=== PATIENT | male | born 1945 | race Caucasian/White ===

== ENCOUNTER → 2023-11-11 15:32 | Outpatient (REF) | payer OTHER, SELFPAY | LOC: HWRCS 15:32 | PROVIDERS: ATTENDING PHYSICIAN Internal Medicine Cardiovascular Disease; FAMILY PHYSICIAN Physician Assistant | DX: I10 Essential (primary) hypertension (principal) | CPT/HCPCS: 93306 ==

== ENCOUNTER → 2023-11-20 15:57 | Outpatient (REF) | payer OTHER, SELFPAY | LOC: HWRAD 15:57 | PROVIDERS: ATTENDING PHYSICIAN Internal Medicine; FAMILY PHYSICIAN Physician Assistant | DX: C49.9 Malignant neoplasm of connective and soft tissue, unspecified (principal) | CPT/HCPCS: 71250 ==

== ENCOUNTER 2024-01-29 20:08 | Inpatient (IN) | payer OTHER, SELFPAY ==
[2024-01-29] VITALS (22 sets, daily range): BP systolic 40–153; BP diastolic 49–138; BMI 26.3
--- NOTE | 2024-01-29 18:29 | EDRN ---
the pt was brought from triage to ED Bed #11 via w/c screaming in pain, this RN entered the pts room and the PCT was attempting to get the out of the w/c into the stretcher, the pt was yelling at staff, this RN told the pt that he needs to stop
yelling at staff and tell the ED staff how we can help him get into the stretcher from the w/c, the pt stated that he can bare weight on the right leg, this RN and Ally PCT assisted the pt from the w/c to the stretcher, the pt was placed on the
monitor and LAC PIV was placed, labs drawn and sent, the pt continues to scream in pain with pain in the left groin that shoots down the pts left leg, there is a large incision with sutures on the left thigh with two open wounds on the bottom of the
wound, the pts lower leg is swollen as well as the pts left ankle with edema, Chandra ROCK was notified and brought to the pts bedside, DP/PT pulses were obtained via doppler
[2024-01-29] MEDS: DILAUDID 1 MG IV ×2 (18:31→18:47)
--- NOTE | 2024-01-29 18:33 | EDRN ---
Dr. Patrick currently at the pts bedside speaking with the pt and the pts
[2024-01-29 18:34] LABS: % Basophils 0.4 % (0-2); % Eosinophils 1.3 % (0-6); % Immature Granulocytes 1.3 % (0-0.5); % Lymphocytes 27.9 % (20.5-51.1); % Monocytes 8.6 % (1.7-9.3); % Neutrophils 60.5 % (42.2-75.2); Absolute Basophils 0.1 10^3/uL (0-0.2); Absolute Eosinophils 0.2 10^3/uL (0-0.7); Absolute Immature Granulocytes 0.2 10^3/uL (0-0.05); Absolute Lymphocytes 3.8 10^3/uL (1.2-3.4); Absolute Monocytes 1.2 10^3/uL (0.1-0.6); Absolute Neutrophils 8.2 10^3/uL (1.4-6.5); Hematocrit 28.9 % (39.0-52.0); Hemoglobin 9.1 g/dL (13.0-18.0); Mean Corp Hgb Conc. 31.5 g/dL (33.0-37.0); Mean Corpuscular Hgb 25.9 pg (27.0-31.0); Mean Corpuscular Volume 82.1 fL (80.0-94.0); Mean Platelet Volume 9.8 fL (7.4-10.4); Nucleated Red Blood Cells % 0 % (-); Platelet Count 513 10^3/uL (130-400); Red Blood Cell Count 3.52 10^6/uL (4.70-6.10); Red Cell Dist. Width 18.2 % (11.5-14.5); White Blood Cell Count 13.6 10^3/uL (4.8-10.8)
[2024-01-29 18:44] LABS: INR 1.75; PT 20.6 Sec (11.4-14.6)
[2024-01-29 18:45] LABS: APTT 40.1 Sec (23.4-35.0)
--- NOTE | 2024-01-29 18:48 | EDRN ---
pt medication again for pain and taken to CT scan
--- NOTE | 2024-01-29 18:53 | ED.GENMED ---
History of Present Illness
<Chandra Wolf PA-C - Last Filed: 01/29/24 19:54>
General
Chief Complaint: Vascular Symptoms
Source: patient and family
Time Seen by Provider: 01/29/24 18:36
Travel History
Have you had any contact with someone who has COVID-19?: No
Do you have any symptoms of coronavirus? Fever > 100 degrees, chills, cough, shortness of breath, sore throat, loss of taste or smell, muscle aches, or headache?: No
History of Present Illness
History of Present Illness:
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
the left thigh associated with bleeding from the incisional site where his postop drain was removed from yesterday. No medications were given prior to arrival other than his pain medication postoperatively but that has been taking at home. Patient
reports that he had been doing well postoperatively however states that he is post to be readmitted to the hospital this coming Friday for surgical debridement of skin tissue and an. He was newly started on levofloxacin today by his general
surgeon. He was treated by vascular surgeon Dr. Muller and plastic surgeon Dr. Mckeon. Patient states that he has never had pain like this before. He denies any fevers, chills, rigors, chest pain or shortness of breath, cough or any other
concerns including weakness/numbness/paresthesia to the affected left leg.
Past History
<Chandra Wolf PA-C - Last Filed: 01/29/24 19:54>
Past History
ED Past Medical History: Cancer, HTN and Hypercholesterolemia
ED Past Surgical History: Cholecystectomy, Orthopedic, Urological and Other
Social History
Tobacco: Non-smoker
Alcohol: None
Drug: None
Personal:
Living: with family
Review of Systems
<Chandar Wolf PA-C - Last Filed: 01/29/24 19:54>
Review of Systems
All Other Systems: ROS reviewed and negative except as documented in HPI and ROS
Phy Exam
<Chandra Wolf PA-C - Last Filed: 01/29/24 19:54>
Physical Exam
Physical Exam:
GENERAL: Alert , patient yelling and writhing in pain
EYE: Clear conjunctiva
NECK: Supple
ENT: o/p clr, mmm.
CARDIAC: Tachycardic rate and rhythm
LUNGS: Clear breath sounds bilaterally, no acute respiratory distress, no wheezes/rales/rhonchi
ABDOMEN: Soft, without focal tenderness, no r/g, no cvat
NEUROLOGICAL: Alert and oriented, no focal neuro deficits
SKIN: Warm and dry, left thigh has large incisional wound without dehiscence extending from the left groin down to the distal thigh along the medial aspect. There is overlying erythema. Skin is somewhat taut and firm to palpation more so along the
medial aspect of the incision but there is not any increased pain to palpation of this area.
MUSCULOSKELETAL: Significant 3+ pitting edema to the left lower extremity which patient reports is baseline since surgery, palpable femoral, popliteal, PT and DP pulses which were all confirmed with Doppler
PSYCH: Normal and appropriate interaction.
Scores
<Chandra Wolf PA-C - Last Filed: 01/29/24 19:54>
Heart Failure Risk
Heart Failure Risk Score: Not Applicable
Heart Score for Chest Pain Patients
STEMI patient?: Not applicable
Withdrawal Assessment of Alcohol
Withdrawal Assessment Completed?: Not applicable
Course
<Chandra Wolf PA-C - Last Filed: 01/29/24 19:54>
Orders/Labs/Results
Orders:
Orders
01/29/24 18:26
Type+Screen Urgent
C-Reactive Protein Urgent
Complete Blood Count/With Diff Urgent
Comprehensive Metabolic Panel Urgent
01/29/24 18:27
PTT Urgent
Prothrombin Time Urgent
01/29/24 18:30
HYDROmorphone [Dilaudid] 1 mg .ROUTE .STK-MED ONE
HYDROmorphone [Dilaudid] 1 mg IV NOW STA
01/29/24 18:41
CT Abd Aorta Angio W/ Run Off Urgent
Comment:
Reason For Exam: severe left thigh pain, recent surgery, OK NO LABS
HYDROmorphone [Dilaudid] 1 mg .ROUTE .STK-MED ONE
HYDROmorphone [Dilaudid] 1 mg IV NOW STA
01/29/24 18:57
Fentanyl Citrate/Pf [Sublimaze] 100 mcg .ROUTE .STK-MED ONE
Fentanyl Citrate/Pf [Sublimaze] 100 mcg IV NOW STA
01/29/24 19:19
Fentanyl Citrate/Pf [Sublimaze] 25 mcg IV NOW STA
01/29/24 19:20
Fentanyl Citrate/Pf [Sublimaze] 100 mcg .ROUTE .STK-MED ONE
01/29/24 19:41
Piperacillin/Tazo 3.375 Gram [Zosyn] 3.375 gram in 50 ml IV NOW
01/29/24 19:46
Vancomycin [Vancocin] 2,000 mg 0.9% Sodium Chloride 500 ml [Nss] 500 ml IV NOW
01/29/24 19:50
Blood Culture Q30M
REBECCA Source: Blood/Venous
Specimen Description:
Blood Culture Q30M
REBECCA Source: Blood/Venous
Specimen Description:
Abnormal Lab Results
01/29/24 01/29/24
18:26 18:27
WBC 13.6 H 10^3/uL
(4.8-10.8)
RBC 3.52 L 10^6/uL
(4.70-6.10)
Hgb 9.1 L g/dL
(13.0-18.0)
Hct 28.9 L %
(39.0-52.0)
MCH 25.9 L pg
(27.0-31.0)
MCHC 31.5 L g/dL
(33.0-37.0)
RDW 18.2 H %
(11.5-14.5)
Plt Count 513 H 10^3/uL
(130-400)
Abs Immat Gran (auto) 0.2 H 10^3/uL
(0-0.05)
Absolute Neuts (auto) 8.2 H 10^3/uL
(1.4-6.5)
Absolute Lymphs (auto) 3.8 H 10^3/uL
(1.2-3.4)
Absolute Monos (auto) 1.2 H 10^3/uL
(0.1-0.6)
Immature Gran % 1.3 H %
(0-0.5)
PT 20.6 H Sec
(11.4-14.6)
APTT 40.1 H Sec
(23.4-35.0)
Sodium 134 L mmol/L
(135-145)
Carbon Dioxide 16 L mmol/L
(22-30)
BUN 23 H mg/dl
(9-20)
Glucose 231 H mg/dl
(70-99)
C-Reactive Protein 172.40 H mg/L
(0.0-10.00)
Total Protein 6.1 L g/dl
(6.3-8.2)
Albumin 2.7 L g/dl
(3.5-5.0)
01/29/24 18:26
01/29/24 18:26
Vital Signs
Initial and Last Documented VS:
Initial Vital Signs
Temp Pulse Resp BP Pulse Ox
36.5 C 64 20 95/72 97
01/29/24 18:15 01/29/24 18:15 01/29/24 18:15 01/29/24 18:15 01/29/24 18:15
Last Documented Vital Signs
Temp Pulse Resp BP Pulse Ox
35.8 C L 73 17 101/63 99
01/29/24 22:15 01/29/24 23:45 01/29/24 23:45 01/29/24 23:30 01/29/24 23:45
Chemical Unit Operator consulted with Physician
Chemical Unit Operator consulted with physician?: Yes
Name of Physician Consulted: Darnell
<Zack Patrick MD - Last Filed: 01/30/24 00:06>
Orders/Labs/Results
Orders:
Orders
01/29/24 18:26
Type+Screen Urgent
C-Reactive Protein Urgent
Complete Blood Count/With Diff Urgent
Comprehensive Metabolic Panel Urgent
01/29/24 18:27
PTT Urgent
Prothrombin Time Urgent
01/29/24 18:30
HYDROmorphone [Dilaudid] 1 mg .ROUTE .STK-MED ONE
HYDROmorphone [Dilaudid] 1 mg IV NOW STA
01/29/24 18:41
CT Abd Aorta Angio W/ Run Off Urgent
Comment:
Reason For Exam: severe left thigh pain, recent surgery, OK NO LABS
HYDROmorphone [Dilaudid] 1 mg .ROUTE .STK-MED ONE
HYDROmorphone [Dilaudid] 1 mg IV NOW STA
01/29/24 18:57
Fentanyl Citrate/Pf [Sublimaze] 100 mcg .ROUTE .STK-MED ONE
Fentanyl Citrate/Pf [Sublimaze] 100 mcg IV NOW STA
01/29/24 19:19
Fentanyl Citrate/Pf [Sublimaze] 25 mcg IV NOW STA
01/29/24 19:20
Fentanyl Citrate/Pf [Sublimaze] 100 mcg .ROUTE .STK-MED ONE
01/29/24 19:41
Piperacillin/Tazo 3.375 Gram [Zosyn] 3.375 gram in 50 ml IV NOW
01/29/24 19:46
Vancomycin [Vancocin] 2,000 mg 0.9% Sodium Chloride 500 ml [Nss] 500 ml IV NOW
01/29/24 19:50
Blood Culture Q30M
REBECCA Source: Blood/Venous
Specimen Description:
Blood Culture Q30M
REBECCA Source: Blood/Venous
Specimen Description:
Abnormal Lab Results
01/29/24 01/29/24
18:26 18:27
WBC 13.6 H 10^3/uL
(4.8-10.8)
RBC 3.52 L 10^6/uL
(4.70-6.10)
Hgb 9.1 L g/dL
(13.0-18.0)
Hct 28.9 L %
(39.0-52.0)
MCH 25.9 L pg
(27.0-31.0)
MCHC 31.5 L g/dL
(33.0-37.0)
RDW 18.2 H %
(11.5-14.5)
Plt Count 513 H 10^3/uL
(130-400)
Abs Immat Gran (auto) 0.2 H 10^3/uL
(0-0.05)
Absolute Neuts (auto) 8.2 H 10^3/uL
(1.4-6.5)
Absolute Lymphs (auto) 3.8 H 10^3/uL
(1.2-3.4)
Absolute Monos (auto) 1.2 H 10^3/uL
(0.1-0.6)
Immature Gran % 1.3 H %
(0-0.5)
PT 20.6 H Sec
(11.4-14.6)
APTT 40.1 H Sec
(23.4-35.0)
Sodium 134 L mmol/L
(135-145)
Carbon Dioxide 16 L mmol/L
(22-30)
BUN 23 H mg/dl
(9-20)
Glucose 231 H mg/dl
(70-99)
C-Reactive Protein 172.40 H mg/L
(0.0-10.00)
Total Protein 6.1 L g/dl
(6.3-8.2)
Albumin 2.7 L g/dl
(3.5-5.0)
01/29/24 18:26
01/29/24 18:26
Vital Signs
Initial and Last Documented VS:
Initial Vital Signs
Temp Pulse Resp BP Pulse Ox
36.5 C 64 20 95/72 97
01/29/24 18:15 01/29/24 18:15 01/29/24 18:15 01/29/24 18:15 01/29/24 18:15
Last Documented Vital Signs
Temp Pulse Resp BP Pulse Ox
35.8 C L 73 17 101/63 99
01/29/24 22:15 01/29/24 23:45 01/29/24 23:45 01/29/24 23:30 01/29/24 23:45
<Chandra Wolf PA-C - Last Filed: 01/29/24 19:54>
MDM/Problems Addressed
Differential Diagnosis Includes:
Acute arterial occlusion, surgical complication with bleeding wound, DVT, postop infection, necrotizing fasciitis
MDM/Problems Addressed:
78-year-old male presenting the ER via EMS for sudden onset pain to the left lower extremity in the setting of recent sarcoma removal with femoral vein ligation secondary to the mass overlying the femoral vein. Patient has been doing well pain martinez
operatively. States this pain is severe. Afebrile. Treated with Dilaudid secondary to his severe pain. Stat consult was placed to vascular surgery who requests a CTA of the abdomen/aorta with runoff. They will come to the ER to evaluate the
patient.
Chronic conditions affecting care: Cancer
<Chandra Wolf PA-C - Last Filed: 01/29/24 19:54>
*Pulse Oximetry
Patient hypoxic: no
*Critical Care Note
Total Time (30-74mins, 75-104mins- exclusive of procedures): Not Applicable
Data Reviewed
Review of Other/Old Records Reveals: Labs and Records
Source: patient, records and family
<hCandra Wolf PA-C - Last Filed: 01/29/24 19:54>
Patient Management
Discussion with other providers: Hospitalist and Can [facility]
Escalation/DeEscalation of care consider admission/obs:
Patient with persistent pain despite first dose of Dilaudid. Second dose of IV Dilaudid given prior to CT. Upon returning from CT patient is still writhing in pain and reports significant discomfort. 100 mcg of fentanyl ordered.
Patient with initially improved pain following the fentanyl but started to have pain again so an additional 25 mcg ordered. Vascular surgery at the bedside. Reviewed CT and while there is no evidence for acute arterial occlusion there is concern
for hematoma and deep space. Vascular surgery would like to take patient to the OR for washout. They are consenting patient for surgery. Vancomycin and Zosyn ordered in addition to blood cultures. Hospitalist team was notified and accepts for
continued evaluation and treatment.
ED Attending Note
<Chandra Wolf PA-C - Last Filed: 01/29/24 19:54>
-
Portions of this chart may have been created with voice recognition software.� Occasional wrong word or��sound alike� substitutions may have occurred due to the inherent limitations of voice recognition software.
<Zack Patrick MD - Last Filed: 01/30/24 00:06>
ED Attending Note
Patient seen and examined by attending physician: Yes
ED Attending Note:
I have seen and evaluated the patient with a [id number] encounter. I have spoken to the advance practicer provider and involved in the medical history, the physical exam, medical decision making.
Evaluation and management service: agree unless noted differently below.
Results interpretation: agree unless noted differently below.
Focused HPI: 78-year-old male with past medical history of hypertension, hyperlipidemia presents with his for evaluation of severe left leg pain. He notably had surgery 3 weeks ago on his left thigh�had resection of a mass by surgical
oncology. He has had swelling in the leg since the surgery but reports that tonight he had rather abrupt onset of severe pain in the left thigh. He has not noticed any increase swelling this evening or change in color. He says he did have some
slight drainage of blood mixed with what sounds like serous fluid from site of drain that was previously in place in the left thigh.
Physical exam: Patient is awake and alert and appears in moderate pain distress. He has strong palpable femoral and DP pulses in the left lower extremity. He does have +2 pitting edema in the left lower extremity. Left thigh is firm, indurated,
erythematous and diffusely tender anteriorly. He has a long surgical incision with sutures still in place with no active drainage. He has 2 small circular wounds on the distal anterior thigh where previous drains were placed. No active drainage
noted.
Medical Decision Makin-year-old male presents for acute onset left leg pain after recent surgery. Exam as above. No clear signs of arterial compromise but patient did have abrupt onset of symptoms. Differential would include acute hematoma
postoperatively, acute arterial thrombus, DVT somewhat less likely given abruptness of the change. Infection always a consideration after surgery. Case discussed with vascular to evaluate. Will send for CT with IV contrast. Check labs. Control
pain. Reassess after the above.
Labs show leukocytosis to 19.7, anemia 7.4. CMP shows mild hyponatremia. CT aorta with runoff showed no hematoma or active extra. He has large intramuscular hematoma. He has soft tissue gas in the left thigh which could be postoperative although
infection always a consideration. Case discussed with vascular surgery who evaluated the bedside�to take to the OR for emergent washout.
Discharge Plan
Departure
Patient Disposition: OR
Date of Disposition: 01/29/24
Time of Disposition: 19:45
Presentation/result/management discussed w/ accepting MD/DO: Hospitalist
Discharge Problem:
Postoperative wound infection, Anemia, Postoperative hematoma
Interventions
Interventions:
*Risk Screen - Suicide Last Done: 01/29/24 18:22
*General Assessment Last Done: 01/29/24 18:15
*Neglect/Abuse Screening Last Done: 01/29/24 18:22
ED- Fall Risk Assessment Last Done: 01/29/24 18:22
*ED COVID-19 Vaccine History Last Done: 01/29/24 18:22
*Nursing Disposition Last Done: 01/29/24 20:07
ED- Cardiac Assessment Last Done: 01/29/24 18:22
ED- Pulmonary Assessment Last Done: 01/29/24 18:22
ED-Peripheral Vascular Assessment Last Done: 01/29/24 18:22
ED-Skin Assessment Last Done: 01/29/24 18:22
Discharge Date and Time
Discharge Date/Time: 01/29/24 20:08
[2024-01-29 18:57] LABS: AST (SGOT) 40 U/L (17-59); Albumin 2.7 g/dl (3.5-5.0); Alkaline Phosphatase 108 U/L (38-126); Blood Urea Nitrogen 23 mg/dl (9-20); Carbon Dioxide 16 mmol/L (22-30); Chloride 99 mmol/L (98-107); Estimated Creatinine Clearance 67 ml/min; Glucose 231 mg/dl (70-99); Potassium 4.1 mmol/L (3.5-5.1); Sodium 134 mmol/L (135-145); Total Bilirubin 0.4 mg/dl (0.2-1.3); Total Protein 6.1 g/dl (6.3-8.2); eGFR > 60.00
[2024-01-29] MEDS: SUBLIMAZE 100 MCG IV (18:58)
--- NOTE | 2024-01-29 18:59 | EDRN ---
vascular surgeon currently at the [facility] bedside
--- NOTE | 2024-01-29 19:01 | EDRN ---
the pt was placed on 4L NC per the provider Chandra ROCK
[2024-01-29 19:07] LABS: ALT (SGPT) 34 U/L (0-50)
[2024-01-29] MEDS: SUBLIMAZE 25 MCG IV (19:23)
[2024-01-29] MEDS: ZOSYN 50 IV (19:51)
[2024-01-29] MEDS: VANCOCIN 540 MG IV (19:57)
--- NOTE | 2024-01-29 19:57 | CON.VAS ---
Consultation
Consultation Request
Performing Provider: [place]
Reason for Consultation: Left lower extremity swelling/bleeding
Medical History
-
Chief Complaint: Left lower extremity pain
History of Present Illness:
78-year-old male with recent (3 weeks ago) left thigh mass removed by surgical oncologist at [facility]. Also admission 09/06/2023 at [facility] for bilateral PEs and left lower extremity DVT. At that time the left thigh mass was found
and DVT was likely due to compression on the femoral vein. No surgical intervention was completed at that time. Plans were made for outpatient follow-up.
Since surgery 3 weeks ago patient has been doing well overall. Patient had a drain DC'd yesterday at his surgeon's office with no complications. Patient and family state this morning he was feeling his best since surgery and was able to use the
walker. Around lunchtime today patient was seated when suddenly he began having left thigh stabbing pains. Patient presented to the ER now for this new pain.
Vascular consult for left lower extremity swelling/bleeding (resolved). Patient seen in the ER with Dr. Downing.
Patient in 10 out of 10 pain at the left thigh to the left buttock. No tenderness to palpation. Palpable bilateral femoral, popliteal, and PT pulses. Doppler DP pulses. Bilateral feet warm, pink. <2 cap refill.
Patient states the swelling in his left leg is his baseline. Left thigh is firm beneath the swelling. Incisional site mildly pink, no drainage. Scant serous drainage at the old MARICHUY site. No bleeding noted. Patient is on Eliquis currently.
Patient thinks he might have some claudication at baseline but has not been walking enough to know. He currently denies cramping or rest pain.
Past Medical History
Past Medical History: Cancer, HTN, Hypercholesterolemia and Other (Left lower extremity DVT and bilateral PEs 09/06/2023)
Past Surgical History: Orthopedic and Other (Left thigh mass removed 3 weeks ago)
Social History
Tobacco: Non-Smoker
Alcohol: None
Drug: None
Living: With Family
Family History
Family History: Reviewed & Not Pertinent
Allergies / Home Medications
Allergy/AdvReac Type Severity Reaction Status Date / Time
No Known Allergies Allergy Verified 09/03/23 11:00
�Medication �Instructions �Recorded �Confirmed �Type
multivitamin 1 ea PO DAILY Supplement 10/06/20 01/29/24 History
apixaban 5 mg tablet (Eliquis) 5 mg PO BID 01/29/24 01/29/24 History
docusate sodium 100 mg capsule 100 mg PO BID 01/29/24 01/29/24 History
levofloxacin 500 mg tablet 500 mg PO DAILY 01/29/24 01/29/24 History
naproxen sodium 220 mg tablet 440 mg PO BID PRN mild pain 01/29/24 01/29/24 History
(Aleve)
oxycodone 5 mg tablet 5 mg PO Q4HPRN PRN moderate pain 01/29/24 01/29/24 History
pregabalin 75 mg capsule 75 mg PO BID 01/29/24 01/29/24 History
sennosides 8.6 mg tablet (Senna 8.6 mg PO DAILY 01/29/24 01/29/24 History
Laxative)
Review of Systems
-
History Source: Patient and Family
All other systems: Negative unless noted
Constitutional: Reports No Symptoms
EENT: Reports No Symptoms
Respiratory: Reports No Symptoms
Cardiac: Reports No Symptoms
Vascular: Reports Other (Left thigh pain); Denies Numbness or Tingling
Abdomen/GI: Reports No Symptoms
: Reports No Symptoms
Musculoskeletal: Reports Muscle Pain, Muscle Stiffness and Edema
Skin: Reports Other (Incisional site left thigh)
Neurological: Reports No Symptoms
Endocrine: Reports No Symptoms
Physical Exam
Vital Signs
Temp Pulse Resp BP Pulse Ox
97.7 F 111 31 120/80 100
01/29/24 18:15 01/29/24 18:37 01/29/24 18:37 01/29/24 18:37 01/29/24 18:24
Lab Results
01/29/24 18:26
01/29/24 18:26
Physical Exam
General: Pain
HEENT: Normocephalic and Atraumatic
Respiratory: Non Labored Respirations
Cardiac: Negative JVD
GI: Soft and Non Tender
Musculoskeletal: No Clubbing, No Cyanosis and Edema (Left toes to hip)
Skin: Warm and Other (Left medial thigh incisional site, 2 MARICHUY sites proximal to the knee)
Neuro: Awake, Alert and Oriented
Psych: Calm
Pulses: Bilateral Femoral: +2, Bilateral Popliteal: +1, Bilateral Dorsalis Pedis: Doppler and Bilateral Posterior Tibial: +1
Assessment / Plan
-
78-year-old male with new onset 10 out of 10 left thigh pain
CTA shows no extravasation/bleed, Soft tissue gas is presumably postoperative but superimposed infection is not excluded.
Plan:
-OR emergently for thigh washout
-Admit to medicine
Data Reviewed
-
CT Scan: Discussed with Patient
Labs: Labs Reviewed by me
--- NOTE | 2024-01-29 20:18 | HPS.HSE ---
Family Physician
-
Family Physician: Shahbaz Sykes
Chief Complaint
-
Left lower extremity pain
History of Present Illness
Patient 78 years old male with past medical history prostate cancer, hyperlipidemia, DVT/PE, left lower extremity mass status postsurgical removal about 3 weeks ago presented to the hospital with increased pain and swelling in the left lower
extremity. Patient had a mass on the left lower extremity at the level of his thigh that was surgically excised 3 weeks ago at [facility] and also had DVT and treated with anticoagulation. 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
ligation with subsequent deep space infection. He has been on oral antibiotics with Levaquin since yesterday. Patient has been noticing increased pain over the last several days, pain has been fluctuating since surgery that he had a follow-up with
his surgeon with no issues and drain removal but today he began to have stabbing severe pain and also noticed bleeding where the drain was removed. Pain continues to get worse over time on the left thigh radiating to the left buttock and decided to
come to the hospital for further evaluation. Patient has been ambulating with a walker. Denies fevers or chills. Denies nausea or vomiting. Denies abdominal pain. He had a hospitalization here back in August where she was treated for PE and
had the left lower extremity mass evaluated. Last echocardiogram in our system November 10 this year EF 55 to 60%, normal diastolic function, trace aortic insufficiency, mildly dilated ascending aorta 4 cm. Here in the ER, white blood cell count 13.6,
hemoglobin 9.1, bicarb of 16. He had a CT scan that shows postoperative changes in the anterior thigh compatible with intramuscular hematoma but also soft tissue gas presumably postop but superimposed infection not excluded and bilateral
three-vessel runoff with moderate atherosclerosis throughout both lower extremities. Vascular surgery consulted [facility] Hospitalist consulted for further evaluation and admission.
Medical History
Past Medical History
Past Medical History: Reports Other (Left lower extremity thigh mass, DVT/PE, anemia, prostate cancer status post prostatectomy in the past, dyslipidemia.)
Past Surgical History: Reports Other (Left thigh mass removed.)
Social History
Tobacco: Non-smoker
Alcohol: None
Drug: None
Family History
Family History: Not pertinent
Allergies / Home Medications
Allergies reflects when Allergies were last updated in [employer].
Home Medications with original date entered in [employer]
Allergy/Medication List:
Allergies
Allergy/AdvReac Type Severity Reaction Status Date / Time
No Known Allergies Allergy Verified 09/03/23 11:00
Home Medications
multivitamin 1 ea PO DAILY Supplement 10/06/20
apixaban 5 mg tablet (Eliquis) 5 mg PO BID 01/29/24
docusate sodium 100 mg capsule 100 mg PO BID 01/29/24
levofloxacin 500 mg tablet 500 mg PO DAILY 01/29/24
naproxen sodium 220 mg tablet (Aleve) 440 mg PO BID PRN mild pain 01/29/24
oxycodone 5 mg tablet 5 mg PO Q4HPRN PRN moderate pain 01/29/24
pregabalin 75 mg capsule 75 mg PO BID 01/29/24
sennosides 8.6 mg tablet (Senna Laxative) 8.6 mg PO DAILY 01/29/24
Review of Systems
-
A 12 point ROS was completed and negative except as noted: Yes
Physical Exam
Vital Signs
Vital Signs
Temp Pulse Resp BP Pulse Ox
97.7 F 111 31 120/80 100
01/29/24 18:15 01/29/24 18:37 01/29/24 18:37 01/29/24 18:37 01/29/24 18:24
Physical exam:
General: Acutely ill
HEENT: Normocephalic, Atraumatic and Moist Mucous Membranes
Respiratory: Clear to Auscultation; Negative Wheezes, Rales or Rhonchi
Cardiac: Regular Rhythm and S1/S2
GI: Soft, Nontender and Nondistended
Musculoskeletal: Left lower extremity incision and medial thigh with tenderness on palpation and edema on his whole left lower extremity and mild bloody drainage from drain removal. Not much of erythema. No Clubbing, No Cyanosis.
Neuro: Awake, Alert and Oriented, no gross neuro-deficits.
Psych: Anxious
Physical Exam
General: Other
Laboratory Results
-
01/29/24 18:26
01/29/24 18:
Laboratory Results
PT 20.6 Sec (11.4-14.6) H 01/29/24 18:27
INR 1.75 01/29/24 18:
APTT 40.1 Sec (23.4-35.0) H 01/29/24 18:
Total Bilirubin 0.4 mg/dl (0.2-1.3) 01/29/24 18:
AST 40 U/L (17-59) 01/29/24 18:
ALT 34 U/L (0-50) 01/29/24 18:26
Alkaline Phosphatase 108 U/L (38-126) 01/29/24 18:26
Data Reviewed
-
CT Scan: Image Personally Visualized and interpreted
Lab Data: Labs Reviewed by me
Impression/Plan
-
IMPRESSION:
Patient 78 years old male with a left thigh mass status post surgical excision and postop pain and bleeding concerns for infected hematoma. Patient increased risk of morbidity mortality therefore needs to be in the hospital for further management
and evaluation.
CT scan of the abdomen and lower extremities:
1. No CTA evidence for active arterial contrast extravasation.
2. Postoperative changes of the right anterior thigh with expansile enlargement of the quadriceps and adductor musculature. Findings are most compatible with intramuscular hematoma. The presence of residual neoplasm would be difficult to
differentiate from hematoma on this exam. Soft tissue gas is presumably postoperative but superimposed infection is not excluded.
3. Patent bilateral 3 vessel runoffs with moderate atherosclerosis throughout both lower extremities.
4. 5 mm solid pleural-based pulmonary nodule in the right lower lobe with slight enlargement compared to the previous chest CT. Consider a follow-up chest CT in 3-6 months for reevaluation.
PLAN:
Left thigh infected hematoma:
Admit to ICU
Patient postop 3 weeks ago at [facility]
He had been treated by vascular surgeon Dr. Muller and plastic surgeon Dr. Mckeon
Keep n.p.o.
IV fluids, NS
Pain control, Dilaudid 1 mg every 3 hours as needed for severe pain. Oxycodone if able to take oral.
IV antibiotics, IV cefepime and vancomycin
CRP elevated at 172
Bowel regimen
Hold anticoagulation due to concerns for hematoma
Vascular surgery consulted Dr. Downing and he will be taken to the OR emergently for thigh washout tonight.
Swimming Professor consulted.
DVT/PE:
On Eliquis as outpatient.
Anticoagulants on hold.
Will start heparin drip when safe to do by surgery
Anemia:
Hemoglobin 9.1 upon presentation with MCV of 82.1
Continue to monitor hemoglobin closely
Hyponatremia:
Mild at 134
Monitor in a.m.
Hyperglycemia:
Last hemoglobin A1c 6.6 on August 2023
Check hemoglobin A1c in a.m.
Check fasting blood sugar in a.m.
DVT prophylaxis:
Hold off on pharmacological or mechanical prophylaxis until after surgery.
CODE STATUS:
Full code
Time spent 75 minutes.
--- NOTE | 2024-01-29 20:54 | W.SUR.POST ---
Surgical Immediate Post Op
Note
Pre Op Diagnosis: left thigh infection
Post Op Diagnosis: same
Procedure Performed: Left thigh washout, VAC placement
Primary Surgeon: [place]
Secondary Surgeons: Elisa PGY1
Anesthesia: general
Estimated Blood Loss: 20cc
Fluids: see anesthesia flow sheet
Drains/Shunts: MARICHUY drain left thigh
Specimens/Cultures: hematoma, cultures
Doppler/Duplex/Angio (Y/N): N
Complications: none
Operative Findings: 400cc hematoma, VAC placement
[2024-01-29] MEDS: NSS 1000 IV (21:37)
[2024-01-29 21:44] LABS: Hematocrit 23.4 % (39.0-52.0); Hemoglobin 7.4 g/dL (13.0-18.0); Mean Corp Hgb Conc. 31.6 g/dL (33.0-37.0); Mean Corpuscular Hgb 26.1 pg (27.0-31.0); Mean Corpuscular Volume 82.7 fL (80.0-94.0); Platelet Count 347 10^3/uL (130-400); Red Blood Cell Count 2.83 10^6/uL (4.70-6.10); Red Cell Dist. Width 17.8 % (11.5-14.5); White Blood Cell Count 19.7 10^3/uL (4.8-10.8)
--- NOTE | 2024-01-29 21:50 | PTCARENOTE ---
pt to ICU from PACU, aaox3, [place] CRUZ, SR HR 80s, Sat 100% on 2LNC, denies pain, LLE with wound vac and MARICHUY intact-- small amt bloody drainage to both. LLE pulses + by doppler, +4 edema- pt states Left leg is swollen at baseline. B/L IV patent- NSS
infusing per work list. Draper catheter draining clear yellow urine. CHG cloths, repositioned, family in to bedside. call brody with pt.
[2024-01-29 21:54] LABS: PT 24.7 Sec (11.4-14.6)
[2024-01-29 22:09] LABS: Blood Urea Nitrogen 26 mg/dl (9-20); Carbon Dioxide 24 mmol/L (22-30); Chloride 101 mmol/L (98-107); Estimated Creatinine Clearance 75 ml/min; Glucose 185 mg/dl (70-99); Potassium 4.6 mmol/L (3.5-5.1); Sodium 131 mmol/L (135-145); eGFR > 60.00
[2024-01-29 22:12] LABS: APTT > 200 Sec (23.4-35.0)
[2024-01-29] MEDS: STERILE WATER FOR INJECTION 10 ML IV (23:23)
[2024-01-29] MEDS: MAXIPIME 1000 MG IV (23:23)
[2024-01-30] VITALS (25 sets, daily range): BP systolic 92–117; BP diastolic 49–84; BMI 26.8
--- NOTE | 2024-01-30 03:00 | PTCARENOTE ---
no changes in pt assessment.
[2024-01-30 05:23] LABS: % Basophils 0.1 % (0-2); % Monocytes 2.3 % (1.7-9.3); % Neutrophils 90.6 % (42.2-75.2); Absolute Immature Granulocytes 0.2 10^3/uL (0-0.05); Absolute Lymphocytes 0.9 10^3/uL (1.2-3.4); Absolute Monocytes 0.4 10^3/uL (0.1-0.6); Hematocrit 22.4 % (39.0-52.0); Mean Corp Hgb Conc. 31.3 g/dL (33.0-37.0); Mean Corpuscular Hgb 25.8 pg (27.0-31.0); Mean Corpuscular Volume 82.7 fL (80.0-94.0); Mean Platelet Volume 9.9 fL (7.4-10.4); Nucleated Red Blood Cells % 0 % (-); Platelet Count 312 10^3/uL (130-400); Red Blood Cell Count 2.71 10^6/uL (4.70-6.10); White Blood Cell Count 15.5 10^3/uL (4.8-10.8)
[2024-01-30 05:35] LABS: INR 1.54; PT 18.6 Sec (11.4-14.6)
[2024-01-30 05:36] LABS: APTT 47.6 Sec (23.4-35.0)
[2024-01-30 05:38] LABS: Blood Urea Nitrogen 26 mg/dl (9-20); Carbon Dioxide 25 mmol/L (22-30); Chloride 103 mmol/L (98-107); Estimated Creatinine Clearance 75 ml/min; Glucose 224 mg/dl (70-99); Magnesium 2.1 mg/dl (1.6-2.3); Phosphorus 5.4 mg/dl (2.5-4.5); Potassium 5.3 mmol/L (3.5-5.1); Sodium 134 mmol/L (135-145); eGFR > 60.00
[2024-01-30 05:57] LABS: Vancomycin Random 14.4 ug/ml
[2024-01-30] MEDS: DILAUDID 1 MG IV (06:01)
--- NOTE | 2024-01-30 07:52 | W.PN.HOSP.TC ---
Today's Communication/Plan
-
IV Vanc/Cefepime
F/U OR cultures
Transfuse one unit blood
monitor K
ISS
Assessment / Plan
Assessment / Plan
Mr. 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
with increased pain and swelling in the left lower extremity.
CTA 01/28
IMPRESSION:
1. No CTA evidence for active arterial contrast extravasation.
2. Postoperative changes of the right anterior thigh with expansile enlargement of the quadriceps and adductor musculature. Findings are most compatible with intramuscular hematoma. The presence of residual neoplasm would be difficult to
differentiate from hematoma on this exam. Soft tissue gas is presumably postoperative but superimposed infection is not excluded.
3. Patent bilateral 3 vessel runoffs with moderate atherosclerosis throughout both lower extremities.
4. 5 mm solid pleural-based pulmonary nodule in the right lower lobe with slight enlargement compared to the previous chest CT. Consider a follow-up chest CT in 3-6 months for reevaluation.
Operative Report 01/28
Pre Op Diagnosis: left thigh infection
Post Op Diagnosis: same
Procedure Performed: Left thigh washout, VAC placement
Left thigh infected hematoma
-s/p OR evening 01/28 with left thigh washout and VAC placement
-admitted to ICU post-op
-IVF
-pain control
- IV cefepime and vancomycin
-Hold anticoagulation
-F/U intraop cultures
DM
Hyperglycemia
-ISS low
Acute blood loss anemia
-Hg 7 this AM will transfuse one unit
DVT/PE:
On Eliquis as outpatient.
Anticoagulants on hold.
Will start heparin drip when safe to do by surgery
Anemia:
Hemoglobin 9.1 upon presentation with MCV of 82.1
Continue to monitor hemoglobin closely
Hyponatremia:
Mild at 134
Hyperglycemia:
Last hemoglobin A1c 6.6 on August 2023
Check hemoglobin A1c in a.m.
Check fasting blood sugar in a.m.
DVT prophylaxis:
Hold off on pharmacological or mechanical prophylaxis until after surgery.
CODE STATUS:
Full code
Time spent 51 minutes
Anticipated Discharge: > 48 hours
Subjective/Interval History
-
Date of Service: January 30, 2024
pain controlled
no chest pain or shortness of breath
Objective Data
-
Labs:
Laboratory Results
01/29/24 01/30/24
21:37 05:12
WBC 19.7 H 15.5 H
Hgb 7.4 L 7.0 L
Hct 23.4 L 22.4 L
Plt Count 347 D 312
PT 24.7 H 18.6 H
INR 2.20 1.54
APTT > 200 H* 47.6 H
Sodium 131 L 134 L
Potassium 4.6 5.3 H
Chloride 101 103
Carbon Dioxide 24 25
BUN 26 H 26 H
Creatinine 0.8 0.8
Glucose 185 H 224 H
Calcium 8.0 L 8.0 L
Vital Signs:
Vital Signs
Temp Pulse Resp BP Pulse Ox
97.4 F 69 15 95/78 94
01/30/24 07:27 01/30/24 06:30 01/30/24 06:30 01/30/24 06:00 01/30/24 06:30
I&O
01/29/24 01/30/24 01/31/24
06:59 06:59 06:59
Intake Total 1020 / 1020
Output Total 800 / 800
Balance 220 / 220
Review of Systems
-
History Source: Patient
All other systems: Reviewed and negative
Physical Exam
-
General: No Apparent Distress
HEENT: PERRLA
Respiratory: Clear to Auscultation; Negative Wheezes
Cardiac: Regular Rhythm and S1/S2
GI: Soft and Nontender
Musculoskeletal: No Edema
Skin: Warm and Dry; Negative Rash
Neuro: AO x 3
Psych: Calm
Data Reviewed
-
Diagnostic Radiology: Report Reviewed by me
Labs: Labs Reviewed by me
--- NOTE | 2024-01-30 08:33 | W.PN.VS ---
Addendum entered and electronically signed by Juan Azar III, MD 01/30/24 14:11:
This patient was seen and examined with TYRONE Mcnamara and TYRONE Sosa. I agree with the history and physical exam as well as the assessment and plan. I have the following additions:
VAC in place and holding suction
Drain is serosanguineous
Comfortable
Left lower extremity edematous, pitting
Foot warm
Will plan to initiate transfer to [facility] as patient's surgical team is there and he will likely need additional management of the left thigh with muscle flap coverage
He is comfortable with this plan
Signed:
Juan Azar III, MD
[facility] Vascular Surgery
[phone] (vdfe)
Original Note:
Today's Communication / Plan
-
Seen and assessed with Dr. Azar
Assessment/Plan
-
POD 1 left thigh washout with wound VAC placement
Plan:
-MILA azar
-Transfer to [facility]
Subjective Data
-
Date of Service: January 30, 2024
Patient seen at bedside this a.m. with Dr. Azar. Patient offers no complaints at this time. VAC intact. No events overnight
Objective Data
-
Vital Signs
Temp Pulse Resp BP Pulse Ox
97.4 F 69 15 95/78 94
01/30/24 07:27 01/30/24 06:30 01/30/24 06:30 01/30/24 06:00 01/30/24 06:30
Intake and Output
01/29/24 01/30/24 01/31/24
06:59 06:59 06:59
Intake Total 1020 / 1020
Output Total 800 / 800
Balance 220 / 220
Intake:
IV fluids (Total) 1020 / 1020
Normosol 300 / 300
Nss 1,000 ml @ 80 mls/hr IV . 720 / 720
[id number] [facility] Rx#:[id number]
Output:
Drain Output (Total) 175 / 175
Left Lower Leg Kang-Carney 175 / 175
Urine, Azar 625 / 625
Lab Results
01/30/24 12:00
Calcium 8.0 mg/dl (8.4-10.2) L 01/30/24 05:12
Phosphorus 5.4 mg/dl (2.5-4.5) H 01/30/24 05:12
Magnesium 2.1 mg/dl (1.6-2.3) 01/30/24 05:12
Total Bilirubin 0.4 mg/dl (0.2-1.3) 01/29/24 18:26
AST 40 U/L (17-59) 01/29/24 18:26
ALT 34 U/L (0-50) 01/29/24 18:26
Alkaline Phosphatase 108 U/L (38-126) 01/29/24 18:26
Total Protein 6.1 g/dl (6.3-8.2) L 01/29/24 18:26
Albumin 2.7 g/dl (3.5-5.0) L 01/29/24 18:26
Physical Exam
-
AAOx3
No tachypnea
No tachycardia
Abdomen soft
Left thigh VAC in place, no leak
MARICHUY drain intact
bilateral feet warm
Left leg edematous from toes to hip (unchanged)
Thigh and much softer
--- NOTE | 2024-01-30 08:34 | PTCARENOTE ---
Addendum entered by Rosa Mancera RN 01/30/24 09:27:
unit PRBC initiated without signs transfusion reaction
Original Note:
report received, assessments per work list. monitor nsr, lungs clear on room air. right leg with +4 edema, pitting. Doppler pulses bilaterally. left groin wound vac in place@125mmhg. Draper draining clear yellow urine. MARICHUY in place, serous sanguinous
drainage. hospitalist and vascular team in to see patient. orders received. call brody in reach
[2024-01-30 09:11] LABS: Glycohemoglobin (HgbA1c) 6.6 % (4.0-5.6)
--- NOTE | 2024-01-30 09:26 | PHA.VAN.IN ---
Assessment
- Assessment
Renal Function: Appears similar to baseline
Concomitant Antimicrobials: cefepime
Laboratory Tests
01/30/24
05:12
Random Vancomycin 14.4
Drawn ~9H after 2g loading dose
AUC Dosing Plan
- Dosing Variables
Dosing Weight (kg): 80
Dosing CrCl (ml/min): 75
Vd coefficient (L/kg): 0.7
- Empiric Dosing
Initial / Loading Dose: 2000mg - 01/28 19:57
Maintenance Regimen: Vanc 750mg Q12H - first dose now then 1800
Estimated AUC (mcg*h/mL): 415
Estimated Peak (mcg*h/mL): 24.3
Estimated Trough (mcg/ml): 11.7
Estimated Half Life (H): 10.4
- Monitoring
No levels ordered at this time: consider levels in next few days
Pharmacokinetics Vancomycin I
- -
Patient Age: 78
Patient Sex: Male
Vancomycin Day #: 1
Indication: Skin And Soft Tissue
Requesting Provider: Dr. Araujo
Pertinent Antimicrobial Allergies:
NKDA
Height / Weight:
Height 5 ft 8 in
Actual Weight 79.9 kg
Pertinent Past Medical History: DM
- Vital Signs / Lab Results
Temp Pulse Resp BP Pulse Ox
97.8 F 81 24 115/65 97
01/30/24 09:23 01/30/24 09:23 01/30/24 09:23 01/30/24 09:23 01/30/24 09:23
Lab Results - Hematology
01/29/24 01/29/24 01/30/24
18:26 21:37 05:12
WBC 13.6 H 19.7 H 15.5 H
Lab Results - Chemistry
01/29/24 01/29/24 01/30/24
18:26 21:37 05:12
BUN 23 H 26 H 26 H
Creatinine 0.9 0.8 0.8
Estimated Creat Clear 67 75 75
Albumin 2.7 L
[2024-01-30] MEDS: VANCOCIN 200 IV ×2 (10:12→18:51)
[2024-01-30] MEDS: STERILE WATER FOR INJECTION 10 ML IV ×2 (10:12→22:35)
[2024-01-30] MEDS: MAXIPIME 1000 MG IV ×2 (10:12→22:22)
--- NOTE | 2024-01-30 10:22 | W.PN.UPDATE ---
Update Note
Progress Note Update
Patient had scheduled surgery for washout and muscle flap reconstruction with Dr. Bradley and Dr. Mckeon at [facility] on Thursday 02/01. He is accepted back. I discussed case with hospitalist, Dr. Nieto. He will be speaking to surgeons to
determine what service patient will be admitted to; either way he is accepted back. Consent forms signed.
--- NOTE | 2024-01-30 10:59 | W.DCSUMMARY ---
Addendum entered and electronically signed by Maryana Kong MD 02/01/24 11:17:
Date of Transfer 01/31:
Today's Progress Note:
Left thigh infected hematoma
Sepsis 2/2 Above
-s/p OR evening 01/28 with left thigh washout and VAC placement
-admitted to ICU post-op, now telemetry status. Did not require pressors
-wound culture with Enterococcus (Prelim, awaiting sensitivities)
-continue IV Vanc/Cefepime while awaiting final culture
-leukocytosis resolved
-Hold anticoagulation
-for transfer to [facility] for scheduled PRS muscle flap
-bedrest with LLE compression wrap per vascular
DM
Hyperglycemia
-ISS low
-patient is diet controlled
-A1c 6.6%
Acute blood loss anemia
-Hg 7 on morning of 01/29
-s/p 2 units PRBC 01/29
-Hg this morning 01/31 8.2, stable from yesterday (8.4)
DVT/PE:
On Eliquis as outpatient.
Anticoagulants on hold for upcoming surgery
Hyponatremia:
Mild at 134
DVT prophylaxis: Lovenox subQ started 01/30 OK'd by vascular. (last dose 01/31 10AM)
Addendum entered and electronically signed by Maryana Kong MD 02/01/24 11:16:
4. 5 mm solid pleural-based pulmonary nodule in the right lower lobe with slight enlargement compared to the previous chest CT.
Consider a follow-up chest CT in 3-6 months for reevaluation.
-to be monitored by patient's Oncology team
Addendum entered and electronically signed by Maryana Kong MD 01/30/24 13:11:
Repeat Hg 7.6; will transfuse an additional unit especially with upcoming surgery.
Original Note:
Discharge Summary
Discharge Data
Date of Admission: 01/29/24
Date of Discharge: 01/30/24
-
Pending Results: Yes (intra-op cultures )
Hospital Course
Discharging Physician : Dr. Maryana Kong
Disposition : Acute Care Hosp[facility] - [facility]
Primary care physician : Dr. Shahbaz Sykes
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
Hospital Course :
Mr. Gerry Green is a 78 yo man with past medical history prostate cancer, hyperlipidemia, DVT/PE, DM (managed with diet with A1c 6.6%), left lower extremity mass/sarcoma status post surgical removal 3 weeks ago with finding deep space infection
s/p course of Levaquin presents to the ER with increased pain and swelling in the left lower extremity. Triage vitals with stable BP, tachycardic and tachypneic. Labs with elevated WBC, normal renal function. CT A/P obtained which showing no
active arterial contrast extravasation, findings consistent with intramuscular hematoma. Soft tissue gas may be postoperative versus superimposed infection. Patient was admitted to medicine, taken urgently to OR by Vascular Surgery s/p left thigh
washout and VAC placement.
Patient admitted to ICU post-op, stable overnight without need for pressors. He has been kept on IV Vanc/Cefepime. Labs this AM notable for K 5.3, creatinine 0.8, Hg 7. He is ordered for one unit PRBC, low K diet with close monitoring of
hemoglobin and potassium today.
He has been cleared for diet by surgery, started on diabetic low K diet.
His anticoagulation remains on hold.
Given plan for surgery for Thursday 02/01 at [facility] patient is transferred to this facility. Case discussed with patient's surgeons, Dr. Bradley and Dr. Mckeon.
Time spent on discharge 45 minutes.
Important imaging findings :
CTA 01/28
IMPRESSION:
1. No CTA evidence for active arterial contrast extravasation.
2. Postoperative changes of the right anterior thigh with expansile enlargement of the quadriceps and adductor musculature. Findings are most compatible with intramuscular hematoma. The presence of residual neoplasm would be difficult to
differentiate from hematoma on this exam. Soft tissue gas is presumably postoperative but superimposed infection is not excluded.
3. Patent bilateral 3 vessel runoffs with moderate atherosclerosis throughout both lower extremities.
4. 5 mm solid pleural-based pulmonary nodule in the right lower lobe with slight enlargement compared to the previous chest CT. Consider a follow-up chest CT in 3-6 months for reevaluation.
Procedure findings :
Operative Report 01/28
Pre Op Diagnosis: left thigh infection
Post Op Diagnosis: same
Procedure Performed: Left thigh washout, VAC placement
Discharge Plan
-
Patient Disposition: Acute Care Hospital
Condition: Fair
Discharge Orders:
Discharge Patient (As Directed); Ordered 01/30/24
Ordered By: Maryana Kong
Discharge Date and Time
Print Language: SAMI
--- NOTE | 2024-01-30 11:11 | PTCARENOTE ---
Bonny removed per vascular/protocol. transfer to [facility] level of care. for transfer to [facility]. monitor with frequent PVC. hospitalist updated by slava text. mag added to am labs. for redraw labs post transfusion. patient to remain bedrest at
this time per vascular [employer]SEKEEPING ASSOCIATE Cook
--- NOTE | 2024-01-30 11:54 | CM ---
CM following re: discharge planning.
Reviewed pt;s chart, met with pt.
Pt is a 78 year old male, admitted with primary dx of POD 1 left thigh washout with wound VAC placement.
Pt reports he lives with SO in a 2SH, 3 steps to enter, has 2 supportive children. Pt described himself as independent in all areas [employer], drives. No DME, VN or SNF history. Pt stated heis surgery is scheduled at [facility] on Friday and pt
is aware he will be transferred to [facility].
PCP: Shahbaz Sykes
Pharmacy: [facility]
D/c plan: transfer to [facility].
CM will follow to assist pt with transferring to [facility].
[2024-01-30] MEDS: NOVOLOG FLEXPEN-LOW RESISTANCE 2 UNITS SC ×2 (11:57→18:50)
--- NOTE | 2024-01-30 12:02 | CON.INTV ---
Consultation
Consultation Request
Date/Time Consultation Requested: 01/30/2024
Date/Time Consultation Performed: 01/30/2024
Requesting Provider: Dr. Kong
Performing Provider: Dr. Pk Brown
Reason for Consultation: Infected postoperative left groin hematoma
Medical History
-
History of Present Illness:
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 He has chronic left lower extremity swelling post surgery. Surgery occurred at
[facility]. Prior to this he was diagnosed with a DVT/PE treated with anticoagulation. Per surgical records apparently femoral vein was ligated. Developed a deep space infection. Underwent debridement once.
He was started on antibiotics few days prior admission due to worsening symptoms. For the last day or so he noticed significant worsening of groin pain what prompted him to come to the emergency room. He was not able to ambulate properly.
He was found to have a leukocytosis. A CT scan of the area showed anterior thigh compatible with intramuscular hematoma but also soft tissue gas possibly postoperatively. Infection cannot be excluded.
He was seen by vascular surgery in the emergency room. He was taken to the OR 613 2023, underwent left thigh washout with VAC placement.
Currently in the critical care unit. Hemodynamically stable overnight.
Pain is controlled.
Has not required vasopressors.
Denies shortness of breath.
Denies nausea or vomiting.
Tolerated surgery well.
Past Medical History
Past Medical History: Other (See assessment and plan section)
Social History
Tobacco: Non-smoker
Alcohol: None
Drug: None
Family History
Family History: Reviewed & Not Pertinent
Allergies / Home Medications
Allergies
Allergy/AdvReac Type Severity Reaction Status Date / Time
No Known Allergies Allergy Verified 09/03/23 11:00
Home Medications
�Medication �Instructions �Recorded �Confirmed �Last Taken �Type
multivitamin 1 ea PO DAILY Supplement 10/06/20 01/29/24 01/29/24 History
apixaban 5 mg tablet (Eliquis) 5 mg PO BID Blood Clot 01/29/24 01/29/24 01/29/24 History
Prevention/Tx
docusate sodium 100 mg capsule 100 mg PO BID Constipation 01/29/24 01/29/24 01/29/24 History
levofloxacin 500 mg tablet 500 mg PO DAILY Infection 01/29/24 01/29/24 01/29/24 History
naproxen sodium 220 mg tablet 440 mg PO BID PRN mild pain 01/29/24 01/29/24 01/29/24 14:00 History
(Aleve)
oxycodone 5 mg tablet 5 mg PO Q4HPRN PRN moderate pain 01/29/24 01/29/24 Unknown History
pregabalin 75 mg capsule 75 mg PO BID Pain 01/29/24 01/29/24 01/29/24 History
sennosides 8.6 mg tablet (Senna 8.6 mg PO DAILY Constipation 01/29/24 01/29/24 01/29/24 History
Laxative)
Review of Systems
-
History Source: Patient
All other systems: Negative unless noted
Vitals / Labs / Diagnostic Testing
Vital Signs
Temp Pulse Resp BP Pulse Ox
97.7 F 81 24 104/61 100
01/30/24 11:01 01/30/24 10:30 01/30/24 10:30 01/30/24 10:00 01/30/24 10:30
Lab Data
01/30/24 12:00
Laboratory Results
01/29/24 01/29/24 01/30/24
18:27 21:37 05:12
PT 20.6 H 24.7 H 18.6 H
INR 1.75 2.20 1.54
APTT 40.1 H > 200 H* 47.6 H
Microbiology
01/29/24 21:15 Leg - Left Gram Stain - Preliminary
Diagnostic Testing:
Physical Exam
-
HEENT: Normocephalic
Cardiovascular: S1/S2, Regular Rhythm and Other (Left lower extremity edema)
Respiratory: Clear and Non-Labored Respirations
GI: Soft and Non Distended
Neurology: Awake, Alert, Oriented and AO x 3
Skin: Other (Left groin VAC in place.)
Assessment
-
Left thigh hematoma: Possibly infected
Status post washout 01/29/2024 by vascular surgery-VAC in place
CT scan of the abdomen and lower extremities:
1. No CTA evidence for active arterial contrast extravasation.
2. Postoperative changes of the right anterior thigh with expansile enlargement of the quadriceps and adductor musculature. Findings are most compatible with intramuscular hematoma. The presence of residual neoplasm would be difficult to
differentiate from hematoma on this exam. Soft tissue gas is presumably postoperative but superimposed infection is not excluded.
3. Patent bilateral 3 vessel runoffs with moderate atherosclerosis throughout both lower extremities.
4. 5 mm solid pleural-based pulmonary nodule in the right lower lobe with slight enlargement compared to the previous chest CT. Consider a follow-up chest CT in 3-6 months for reevaluation.
Conditions present prior admission:
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
Complicated by infection
History of DVT/PE provoked by above
History of prostate cancer post prostatectomy
Dyslipidemia
Assessment and plan:
Patient tolerated left thigh washout and VAC placement well.
Hemodynamically stable.
Afebrile.
Pain is relatively well-controlled: Continue narcotics. Watch respiratory status closely.
Cultures were sent
Continue antibiotics
Restart anticoagulation when safe from the surgical perspective
It is noted that the patient will be transferred back to [facility] today.
Critical care team will sign off.
[2024-01-30] MEDS: ROXICODONE 5 MG PO ×3 (12:05→23:33)
[2024-01-30 12:06] LABS: Glucose - Point of Care 245 mg/dl (70-99)
[2024-01-30] MEDS: MIRALAX 17 GRAMS PO (12:11)
[2024-01-30] MEDS: SENOKOT-S 1 TABLET PO (12:11)
--- NOTE | 2024-01-30 12:45 | PTCARENOTE ---
unit PRBC transfused without issue. tolerating foods and fluids. medicated with roxicodone per prn order. miralax and senna given per patient request
[2024-01-30 12:55] LABS: Hemoglobin 7.6 g/dL (13.0-18.0)
[2024-01-30] MEDS: NSS 1000 IV (13:04)
[2024-01-30 13:14] LABS: Potassium 4.6 mmol/L (3.5-5.1)
--- NOTE | 2024-01-30 14:00 | WOUNDNOTE ---
[facility] RN note: Confirmed with Yareli Styles Vascular PA re: nursing can remove thigh vac dressing and apply saline moistened gauze on day of transfer to [facility] which may occur as soon as today. Updated MIRIAM Lee. The removed
rental hospital pump goes into the unit's soiled utility room.
--- NOTE | 2024-01-30 14:02 | PTCARENOTE ---
communicated with wound rn. prior to transfer to [facility] [place], VAC to be turned off for 30 minutes prior to removal of VAC dressing and NSS moistened guaze dressing applied to wound. rental unit then to be placed in dirty utility room
--- NOTE | 2024-01-30 14:26 | PTCARENOTE ---
second unit PRBC initiated without signs reaction
--- NOTE | 2024-01-30 16:00 | PTCARENOTE ---
Pt received from the ICU via bed. Transport was w/o incident. Pt is AAOx3, HRR, lungs are clear, resp. easy. VSS, Pt is afebrile. Pt with Left leg edema 2+ from left groin to foot. Pt with 2+ scrotal and penile edema as well. Pt's left leg with weak
to palpation DP and PT pulses. Pulses are audible and strong with the Doppler. Left thigh with Angel drain and wound vac. intact. 2nd unit of blood currently being transfused w/o signs or symptoms of transfusion reaction. Pt and Pt's instructed on
plan of care. Both Pt and verbalized understanding of instructions.
--- NOTE | 2024-01-30 16:04 | PTCARENOTE ---
patient transfer to [address] [place] [address] without issue, report to oncoming RN
[2024-01-30 16:44] LABS: Glucose - Point of Care 211 mg/dl (70-99)
[2024-01-30 20:11] LABS: Hemoglobin 8.5 g/dL (13.0-18.0)
[2024-01-30 21:56] LABS: Glucose - Point of Care 160 mg/dl (70-99)
[2024-01-31 03:30] VITALS: BP 120/69
[2024-01-31] MEDS: VANCOCIN 200 IV ×2 (05:48→18:45)
[2024-01-31 07:00] VITALS: BP 114/61
[2024-01-31] MEDS: ROXICODONE 5 MG PO ×3 (07:43→21:53)
[2024-01-31 07:48] LABS: Glucose - Point of Care 116 mg/dl (70-99)
[2024-01-31] MEDS: NSS IV (08:03)
[2024-01-31] MEDS: NOVOLOG FLEXPEN-LOW RESISTANCE SC (08:03)
[2024-01-31 09:06] LABS: % Basophils 0.2 % (0-2); % Eosinophils 0.7 % (0-6); % Lymphocytes 13.6 % (20.5-51.1); % Monocytes 7.4 % (1.7-9.3); % Neutrophils 77.1 % (42.2-75.2); Absolute Eosinophils 0.1 10^3/uL (0-0.7); Absolute Immature Granulocytes 0.1 10^3/uL (0-0.05); Absolute Lymphocytes 1.4 10^3/uL (1.2-3.4); Absolute Monocytes 0.7 10^3/uL (0.1-0.6); Absolute Neutrophils 7.7 10^3/uL (1.4-6.5); Hemoglobin 8.4 g/dL (13.0-18.0); Mean Corp Hgb Conc. 33.6 g/dL (33.0-37.0); Mean Corpuscular Hgb 27.4 pg (27.0-31.0); Mean Corpuscular Volume 81.4 fL (80.0-94.0); Nucleated Red Blood Cells % 0 % (-); Platelet Count 293 10^3/uL (130-400); Red Blood Cell Count 3.07 10^6/uL (4.70-6.10); Red Cell Dist. Width 17.2 % (11.5-14.5)
--- NOTE | 2024-01-31 09:09 | PHA.VAN.FU ---
Vancomycin Assessment / Plan
- Assessment
Renal Function: Stable
WBC's are: Trending Down
In the past 24 hrs, patient has been: Afebrile
Concomitant Antimicrobials: CEFEPIME
- Dosing Plan
Continue: 1000MG Q12H
- Monitoring Plan
Peak Level: 01/31 @2030
Trough Level: 02/01 @0530
- Follow Up
Pharmacy will continue to follow.
Vancomycin Follow UP
- -
Patient Age: 78
Patient Sex: Male
Vancomycin Day #: 2
Indication: Skin And Soft Tissue
Requesting Provider: Dr. Araujo
Pertinent Antimicrobial Allergies:
NKDA
Height / Weight:
Height 5 ft 8 in
Actual Weight 79.9 kg
Pertinent Past Medical History: DM
- Vital Signs / Lab Results
Temp Pulse Resp BP Pulse Ox
97.5 F 73 16 114/61 100
01/31/24 07:00 01/31/24 07:00 01/31/24 07:00 01/31/24 07:00 01/31/24 07:00
Lab Results - Hematology
01/29/24 01/29/24 01/30/24
18:26 21:37 05:12
WBC 13.6 H 19.7 H 15.5 H
01/31/24
07:50
WBC 10.0
Lab Results - Chemistry
01/29/24 01/29/24 01/30/24
18:26 21:37 05:12
BUN 23 H 26 H 26 H
Creatinine 0.9 0.8 0.8
Estimated Creat Clear 67 75 75
Albumin 2.7 L
Microbiology Results
01/29/24 19:50 Blood Culture - Preliminary
Blood/Venous No Growth in 24 hours- Final report to follow
01/29/24 19:50 Blood Culture - Preliminary
Blood/Venous No Growth in 24 hours- Final report to follow
01/29/24 21:15 Gram Stain - Preliminary
Leg - Left
Therapeutic Drug Monitoring
Random Vancomycin 14.4 ug/ml 01/30/24 05:12
[2024-01-31 09:12] LABS: Blood Urea Nitrogen 19 mg/dl (9-20); Calcium 8.5 mg/dl (8.4-10.2); Carbon Dioxide 23 mmol/L (22-30); Chloride 107 mmol/L (98-107); Estimated Creatinine Clearance 86 ml/min; Glucose 108 mg/dl (70-99); Sodium 137 mmol/L (135-145); eGFR > 60.00
--- NOTE | 2024-01-31 09:33 | W.PN.HOSP.TC ---
Addendum entered and electronically signed by Maryana Kong MD 01/31/24 10:01:
per Dr. Houston, lovenox DVT PPx OK. NO SCD's
Original Note:
Today's Communication/Plan
-
awaiting transfer
Assessment / Plan
Assessment / Plan
Mr. 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
with increased pain and swelling in the left lower extremity.
CTA 01/28
IMPRESSION:
1. No CTA evidence for active arterial contrast extravasation.
2. Postoperative changes of the right anterior thigh with expansile enlargement of the quadriceps and adductor musculature. Findings are most compatible with intramuscular hematoma. The presence of residual neoplasm would be difficult to
differentiate from hematoma on this exam. Soft tissue gas is presumably postoperative but superimposed infection is not excluded.
3. Patent bilateral 3 vessel runoffs with moderate atherosclerosis throughout both lower extremities.
4. 5 mm solid pleural-based pulmonary nodule in the right lower lobe with slight enlargement compared to the previous chest CT. Consider a follow-up chest CT in 3-6 months for reevaluation.
Operative Report 01/28
Pre Op Diagnosis: left thigh infection
Post Op Diagnosis: same
Procedure Performed: Left thigh washout, VAC placement
Left thigh infected hematoma
-s/p OR evening 01/28 with left thigh washout and VAC placement
-admitted to ICU post-op
-pain control
- IV cefepime and vancomycin
-leukocytosis resolved this AM
-Hold anticoagulation
-F/U intraop cultures
-stop IVF
-awaiting transfer to [facility]
DM
Hyperglycemia
-ISS low
Acute blood loss anemia
-s/p 2 units PRBC with stable Hg this AM
DVT/PE:
On Eliquis as outpatient.
Anticoagulants on hold for upcoming surgery
Hyponatremia:
Mild at 134
Hyperglycemia:
Last hemoglobin A1c 6.6 on August 2023
-F/U repeat A1c
-ISS
-diabetic diet
DVT prophylaxis: SCD
CODE STATUS:
Full code
Time spent 51 minutes
Anticipated Discharge: 24 - 48 hours
Subjective/Interval History
-
Date of Service: January 31, 2024
feeling well
pain controlled
eating and drinking OK
urinating a lot
Objective Data
-
Labs:
Laboratory Results
01/31/24 01/31/24
07:50 07:58
WBC 10.0
Hgb 8.4 L
Hct 25.0 L
Plt Count 293
Sodium 137
Potassium 4.0
Chloride 107
Carbon Dioxide 23
BUN 19
Creatinine 0.7
Glucose 108 H
Calcium 8.5
Vital Signs:
Vital Signs
Temp Pulse Resp BP Pulse Ox
97.5 F 73 16 114/61 100
01/31/24 07:00 01/31/24 07:00 01/31/24 07:00 01/31/24 07:00 01/31/24 07:00
I&O
01/30/24 01/31/24 02/01/24
06:59 06:59 06:59
Intake Total 1020 / 1100 2300 / 2300 400 / 400
Output Total 800 / 800 330 / 330 1000 / 1000
Balance 220 / 300 1970 / 1970 -600 / -600
Review of Systems
-
History Source: Patient
All other systems: Reviewed and negative
Physical Exam
-
General: No Apparent Distress
HEENT: PERRLA
Respiratory: Clear to Auscultation; Negative Wheezes
Cardiac: Regular Rhythm and S1/S2
GI: Soft and Nontender
Musculoskeletal: No Edema
Skin: Warm and Dry; Negative Rash
Neuro: AO x 3
Psych: Calm
Data Reviewed
-
Diagnostic Radiology: Report Reviewed by me
Labs: Labs Reviewed by me
[2024-01-31 11:31] VITALS: BP 109/55
--- NOTE | 2024-01-31 11:31 | W.PN.VS ---
Today's Communication / Plan
-
Plan:
-Transfer to [facility] for PRS muscle flap
-continue VAC and drain
-ok to start DVT prophylaxis
-wrap LLE from base of toes to thigh with an ERA
Assessment/Plan
-
POD 2 left thigh washout with wound VAC placement
Plan:
-Transfer to [facility] for PRS muscle flap
-continue VAC and drain
-ok to start DVT prophylaxis
-wrap LLE from base of toes to thigh with an ERA
Subjective Data
-
Date of Service: January 31, 2024
POD 2 evac hematoma, drain and VAC placement
having significant discomfort in left thigh
no left foot pain, numbness or weakness
Hgb stable
drain serosang
Objective Data
-
Vital Signs
Temp Pulse Resp BP Pulse Ox
97.5 F 73 16 114/61 100
01/31/24 07:00 01/31/24 07:00 01/31/24 07:00 01/31/24 07:00 01/31/24 07:00
Intake and Output
01/30/24 01/31/24 02/01/24
06:59 06:59 06:59
Intake Total 1020 / 1100 2300 / 2300 400 / 400
Output Total 800 / 800 330 / 330 1000 / 1000
Balance 220 / 300 1970 / 1970 -600 / -600
Intake:
Oral fluids 1200 / 1200 400 / 400
IV fluids (Total) 1020 / 1100 400 / 400
Normosol 300 / 300
Nss 1,000 ml @ 80 mls/hr IV . 720 / 800 400 / 400
[id number] FLAKO Rx#:[id number]
IV piggybacks 200 / 200
Blood Product Amount Infused ( 500 / 500
mL)
Packed Rbc Leukoreduced Unit 250 / 250
[id number]
Packed Rbc Leukoreduced Unit 250 / 250
[id number]
Output:
Drain Output (Total) 175 / 175 70 / 70
Left Lower Leg Kang-Carney 175 / 175 70 / 70
Urine, Draper 625 / 625 260 / 260
Urine, Voided 0 / 0 1000 / 1000
Lab Results
01/31/24 07:50
01/31/24 07:58
Calcium 8.5 mg/dl (8.4-10.2) 01/31/24 07:58
Phosphorus 5.4 mg/dl (2.5-4.5) H 01/30/24 05:12
Magnesium 2.1 mg/dl (1.6-2.3) 01/30/24 05:12
Total Bilirubin 0.4 mg/dl (0.2-1.3) 01/29/24 18:26
AST 40 U/L (17-59) 01/29/24 18:26
ALT 34 U/L (0-50) 01/29/24 18:26
Alkaline Phosphatase 108 U/L (38-126) 01/29/24 18:26
Total Protein 6.1 g/dl (6.3-8.2) L 01/29/24 18:26
Albumin 2.7 g/dl (3.5-5.0) L 01/29/24 18:26
Physical Exam
-
2+ edema LLE
foot warm, motor/sensory intact
VAC good seal
[2024-01-31] MEDS: LOVENOX 40 MG SC (11:32)
[2024-01-31] MEDS: MAXIPIME 1000 MG IV ×2 (11:33→21:48)
[2024-01-31] MEDS: STERILE WATER FOR INJECTION 10 ML IV ×2 (11:33→21:49)
[2024-01-31 12:19] LABS: Glucose - Point of Care 164 mg/dl (70-99)
[2024-01-31] MEDS: NOVOLOG FLEXPEN-LOW RESISTANCE 1 UNITS SC ×2 (13:04→18:44)
[2024-01-31 15:24] VITALS: BP 121/66
[2024-01-31 17:37] LABS: Glucose - Point of Care 151 mg/dl (70-99)
[2024-01-31 19:20] VITALS: BP 121/61
[2024-01-31 21:56] LABS: Glucose - Point of Care 155 mg/dl (70-99)
[2024-01-31 23:35] VITALS: BP 116/53
[2024-02-01 03:30] VITALS: BP 121/59
--- NOTE | 2024-02-01 03:36 | PTCARENOTE ---
Lakeisha with [facility] called with floor and room number at [facility]. Floor 4M, room 4103 is ready for patient today
[2024-02-01] MEDS: VANCOCIN 200 IV (05:45)
[2024-02-01 05:52] LABS: Hematocrit 25.3 % (39.0-52.0); Hemoglobin 8.2 g/dL (13.0-18.0); Mean Corp Hgb Conc. 32.4 g/dL (33.0-37.0); Mean Corpuscular Volume 83.2 fL (80.0-94.0); Mean Platelet Volume 10.1 fL (7.4-10.4); Platelet Count 274 10^3/uL (130-400); Red Blood Cell Count 3.04 10^6/uL (4.70-6.10); Red Cell Dist. Width 17.4 % (11.5-14.5); White Blood Cell Count 8.3 10^3/uL (4.8-10.8)
[2024-02-01] MEDS: ROXICODONE 5 MG PO (06:05)
[2024-02-01 06:16] LABS: Blood Urea Nitrogen 14 mg/dl (9-20); Calcium 8.5 mg/dl (8.4-10.2); Carbon Dioxide 25 mmol/L (22-30); Chloride 106 mmol/L (98-107); Estimated Creatinine Clearance 86 ml/min; Glucose 114 mg/dl (70-99); Sodium 135 mmol/L (135-145); eGFR > 60.00
[2024-02-01 07:40] VITALS: BP 124/65
--- NOTE | 2024-02-01 07:45 | PHA.VAN.FU ---
Vancomycin Assessment / Plan
- Assessment
Renal Function: Stable
WBC's are: Trending Down
In the past 24 hrs, patient has been: Afebrile
Concomitant Antimicrobials: CEFEPIME
- Dosing Plan
Continue: 1000MG Q12H
- Monitoring Plan
Peak Level: 01/31 2030
Trough Level: 02/01 530
- Follow Up
Pharmacy will continue to follow.
Vancomycin Follow UP
- -
Patient Age: 78
Patient Sex: Male
Vancomycin Day #: 3
Indication: Skin And Soft Tissue
Requesting Provider: Dr. Araujo
Pertinent Antimicrobial Allergies:
NKDA
Height / Weight:
Height 5 ft 8 in
Actual Weight 79.9 kg
Pertinent Past Medical History: DM
- Vital Signs / Lab Results
Temp Pulse Resp BP Pulse Ox
98.3 F 68 16 121/59 99
02/01/24 03:30 02/01/24 03:30 02/01/24 03:30 02/01/24 03:30 02/01/24 03:30
Lab Results - Hematology
01/29/24 01/29/24 01/30/24
18:26 21:37 05:12
WBC 13.6 H 19.7 H 15.5 H
01/31/24 02/01/24
07:50 05:07
WBC 10.0 8.3
Lab Results - Chemistry
01/29/24 01/29/24 01/30/24
18:26 21:37 05:12
BUN 23 H 26 H 26 H
Creatinine 0.9 0.8 0.8
Estimated Creat Clear 67 75 75
Albumin 2.7 L
01/31/24 02/01/24
07:58 05:07
BUN 19 14
Creatinine 0.7 0.7
Estimated Creat Clear 86 86
Albumin
Microbiology Results
01/29/24 19:50 Blood Culture - Preliminary
Blood/Venous No Growth in 48 hours- Final report to follow
01/29/24 19:50 Blood Culture - Preliminary
Blood/Venous No Growth in 48 hours- Final report to follow
01/29/24 21:15 Anaerobic Culture - Preliminary
Leg - Left Culture pending. Anaerobic cultures are examined after 3
days incubation. Additional information to follow.
01/29/24 21:15 Wound Culture - Preliminary
Leg - Left Enterococcus species
Gram Stain - Preliminary
Therapeutic Drug Monitoring
Random Vancomycin 14.4 ug/ml 01/30/24 05:12
[2024-02-01 08:00] LABS: Glucose - Point of Care 149 mg/dl (70-99)
[2024-02-01] MEDS: NOVOLOG FLEXPEN-LOW RESISTANCE SC ×2 (08:20→13:15)
--- NOTE | 2024-02-01 09:41 | W.PN.HOSP.TC ---
Addendum entered and electronically signed by Maryana Kong MD 02/01/24 11:16:
4. 5 mm solid pleural-based pulmonary nodule in the right lower lobe with slight enlargement compared to the previous chest CT.
Consider a follow-up chest CT in 3-6 months for reevaluation.
-to be monitored by patient's Oncology team
Original Note:
Today's Communication/Plan
-
plan for transfer to [facility] today
Assessment / Plan
Assessment / Plan
Mr. 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
with increased pain and swelling in the left lower extremity.
CTA 01/28
IMPRESSION:
1. No CTA evidence for active arterial contrast extravasation.
2. Postoperative changes of the right anterior thigh with expansile enlargement of the quadriceps and adductor musculature. Findings are most compatible with intramuscular hematoma. The presence of residual neoplasm would be difficult to
differentiate from hematoma on this exam. Soft tissue gas is presumably postoperative but superimposed infection is not excluded.
3. Patent bilateral 3 vessel runoffs with moderate atherosclerosis throughout both lower extremities.
4. 5 mm solid pleural-based pulmonary nodule in the right lower lobe with slight enlargement compared to the previous chest CT. Consider a follow-up chest CT in 3-6 months for reevaluation.
Operative Report 01/28
Pre Op Diagnosis: left thigh infection
Post Op Diagnosis: same
Procedure Performed: Left thigh washout, VAC placement
Left thigh infected hematoma
Sepsis 2/2 Above
-s/p OR evening 01/28 with left thigh washout and VAC placement
-admitted to ICU post-op, now telemetry status. Did not require pressors
-wound culture with Enterococcus (Prelim, awaiting sensitivities)
-continue IV Vanc/Cefepime while awaiting final culture
-leukocytosis resolved
-Hold anticoagulation
-for transfer to [facility] for scheduled PRS muscle flap
-bedrest with LLE compression wrap per vascular
DM
Hyperglycemia
-ISS low
-patient is diet controlled
-A1c 6.6%
Acute blood loss anemia
-Hg 7 on morning of 01/29
-s/p 2 units PRBC 01/29
-Hg this morning 01/31 8.2, stable from yesterday (8.4)
DVT/PE:
On Eliquis as outpatient.
Anticoagulants on hold for upcoming surgery
Hyponatremia:
Mild at 134
DVT prophylaxis: Lovenox subQ started 01/30 OK'd by vascular.
CODE STATUS:
Full code
Time spent 51 minutes
Anticipated Discharge: Today
Subjective/Interval History
-
Date of Service: February 01, 2024
feeling well
no fevers
no chest pain
pain controlled
ready to go to [facility] today
Objective Data
-
Labs:
Laboratory Results
02/01/24
05:07
WBC 8.3
Hgb 8.2 L
Hct 25.3 L
Plt Count 274
Sodium 135
Potassium 4.0
Chloride 106
Carbon Dioxide 25
BUN 14
Creatinine 0.7
Glucose 114 H
Calcium 8.5
Vital Signs:
Vital Signs
Temp Pulse Resp BP Pulse Ox
98.0 F 72 17 124/65 99
02/01/24 07:40 02/01/24 07:40 02/01/24 07:40 02/01/24 07:40 02/01/24 07:40
I&O
01/31/24 02/01/24 02/02/24
06:59 06:59 06:59
Intake Total 2300 / 2300 3280 / 3280
Output Total 330 / 330 1415 / 1415 250 / 250
Balance 1969 / 1969 1865 / 1865 -250 / -250
Review of Systems
-
History Source: Patient
All other systems: Reviewed and negative
Physical Exam
-
General: No Apparent Distress
HEENT: PERRLA
Respiratory: Clear to Auscultation; Negative Wheezes
Cardiac: Regular Rhythm and S1/S2
GI: Soft and Nontender
Musculoskeletal: No Edema
Skin: Warm and Dry; Negative Rash
Neuro: AO x 3
Psych: Calm
Data Reviewed
-
Diagnostic Radiology: Report Reviewed by me
Labs: Labs Reviewed by me
[2024-02-01] MEDS: STERILE WATER FOR INJECTION 10 ML IV (10:04)
[2024-02-01] MEDS: LOVENOX 40 MG SC (10:04)
[2024-02-01] MEDS: MAXIPIME 1000 MG IV (10:05)
[2024-02-01 11:29] VITALS: BP 130/77
--- NOTE | 2024-02-02 07:24 | WOUNDNOTE ---
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
== END 2024-02-01 12:15 | disposition short-term general hospital (02) | DRG 854 ==
LOC: 2 SOUTH 20:08
PROVIDERS: Nurse Practitioner Acute Care; Student in an Organized Health Care Education/Training Program; ADMITTING PHYSICIAN Hospitalist; ATTENDING PHYSICIAN Student in an Organized Health Care Education/Training Program; CONSULT PHYSICIAN Internal Medicine Critical Care Medicine; CONSULT PHYSICIAN Surgery; EMERGENCY PHYSICIAN Emergency Medicine; FAMILY PHYSICIAN Family Medicine
PROC: 30233N1 Transfusion of Nonautologous Red Blood Cells into Peripheral Vein, Percutaneous Approach (ICD-10-PCS; 2024-01-30)
PROC: 06LN0ZZ Occlusion of Left Femoral Vein, Open Approach (ICD-10-PCS; 2024-01-30)
PROC: 0J9M0ZZ Drainage of Left Upper Leg Subcutaneous Tissue and Fascia, Open Approach (ICD-10-PCS; 2024-01-30)
DX: A41.9 Sepsis, unspecified organism (principal); D62 Acute posthemorrhagic anemia; E87.1 Hypo-osmolality and hyponatremia; S80.12XA Contusion of left lower leg, initial encounter; X58.XXXA Exposure to other specified factors, initial encounter; B95.2 Enterococcus as the cause of diseases classified elsewhere; R91.1 Solitary pulmonary nodule; R73.9 Hyperglycemia, unspecified; E78.00 Pure hypercholesterolemia, unspecified; Z85.831 Personal history of malignant neoplasm of soft tissue; Z79.01 Long term (current) use of anticoagulants; Z85.46 Personal history of malignant neoplasm of prostate
CPT/HCPCS: 88304; 10140; 37618; 71045; 75635; 80048; 80053; 80202; 82962; 83036; 83735; 84100; 84132; 85018; 85025; 85027; 85610; 85730; 86140; 86850; 86900; 86901; 86920; 87040; 87070; 87075; 87077; 87147; 87186; 87205; 93005; 96365; 96375; 99285; P9016; Q9967

== ENCOUNTER 2024-02-11 19:42 | Inpatient (IN) | payer OTHER, SELFPAY ==
[2024-02-11] VITALS (22 sets, daily range): BP systolic 75–138; BP diastolic 49–82; BMI 27.4
--- NOTE | 2024-02-11 15:53 | ED.GENMED ---
History of Present Illness
General
Chief Complaint: Fall
Source: patient
Exam Limitations: none
Time Seen by Provider: 02/11/24 15:37
History of Present Illness
History of Present Illness:
This is a 79yo male who presents after a fall. he states that he tripped over a little threshold and fell. he states he landed on his 'hips'. he states he did bump his head but to a minor degree. he c/o pain in his 'hips'. Of note, he had to have a
left thigh sarcoma removed recently and they just closed it up yesterday. He states that he was left open for quite some time. He has to pick MARICHUY drains and and a wound VAC on the wound. He states the MARICHUY drain have been filling up with bloody
appearing fluid and he had to drain it at least 2-4 times today. Patient also states that it had been infected. He states that today given his leg issue he had difficult time getting up. Of time to try to sit up from the fall he got lightheaded
feeling is going to pass out. He denies melena or hematochezia. He is anticoagulated.
Past History
Past History
ED Past Medical History: Cancer, HTN, Hypercholesterolemia and Other (Left quadricep sarcoma, prostate cancer)
ED Past Surgical History: Cholecystectomy, Orthopedic, Urological and Other
Social History
Tobacco: Non-smoker
Alcohol: None
Drug: None
Personal:
Living: with family
Phy Exam
Physical Exam
Physical Exam:
CONSTITUTIONAL Patient alert and oriented to person, place and time. . Vital signs reviewed. Hypotensive
HEAD atraumatic, normocephalic.
EYES eyelids normal to inspection, Pupils equally round and reactive to light, Extraocular muscles intact, Conjunctiva normal, Sclera normal.
NECK normal range of motion, Trachea midline, no jugular venous distention. No midline tenderness
RESPIRATORY CHEST No respiratory distress noted, Chest expansion equal, Bilateral breath sounds clear.
CARDIOVASCULAR regular rate and rhythm, Heart sounds normal.
ABDOMEN abdomen nontender, Bowel sounds normal. No distention.
UPPER EXTREMITY range of motion normal, Motor strength normal, no cyanosis, no edema.
LOWER EXTREMITY unable to range the left leg due to postoperative changes of the left quadriceps. He has 2 noted MARICHUY drains that have serosanguineous fluid in it. He also has a large wound VAC. There is no redness to the leg but is tense
throughout the left upper leg. He does have distal perfusion bilaterally.
NEURO Speech normal, No focal motor deficits, Sorento coma scale 15, Memory normal, Cranial Nerves intact to screening exam.
SKIN skin warm, dry, and pale
PSYCHIATRIC patient oriented to person place and time, Normal affect.
Course
Orders/Labs/Results
Orders:
Orders
02/11/24 Dinner
NPO
Allow oral meds: Yes
Allow clear liquids: No
02/11/24 15:47
CT Abd/pel W Iv Cont (trauma) Urgent
Comment:
Reason For Exam: fall, hypotension
CT Head W/o Iv Contrast Urgent
Comment:
Reason For Exam: fall
Cardiac Monitoring- Treatment ONCE
02/11/24 15:52
Type+Screen Urgent
Complete Blood Count/With Diff Urgent
Comprehensive Metabolic Panel Urgent
02/11/24 15:55
Prothrombin Time Urgent
02/11/24 17:00
Morphine Sulfate 4 mg IV NOW STA
Prothrombin Complex(Pcc),Human [Kcentra] 2,086 unit Empty Viaflex Container 100 ml [Viaflex Empty Container] 80 ml IV NOW
02/11/24 17:13
CT Lower Ext Angio W/wo Iv Con Stat
Comment:
Reason For Exam: LLE bleeding
02/11/24 17:15
Blood Culture Q30M
REBECCA Source: Blood/Venous
Specimen Description:
02/11/24 17:21
* Blood Bank Products Urgent
Blood Bank Products: *Packed RBC Leuko(PRBC's)
Quantity: 2
Transfuse Today: Yes
Reason: Bleeding
02/11/24 17:38
Lactic Acid Q4H
Comment: CANCEL 2nd LACTIC ACID IF 1st LACTIC ACID IS LESS THAN 2
Blood Culture Q30M
REBECCA Source: Blood/Venous
Specimen Description:
02/11/24 17:40
Venous Blood Gas Urgent
%Oxygen/Room Air: 21%
02/11/24 18:01
HYDROmorphone [Dilaudid] 0.5 mg IV NOW STA
02/11/24 18:51
HYDROmorphone [Dilaudid] 0.25 mg IV PACU-Q5MPRN PRN
Morphine Sulfate 1 mg IV PACU-Q5MPRN PRN
Ondansetron Injectable [Zofran] 4 mg IV PACU-ONCEPRN PRN
Prochlorperazine [Compazine] 5 mg IV PACU-ONCEPRN PRN
02/11/24 18:52
Notify MD As Directed
Notify physician if: for SDS patients with known or suspected sleep obstructive sleep apnea, monitor in the
PACU.
Notify MD for any apneic/desaturation episodes
O2 Therapy [RESP] Urgent
Titrate/Wean O2 to maintain O2 sat greater than (%): 92
Special Instructions: -Provide supplemental oxygen to achieve O2 sat of 92% or greater.
-After 15 min, may wean O2 and discontinue if patient is able to maintain O2 sat of 92%
or greater during recovery period.
If patient is a discharge home, without oxygen therapy, notify anestheiologist if
unable to maintain O2 SAT of 92% or greater on room air for MD clearance.
02/11/24 19:00
Normosol (Mult Electrolytes) [Normosol-R] 1,000 ml IV PER PROTOCOL
02/11/24 19:01
HYDROmorphone [Dilaudid] 1 mg IV NOW STA
06/26/24 19:02
Heparin Sodium,Porcine/Ns/Pf [Heparin 2000 Units/1000 ml] 2,000 unit in 1,000 ml .ROUTE .STK-MED
Lidocaine HCl/Pf [Xylocaine-Mpf 1% Vial] 50 mg .ROUTE .STK-MED ONE
02/11/24 19:08
Fentanyl Citrate/Pf [Sublimaze] 100 mcg .ROUTE .STK-MED ONE
Lidocaine 2% Mpf [Xylocaine Mpf 2%] 100 mg .ROUTE .STK-MED ONE
Midazolam HCl [Versed] 2 mg .ROUTE .STK-MED ONE
Propofol [Diprivan] 20 ml .ROUTE .STK-MED
02/11/24 19:20
NORepinephrine 4 MG/250 ML [Levophed] 4 mg in 250 ml .ROUTE .STK-MED
02/11/24 19:24
Admit/Transfer Patient As Directed
Co-Sign Provider:
Level of Care: Inpatient admission
Assign to:: ICU
Physician / Group: delicia
Diagnosis: hemorrhagic shock bleeding from superficial femoral artery
Reason for Hospitalization: hemorrhagic shock bleeding from superficial femoral artery
Expected length of stay greater than two midnights?: Yes
ELOS- Estimated Length of Stay in days: 2
I certify the patient meets the requirements for IP care: Yes
Code Status As Directed
Resuscitation Status: Full Code
02/11/24 19:28
Fluconazole 200 mg/100 ml [Diflucan 200 mg] 100 mg Syringe [Syringe-Pump] 0 ml IV NOW
02/11/24 20:45
Lactic Acid Q4H
Comment: CANCEL 2nd LACTIC ACID IF 1st LACTIC ACID IS LESS THAN 2
02/11/24 22:22
Lactate Level [Lactic Acid] Q6H
0.9% Sodium Chloride 1000 ml [Nss] 1,000 ml IV 100 mls/hr
Dextrose 50%-Water [Dextrose 50% Syringe] 12.5 grams IV [id number] PRN
Fluconazole 200 mg/100 ml [Diflucan 200 mg] 100 mg Syringe [Syringe-Pump] 0 ml IV Q24H
Glucagon [GlucaGen] 1 mg IM PRN PRN
HYDROmorphone [Dilaudid] 0.5 mg IV Q4HPRN PRN
VANCOMYCIN Pharmacy to Dose [VANCOCIN Pharmacy to Dose] 1 each Pharmacy To Prepare [Call Pharmacy To Prepare] 0 ml IV PER PROTOCOL
02/11/24 22:22
VTE Contraindication Routine
VTE Mechanical Device Contraindication: Medical Contraindication
Pharmocologic Contraindication: Medical Contraindication
Activity As Directed
Activity Level: As Tolerated
Bedside Glucose Monitoring As Directed
Frequency: AC&HS
Additional Instructions:: Change to q6h if pt on TPN, tube feeding or not eating
Vital Signs As Directed
Frequency: Per unit guidelines
02/12/24 06:00
Complete Blood Count/With Diff IN AM
Comprehensive Metabolic Panel IN AM
Glycohemoglobin (HgbA1c) IN AM
02/12/24 07:30
Insulin Aspart Corrective Low [Novolog Flexpen-Low Resistance] See Protocol SC AC
Abnormal Lab Results
02/11/24 02/11/24 02/11/24
15:52 15:55 17:38
WBC 23.3 H 10^3/uL
(4.8-10.8)
RBC 3.18 L 10^6/uL
(4.70-6.10)
Hgb 8.6 L g/dL
(13.0-18.0)
Hct 28.0 L %
(39.0-52.0)
MCHC 30.7 L g/dL
(33.0-37.0)
RDW 18.0 H %
(11.5-14.5)
Plt Count 409 H 10^3/uL
(130-400)
Abs Immat Gran (auto) 1.1 H 10^3/uL
(0-0.05)
Absolute Neuts (auto) 19.5 H 10^3/uL
(1.4-6.5)
Absolute Monos (auto) 1.4 H 10^3/uL
(0.1-0.6)
Immature Gran % 4.6 H %
(0-0.5)
Neutrophils % 83.6 H %
(42.2-75.2)
Lymphocytes % 5.3 L %
(20.5-51.1)
PT 19.4 H Sec
(11.4-14.6)
VBG pH
VBG pCO2
VBG pO2
VBG HCO3
Carbon Dioxide 12 L* mmol/L
(22-30)
Creatinine 1.5 H mg/dL
(0.7-1.3)
Glucose 199 H mg/dl
(70-99)
Lactic Acid 7.7 H* mmol/L
(0.7-2.0)
Total Protein 5.9 L g/dl
(6.3-8.2)
Albumin 2.9 L g/dl
(3.5-5.0)
Crossmatch IS Only See Detail
02/11/24
17:40
WBC
RBC
Hgb
Hct
MCHC
RDW
Plt Count
Abs Immat Gran (auto)
Absolute Neuts (auto)
Absolute Monos (auto)
Immature Gran %
Neutrophils %
Lymphocytes %
PT
VBG pH 7.29 L
(7.32-7.43)
VBG pCO2 27 L mmHg
(35-48)
VBG pO2 87 H mmHg
(30-50)
VBG HCO3 13.0 L mmol/L
(22-27)
Carbon Dioxide
Creatinine
Glucose
Lactic Acid
Total Protein
Albumin
Crossmatch IS Only
02/11/24 15:52
02/11/24 15:52
Vital Signs
Initial and Last Documented VS:
Initial Vital Signs
Pulse Resp BP Pulse Ox
82 23 75/49 99
02/11/24 15:32 02/11/24 15:32 02/11/24 15:32 02/11/24 15:32
Last Documented Vital Signs
Temp Pulse Resp BP Pulse Ox
98.1 F 105 15 110/63 96
02/11/24 18:58 02/11/24 19:30 02/11/24 19:30 02/11/24 19:30 02/11/24 19:30
MDM/Problems Addressed
Differential Diagnosis Includes:
Pelvic fracture, vascular injury, intracranial hemorrhage, intra-abdominal injury
MDM/Problems Addressed:
Fall, hypotension, superficial femoral artery extravasation, hemorrhagic shock, lactic acidosis
*Radiology
Radiology exam reviewed: preliminary read by ED provider (Extravasation noted in the left lower extremity) and radiology read reviewed
*Pulse Oximetry
Patient hypoxic: no
*Jammer Operator Interpretation
Rate: normal
Interpretation: normal
Rhythm: sinus
*Critical Care Note
Total Time (30-74mins, 75-104mins- exclusive of procedures): 90 minutes
Data Reviewed
Review of Other/Old Records Reveals: Labs (Prior labs reviewed), Progress Notes (Vascular notes from previous admission reviewed) and Discharge Summary
Source: patient
Prescriptions/Medications Considered But Not Given:
Consider antibiotics will defer medicine
Patient Management
Discussion with other providers: Hospitalist, [facility] [employer] [facility] [employer] (Discussed with vascular surgery) and Radiologist
Escalation/DeEscalation of care consider admission/obs:
71-year-old male presents after fall. Question whether he hemorrhage into his left leg prior to falling or whether fall caused hemorrhage. Case was discussed with plastic surgery from [facility] who states that is similar he was somewhat
exposed underneath the wound VAC. CT initially done to rule out intracranial hemorrhage and pelvic fracture with hemorrhage. Second CT shows extravasation lower extremity. Patient's pain does persist. Discussed with vascular surgery who is
coming in to address the issue. Admit to hospitalist. Case discussed with hospitalist admit to ICU. Kcentra given. Blood hanging. Consent on chart
ED Attending Note
-
Portions of this chart may have been created with voice recognition software.� Occasional wrong word or��sound alike� substitutions may have occurred due to the inherent limitations of voice recognition software.
Discharge Plan
Departure
Patient Disposition: Admit
Date of Disposition: 02/11/24
Time of Disposition: 18:31
Admit to: ICU
Presentation/result/management discussed w/ accepting MD/DO: Hospitalist
Discharge Problem:
Hemorrhagic shock, Rupture of femoral artery, Acidosis, lactic
Interventions
Interventions:
*Risk Screen - Suicide Last Done: 02/11/24 15:32
*General Assessment Last Done: 02/11/24 15:32
*Neglect/Abuse Screening Last Done: 02/11/24 15:32
ED- Fall Risk Assessment Last Done: 02/11/24 15:32
*ED COVID-19 Vaccine History Last Done: 02/11/24 15:32
*Nursing Disposition Last Done: 02/11/24 19:52
ED-Musculoskeletal Assessment Last Done: 02/11/24 15:40
ED- Neurological Assessment Last Done: 02/11/24 15:39
ED-Skin Assessment Last Done: 02/11/24 15:39
Discharge Date and Time
Discharge Date/Time: 02/11/24 19:35
[2024-02-11 16:05] LABS: % Basophils 0.3 % (0-2); % Immature Granulocytes 4.6 % (0-0.5); % Lymphocytes 5.3 % (20.5-51.1); % Monocytes 6.2 % (1.7-9.3); % Neutrophils 83.6 % (42.2-75.2); Absolute Basophils 0.1 10^3/uL (0-0.2); Absolute Immature Granulocytes 1.1 10^3/uL (0-0.05); Absolute Lymphocytes 1.2 10^3/uL (1.2-3.4); Absolute Monocytes 1.4 10^3/uL (0.1-0.6); Absolute Neutrophils 19.5 10^3/uL (1.4-6.5); Hemoglobin 8.6 g/dL (13.0-18.0); Mean Corp Hgb Conc. 30.7 g/dL (33.0-37.0); Mean Corpuscular Volume 88.1 fL (80.0-94.0); Mean Platelet Volume 10.4 fL (7.4-10.4); Nucleated Red Blood Cells % 0 % (-); Platelet Count 409 10^3/uL (130-400); Red Blood Cell Count 3.18 10^6/uL (4.70-6.10); White Blood Cell Count 23.3 10^3/uL (4.8-10.8)
[2024-02-11 16:17] LABS: INR 1.63; PT 19.4 Sec (11.4-14.6)
[2024-02-11 16:24] LABS: ALT (SGPT) 17 U/L (0-50); AST (SGOT) 29 U/L (17-59); Albumin 2.9 g/dl (3.5-5.0); Alkaline Phosphatase 99 U/L (38-126); Blood Urea Nitrogen 16 mg/dl (9-20); Calcium 9.6 mg/dl (8.4-10.2); Carbon Dioxide 12 mmol/L (22-30); Chloride 104 mmol/L (98-107); Estimated Creatinine Clearance 39 ml/min; Glucose 199 mg/dl (70-99); Sodium 135 mmol/L (135-145); Total Bilirubin 0.5 mg/dl (0.2-1.3); Total Protein 5.9 g/dl (6.3-8.2); eGFR 47.36
[2024-02-11] MEDS: MORPHINE SULFATE 4 MG IV (17:03)
[2024-02-11] MEDS: KCENTRA 80 UNIT IV (17:19)
[2024-02-11 17:56] LABS: Venous Blood Gas B.E. -12.3 mmol/L (-4 to +4); Venous Blood Gas O2 Sat % 98.1 %; Venous Blood Gas pCO2 27 mmHg (35-48); Venous Blood Gas pH 7.29 (7.32-7.43); Venous Blood Gas pO2 87 mmHg (30-50)
[2024-02-11 18:03] LABS: Lactic Acid 7.7 mmol/L (0.7-2.0)
[2024-02-11] MEDS: DILAUDID 0.5 MG IV (18:18)
[2024-02-11] MEDS: DILAUDID 1 MG IV (19:09)
--- NOTE | 2024-02-11 19:29 | HPS.HSE ---
Family Physician
-
Family Physician: Shahbaz Sykes
Chief Complaint
-
fall, left thigh pain
History of Present Illness
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 He did bump his head to a minor degree and landed on his hips. Afterwards he complained of worsening pain
in his left upper extremity. He denies dizziness or passing out. He denies nausea or vomiting or chest pain or shortness of breath.
Patient has had a complicated history. He was discovered to have DVT/PE and left lower extremity as well as sarcoma in the left upper extremity in August. This was originally surgically excised in December at [facility] and patient was started on
Eliquis at that time. Patient was then subsequently admitted here for infected left thigh hematoma and underwent washout here and placement of VAC. Wound culture here grew Enterococcus. Patient subsequently had 3 further washouts at [facility] with final closure yesterday with placement of MARICHUY drain. During this interim he had been on Lovenox for anticoagulation and he finally was instructed to start Eliquis which he took this morning. As per patient's family cultures from the
hospitalization yesterday grew Latrice and he is being treated with fluconazole.
He denies smoking. He drinks alcohol sometimes.
Medical History
Past Medical History
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
Past Surgical History: Reports Other (Cholecystectomy, Orthopedic, Urological and Other)
Social History
Tobacco: Non-smoker
Alcohol: Occasional
Drug: None
Family History
Family History: Not pertinent
Allergies / Home Medications
Allergies reflects when Allergies were last updated in [facility].
Home Medications with original date entered in [facility]
Allergy/Medication List:
Allergies
Allergy/AdvReac Type Severity Reaction Status Date / Time
No Known Allergies Allergy Verified 02/11/24 15:37
Home Medications
multivitamin 1 ea PO DAILY Supplement 10/06/20
apixaban 5 mg tablet (Eliquis) 5 mg PO BID Blood Clot Prevention/Tx 01/29/24
docusate sodium 100 mg capsule 100 mg PO BID Constipation 01/29/24
oxycodone 5 mg tablet 5 mg PO Q6HPRN PRN moderate pain 01/29/24
pregabalin 75 mg capsule 75 mg PO BID Pain 01/29/24
sennosides 8.6 mg tablet (Senna Laxative) 8.6 mg PO DAILY Constipation 01/29/24
acetaminophen 325 mg tablet 650 mg PO Q6H PRN mild pain 02/11/24
amoxicillin 875 mg-potassium clavulanate 125 mg tablet 1 tab PO BID 02/11/24
fluconazole 100 mg tablet 100 mg PO DAILY 02/11/24
Review of Systems
-
History Source: Patient
A 12 point ROS was completed and negative except as noted: Yes
Constitutional: Reports No Symptoms
EENT: Reports No Symptoms
Respiratory: Reports No Symptoms
Cardiac: Reports No Symptoms
Abdomen/GI: Reports No Symptoms
: Reports No Symptoms
Musculoskeletal: Reports See HPI
Skin: Reports No Symptoms
Neurological: Reports No Symptoms
Endocrine: Reports No Symptoms
Hematologic/Lymphatic: Reports No Symptoms
Psych: Reports No Symptoms
Physical Exam
Vital Signs
Vital Signs
Temp Pulse Resp BP Pulse Ox
98.1 F 92 14 98/58 99
02/11/24 18:58 02/11/24 19:00 02/11/24 19:00 02/11/24 19:00 02/11/24 19:00
Physical Exam
General: Well Developed, Well Nourished and No Apparent Distress
HEENT: NormoCephalic, Moist mucous membranes and Atraumatic
Respiratory: Clear
Cardiac: S1/S2 and Regular Rhythm; No Murmur or Rub
GI: Soft, Non Tender, Non Distended and Normal Bowel Sounds; No Organomegaly
Rectal: Deferred by Provider
Musculoskeletal: No Clubbing, No Cyanosis and No Edema
Skin: Other (left upper extremity with MARICHUY drain ); No Rash
Neuro: Nonfocal/grossly intact
Laboratory Results
-
02/11/24 15:52
02/11/24 15:52
Laboratory Results
PT 19.4 Sec (11.4-14.6) H 02/11/24 15:55
INR 1.63 02/11/24 15:55
Lactic Acid 7.7 mmol/L (0.7-2.0) H* 02/11/24 17:38
Total Bilirubin 0.5 mg/dl (0.2-1.3) 02/11/24 15:52
AST 29 U/L (17-59) 02/11/24 15:52
ALT 17 U/L (0-50) 02/11/24 15:52
Alkaline Phosphatase 99 U/L (38-126) 02/11/24 15:52
Data Reviewed
-
Lab Data: Labs Reviewed by me
Old Records: Reviewed
Impression/Plan
-
IMPRESSION:
PLAN:
# Hemorrhagic shock secondary to large anterior left thigh intramuscular hematoma with acute arterial bleeding/extravasation from the superficial femoral artery at mid thigh level
-Initial blood pressure 90s systolic which improved with IV fluids and blood
-Holding Eliquis
-Kcentra being given
-2 units of blood
-Check blood cultures
-Vancomycin/Zosyn
-Dilaudid for pain
-Vascular surgery to take patient to operating room now, NPO
# History of left quadriceps sarcoma status post resection complicated by infected hematoma status post 4 washouts and final closure yesterday with MARICHUY drain at [facility]
-Cultures from hospitalization here on 01/28 showed Enterococcus, MSSA
-As per family cultures from hospitalization yesterday showed Latrice
-Continue fluconazole, switched to IV
-Patient completed radiation for sarcoma, no metastatic disease
# Acute kidney injury
# Anion gap metabolic acidosis secondary to lactic acidosis
-Lactate of 7.7
-Trend lactate
-IV fluids
DVT of left lower extremity/PE in August
-Hold all anticoagulation for now
-Will eventually have to restart when safe as per vascular surgery
Chronic anemia
-Hemoglobin of 8.6 which is at baseline
-Continue to carefully monitor
Type 2 diabetes
-Insulin sliding scale
Full code
DVT prophylaxis�none
N.p.o.
[2024-02-11 21:11] LABS: B.E. - POC -10.4 mmol/L; Glucose - POC 195 mg/dl (65-99); HCO3 - POC 16 mmol/L (21-29); Hematocrit - POC 17 % PCV (42-52); Hemodilution- POC No; Hemoglobin Calculated - POC 5.8; Ionized Calcium - POC 1.11 mmol/L (1.12-1.27); Lactate - POC 5.48 mmol/L (0.36-0.75); PCO2 - POC 35 mmHg (35-45); PO2 - POC 468 mmHg (80-100); Potassium - POC 4.7 mmol/L (3.6-5.0); Sodium - POC 135 mmol/L (135-145); pH - POC 7.26 (7.35-7.45)
[2024-02-11] MEDS: SUBLIMAZE 50 MCG IV (22:25)
[2024-02-11] MEDS: DIPRIVAN 100 IV (22:34)
--- NOTE | 2024-02-11 22:44 | PHA.VAN.IN ---
Assessment
- Assessment
Renal Function: Appears elevated from baseline (02/01/24 BASELINE SCR: 0.7)
Concomitant Antimicrobials: ZOSYN
- Previous Dosing Experience
Previous Regimen: 1GM IV Q12H
Date of Regimen: 01/30/24
Provided Trough of: UNKNOWN
Provided AUC of: 415 PREDICTED
Patient's SCR is: Elevated compared to previous dosing experience (01/30/24 SCR = 0.8)
Patient's weight is: Elevated compared to previous dosing experience (01/30/24 WT = 79.9 KG)
Plan
- Plan
Initial / Loading Dose: 2GM
Maintenance Regimen: DOSING BY RANDOM LEVELS
Monitoring: RANDOM VANCOMYCIN LEVEL 02/12/24
Pharmacokinetics Vancomycin I
- -
Patient Age: 79
Patient Sex: Male
Vancomycin Day #: 1
Indication: Skin And Soft Tissue (INFECTED [L] THIGH HEMATOMA )
Requesting Provider: ERIC
Height / Weight:
Height 5 ft 8 in
Actual Weight 81.8 kg
Pertinent Past Medical History: THIGH HEMATOMA WITH WASHOUTS
- Vital Signs / Lab Results
Temp Pulse Resp BP Pulse Ox
98.1 F 105 15 110/63 96
02/11/24 18:58 02/11/24 19:30 02/11/24 19:30 02/11/24 19:30 02/11/24 19:30
Lab Results - Hematology
02/11/24
15:52
WBC 23.3 H
Lab Results - Chemistry
02/11/24
15:52
BUN 16
Creatinine 1.5 H
Estimated Creat Clear 39
Albumin 2.9 L
02/11/24
17:38
Lactic Acid 7.7 H*
--- NOTE | 2024-02-11 23:00 | PTCARENOTE ---
Resumed care of pt this evening. Received pt post operatively and intubated to ICU bed 3369. Received pt on levo gtt infusing via left wrist peripheral IV site. Pt's operative sites include left upper leg and rt groin access site. Fentanyl bolus and
propofol gtt initiated for sedation. Pt opens eyes spontaneously and is able to move arms and legs. Pupils equal in size and reactive to light. Pt is NSR on tele monitor, has +2 edema on left lower extremity, and bilateral PT/DP pulses are present
w/ doppler. Pt is tolerating vent settings: R 14/TV 550/R 5/FIO2 50, satting at 99% pulse ox. Lungs on auscultation sound diminished otherwise clear. Pt's abdomen is round w/ hypoactive BS. Temp sensing azar cath in place draining yellow colored
urine. Left upper leg aquacell dressing intact w/ ERA wrap covering the whole left leg. Left upper leg has x2 MARICHUY drains draining serosang drainage. Rt groin cath site dressing C/D/I.
[2024-02-11 23:33] LABS: Hemoglobin 8.6 g/dL (13.0-18.0); Mean Corp Hgb Conc. 35.8 g/dL (33.0-37.0); Mean Corpuscular Hgb 30.2 pg (27.0-31.0); Mean Corpuscular Volume 84.2 fL (80.0-94.0); Mean Platelet Volume 10.5 fL (7.4-10.4); Platelet Count 202 10^3/uL (130-400); Red Blood Cell Count 2.85 10^6/uL (4.70-6.10); Red Cell Dist. Width 15.6 % (11.5-14.5); White Blood Cell Count 31.6 10^3/uL (4.8-10.8)
[2024-02-11 23:37] LABS: B.E. -7.1 mmol/L; HCO3 17.5 mmol/L (21-28); O2 Saturation % 100 % (94-98); O2 Therapy 60%; PCO2 31 mmHg (35-48); PO2 196 mmHg (83-108); pH 7.36 (7.35-7.45)
[2024-02-11 23:38] LABS: Ionized Calcium 1.29 mMOL/L (1.15-1.33); Potassium 5.2 mMOL/L (3.5-5.1); Sodium 132 mMOL/L (136-145)
[2024-02-11 23:59] LABS: Lactic Acid 4.5 mmol/L (0.7-2.0)
--- NOTE | 2024-02-11 23:59 | W.SUR.POST ---
Surgical Immediate Post Op
Note
Pre Op Diagnosis: Left lower extremity hematoma
Post Op Diagnosis: Same
Procedure Performed: Emergent angiogram, left SFA covered stent
Primary Surgeon: Gagan
Anesthesia: General
Estimated Blood Loss: See anesthesia flowsheet
Fluids: See anesthesia flowsheet
Drains/Shunts: 2 MARICHUY drains
Specimens/Cultures: Cultures
Doppler/Duplex/Angio (Y/N): Yes
Complications: No
Operative Findings: Successful stent placement
[2024-02-12] VITALS (33 sets, daily range): BP systolic 94–135; BP diastolic 49–86; BMI 26.6
[2024-02-12] LABS: Blood Urea Nitrogen 17 mg/dl (9-20); Calcium 8.8 mg/dl (8.4-10.2); Carbon Dioxide 15 mmol/L (22-30); Chloride 102 mmol/L (98-107); Estimated Creatinine Clearance 45 ml/min; Glucose 206 mg/dl (70-99); Magnesium 1.9 mg/dl (1.6-2.3); Phosphorus 7.5 mg/dl (2.5-4.5); Potassium 4.9 mmol/L (3.5-5.1); Sodium 130 mmol/L (135-145); Triglycerides 138 mg/dl (10-149); eGFR 56.23
[2024-02-12] MEDS: VANCOCIN 540 MG IV (00:03)
[2024-02-12 00:05] LABS: INR 1.62; PT 19.3 Sec (11.4-14.6)
[2024-02-12 00:07] LABS: APTT 95.3 Sec (23.4-35.0)
[2024-02-12] MEDS: LEVOPHED 250 IV ×2 (01:03→07:20)
[2024-02-12] MEDS: DIFLUCAN 200 MG 50 MG IV ×2 (01:08→23:23)
[2024-02-12] MEDS: ZOSYN 50 IV ×5 (01:27→23:23)
[2024-02-12] MEDS: NOVOLOG FLEXPEN-MODERATE RESISTANCE 5 UNITS SC ×2 (01:59→06:22)
[2024-02-12 02:09] LABS: Glucose - Point of Care 296 mg/dl (70-99)
--- NOTE | 2024-02-12 03:20 | PTCARENOTE ---
Neurovascular and neurological checks unchanged. DP/PT are present w/ doppler bilaterally. Pt continues to tolerate vent settings satting at 100% pulse ox.
[2024-02-12 03:36] LABS: % Basophils 0.2 % (0-2); % Immature Granulocytes 1.7 % (0-0.5); % Lymphocytes 4.1 % (20.5-51.1); % Monocytes 3.6 % (1.7-9.3); % Neutrophils 90.4 % (42.2-75.2); Absolute Basophils 0.1 10^3/uL (0-0.2); Absolute Immature Granulocytes 0.6 10^3/uL (0-0.05); Absolute Lymphocytes 1.4 10^3/uL (1.2-3.4); Absolute Monocytes 1.2 10^3/uL (0.1-0.6); Absolute Neutrophils 29.5 10^3/uL (1.4-6.5); Hematocrit 22.9 % (39.0-52.0); Hemoglobin 8.2 g/dL (13.0-18.0); Mean Corp Hgb Conc. 35.8 g/dL (33.0-37.0); Mean Corpuscular Hgb 29.8 pg (27.0-31.0); Mean Corpuscular Volume 83.3 fL (80.0-94.0); Mean Platelet Volume 10.5 fL (7.4-10.4); Nucleated Red Blood Cells % 0 % (-); Platelet Count 209 10^3/uL (130-400); Red Blood Cell Count 2.75 10^6/uL (4.70-6.10); Red Cell Dist. Width 15.7 % (11.5-14.5); White Blood Cell Count 32.6 10^3/uL (4.8-10.8)
[2024-02-12 03:56] LABS: Lactic Acid 2.5 mmol/L (0.7-2.0)
[2024-02-12 04:05] LABS: ALT (SGPT) 21 U/L (0-50); AST (SGOT) 57 U/L (17-59); Albumin 2.1 g/dl (3.5-5.0); Alkaline Phosphatase 60 U/L (38-126); Blood Urea Nitrogen 19 mg/dl (9-20); Calcium 8.5 mg/dl (8.4-10.2); Carbon Dioxide 17 mmol/L (22-30); Chloride 105 mmol/L (98-107); Estimated Creatinine Clearance 41 ml/min; Glucose 230 mg/dl (70-99); Sodium 131 mmol/L (135-145); Total Bilirubin 0.9 mg/dl (0.2-1.3); Total Protein 4.3 g/dl (6.3-8.2); eGFR 47.36
[2024-02-12] MEDS: LR 1000 IV ×2 (05:21→17:22)
[2024-02-12 06:32] LABS: Glucose - Point of Care 265 mg/dl (70-99)
--- NOTE | 2024-02-12 07:00 | PTCARENOTE ---
Received patient from maintenance technician 3rd shift. patient is somnolent, arousable, bilateral soft limb restraints. intubated, sedated, on 10mcg of propofol, RASS -1. Patient saturation is 100%. Patient is sinus dipak on monitor at 58. has right radial [place].
All connections secured, line is transduced, and zero'ed to atmospheric pressure. Cuff pressures correlating. Patient is NPO, Has clear/yellow urine draining. Left leg is completely wrapped with ERA, left groin has aquacell dressing, and two MARICHUY
drains with serosanguineous drainage. Will review orders, plan to wewan to extubate. Patient to remain on bedrest today.
--- NOTE | 2024-02-12 07:08 | CON.INTV ---
Consultation
Consultation Request
Date/Time Consultation Requested: 02/12/24
Date/Time Consultation Performed: 02/12/24
Performing Provider: Christine
Reason for Consultation: ICU
Medical History
-
History of Present Illness:
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 He
complained of worsening pain in his extremity. In ER underwent CT AP demonstrating large intramuscular hematoma, notably his blood pressure was in the 90s systolic. He is admitted to ICU for hemorrhagic shock. Given Kcentra, 3 units of PRBCs, 2
units of FFP. Return to OR urgently for hematoma evacuation 02/11/2024. Maintained on Levophed and mechanical ventilation. He is admitted postoperatively to ICU for further management.
Past Medical History
Past Medical History: Other (see list below)
Social History
Tobacco: Non-smoker
Alcohol: None
Drug: None
Family History
Family History: Reviewed & Not Pertinent
Allergies / Home Medications
Allergies
Allergy/AdvReac Type Severity Reaction Status Date / Time
No Known Allergies Allergy Verified 02/11/24 15:37
Home Medications
�Medication �Instructions �Recorded �Confirmed �Last Taken �Type
multivitamin 1 ea PO DAILY Supplement 10/06/20 02/11/24 01/29/24 History
apixaban 5 mg tablet (Eliquis) 5 mg PO BID Blood Clot 01/29/24 02/11/24 02/11/24 History
Prevention/Tx
docusate sodium 100 mg capsule 100 mg PO BID Constipation 01/29/24 02/11/24 02/11/24 History
oxycodone 5 mg tablet 5 mg PO Q6HPRN PRN moderate pain 01/29/24 02/11/24 02/11/24 12:45 History
pregabalin 75 mg capsule 75 mg PO BID Pain 01/29/24 02/11/24 02/11/24 History
sennosides 8.6 mg tablet (Senna 8.6 mg PO DAILY Constipation 01/29/24 02/11/24 02/11/24 History
Laxative)
acetaminophen 325 mg tablet 650 mg PO Q6H PRN mild pain 02/11/24 02/11/24 02/11/24 14:30 History
325 mg
amoxicillin 875 mg-potassium 1 tab PO BID 02/11/24 02/11/24 02/11/24 History
clavulanate 125 mg tablet
fluconazole 100 mg tablet 100 mg PO DAILY 02/11/24 02/11/24 02/11/24 History
Review of Systems
-
History Source: Patient
All other systems: Negative unless noted
Vitals / Labs / Diagnostic Testing
Vital Signs
Temp Pulse Resp BP Pulse Ox
99.1 F 57 14 122/64 100
02/12/24 03:54 02/12/24 06:00 02/12/24 06:00 02/12/24 06:00 02/12/24 06:00
Lab Data
02/12/24 03:25
02/12/24 03:25
Laboratory Results
02/11/24 02/11/24 02/11/24
15:55 23:12 23:13
PT 19.4 H 19.3 H
INR 1.63 1.62
APTT 95.3 H
pH 7.36
pCO2 31 L
pO2 196 H
HCO3 17.5 L
O2 Delivery Level 60%
Diagnostic Testing:
Physical Exam
-
HEENT: Normocephalic, Anicteric and Moist Mucous Membranes
Cardiovascular: S1/S2 and Regular Rhythm
Respiratory: Clear, Non-Labored Respirations and Other (ETT)
GI: Soft, Non Distended and Non Tender
Neurology: Awake, Alert, Oriented, AO x 3 and No Motor Deficits
Skin: Warm, Dry and Good Color
General: Comfortable and Other (NAD)
Assessment
-
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 He
complained of worsening pain in his extremity. In ER underwent CT AP demonstrating large intramuscular hematoma, notably his blood pressure was in the 90s systolic. He is admitted to ICU for hemorrhagic shock. Given Kcentra, 3 units of PRBCs, 2
units of FFP. Return to OR urgently for hematoma evacuation 02/11/2024. Maintained on Levophed and mechanical ventilation. He is admitted postoperatively to ICU for further management.
Hemorrhagic shock
Intramuscular hematoma s/p stenting of left SFA and evacuation of hematoma 02/11/24
History of recent washout/abx
Perioperative mechanical ventilation
Leukocytosis
Metabolic acidosis, lactic acidosis
MANOJ, creat 1.5
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
s/p Left leg hematoma washout and wound exploration 01/29/24
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
History of prostate cancer s/p radical perineal prostatectomy 01/05/08 Dr. Zaldivar
Bladder stone s/p Complex laser cystolitholapaxy with extraction of stone 10/10/20
Dyslipidemia
HTN
Cholecystectomy (1979)
Cervical disc disease-3 level cervical laminectomy (2013)
Plan
No current signs of metabolic encephalopathy or MS changes/following commands
Denies pain at this time.
Pain/sedation: sedation weaned to off, holiday/SAT protocol
RASS goals: 0
Hemodynamically unstable, requiring low-dose pressors.
Requiring pressors: levophed weaning down, currently on 2mcgs
Cardiac history reviewed--HTN
Prior ECHO reviewed indicating normal function
Hold home meds until BP stable
Monitor on telemetry
Intubated perioperatively, on SBT trial, ABG reviewed
Vent setting reviewed: PS 5 W, adequate MV noted
Prior history of lung disease: H/o PE, on Eliquis
Supplemental O2 as indicated to maintain sats > 89%
CXR/CT reviewed indicating NAD
SBT with plan to extubate
NPO, advance diet post extubation
Addictions Therapist recommendations
Aspiration precautions, HOB > 30 degrees
Speech therapy eval can be considered if at elevated risk
GI prophylaxis if indicated for mechanical ventilation >48 hours, prior history of GERD, stress ulcer formation in the critically ill
MANOJ present, mild likely from ATN
Creat at baseline, 0.7-0.8--no history of renal disease
Void trials
Follow urine output, critical I/Os
Replete electrolytes as needed
Can trial lasix if UO remains low
Recent infection of groin, on abx-continued from OSH
Started on empiric antibiotics
Cultures sent/pending
Blood
Wound+enterococcus/MSSA
Follow fever trend, WBC count
Lactate elevated on admission, continue to trend until <2
Acute hemorrhagic shock, s/p massive transfusion
s/p hematoma evac and drain placement
CBC stable, no signs of bleeding or coagulopathy at this time
Follow H&H regularly
DVT prophylaxis as assessed based on risk, including mechanical SCDs/hold OAC
Can transfuse if indicated for Hb <7, plt < 10
Received 4 units pRBCs, kcentra, 2 units FFP
INR WNL: 1.6
No prior h/o diabetes or thyroid disease, but BG are elevated
Will add SS, monitor
Monitor accuchecks PRN/SS coverage if needed
HbA1c 6.6
Will follow
Diagnostic Data
Chest X-Ray: 01/29/24- No radiographic evidence of acute cardiopulmonary abnormality.
CT Scan: AP 02/11/24- 1. Redemonstration postoperative changes of the left anterior thigh with expansile heterogeneous enlargement of the quadriceps and adductor musculature in keeping with intramuscular hematoma, only partially visualized on the
current exam and likely slightly progressed from prior with probable continued slow bleeding. Slight interval decrease in degree of subcutaneous gas.
AP 01/29/24
1. No CTA evidence for active arterial contrast extravasation.
2. Postoperative changes of the right anterior thigh with expansile enlargement of the quadriceps and adductor musculature. Findings are most compatible with intramuscular hematoma. The presence of residual neoplasm would be difficult to
differentiate from hematoma on this exam. Soft tissue gas is presumably postoperative but superimposed infection is not excluded.
3. Patent bilateral 3 vessel runoffs with moderate atherosclerosis throughout both lower extremities.
4. 5 mm solid pleural-based pulmonary nodule in the right lower lobe with slight enlargement compared to the previous chest CT. Consider a follow-up chest CT in 3-6 months for reevaluation.
Echo: 11/11/23- Normal left ventricular size, wall thickness and systolic function. No regional wall motion abnormalities are seen. Estimated ejection fraction is 55-60%. Normal diastolic function. Trileaflet aortic valve. Thickened calcified aortic
valve with adequate leaflet excursion. Trace aortic insufficiency. The aortic root is mildly dilated-ascending aorta 4.0 cm. Since echocardiogram 09/03/2023, right ventricular dysfunction and tricuspid regurgitation have resolved/improved
significantly. Aortic root is mildly dilated.
PFT's:
Reports and relevant images were personally reviewed.
-----
Critical care time 65 mins -- this includes review of history, physical exam, medications, hemodynamic/ventilator parameters, laboratory data, imaging and discussion with house staff, pharmacy, respiratory therapy, development specialist, and nursing.
[2024-02-12] MEDS: MIRALAX TUBE (07:32)
--- NOTE | 2024-02-12 07:43 | CON.VAS ---
Consultation
Consultation Request
Performing Provider: Kathleen Schreiber, COMMERCIAL OCEAN CLAMMER-C dictating for Francisco Farah MD
Reason for Consultation: Hemorrhagic shock
Medical History
-
Chief Complaint: Active bleeding and swelling following fall to left lower extremity
History of Present Illness:
79-year-old male past medical history of sarcoma and DVT/PE of left lower extremity status post resection at [facility], he developed infected hematoma postoperatively, which required multiple trips to the OR for washout and placement of
antibiotic beads. He underwent primary closure with drain placement by Dr. Moeller's at [facility] on 02/10/2024 and then was subsequently discharged. He reported to the ED on 02/11/2024 following a fall at home with reports of dizziness and
lightheadedness. ED evaluation included CT left lower extremity which demonstrated a large anterior left thigh intramuscular hematoma with acute arterial bleeding/extravasation from the superficial femoral artery, prompting vascular consult.
Past Medical History
Past Medical History: Cancer (prostate), HTN, Hypercholesterolemia and Other (sarcoma of left lower extremity status post resection at [facility] followed by for washout and closure with placement of drain, Left lower extremity DVT and bilateral
PEs 09/06/2023)
Social History
Tobacco: Non-Smoker
Alcohol: Occasional
Allergies / Home Medications
Allergy/AdvReac Type Severity Reaction Status Date / Time
No Known Allergies Allergy Verified 02/11/24 15:37
�Medication �Instructions �Recorded �Confirmed �Type
multivitamin 1 ea PO DAILY Supplement 10/06/20 02/11/24 History
apixaban 5 mg tablet (Eliquis) 5 mg PO BID Blood Clot 01/29/24 02/11/24 History
Prevention/Tx
docusate sodium 100 mg capsule 100 mg PO BID Constipation 01/29/24 02/11/24 History
oxycodone 5 mg tablet 5 mg PO Q6HPRN PRN moderate pain 01/29/24 02/11/24 History
pregabalin 75 mg capsule 75 mg PO BID Pain 01/29/24 02/11/24 History
sennosides 8.6 mg tablet (Senna 8.6 mg PO DAILY Constipation 01/29/24 02/11/24 History
Laxative)
acetaminophen 325 mg tablet 650 mg PO Q6H PRN mild pain 02/11/24 02/11/24 History
amoxicillin 875 mg-potassium 1 tab PO BID 02/11/24 02/11/24 History
clavulanate 125 mg tablet
fluconazole 100 mg tablet 100 mg PO DAILY 02/11/24 02/11/24 History
Review of Systems
-
History Source: Patient
Constitutional: Reports No Symptoms
EENT: Reports No Symptoms
Respiratory: Reports No Symptoms
Cardiac: Reports No Symptoms
Abdomen/GI: Reports No Symptoms
: Reports Other (Scrotal edema)
Musculoskeletal: Reports Edema (Left lower extremity edema and pain)
Neurological: Reports Dizzy
Physical Exam
Vital Signs
Temp Pulse Resp BP Pulse Ox
99.4 F 58 14 121/61 100
02/12/24 07:36 02/12/24 07:36 02/12/24 07:36 02/12/24 07:36 02/12/24 07:37
Lab Results
02/12/24 03:25
02/12/24 03:25
Physical Exam
HEENT: Normocephalic, Anicteric and Atraumatic
Cardiac: Negative JVD
GI: Soft, Non Tender and Non Distended
Musculoskeletal: Edema (Left lower extremity with +2 edema)
Skin: Warm and Dry
Neuro: AO x 3
Pulses: Left Dorsalis Pedis: Doppler and Bilateral Posterior Tibial: Doppler
Assessment / Plan
-
Assessment 79-year-old male presented to ED on 02/11/2024 with intramuscular hematoma and active bleeding from left superficial femoral artery
Plan:
Patient was taken emergently to the OR to repair active bleeding of left SFA and evacuate hematoma by Francisco Pena MD
--- NOTE | 2024-02-12 07:58 | W.PN.VS ---
Addendum entered and electronically signed by Juan Edmond MD 02/12/24 17:28:
Seen and examined with SHERMAN Schreiber early this a.m. This is a late entry. At that time patient was still intubated. Hemodynamically was stable. Left lower extremity Ted bandage/dressing clean dry and intact. No hematoma or blood staining. Left foot
warm with good dopplerable signals. Plan/as discussed and noted below.
Original Note:
Today's Communication / Plan
-
Patient seen and examined at bedside with Dr. Juan Edmond, below plan reviewed with attending
Assessment/Plan
-
Assessment: 71-year-old male POD #1 left lower extremity hematoma evacuation and placement of Viabahn stent at [facility]
Plan:
Extubation per special warfare boat operator team
Please initiate aspirin rectally and then can transition to p.o. once cleared
Please initiate Plavix 75 mg p.o. daily once cleared
Wean Levophed infusion as tolerated, from vascular surgery standpoint once hemodynamically stable can discontinue arterial line
Bedrest
Continue neurovascular checks
Subjective Data
-
Date of Service: February 12, 2024
Patient seen and examined at bedside, unable to obtain subjective data as he is currently intubated and lightly sedated.
Objective Data
-
Vital Signs
Temp Pulse Resp BP Pulse Ox
99.4 F 58 14 121/61 100
02/12/24 07:36 02/12/24 07:36 02/12/24 07:36 02/12/24 07:36 02/12/24 07:51
Intake and Output
02/11/24 02/12/24 02/13/24
06:59 06:59 06:59
Intake Total 1042.2 / 1165.9 243.6 / 243.6
Output Total 813 / 823
Balance 229.2 / 342.9 233.6 / 233.6
Intake:
IV fluids (Total) 402.2 / 525.9 243.6 / 243.6
Levo 202.8 / 236.6 63.8 / 63.8
Lr 1,000 ml @ 85 mls/hr IV . 170 / 255 170 / 170
[id number] [facility] Rx#:[id number]
Propofol 29.4 / 34.3 9.8 / 9.8
IV piggybacks 640 / 640
Blood Product Amount Infused ( 0 / 0
mL)
Packed Rbc Leukoreduced Unit 0 / 0
[id number]
Output:
Drain Output (Total) 110 / 110
Left Upper Leg Kang-Carney A 40 40
Left Upper Leg Kang-Carney B 70 / 70
Urine, Draper 703 / 713
Lab Results
02/12/24 03:25
02/12/24 03:25
Calcium 8.5 mg/dl (8.4-10.2) 02/12/24 03:25
Phosphorus 7.5 mg/dl (2.5-4.5) H 02/11/24 23:13
Magnesium 1.9 mg/dl (1.6-2.3) 02/11/24 23:13
Total Bilirubin 0.9 mg/dl (0.2-1.3) 02/12/24 03:25
AST 57 U/L (17-59) 02/12/24 03:25
ALT 21 U/L (0-50) 02/12/24 03:25
Alkaline Phosphatase 60 U/L (38-126) 02/12/24 03:25
Total Protein 4.3 g/dl (6.3-8.2) L D 02/12/24 03:25
Albumin 2.1 g/dl (3.5-5.0) L 02/12/24 03:25
Physical Exam
-
Intubated, able to open eyes and obey commands
No tachycardia
Tolerating ventilator
ABD flat
Left lower extremity with soft compartments, MARICHUY drain x 2 with serosanguineous output, strong Doppler signal at DP and PT, left foot warm
[2024-02-12] MEDS: ASPIRIN 300 MG RECTAL (08:02)
--- NOTE | 2024-02-12 09:15 | PHA.VAN.FU ---
Addendum entered and electronically signed by Yesenia Reddy Pamela 02/12/24 15:52:
Laboratory Tests
02/12/24 02/12/24
03:25 12:03
Random Vancomycin 30.0 18.9
ke=0.0535 and half-life = 12.9H between the above levels
Based on current ke, patient's level anticipated to follow below 10 by midnight (~12H after level today at noon)
Will re-dose now with 750mg to maintain levels through the AM
Based on half-life, patient remains appropriate for once daily dosing
Random 02/12 0600 to assess level trend and evaluate for re-dosing requirements
Original Note:
Vancomycin Assessment / Plan
- Assessment
Renal Function: Stable
WBC's are: Trending Up
In the past 24 hrs, patient has been: Afebrile
Concomitant Antimicrobials: piperacillin/tazobactam, fluconazole
- Assessment - Therapeutic Drug Monitoring
Random Level: 30 - drawn ~60 to 90 mins after end of infusion; level = peak
- Dosing Plan
Dosing by Level: Hold off on dosing today (hold off on dosing for now)
- Monitoring Plan
Random Level: 02/11 1200 - to assess level that is not a peak
- Follow Up
Pharmacy will continue to follow.
Vancomycin Follow UP
- -
Patient Age: 79
Patient Sex: Male
Vancomycin Day #: 2
Indication: Skin And Soft Tissue
Requesting Provider: Dr. Mcgill
Pertinent Antimicrobial Allergies:
NKDA
Height / Weight:
Height 5 ft 9 in
Actual Weight 81.7 kg
Pertinent Past Medical History: DM 2
- Vital Signs / Lab Results
Temp Pulse Resp BP Pulse Ox
99.4 F 80 19 121/61 100
02/12/24 07:36 02/12/24 08:35 02/12/24 08:35 02/12/24 07:36 02/12/24 08:35
Lab Results - Hematology
02/11/24 02/11/24 02/12/24
15:52 23:13 03:25
WBC 23.3 H 31.6 H 32.6 H
Lab Results - Chemistry
02/11/24 02/11/24 02/12/24
15:52 23:13 03:25
BUN 16 17 19
Creatinine 1.5 H 1.3 1.5 H
Estimated Creat Clear 39 45 41
Albumin 2.9 L 2.1 L
02/11/24 02/11/24 02/11/24
17:38 20:45 22:22
Lactic Acid 7.7 H* Cancelled Cancelled
02/11/24 02/12/24
23:12 03:25
Lactic Acid 4.5 H* 2.5 H
Therapeutic Drug Monitoring
Random Vancomycin 30.0 ug/ml 02/12/24 03:25
[2024-02-12 09:19] LABS: B.E. -3.8 mmol/L; HCO3 20.1 mmol/L (21-28); O2 Saturation % 99.8 % (94-98); PCO2 31 mmHg (35-48); PO2 186 mmHg (83-108); pH 7.42 (7.35-7.45)
[2024-02-12 09:34] LABS: Lactic Acid 2.7 mmol/L (0.7-2.0)
--- NOTE | 2024-02-12 09:55 | RESPNOTE ---
09:53 extubated patient and placed on 2L n.c. 100%, HR 75, RR 22
[2024-02-12 10:30] LABS: Phosphorus 6.8 mg/dl (2.5-4.5)
--- NOTE | 2024-02-12 10:46 | W.PN.HOSP.TC ---
Addendum entered and electronically signed by Ronaldo Pandya MD 02/12/24 11:48:
Correction: Levophed now off
Original Note:
Today's Communication/Plan
-
see bold
Assessment / Plan
Assessment / Plan
Gen: NAD, AAOx3.
Eyes: EOMI, PERRLA, no scleral icterus.
Neck: supple.
CV: RRR, +S1/S2, no m/r/g.
Resp: CTAB, no rales, wheezes, or rhonchi.
Abd: +BS, soft, NT, ND
Skin: No rashes. LLE with C/D/I dressing with MARICHUY drain with sangunious drainage
Neuro: CN 2-12 intact, non-focal.
Psych: Normal mood and affect.
Hemorrhagic shock secondary to large anterior left thigh intramuscular hematoma with acute arterial bleeding/extravasation from the superficial femoral artery at mid thigh level:
-h/o sarcoma left quadriceps s/p resection at [facility] complicated by infected hematoma s/p 4 washouts and closure at [facility] 02/10/24 with drain placement
-Patient completed radiation for sarcoma, no metastatic disease
-on admission SBP 90s systolic which improved with IV fluids and blood
-acute blood loss anemia (exacerbated by eliquis) s/p 4U pRBCs, 2U ffp
-Eliquis on hold
-Kcentra given
-s/p 02/11/24 left lower extremity hematoma evacuation and placement of Viabahn stent at [facility]
-cont Levophed
-cont Vancomycin/Zosyn/Fluconazole, follow BCxs. c/s ID. Note recent operative cultures showed Enterococcus and MSSA. Cultures from [facility] on February 10, 2024 showed Latrice.
-Dilaudid for pain
MANOJ with AG metabolic acidosis due to lactic acidosis:
-cont IVFs
-c/s renal
-Trend lactate
DVT of left lower extremity/hx PE:
-Holding all anticoagulation for now
-Will eventually have to restart when safe as per vascular surgery
Chronic anemia
-Hb stable, trend
DM2:
-SSI/accuchecks
Full code
DVT prophylaxis�none
Family updated at bedside.
Total critical care time spent = 35 minutes
Anticipated Discharge: > 48 hours
Subjective/Interval History
-
Date of Service: February 12, 2024
Objective Data
-
Labs:
Laboratory Results
02/11/24 02/11/24 02/12/24
23:12 23:13 03:25
WBC 31.6 H 32.6 H
Hgb 8.6 L 8.2 L
Hct 24.0 L 22.9 L
Plt Count 202 D 209
PT 19.3 H
INR 1.62
APTT 95.3 H
HCO3 17.5 L
Sodium 130 L 131 L
Potassium 4.9 5.0
Chloride 102 105
Carbon Dioxide 15 L 17 L
BUN 17 19
Creatinine 1.3 1.5 H
Glucose 206 H 230 H
Calcium 8.8 8.5
Total Bilirubin 0.9
AST 57
ALT 21
Alkaline Phosphatase 60
02/12/24
09:07
WBC
Hgb
Hct
Plt Count
PT
INR
APTT
HCO3 20.1 L
Sodium
Potassium
Chloride
Carbon Dioxide
BUN
Creatinine
Glucose
Calcium
Total Bilirubin
AST
ALT
Alkaline Phosphatase
Vital Signs:
Vital Signs
Temp Pulse Resp BP Pulse Ox
99.4 F 70 12 113/86 100
02/12/24 07:36 02/12/24 09:45 02/12/24 09:45 02/12/24 08:00 02/12/24 09:53
I&O
02/11/24 02/12/24 02/13/24
06:59 06:59 06:59
Intake Total 1042.2 / 1165.9 351.1 / 351.1
Output Total 813 / 823 105 / 105
Balance 229.2 / 342.9 246.1 / 246.1
--- NOTE | 2024-02-12 11:38 | W.CON.NEPH ---
Consultation
-
Date/Time Consultation Requested: 02/12/2024 11:34AM
Date/Time Consultation Performed: 02/12/2024 12PM
Requesting Provider: Ronaldo Pandya
Performing Provider: Dodie Garibay
Reason for Consultation: MANOJ
Medical History
-
Chief Complaint: MANOJ
History of Present Illness:
Mr. 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
injury of LLE. In the ER, he underwent a CT showing large intramuscular left thigh hematoma. He was hypotensive, lactate was >7. He was given Kcentra, 3U pRBCs, 2 units FFP. He was taken to the OR for hematoma evacuation on 02/10. He was intubated,
now extubated and on levophed.
States that he feels well now. Per the chart: Patient has had a complicated history. He was discovered to have DVT/PE and left lower extremity as well as sarcoma in the left upper extremity in August. This was originally surgically excised in December
at [facility] and patient was started on Eliquis at that time. Patient was then subsequently admitted here for infected left thigh hematoma and underwent washout here and placement of VAC. Wound culture here grew Enterococcus. Patient
subsequently had 3 further washouts at [facility] with final closure yesterday with placement of MARICHUY drain. During this interim he had been on Lovenox for anticoagulation and he finally was instructed to start Eliquis which he took this morning.
As per patient's family cultures from the hospitalization yesterday grew Latrice and he is being treated with fluconazole.
Cr prior to procedure was 0.7-0.8, now elevated to 1.5.
Past Medical History
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
prostate cancer
DLD
DVT/PE (on Eliquis)
anemia
diabetes
Past Surgical History: Cholecystectomy, Orthopedic, Urological and Other
Social History
Tobacco: Non-Smoker
Alcohol: Occasional
Drug: None
Family History
Family History: Not Pertinent
Allergies / Home Medications
Allergy/AdvReac Type Severity Reaction Status Date / Time
No Known Allergies Allergy Verified 02/11/24 15:37
�Medication �Instructions �Recorded �Confirmed �Type
multivitamin 1 ea PO DAILY Supplement 10/06/20 02/11/24 History
apixaban 5 mg tablet (Eliquis) 5 mg PO BID Blood Clot 01/29/24 02/11/24 History
Prevention/Tx
docusate sodium 100 mg capsule 100 mg PO BID Constipation 01/29/24 02/11/24 History
oxycodone 5 mg tablet 5 mg PO Q6HPRN PRN moderate pain 01/29/24 02/11/24 History
pregabalin 75 mg capsule 75 mg PO BID Pain 01/29/24 02/11/24 History
sennosides 8.6 mg tablet (Senna 8.6 mg PO DAILY Constipation 01/29/24 02/11/24 History
Laxative)
acetaminophen 325 mg tablet 650 mg PO Q6H PRN mild pain 02/11/24 02/11/24 History
amoxicillin 875 mg-potassium 1 tab PO BID Infection 02/11/24 02/11/24 History
clavulanate 125 mg tablet
fluconazole 100 mg tablet 100 mg PO DAILY Infection 02/11/24 02/11/24 History
Review of Systems
-
History Source: Patient
All other systems: Negative unless noted
Constitutional: Fatigue
Musculoskeletal: Joint Pain
Physical Exam
Vital Signs
Vital Signs
Temp Pulse Resp BP Pulse Ox
99.4 F 81 15 113/86 100
02/12/24 07:36 02/12/24 11:30 02/12/24 11:30 02/12/24 08:00 02/12/24 11:15
Lab Results
WBC 32.6 10^3/uL (4.8-10.8) H 02/12/24 03:25
RBC 2.75 10^6/uL (4.70-6.10) L 02/12/24 03:25
Hgb 8.2 g/dL (13.0-18.0) L 02/12/24 03:25
Hct 22.9 % (39.0-52.0) L 02/12/24 03:25
Plt Count 209 10^3/uL (130-400) 02/12/24 03:25
Sodium 131 mmol/L (135-145) L 02/12/24 03:25
Potassium 5.0 mmol/L (3.5-5.1) 02/12/24 03:25
Chloride 105 mmol/L (98-107) 02/12/24 03:25
Carbon Dioxide 17 mmol/L (22-30) L 02/12/24 03:25
BUN 19 mg/dl (9-20) 02/12/24 03:25
Creatinine 1.5 mg/dL (0.7-1.3) H 02/12/24 03:25
eGFR 47.36 02/12/24 03:25
Glucose 230 mg/dl (70-99) H 02/12/24 03:25
Calcium 8.5 mg/dl (8.4-10.2) 02/12/24 03:25
Phosphorus 6.8 mg/dl (2.5-4.5) H 02/12/24 03:25
Albumin 2.1 g/dl (3.5-5.0) L 02/12/24 03:25
Physical Exam
General: AOx3, No Distress and Nontoxic
HEENT: PERRL, EOMI, Anicteric, Conjunctivae Clear, Ear/Nose Intact, Hearing Normal, Oropharynx Clear/Moist, Dentition Intact, Facial Symmetry, Neck Supple, Trachea Midline and No Thyromegaly
Respiratory: Clear
Cardiac: S1/S2 and Regular Rate/Rhythm
Breast: N/A
Abdomen: Soft, Nontender, Nondistended and Normal Bowel Sounds
Rectal: Deferred by Provider
Genito-urinary: Clear Urine and Other (Draper in place)
Musculoskeletal: No Clubbing, No Cyanosis, No Edema and Other (LLE with MARICHUY drain and wrapped)
Skin: No Rash, Warm, Dry, No Clubbing and No Cyanosis
Neuro: Nonfocal/Grossly Intact
Hematologic/Lymphatic: No Cervical Lymphadenopathy
Psych: Mood/afflect pleasant, Insight/judgement good and Appropriate
Data Reviewed
-
Radiology: Image Personally Visualized and interpreted (ET tube in place, otherwise wnl)
CT Scan: Report Reviewed by me (hematoma of the left thigh with acute arterial bleeding from femoral artery)
Labs: Labs Reviewed by me, Discussed with Physician, Discussed with Nurse and Discussed with Family
Old Records: Reviewed
Assessment/Plan
-
Assessment:
Hemorrhagic shock
LLE thigh hematoma
MANOJ
lactic acidosis (resolving)
Plan:
MANOJ
- most likely from ATN from blood loss/hypotension prior to and during OR
- obtain UA, UPCR, UACR
- plan for kidney ultrasound
- monitor I/Os, continues to have decent UOP at this time
- supporitve care and please keep MAP >65
- avoid hyperglycemia and other nephrotoxic agents
[2024-02-12] MEDS: NOVOLOG FLEXPEN-MODERATE RESISTANCE 1 UNITS SC ×2 (11:53→17:27)
--- NOTE | 2024-02-12 12:00 | PTCARENOTE ---
Patient sucessfully extubated. Tolerated clears, then advanced to 1800 zoe diabetic diet. Patient states he is not diabetic. Hemoglobin A1C from January is 6.6. Educated patient. Vascular team has ordered neurovascular checks to remain q1hr.
Patient is able to shift his weight/ buttocks. Provided oral care, patient was able to brush teeth. Have weaned patient off levophed down from 9mcg. Urine output continues to be minimal. Nephrology consult provided.
[2024-02-12 12:12] LABS: Glucose - Point of Care 186 mg/dl (70-99)
--- NOTE | 2024-02-12 12:41 | CON.ID ---
Consultation
-
Date/Time Consultation Requested: 02/12/24 10:56
Date/Time Consultation Performed: 02/12/24 12:41
Requesting Provider: Dr Pandya
Performing Provider: Dr King
Reason for Consultation: infected L thigh hematoma
Chief Complaint / Past History
Chief Complaint
fall, left thigh pain
History of Present Illness
Mr Green is a 79 year old male with history of sarcoma of the L lower extremity s/p resection at [facility] then washout, closure and drain placement yesterday who presented here yesterday post fall 'off of something I shouldnt have been
standing on.' He tripped and fell onto the ipsilateral leg, also hit his head and hips. Then developed worsening pain in the LUE. No dizziness or fainting. No nausea, vomiting, chest pain or shortness of breath.
He has a history of an infected left thigh hematoma with enterococcus and mssa here 01/28. He was started on vancomycin and cefepime and was transferred to [facility] for PRS muscle flap on 01/31. Anaerobic cultures and blood cultures from 01/28
ultimately finalized negative. Family also report cultures from [facility] with yeast and he is on fluconazole 100 mg PO qday prior to arrival. I did see a dc summary he brought in at his bedside and his medication reconcilation reporting he was
prescribed 10 days of fluconazole 100 mg and 10 days of augmentin 875/125 mg po bid. Will request further records formally.
Since arrival here he has been afebrile, bp hypotensive initially requiring pressors which are being weaned down, wbc initially 23 now 32, hgb 8.2 similar to earlier this month, plt initially 409 now 209, cr baseline 0.7 now 1.5, lactic acid
initially 7.7 now 2.7, ER CT angio a/p showed large intramuscular hematoma in L thigh with acute arterial bleeding from SFA, blood cultures x2 yesterday no growth to date, he was taken to the OR same day (02/10) and underwent left lower extremity
hematoma evacuation and placement of Viabahn stent at [facility]. Required massive transfusion with 4 units pRBCs, kcentra, 2 units FFP. He is in good spirits.
Past History
Additional Past Medical History:
sarcoma of left lower extremity status post resection at [facility] followed by for washout and closure with placement of drain most recently yesterday prostate cancer, hyperlipidemia, DVT/PE discovered in August of left lower extremity on
Eliquis, anemia, diabetes
Additional Past Surgical History:
Cholecystectomy, Orthopedic, Urological and Other
Allergy History:
No Known Allergies Allergy (Verified 02/11/24 15:37)
Medications Reviewed: Yes
Social History
Tobacco: Non-Smoker
Alcohol: Occasional
Drug: None
Family History
Family History: Not Pertinent
Review of Systems
Review of Systems
General: Negative Fever or Chills
All systems: All other systems were reviewed and were negative
Vital Signs
Temp Pulse Resp BP Pulse Ox
99.4 F 81 15 113/86 100
02/12/24 07:36 02/12/24 11:30 02/12/24 11:30 02/12/24 08:00 02/12/24 11:15
Physical Exam
Physical Exam
Constitutional: No Acute Distress
Cardiovascular: Regular Rate and S1/S2; Negative Murmur or Rub
Pulmonary: Clear and Symmetric; Negative Wheezes, Rales or Rhonchi
Gastrointestinal: Soft, Non Tender, Non Distended and Normal Bowel Sounds
Skin: Warm and Dry; Negative Rash or Jaundice
Wound: Other (dressing in place, clean, dry intact; L foot swollen; drains x2 in place with serosanguinous output)
Lab / Diagnostic Study Results
02/12/24 03:25
02/12/24 03:25
Abs Immat Gran (auto) 0.6 10^3/uL (0-0.05) H 02/12/24 03:25
Absolute Neuts (auto) 29.5 10^3/uL (1.4-6.5) H 02/12/24 03:25
Absolute Lymphs (auto) 1.4 10^3/uL (1.2-3.4) 02/12/24 03:25
Absolute Monos (auto) 1.2 10^3/uL (0.1-0.6) H 02/12/24 03:25
Absolute Basos (auto) 0.1 10^3/uL (0-0.2) 02/12/24 03:25
Immature Gran % 1.7 % (0-0.5) H 02/12/24 03:25
Neutrophils % 90.4 % (42.2-75.2) H 02/12/24 03:25
Lymphocytes % 4.1 % (20.5-51.1) L 02/12/24 03:25
Monocytes % 3.6 % (1.7-9.3) 02/12/24 03:25
Eosinophils % 0.0 % (0-6) 02/12/24 03:25
Basophils % 0.2 % (0-2) 02/12/24 03:25
PT 19.3 Sec (11.4-14.6) H 02/11/24 23:13
INR 1.62 02/11/24 23:13
Lactic Acid 2.7 mmol/L (0.7-2.0) H 02/12/24 09:07
Microbiology Results
Micro:
02/11/24 23:14 Blood Culture - Pending
Blood/Venous
02/11/24 17:38 Blood Culture - Pending
Blood/Venous
Assessment / Plan
Skin/Soft tissue Infection ? Infected hematoma?
Hemorrhagic Shock - resolved
ATN/MANOJ
- additional records requested; note that he was on a 10 day course of fluconazole 100 mg PO qday and augmentin 875/125 mg on arrival
- our cultures here from 01/28 with amp sensitive E faecalis and MSSA
- qtc acceptable at 440
- is on clopidogrel which has drug interaction with fluconazole
- hopefully records will clarify indication for fluconazole, for now will continue at present dose
- will continue vancomycin and zosyn for the moment, likely deescalate to augmentin tomorrow if shock continues to rapidly resolve
[2024-02-12 12:45] LABS: Vancomycin Random 18.9 ug/ml
[2024-02-12] MEDS: PLAVIX 75 MG PO (13:34)
--- NOTE | 2024-02-12 13:56 | CM ---
CM following re: discharge planning.
Reviewed pt's chart, met with pt.
Pt is a 79 year old male, admitted with primary dx of POD #1 left lower extremity hematoma evacuation and placement of Viabahn stent at [facility]
Pt reports he lives with SO in a 2SH, 3 steps to enter, has 2 supportive children. 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 No DME, VN or SNF history.
PCP: Shahbaz Sykes
Pharmacy: [facility]
D/c plan: home with anticipated no needs. Family to transport at discharge.
CM will follow with discharge plan updates as hospitalization progresses
[2024-02-12] MEDS: LASIX 20 MG IV (14:12)
--- NOTE | 2024-02-12 16:00 | PTCARENOTE ---
Patient has intermittently required between 1 and 3mcg of levophed, switched peripheral site to right AC 18 INT. Patient is awake, alert, oriented, conversant. Has minimal to no pain, will have intermittent throbing of leg. NV checks remain
unchanged. Provided patient with air pillow under buttocks.
[2024-02-12 17:08] LABS: Glucose - Point of Care 160 mg/dl (70-99)
[2024-02-12] MEDS: VANCOCIN 150 IV (17:23)
[2024-02-12 18:47] LABS: Urine Albumin Negative (Neg - Trace); Urine Bilirubin Negative (Negative); Urine Character Clear (Clear); Urine Color Yellow; Urine Glucose Negative (Negative); Urine Ketone Negative (Negative); Urine Leukocyte Negative (Negative); Urine Nitrite Negative (Negative); Urine Occult Blood 3+ (Negative); Urine Urobilinogen Negative (Neg - 1+)
[2024-02-12 18:57] LABS: Urine Bacteria Few (Negative); Urine White Cell 0-2 /HPF (0-5)
[2024-02-12 19:05] LABS: Urine Protein < 5 mg/dl
[2024-02-12 19:06] LABS: Microalbumin, Random Urine 0.7 mg/dl (0.6-1.7); Microalbumin/creatinine Ratio 15.4 mg/g
--- NOTE | 2024-02-12 21:00 | PTCARENOTE ---
Resumed care of pt this evening. Received pt on levo gtt infusing at 3mcg/min via rt peripheral IV site. Pt is A&Ox3, can move all 4 extremities, and pupils are equal and respond to light. On tele monitor pt is in NSR, has +3 scrotal edema, +2
pitting edema on left lower extremity, and has +DP/+PT pulses. A line zeroed to atmospheric pressure and transduced. Pt on RA satting at 96% pulse ox. On auscultation pt lungs sound diminished at the bases. Abdomen is round w/ +BS. Draper cath in
place draining clear yellow urine. Surgical dressing on rt groin is C/D/I. Surgical dressing on left upper leg has old drainage present. MARICHUY drains x2 both draining serosanguineous drainage.
[2024-02-12 21:49] LABS: Glucose - Point of Care 156 mg/dl (70-99)
[2024-02-12] MEDS: DILAUDID 0.5 MG IV (23:23)
[2024-02-13] VITALS (30 sets, daily range): BP systolic 92–128; BP diastolic 37–77; BMI 27.6
[2024-02-13 04:42] LABS: Mean Corp Hgb Conc. 35.2 g/dL (33.0-37.0); Mean Corpuscular Hgb 29.7 pg (27.0-31.0); Mean Corpuscular Volume 84.6 fL (80.0-94.0); Mean Platelet Volume 10.6 fL (7.4-10.4); Platelet Count 153 10^3/uL (130-400); Red Blood Cell Count 1.95 10^6/uL (4.70-6.10); Red Cell Dist. Width 16.6 % (11.5-14.5); White Blood Cell Count 19.1 10^3/uL (4.8-10.8)
[2024-02-13 04:56] LABS: Hemoglobin 5.8 g/dL (13.0-18.0)
[2024-02-13 04:57] LABS: Hematocrit 16.5 % (39.0-52.0)
[2024-02-13 04:59] LABS: Blood Urea Nitrogen 29 mg/dl (9-20); Calcium 8.1 mg/dl (8.4-10.2); Carbon Dioxide 22 mmol/L (22-30); Chloride 99 mmol/L (98-107); Estimated Creatinine Clearance 28 ml/min; Glucose 123 mg/dl (70-99); Magnesium 1.9 mg/dl (1.6-2.3); Potassium 4.3 mmol/L (3.5-5.1); Sodium 127 mmol/L (135-145); eGFR 29.91
[2024-02-13 05:00] LABS: Lactic Acid 0.7 mmol/L (0.7-2.0)
[2024-02-13 05:18] LABS: Vancomycin Random 20.1 ug/ml
[2024-02-13] MEDS: ZOSYN 50 IV ×2 (05:26→13:30)
[2024-02-13] MEDS: DILAUDID 0.5 MG IV ×2 (05:43→22:02)
--- NOTE | 2024-02-13 05:45 | PTCARENOTE ---
1 unit of PRBCs transfusing for Hgb of 5.8
--- NOTE | 2024-02-13 07:11 | W.PN.INTV ---
Today's Communication / Plan
Recommendations
Hb noted this AM, vasc to re-eval
Low dose pressor on board
Lasix trial with >2L put out
2 units pRBCs given, can diuresis more if indicated
May need repeat imaging pending findings
Assessment
-
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 He
complained of worsening pain in his extremity. In ER underwent CT AP demonstrating large intramuscular hematoma, notably his blood pressure was in the 90s systolic. He is admitted to ICU for hemorrhagic shock. Given Kcentra, 3 units of PRBCs, 2
units of FFP. Return to OR urgently for hematoma evacuation 02/11/2024. Maintained on Levophed and mechanical ventilation. He is admitted postoperatively to ICU for further management.
Hemorrhagic shock
Intramuscular hematoma s/p stenting of left SFA and evacuation of hematoma 02/11/24
Acute blood loss anemia 2/2 above
History of recent washout/abx
Perioperative mechanical ventilation
Leukocytosis
Metabolic acidosis, lactic acidosis
MANOJ, creat 1.5
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
Left lower extremity thigh mass-sarcoma status post resection 3 weeks ago at [facility]
s/p Left leg hematoma washout and wound exploration 01/29/24
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
History of prostate cancer s/p radical perineal prostatectomy 01/05/08 Dr. Zaldivar
Bladder stone s/p Complex laser cystolitholapaxy with extraction of stone 10/10/20
Dyslipidemia
HTN
Cholecystectomy (1979)
Cervical disc disease-3 level cervical laminectomy (2013)
Plan
No current signs of metabolic encephalopathy or MS changes/following commands
Denies pain at this time.
Pain/sedation: sedation weaned to off, holiday/SAT protocol
RASS goals: 0
Hemodynamically unstable, requiring low-dose pressors.
Requiring pressors: levophed weaning down, currently on 1mcgs
Cardiac history reviewed--HTN
Prior ECHO reviewed indicating normal function
Hold home meds until BP stable
Monitor on telemetry
Intubated perioperatively, extubated 02/12/24 and doing well
Prior history of lung disease: H/o PE, on Eliquis
Supplemental O2 as indicated to maintain sats > 89%
CXR/CT reviewed indicating NAD
Stable on RA
Diet advanced
Building Appraiser recommendations
Aspiration precautions, HOB > 30 degrees
Speech therapy eval can be considered if at elevated risk
GI prophylaxis if indicated for mechanical ventilation >48 hours, prior history of GERD, stress ulcer formation in the critically ill
MANOJ present, mild likely from ATN
Creat at baseline, 0.7-0.8--no history of renal disease
Void trials
Follow urine output, critical I/Os
Replete electrolytes as needed
Lasix trial with some UO, >2L
Recent infection of groin, on abx-continued from OSH
Started on empiric antibiotics
Cultures sent/pending
Blood
Wound+enterococcus/MSSA
Follow fever trend, WBC count
Lactate elevated on admission, continue to trend until <2
Acute hemorrhagic shock, s/p massive transfusion
s/p hematoma evac and drain placement
CBC stable, no signs of bleeding or coagulopathy at this time
Follow H&H regularly
Hb drop to 5 today, vasc to re-eval
May need repeat imaging
DVT prophylaxis as assessed based on risk, including mechanical SCDs/hold OAC
Can transfuse if indicated for Hb <7, plt < 10
Received 4 units pRBCs, kcentra, 2 units FFP
2 units given this AM, repeat H&H pending
INR WNL: 1.6
No prior h/o diabetes or thyroid disease, but BG are elevated
Will add SS, monitor
Monitor accuchecks PRN/SS coverage if needed
HbA1c 6.6
Diagnostic Data
Chest X-Ray: 01/29/24- No radiographic evidence of acute cardiopulmonary abnormality.
CT Scan: AP 02/11/24- 1. Redemonstration postoperative changes of the left anterior thigh with expansile heterogeneous enlargement of the quadriceps and adductor musculature in keeping with intramuscular hematoma, only partially visualized on the
current exam and likely slightly progressed from prior with probable continued slow bleeding. Slight interval decrease in degree of subcutaneous gas.
AP 01/29/24
1. No CTA evidence for active arterial contrast extravasation.
2. Postoperative changes of the right anterior thigh with expansile enlargement of the quadriceps and adductor musculature. Findings are most compatible with intramuscular hematoma. The presence of residual neoplasm would be difficult to
differentiate from hematoma on this exam. Soft tissue gas is presumably postoperative but superimposed infection is not excluded.
3. Patent bilateral 3 vessel runoffs with moderate atherosclerosis throughout both lower extremities.
4. 5 mm solid pleural-based pulmonary nodule in the right lower lobe with slight enlargement compared to the previous chest CT. Consider a follow-up chest CT in 3-6 months for reevaluation.
Echo: 11/11/23- Normal left ventricular size, wall thickness and systolic function. No regional wall motion abnormalities are seen. Estimated ejection fraction is 55-60%. Normal diastolic function. Trileaflet aortic valve. Thickened calcified aortic
valve with adequate leaflet excursion. Trace aortic insufficiency. The aortic root is mildly dilated-ascending aorta 4.0 cm. Since echocardiogram 09/03/2023, right ventricular dysfunction and tricuspid regurgitation have resolved/improved
significantly. Aortic root is mildly dilated.
PFT's:
Reports and relevant images were personally reviewed.
-----
Critical care time 40 mins -- this includes review of history, physical exam, medications, hemodynamic/ventilator parameters, laboratory data, imaging and discussion with house staff, pharmacy, respiratory therapy, punch press feeder, and nursing.
Subjective Dataa
Subjective Data
Date of Service:
Date of Service: February 13, 2024
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
Subjective:
no events ON, remains on low dose pressor
Hb drop to 5 today, no overt signs of bleeding noted
vasc to evaluate LE
Objective Data
Data Reviewed
Vital Signs / I&O / Oxygen:
Vital Signs
Temp Pulse Resp BP Pulse Ox
97.4 F 63 11 106/37 99
02/13/24 05:52 02/13/24 05:52 02/13/24 05:52 02/13/24 05:52 02/13/24 05:45
Intake and Output
02/12/24 02/13/24 02/14/24
06:59 06:59 06:59
Intake Total 1042.2 / 1165.9 2750.7 / 2750.7
Output Total 813 / 823 2672.0 / 2672.0
Balance 229.2 / 342.9 78.7 / 78.7
SaO2 [A/C] 100
SaO2 99
Nasal Cannula flow liters per 2
minute
Physical Exam
General: Comfortable and Other (NAD)
HEENT: Normocephalic, Anicteric and Moist Mucous Membranes
Cardiovascular: S1-S2 and Regular Rhythm
Respiratory: Clear and Non-Labored Respirations
GI: Soft, Non Distended and Non Tender
Neurology: Awake, Alert, Oriented, AO x 3 and No Motor Deficits
Skin: Warm, Dry and Good Color
Labs/Micro/Reports
Lab Data
02/13/24 04:23
Laboratory Results
02/12/24
09:07
pH 7.42
pCO2 31 L
pO2 186 H
HCO3 20.1 L
O2 Delivery Level
Microbiology
02/11/24 23:14 Blood/Venous Blood Culture - Preliminary
No Growth in 24 hours- Final report to follow
02/11/24 17:38 Blood/Venous Blood Culture - Preliminary
No Growth in 24 hours- Final report to follow
[2024-02-13 07:43] LABS: Glucose - Point of Care 159 mg/dl (70-99)
--- NOTE | 2024-02-13 07:54 | W.PN.ID1 ---
Date of Service
Date of Service: February 13, 2024
Today's Communication
start micafungin
start unasyn, stop vancomycin and zosyn
Assessment / Plan
Skin/Soft tissue Infection, Infected hematoma?
Hemorrhagic Shock - improving
ATN/MANOJ - progressed
- additional records requested and were reviewed
- note that on arrival he was on a 10 day course of fluconazole 100 mg PO qday and augmentin 875/125 mg on arrival per Dr Mckeon ID at [facility]
- note biofilm was resected from the femoral artery 02/01 - cultures with E faecalis and C albicans - there is also referral to two outpatient superficial cultures with MSSA
- 'no concern for bone infection' recorded at the time of discharge
- our cultures here from 01/28 with amp sensitive E faecalis and MSSA
- qtc acceptable at 440
- is on clopidogrel which has drug interaction with fluconazole
- review our 02/10 OR note when available - tiger text from Dr
- start micafungin, stop fluconazole
- start unasyn, stop vancomycin/zosyn
- follow clinically; known to Dr Mike DARNELL at [facility]
Chief Complaint
-: Other (surgical site infection)
Subjective / Review of Systems
afebrile
remains on norepi at 3 mcg/min
leukocytosis improving
hgb dropped overnight
plt dropped
cr now 2.2
blood cultures no growth to date
tiger texted Dr Edmond to obtain further history of OR findings
additional records obtained 38 pages - reviewed - foley points below
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
no h/o systemic chemotherapy, last radiation Iggy november 19 2023
h/o pulmonary HTN - resolved
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
01/04 - for neuroplasty, radical resection off the tumor - uncomplicated however of note '15 cm tumor with significant alteration of surgcial site due to preop radiation' procedure over 5 hours in length. extensive bone loss.
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
01/28 presented here () for excruciating left leg pain, CT hematoma and gas, same day debridement with Dr Downing. Transferred to [facility] 01/31
02/01 surgical preparation of left thigh for future reconstruction, placement of antibiotic beads with vanc and gent, vac placement: no infection on superficial wound, purulent exudate on top of the femoral artery with biofilm on vasculature, biofilm
exxcisionally debrided, wound soaked in hydrogenperoxide and betadine, then gent.
Seen by Dr Meza February 01: outpatient cultures from plastic team with two kinds of MSSA; also note our cultures with MSSA, E faecalis - amp sensitive, patient swithced from vanc/cefepime to unasyn
OR cultures 02/01 ultimately with E faecalis amp sensitive and bailey albicans
02/[address] Bradley (co sugery with Dr Mckeon): additional resection of deep margin, irrigation debridement and placement of vac - additional deep margin was sent for path
02/04 had vanc dressing change antibiotic beads: vanc/gent and micafungin. Deep wound culture and swab obtained. Wound bed no purulence of obvious signs of infection. OR cultures from 02/04 finalized with many bailey albicans in two cultures,
anaerobic cultures were not sent in proper media and were not processed.
02/09 wound cultures: currently preliminary no growth to date
Changed to augmentin and fluconazole for 10 days per ID.
Vital Signs / Physical Exam
Vital Signs
Vital Signs
Temp Pulse Resp BP Pulse Ox
97.6 F 63 11 106/37 99
02/13/24 07:49 02/13/24 05:52 02/13/24 05:52 02/13/24 05:52 02/13/24 05:45
Physical Exam
Constitutional: No Acute Distress
Cardiovascular: Regular Rate and S1/S2; Negative Murmur or Rub
Pulmonary: Clear and Symmetric; Negative Wheezes or Rales
Gastrointestinal: Soft, Non Tender, Non Distended and Normal Bowel Sounds
Skin: Warm and Dry; Negative Rash or Jaundice
Objective Data
Lab Data
Lab Results
02/13/24 04:23
PT 19.3 Sec (11.4-14.6) H 02/11/24 23:13
INR 1.62 02/11/24 23:13
APTT 95.3 Sec (23.4-35.0) H 02/11/24 23:13
Estimated Creat Clear 28 ml/min 02/13/24 04:23
Lactic Acid 0.7 mmol/L (0.7-2.0) 02/13/24 04:23
Total Bilirubin 0.9 mg/dl (0.2-1.3) 02/12/24 03:25
AST 57 U/L (17-59) 02/12/24 03:25
ALT 21 U/L (0-50) 02/12/24 03:25
Alkaline Phosphatase 60 U/L (38-126) 02/12/24 03:25
Most recent labs reviewed.
Micro Results:
02/11/24 23:14 Blood Culture - Preliminary
Blood/Venous No Growth in 24 hours- Final report to follow
02/11/24 17:38 Blood Culture - Preliminary
Blood/Venous No Growth in 24 hours- Final report to follow
--- NOTE | 2024-02-13 08:00 | PTCARENOTE ---
Received pt @ change of shift. AAOx3, forgetful @ x's. Neurovascular checks maintained per orders- see flow sheet. SR on monitor. +3 scrotal edema; +2 LLE. + doppler PT/DP pulses. SpO2 98% on RA. + BS, abd soft/round/+mukesh. Draper in place draining
clear/yellow urine; output improving. R groin dressing c/d/i. L groin aquacell c/d/i. LLE w monica compression, to be kept on @ all x's per vascular CLIENT MANAGER. R rad A-line transduced, monitored, and calibrated; all ports patent and secured; correlated w
cuff. Levo gtt and IVF infusing via #18 R AC and 1 unit PRBC infusing via #20 L hand. Pt. instructed on how to report care concerns and call ronn w in reach.
[2024-02-13] MEDS: NOVOLOG FLEXPEN-MODERATE RESISTANCE 1 UNITS SC ×2 (08:28→18:18)
[2024-02-13] MEDS: ASPIR LOW (ENTERIC COATED) 81 MG PO (08:28)
[2024-02-13] MEDS: LR 1000 IV ×2 (08:28→18:19)
[2024-02-13] MEDS: LEVOPHED 250 IV (08:28)
[2024-02-13] MEDS: MIRALAX 17 GRAMS TUBE (08:28)
[2024-02-13] MEDS: PLAVIX 75 MG PO (08:28)
--- NOTE | 2024-02-13 09:31 | PHA.VAN.FU ---
Vancomycin Assessment / Plan
- Assessment
Renal Function: SCR Increasing (1.5-> 2.2)
WBC's are: Trending Down
In the past 24 hrs, patient has been: Afebrile
Concomitant Antimicrobials: fluconazole; pip/tazo
- Assessment - Therapeutic Drug Monitoring
Random Level: 20.2 (last vanc dose was 750 mg ~1700 02/11)
- Dosing Plan
Continue: dose by random level due to MANOJ
Dosing by Level: Hold off on dosing today
- Monitoring Plan
Random Level: reordered 02/14/24 0600
- Follow Up
Pharmacy will continue to follow.
Vancomycin Follow UP
- -
Patient Age: 79
Patient Sex: Male
Vancomycin Day #: 3
Indication: Skin And Soft Tissue
Requesting Provider: Dr. Mcgill
Pertinent Antimicrobial Allergies:
NKDA
Height / Weight:
Height 5 ft 9 in
Actual Weight 84.6 kg
Pertinent Past Medical History: DM 2
- Vital Signs / Lab Results
Temp Pulse Resp BP Pulse Ox
97.8 F 68 16 128/50 99
02/13/24 08:15 02/13/24 08:15 02/13/24 08:15 02/13/24 08:15 02/13/24 05:45
Lab Results - Hematology
02/11/24 02/11/24 02/12/24
15:52 23:13 03:25
WBC 23.3 H 31.6 H 32.6 H
02/13/24
04:23
WBC 19.1 H
Lab Results - Chemistry
02/11/24 02/11/24 02/12/24
15:52 23:13 03:25
BUN 16 17 19
Creatinine 1.5 H 1.3 1.5 H
Estimated Creat Clear 39 45 41
Albumin 2.9 L 2.1 L
02/13/24
04:23
BUN 29 H
Creatinine 2.2 H
Estimated Creat Clear 28
Albumin
02/11/24 02/11/24 02/11/24
17:38 20:45 22:22
Lactic Acid 7.7 H* Cancelled Cancelled
02/11/24 02/12/24 02/12/24
23:12 03:25 09:07
Lactic Acid 4.5 H* 2.5 H 2.7 H
02/13/24
04:23
Lactic Acid 0.7
Lab Results - Urine
02/12/24
18:34
Urine Nitrite Negative
Ur Leukocyte Esterase Negative
Urine WBC 0-2
Ur Squamous Epith Cells 3-5
Urine Bacteria Few A
Microbiology Results
02/11/24 23:14 Blood Culture - Preliminary
Blood/Venous No Growth in 24 hours- Final report to follow
02/11/24 17:38 Blood Culture - Preliminary
Blood/Venous No Growth in 24 hours- Final report to follow
Therapeutic Drug Monitoring
Random Vancomycin 20.1 ug/ml 02/13/24 04:23
--- NOTE | 2024-02-13 09:33 | W.PN.NEPH.PH ---
Today's Communication / Plan
-
follow BMP
Assessment/Plan
-
Assessment:
Hemorrhagic shock
LLE thigh hematoma
MANOJ
lactic acidosis (resolving)
Plan:
check urine studies
increase in UOP is promising for renal recovery
follow vanco levels
repeat Hgb
follow BMP
maintain azar for now
US renal ok
wean levophed as allowed, keeping MAP > 65
d/w pt and son
critical care time 31 minutes
-
-
Date of Service: February 13, 2024
CC / HPI / ROS
-
Chief Complaint:
MANOJ
History of Present Illness:
critically ill in ICU on pressors
MANOJ/Cr worse to 2.2
Na lower at 127
Hgb very today at 5.8 this morning
azar in place, very much nonoliguric
lactic acid normalized
on broad spectrum abx, vanco level slightly hgh
Review of Systems:
no CP/SOB
Labs
-
Labs:
WBC 19.1 10^3/uL (4.8-10.8) H 02/13/24 04:23
RBC 1.95 10^6/uL (4.70-6.10) L 02/13/24 04:23
Plt Count 153 10^3/uL (130-400) D 02/13/24 04:23
Sodium 127 mmol/L (135-145) L 02/13/24 04:23
Potassium 4.3 mmol/L (3.5-5.1) 02/13/24 04:23
Chloride 99 mmol/L (98-107) 02/13/24 04:23
Carbon Dioxide 22 mmol/L (22-30) 02/13/24 04:23
BUN 29 mg/dl (9-20) H 02/13/24 04:23
Creatinine 2.2 mg/dL (0.7-1.3) H 02/13/24 04:23
eGFR 29.91 02/13/24 04:23
Glucose 123 mg/dl (70-99) H 02/13/24 04:23
Calcium 8.1 mg/dl (8.4-10.2) L 02/13/24 04:23
Phosphorus 6.8 mg/dl (2.5-4.5) H 02/12/24 03:25
Albumin 2.1 g/dl (3.5-5.0) L 02/12/24 03:25
Physical Exam
-
Vital Signs:
Vital Signs
Temp Pulse Resp BP Pulse Ox
97.8 F 68 16 128/50 99
02/13/24 08:15 02/13/24 08:15 02/13/24 08:15 02/13/24 08:15 02/13/24 05:45
Cardiovascular:: Regular rate and rhythm
Respiratory:: Bilateral: Coarse
Lung Excursion:: Normal
Abdomen:: Nontender and Soft
Bowel Sounds:: Normal
Extremity Edema:: +1: Bilateral:
--- NOTE | 2024-02-13 11:05 | PN.CDI ---
CDI
- -
CDI:
Physician Documentation Request
Admit Date: 02/11/24 19:42
Dear Doctor Ya,
Please review the following and provide your response in the progress notes.
Clinical Indicators:
- Patient admit for hemorrhagic shock due to left thigh hematoma
- Received 5 units PRBC, 2 units FFP
- The following current labs:
Laboratory Tests
02/11/24 02/12/24 02/13/24
23:13 03:25 04:23
Sodium 130 L 131 L 127 L
Please provide a diagnosis for the above lab values that were monitored and treatment rendered:
Hyponatremia
Clinically insignificant abnormal lab value
Other
Use of terms such as suspected, likely, concern for, or probable (associated with a specific diagnosis that is being evaluated, monitored, or treated as if it exists) are acceptable and can be coded in the inpatient setting, when documented at the
time of discharge.
Thank you,
Edith Lea RN
CDI Specialist
Please use your independent medical judgment in providing your response.
--- NOTE | 2024-02-13 11:13 | W.PN.VS ---
Addendum entered and electronically signed by Juan Draper III, MD 02/13/24 17:05:
This patient was seen and examined with TYRONE Mcnamara. I agree with the history and physical exam as well as the assessment and plan. I have the following additions:
Had an extensive discussion with the patient and his son at bedside
Reviewed the events to date, arteriogram findings and communicated our concerns from a vascular surgery perspective regarding the infected hematoma cavity from tumor resection, superficial femoral artery disruption and placement of stent grafts and
prior ligation of profunda femoral artery.
I logged into [facility] and reviewed the medical records remotely.
Provided culture data to infectious disease -Enterococcus and Latrice
On exam he is non toxic, alert/oriented
Thigh is soft
Drains serosang x 2
Foot warm
Provided him options for continuation of care here at [facility] with vascular surgery and plastic surgery involvement versus following up with his team at [facility]. He would prefer to stay here at [facility].
For now will continue ABX, blood transfusion as needed, monitor Hgb trend and drain output.
Will need a definitive vascular surgery plan at some point when more stable/appropriate.
If he wants to stay here I will consult with Dr. Darrell Wilson at some point next week.
Call with questions/concerns
Signed: Juan Draper III, MD
[facility]
[phone] (pdzk)
Original Note:
Today's Communication / Plan
-
See below
Assessment/Plan
-
Assessment: 71-year-old male POD #2 left lower extremity hematoma evacuation and placement of Viabahn stent at [facility]
Plan:
No evidence of active bleeding, however will give additional 1 unit of packed red blood cells for decreased hemoglobin
Continue DAPT therapy of Plavix 75 mg p.o. daily and aspirin 81 mg p.o. daily given patient currently cannot be on his anticoagulation
Keep patient on bedrest today
Continue neurovascular checks
Subjective Data
-
Date of Service: February 13, 2024
Patient seen and examined at bedside, offers no complaints. Denies left lower extremity pain, does endorse continued edema, she is improved from preop. Tolerating p.o. diet. Denies nausea, fever, chills, vomiting.
Objective Data
-
Vital Signs
Temp Pulse Resp BP Pulse Ox
98.2 F 75 17 126/50 97
02/13/24 10:04 02/13/24 10:04 02/13/24 10:04 02/13/24 10:04 02/13/24 09:54
Intake and Output
02/12/24 02/13/24 02/14/24
06:59 06:59 06:59
Intake Total 1292.2 / 1415.9 2750.7 / 3147.0 1317.6 / 1317.6
Output Total 813 / 823 2672.0 / 2747.0 275 / 275
Balance 479.2 / 592.9 78.7 / 400.0 1042.6 / 1042.6
Intake:
Oral fluids 450 / 450 240 / 240
IV fluids (Total) 402.2 / 525.9 2150.7 / 2247.0 277.6 / 277.6
Levo 202.8 / 236.6 270.9 / 282.2 22.6 / 22.6
Lr 1,000 ml @ 85 mls/hr IV . 170 / 255 1870 / 1955 255 / 255
[id number] [facility] Rx#:[id number]
Propofol 29.4 / 34.3 9.8 / 9.8
IV piggybacks 640 / 640 150 / 200 50 / 50
Blood Products 500 / 500
Packed red blood cells 500 / 500
Blood Product Amount Infused ( 250 / 250 0 / 0 250 / 250
mL)
Packed Rbc Leukoreduced Unit 250 / 250
[id number]
Packed Rbc Leukoreduced Unit 0 / 0 250 / 250
[id number]
Packed Rbc Leukoreduced Unit 0 / 0
[id number]
Output:
Drain Output (Total) 110 / 110 230 / 230
Left Upper Leg Kang-Carney A 40 / 40 75 / 75
Left Upper Leg Kang-Carney B 70 / 70 155 / 155
Urine, Draper 703 / 713 2442.0 / 2517.0 275 / 275
Lab Results
02/13/24 04:23
Calcium 8.1 mg/dl (8.4-10.2) L 02/13/24 04:23
Phosphorus 6.8 mg/dl (2.5-4.5) H 02/12/24 03:25
Magnesium 1.9 mg/dl (1.6-2.3) 02/13/24 04:23
Total Bilirubin 0.9 mg/dl (0.2-1.3) 02/12/24 03:25
AST 57 U/L (17-59) 02/12/24 03:25
ALT 21 U/L (0-50) 02/12/24 03:25
Alkaline Phosphatase 60 U/L (38-126) 02/12/24 03:25
Total Protein 4.3 g/dl (6.3-8.2) L D 02/12/24 03:25
Albumin 2.1 g/dl (3.5-5.0) L 02/12/24 03:25
Physical Exam
-
Resting bed comfortably, no apparent distress
No tachycardia
No dyspnea
ABD flat, nontender, nondistended
Right groin puncture site CDI, no evidence of hematoma
Left lower extremity with soft compartments, MARICHUY drain x 2 with serosanguineous output, strong Doppler signal at DP and PT, bilateral foot warm
--- NOTE | 2024-02-13 11:15 | W.PN.HOSP.TC ---
Today's Communication/Plan
-
see bold
Assessment / Plan
Assessment / Plan
Gen: NAD, Awake and alert
Eyes: EOMI, PERRLA, no scleral icterus.
Neck: supple.
CV: RRR with occasional premature beats, +S1/S2, no m/r/g.
Resp: CTAB, no rales, wheezes, or rhonchi.
Abd: +BS, soft, NT, ND
Skin: No rashes. remains LLE with C/D/I dressing with MARICHUY drain with sangunious drainage
Neuro: CN 2-12 intact, non-focal.
Psych: Normal mood and affect.
02/11/24 23:14 Blood/Venous Blood Culture - Preliminary
No Growth in 24 hours- Final report to follow
02/11/24 17:38 Blood/Venous Blood Culture - Preliminary
No Growth in 24 hours- Final report to follow
Hemorrhagic shock secondary to large anterior left thigh intramuscular hematoma with acute arterial bleeding/extravasation from the superficial femoral artery at mid thigh level:
-h/o sarcoma left quadriceps s/p resection at [facility] complicated by infected hematoma s/p 4 washouts and closure at [facility] 02/10/24 with drain placement
-Patient completed radiation for sarcoma, no metastatic disease
-on admission SBP 90s systolic which improved with IV fluids and blood
-acute blood loss anemia on chronic anemia (exacerbated by eliquis) s/p pRBCs and ffp. Transfuse 2 more U pRBCs today.
-Eliquis on hold
-Kcentra given
-s/p 02/11/24 left lower extremity hematoma evacuation and placement of Viabahn stent at [facility]
-cont Levophed
-cont Vancomycin/Zosyn/Fluconazole, follow BCxs (NGTD). ID following. Note recent operative cultures showed Enterococcus and MSSA. Cultures from [facility] on February 10, 2024 showed Latrice.
-Dilaudid for pain
MANOJ with AG metabolic acidosis due to lactic acidosis, and hyponatremia:
-cont IVFs
-renal U/S: Unremarkable sonographic appearance of the kidneys bilaterally.
-renal following. Discussed with Dr. Marie, no new orders from his standpoint today.
-Lactic acidosis now resolved
DVT of left lower extremity/hx PE:
-Holding all anticoagulation for now
-Will eventually have to restart when safe as per vascular surgery
DM2:
-SSI/accuchecks
Hyponatremia, mild
Full code
DVT prophylaxis�none
RN updated
Total critical care time spent = 31 minutes
Anticipated Discharge: > 48 hours
Subjective/Interval History
-
Date of Service: February 13, 2024
No new complaints.
Objective Data
-
Labs:
Laboratory Results
02/13/24 02/13/24 02/13/24
04:23 08:00 12:00
WBC 19.1 H
Hgb 5.8 L* D Cancelled Pending
Hct 16.5 L* Cancelled Pending
Plt Count 153 D
Sodium 127 L
Potassium 4.3
Chloride 99
Carbon Dioxide 22
BUN 29 H
Creatinine 2.2 H
Glucose 123 H
Calcium 8.1 L
02/13/24
16:00
WBC
Hgb Pending
Hct Pending
Plt Count
Sodium
Potassium
Chloride
Carbon Dioxide
BUN
Creatinine
Glucose
Calcium
Vital Signs:
Vital Signs
Temp Pulse Resp BP Pulse Ox
98.2 F 75 17 126/50 97
02/13/24 10:04 02/13/24 10:04 02/13/24 10:04 02/13/24 10:04 02/13/24 09:54
I&O
02/12/24 02/13/24 02/14/24
06:59 06:59 06:59
Intake Total 1292.2 / 1415.9 2750.7 / 3147.0 1317.6 / 1317.6
Output Total 813 / 823 2672.0 / 2747.0 275 / 275
Balance 479.2 / 592.9 78.7 / 400.0 1042.6 / 1042.6
[2024-02-13 12:16] LABS: Glucose - Point of Care 134 mg/dl (70-99)
[2024-02-13] MEDS: NOVOLOG FLEXPEN-MODERATE RESISTANCE SC (12:26)
--- NOTE | 2024-02-13 14:00 | PTCARENOTE ---
Levo gtt off @ 0957- see flow sheet. 2nd unit PRBC initiated @ infusing via #20 L hand PIV. Noted to infiltrate during infusion. Blood transfusion switched to #18 R AC. L hand PIV removed. Unable to access another peripheral site. VAT RN
notified. VAT to bedside and R DL PICC placed per orders. PICC required repositioning, unable to get in correct placement. Dr. Pandya notified and further orders received for IR environmental manager. Pt. transported to IR and back to rm [id number]. R DL PICC in correct
position s/p arrival back to unit from IR. Levo gtt back on @ 1330 to keep MAP >65- see flow sheet. Pt.'s significant other @ bedside, updated. Call brody in reach.
[2024-02-13 14:05] LABS: Hematocrit 22.8 % (39.0-52.0)
[2024-02-13 14:16] LABS: Hemoglobin 7.9 g/dL (13.0-18.0)
[2024-02-13 14:43] LABS: Urine Sodium 44 mmol/L (30-90)
--- NOTE | 2024-02-13 15:34 | CM ---
CM following re: discharge planning.
Reviewed pt's chart, met with pt.
POD #2 left lower extremity hematoma evacuation and placement of Viabahn stent at [facility], continue supportive care.
Pt lives with SO in a 2SH, 3 steps to enter, has 2 supportive children and independent in all areas [employer], drives.
D/c plan: home with anticipated no needs. Family to transport at discharge.
CM will follow with discharge plan updates as hospitalization progresses
--- NOTE | 2024-02-13 16:19 | PTCARENOTE ---
LLE dressing change completed w Vascular BUSINESS ARCHITECT. No obvious s/s of bleeding. Redressed and moniac reapplied to LLE. Hgb this afternoon 7.9 s/ transfusions. Chaperone notified and next h&h draw for 2200 per orders.
[2024-02-13 17:05] LABS: Glucose - Point of Care 179 mg/dl (70-99)
[2024-02-13] MEDS: UNASYN IV (18:19)
[2024-02-13] MEDS: MYCAMINE 105 MG IV (18:37)
[2024-02-13] MEDS: HEPARIN 5000 UNITS SC (20:15)
--- NOTE | 2024-02-13 21:38 | PTCARENOTE ---
Handoff report received from off going RN. Patient received on Levophed at 1 mcg and LR at 85ml/hr. Dual RN skin and neurovascular assessment completed. LLE monica wrap is intact. B/l groin dressing is c.d.i. No hematoma noted. The patient is AAOx3
and able to make his needs known. Complains of 6/10 pain, and requests prn pain medication to be administered at 2200. Pt complains of tingling to left thigh that is baseline, per the patient. Neurovascular assessment as documented on the flowsheet.
Pt's sinus rhythm on the monitor. Levophed placed on hold at this time. Pt's MAP 78. +3 scrotal edema and +2 LLE edema. Doppler pulses to b/l DP & PT. Right radial arterial line transduced, zeroed and calibrated. Diminished breath sounds to bases.
SpO2 at 98%on RA. IS max 2500 ml x3 attempts. Positive BS. Temp sensing Draper catheter draining yellow urine. 2 lt thigh MARICHUY draining small amount of serosang. output. Safety measures maintained. Call brody and personal belongings are within reach.
[2024-02-13 21:41] LABS: Glucose - Point of Care 169 mg/dl (70-99)
[2024-02-13 22:06] LABS: Hematocrit 21.9 % (39.0-52.0); Hemoglobin 7.8 g/dL (13.0-18.0)
[2024-02-14] VITALS (18 sets, daily range): BP systolic 94–135; BP diastolic 43–88; BMI 26.4
--- NOTE | 2024-02-14 00:10 | PTCARENOTE ---
0010: Patient reassessed. AAOx3. neurovascular and neurochecks as documented. Pt's making adequate UOP. No changes from the previous assessment.
[2024-02-14 04:22] LABS: Hematocrit 22.3 % (39.0-52.0); Hemoglobin 7.6 g/dL (13.0-18.0); Mean Corp Hgb Conc. 34.1 g/dL (33.0-37.0); Mean Corpuscular Volume 85.1 fL (80.0-94.0); Mean Platelet Volume 10.6 fL (7.4-10.4); Platelet Count 138 10^3/uL (130-400); Red Blood Cell Count 2.62 10^6/uL (4.70-6.10); Red Cell Dist. Width 17.6 % (11.5-14.5)
--- NOTE | 2024-02-14 04:51 | PTCARENOTE ---
Patient reassessed. No changes from the previous assessment. Patient cleansed. MARICHUY drains with serosang. drainage. Pt continues to make adequate urine via azar catheter.
[2024-02-14 04:52] LABS: Blood Urea Nitrogen 23 mg/dl (9-20); Calcium 8.6 mg/dl (8.4-10.2); Carbon Dioxide 23 mmol/L (22-30); Chloride 107 mmol/L (98-107); Estimated Creatinine Clearance 47 ml/min; Glucose 125 mg/dl (70-99); Potassium 3.9 mmol/L (3.5-5.1); Sodium 134 mmol/L (135-145); Triglycerides 196 mg/dl (10-149); eGFR 56.23
[2024-02-14] MEDS: LR 1000 IV (05:08)
[2024-02-14] MEDS: UNASYN IV ×3 (05:40→17:56)
--- NOTE | 2024-02-14 07:14 | W.PN.INTV ---
Today's Communication / Plan
Recommendations
Doing well today, no new events
Off pressors, Hb stable post transfusions
Continue abx per ID
OOB, PT/OT
Pain is minimal
Can likely transfer to floors if ok with surgical service
Assessment
-
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 He
complained of worsening pain in his extremity. In ER underwent CT AP demonstrating large intramuscular hematoma, notably his blood pressure was in the 90s systolic. He is admitted to ICU for hemorrhagic shock. Given Kcentra, 3 units of PRBCs, 2
units of FFP. Return to OR urgently for hematoma evacuation 02/11/2024. Maintained on Levophed and mechanical ventilation. He is admitted postoperatively to ICU for further management.
Hemorrhagic shock
Intramuscular hematoma s/p stenting of left SFA and evacuation of hematoma 02/11/24
Acute blood loss anemia 2/2 above
History of recent washout/abx
Perioperative mechanical ventilation
Leukocytosis
Metabolic acidosis, lactic acidosis
MANOJ, creat 1.5
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
s/p Left leg hematoma washout and wound exploration 01/29/24
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
History of prostate cancer s/p radical perineal prostatectomy 01/05/08 Dr. Zaldivar
Bladder stone s/p Complex laser cystolitholapaxy with extraction of stone 10/10/20
Dyslipidemia
HTN
Cholecystectomy (1979)
Cervical disc disease-3 level cervical laminectomy (2013)
Plan
No current signs of metabolic encephalopathy or MS changes/following commands
Denies pain at this time.
Pain/sedation: sedation weaned to off, holiday/SAT protocol
RASS goals: 0
Hemodynamically stable, off pressors.
Cardiac history reviewed--HTN
Prior ECHO reviewed indicating normal function
Hold home meds until BP stable
Monitor on telemetry
Intubated perioperatively, extubated 02/12/24 and doing well
Prior history of lung disease: H/o PE, on Eliquis
Supplemental O2 as indicated to maintain sats > 89%
CXR/CT reviewed indicating NAD
Stable on RA
Diet advanced
Telesales Specialist recommendations
Aspiration precautions, HOB > 30 degrees
Speech therapy eval can be considered if at elevated risk
GI prophylaxis if indicated for mechanical ventilation >48 hours, prior history of GERD, stress ulcer formation in the critically ill
MANOJ present, mild likely from ATN--improving
Creat at baseline, 0.7-0.8--no history of renal disease
Void trials
Follow urine output, critical I/Os
Replete electrolytes as needed
Lasix trial with some UO, >2L
Recent infection of groin, on abx-continued from OSH
Started on empiric antibiotics--continued per ID
Cultures sent/pending
Blood--neg
Wound+enterococcus/MSSA
Follow fever trend, WBC count
Acute hemorrhagic shock, s/p massive transfusion
s/p hematoma evac and drain placement
CBC stable, no signs of bleeding or coagulopathy at this time--Hb 7 range
DVT prophylaxis as assessed based on risk, including mechanical SCDs/hold OAC
Can transfuse if indicated for Hb <7, plt < 10
Received 4 units pRBCs, kcentra, 2 units FFP
2 units given this AM, repeat H&H showing stability
INR WNL: 1.6
No prior h/o diabetes or thyroid disease, but BG are elevated
Will add SS, monitor
Monitor accuchecks PRN/SS coverage if needed
HbA1c 6.6
Diagnostic Data
Chest X-Ray: 01/29/24- No radiographic evidence of acute cardiopulmonary abnormality.
CT Scan: AP 02/11/24- 1. Redemonstration postoperative changes of the left anterior thigh with expansile heterogeneous enlargement of the quadriceps and adductor musculature in keeping with intramuscular hematoma, only partially visualized on the
current exam and likely slightly progressed from prior with probable continued slow bleeding. Slight interval decrease in degree of subcutaneous gas.
AP 01/29/24
1. No CTA evidence for active arterial contrast extravasation.
2. Postoperative changes of the right anterior thigh with expansile enlargement of the quadriceps and adductor musculature. Findings are most compatible with intramuscular hematoma. The presence of residual neoplasm would be difficult to
differentiate from hematoma on this exam. Soft tissue gas is presumably postoperative but superimposed infection is not excluded.
3. Patent bilateral 3 vessel runoffs with moderate atherosclerosis throughout both lower extremities.
4. 5 mm solid pleural-based pulmonary nodule in the right lower lobe with slight enlargement compared to the previous chest CT. Consider a follow-up chest CT in 3-6 months for reevaluation.
Echo: 11/11/23- Normal left ventricular size, wall thickness and systolic function. No regional wall motion abnormalities are seen. Estimated ejection fraction is 55-60%. Normal diastolic function. Trileaflet aortic valve. Thickened calcified aortic
valve with adequate leaflet excursion. Trace aortic insufficiency. The aortic root is mildly dilated-ascending aorta 4.0 cm. Since echocardiogram 09/03/2023, right ventricular dysfunction and tricuspid regurgitation have resolved/improved
significantly. Aortic root is mildly dilated.
PFT's:
Reports and relevant images were personally reviewed.
-----
Critical care time 34 mins -- this includes review of history, physical exam, medications, hemodynamic/ventilator parameters, laboratory data, imaging and discussion with house staff, pharmacy, respiratory therapy, technical project manager, and nursing.
Subjective Dataa
Subjective Data
Date of Service:
Date of Service: February 14, 2024
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
Subjective:
no events ON, doing well
stable on RA
no further bleeding
hb this AM 7.6-stable
Objective Data
Data Reviewed
Vital Signs / I&O / Oxygen:
Vital Signs
Temp Pulse Resp BP Pulse Ox
98.4 F 68 12 120/59 95
02/14/24 03:42 02/14/24 05:01 02/14/24 05:00 02/14/24 05:01 02/14/24 05:01
Intake and Output
02/13/24 02/14/24 02/15/24
06:59 06:59 06:59
Intake Total 2750.7 / 3147.0 3543.0 / 3543.0
Output Total 2672.0 / 2922.0 5715 / 5715
Balance 78.7 / 225.0 -2172.0 / -2172.0
SaO2 [A/C] 100
SaO2 95
Nasal Cannula flow liters per 2
minute
Physical Exam
General: Comfortable and Other (NAD)
HEENT: Normocephalic, Anicteric and Moist Mucous Membranes
Cardiovascular: S1-S2 and Regular Rhythm
Respiratory: Clear and Non-Labored Respirations
GI: Soft, Non Distended and Non Tender
Neurology: Awake, Alert, Oriented, AO x 3 and No Motor Deficits
Skin: Warm, Dry and Good Color
Labs/Micro/Reports
Lab Data
02/14/24 04:17
02/14/24 04:17
Microbiology
02/11/24 23:14 Blood/Venous Blood Culture - Preliminary
No Growth in 48 hours- Final report to follow
02/11/24 17:38 Blood/Venous Blood Culture - Preliminary
No Growth in 48 hours- Final report to follow
[2024-02-14 07:39] LABS: Glucose - Point of Care 151 mg/dl (70-99)
--- NOTE | 2024-02-14 07:59 | W.PN.VS ---
Today's Communication / Plan
-
as above
Assessment/Plan
-
Assessment: 71-year-old male POD #3 left lower extremity hematoma evacuation and placement of Viabahn stent at [facility]
Plan:
Continue DAPT therapy of Plavix 75 mg p.o. daily and aspirin 81 mg p.o. daily given patient currently cannot be on his anticoagulation
OK for OOB with assistance
can d/c germaine
left leg re-wrapped
Continue neurovascular checks
Subjective Data
-
Date of Service: February 14, 2024
No acute events. Patient states he feels well. His main complaint is of the ERA wrap. Has been off levo since 20:00. Wants to go home.
Objective Data
-
Vital Signs
Temp Pulse Resp BP Pulse Ox
98.2 F 68 12 120/59 95
02/14/24 07:21 02/14/24 05:01 02/14/24 05:00 02/14/24 05:01 02/14/24 05:01
Intake and Output
02/13/24 02/14/24 02/15/24
06:59 06:59 06:59
Intake Total 2750.7 / 3147.0 3543.0 / 3543.0
Output Total 2672.0 / 2922.0 5715 / 5715
Balance 78.7 / 225.0 -2172.0 / -2172.0
Intake:
Oral fluids 450 / 450 240 / 240
IV fluids (Total) 2150.7 / 2247.0 2008.0 / 2008.0
Levo 270.9 / 282.2 53.0 / 53.0
Lr 1,000 ml @ 85 mls/hr IV . 1869
[id number] FLAKO Rx#:[id number]
Propofol 9.8 / 9.8
IV piggybacks 150 / 200 295 / 295
Blood Products 500 / 500
Packed red blood cells 500 / 500
Blood Product Amount Infused ( 0 / 0 500 / 500
mL)
Packed Rbc Leukoreduced Unit 0 / 0 250 / 250
[id number]
Packed Rbc Leukoreduced Unit 250 / 250
[id number]
Output:
Drain Output (Total) 230 / 230 70 / 70
Left Upper Leg Kang-Carney A 75 / 75 10 / 10
Left Upper Leg Kang-Carney B 155 / 155 60 / 60
Urine, Draper 2442.0 / 2692.0 5645 / 5645
Lab Results
02/14/24 04:17
02/14/24 04:17
Calcium 8.6 mg/dl (8.4-10.2) 02/14/24 04:17
Phosphorus 6.8 mg/dl (2.5-4.5) H 02/12/24 03:25
Magnesium 1.9 mg/dl (1.6-2.3) 02/13/24 04:23
Total Bilirubin 0.9 mg/dl (0.2-1.3) 02/12/24 03:25
AST 57 U/L (17-59) 02/12/24 03:25
ALT 21 U/L (0-50) 02/12/24 03:25
Alkaline Phosphatase 60 U/L (38-126) 02/12/24 03:25
Total Protein 4.3 g/dl (6.3-8.2) L D 02/12/24 03:25
Albumin 2.1 g/dl (3.5-5.0) L 02/12/24 03:25
Physical Exam
-
NAD
non toxic appearing
L leg with edema, incision c/d/i, MARICHUY drains serosang
--- NOTE | 2024-02-14 08:56 | W.PN.NEPH.PH ---
Today's Communication / Plan
-
dc azar
Assessment/Plan
-
Assessment:
Hemorrhagic shock
LLE thigh hematoma
MANOJ
lactic acidosis (resolving)
Plan:
follow BMP
dc azar
cap IVF
-
-
Date of Service: February 14, 2024
CC / HPI / ROS
-
Chief Complaint:
MANOJ
History of Present Illness:
MANOJ/Cr down to 1.3
Na up to 134
Hgb up to 7.[address], very much nonoliguric
lactic acid normalized
on broad spectrum abx
off pressors last night
Review of Systems:
no CP/SOB
Labs
-
Labs:
WBC 12.0 10^3/uL (4.8-10.8) H 02/14/24 04:17
RBC 2.62 10^6/uL (4.70-6.10) L 02/14/24 04:17
Hgb 7.6 g/dL (13.0-18.0) L 02/14/24 04:17
Hct 22.3 % (39.0-52.0) L 02/14/24 04:17
Plt Count 138 10^3/uL (130-400) 02/14/24 04:17
Sodium 134 mmol/L (135-145) L 02/14/24 04:17
Potassium 3.9 mmol/L (3.5-5.1) 02/14/24 04:17
Chloride 107 mmol/L (98-107) 02/14/24 04:17
Carbon Dioxide 23 mmol/L (22-30) 02/14/24 04:17
BUN 23 mg/dl (9-20) H 02/14/24 04:17
Creatinine 1.3 mg/dL (0.7-1.3) 02/14/24 04:17
eGFR 56.23 02/14/24 04:17
Glucose 125 mg/dl (70-99) H 02/14/24 04:17
Calcium 8.6 mg/dl (8.4-10.2) 02/14/24 04:17
Phosphorus 6.8 mg/dl (2.5-4.5) H 02/12/24 03:25
Albumin 2.1 g/dl (3.5-5.0) L 02/12/24 03:25
Physical Exam
-
Vital Signs:
Vital Signs
Temp Pulse Resp BP Pulse Ox
98.2 F 68 12 120/59 95
02/14/24 07:21 02/14/24 05:01 02/14/24 05:00 02/14/24 05:01 02/14/24 05:01
Cardiovascular:: Regular rate and rhythm
Respiratory:: Bilateral: CTA
Lung Excursion:: Normal
Abdomen:: Nontender and Soft
Bowel Sounds:: Normal
Extremity Edema:: +1: Left:
[2024-02-14] MEDS: NOVOLOG FLEXPEN-MODERATE RESISTANCE 1 UNITS SC ×2 (09:03→12:40)
[2024-02-14] MEDS: ASPIR LOW (ENTERIC COATED) 81 MG PO (09:04)
[2024-02-14] MEDS: PLAVIX 75 MG PO (09:04)
[2024-02-14] MEDS: HEPARIN 5000 UNITS SC ×2 (09:04→19:22)
[2024-02-14] MEDS: MIRALAX TUBE (09:05)
--- NOTE | 2024-02-14 09:25 | PTCARENOTE ---
Received pt awake and alert.Speech is appropriate.c/o left leg weakness.Pt assisted oob to chair with 1 person minimal assist and rolling walker.Denies pain.SR with occasional PVC noted.Right DL PICC intact.IVF discontinued as per MD order.Right A
Line discontinued as per MD order.Lungs CTA. Decreased bibasilar.POX 97% on RA.Appetite good.+ BM in bathroom.Draper discontinued as ordered.DTV at 1515.Left leg dressing changed by MD.JPs intact.Plan of care discussed with pt.
--- NOTE | 2024-02-14 09:49 | W.PN.ID1 ---
Date of Service
Date of Service: February 14, 2024
Today's Communication
Continue Unasyn and Micafungin.
Assessment / Plan
Skin/Soft tissue Infection, Infected hematoma?
Hemorrhagic Shock - off prressor
ATN/MANOJ - improving
- additional records requested and were reviewed bailee Dr. Early
- note that on arrival he was on a 10 day course of fluconazole 100 mg PO qday and augmentin 875/125 mg on arrival per Dr Mike DARNELL at [facility]
- note biofilm was resected from the femoral artery 02/01 - cultures with E faecalis and C albicans - there is also referral to two outpatient superficial cultures with MSSA
- 'no concern for bone infection' recorded at the time of discharge
- our cultures here from 01/28 with amp sensitive E faecalis and MSSA
- qtc acceptable at 440
- is on clopidogrel which has drug interaction with fluconazole
- review our 02/10 OR note when available
-02/11/24 s/p left lower extremity hematoma evacuation and placement of Viabahn stent at [facility], no intra-op cx
-Continue Unasyn and Micafungin.
Renally adjusted Unasyn.
- follow clinically; known to Dr Mike DARNELL at [facility]
Chief Complaint
-: Other (surgical site infection)
Subjective / Review of Systems
Has postop pain. No diarrhea.
Vital Signs / Physical Exam
Vital Signs
Vital Signs
Temp Pulse Resp BP Pulse Ox
98.2 F 68 12 120/59 95
02/14/24 07:21 02/14/24 05:01 02/14/24 05:00 02/14/24 05:01 02/14/24 05:01
Physical Exam
Constitutional: No Acute Distress and Comfortable
Pulmonary: Clear
Gastrointestinal: Soft, Non Tender and Non Distended
Wound: Other (LLE ERA-wrap, MARICHUY drain serosanguinous blood)
Neurological: AO x 3
Lines: PICC (RUE)
Objective Data
Lab Data
Lab Results
02/14/24 04:17
02/14/24 04:17
PT 19.3 Sec (11.4-14.6) H 02/11/24 23:13
INR 1.62 02/11/24 23:13
APTT 95.3 Sec (23.4-35.0) H 02/11/24 23:13
Estimated Creat Clear 47 ml/min 02/14/24 04:17
Lactic Acid 0.7 mmol/L (0.7-2.0) 02/13/24 04:23
Total Bilirubin 0.9 mg/dl (0.2-1.3) 02/12/24 03:25
AST 57 U/L (17-59) 02/12/24 03:25
ALT 21 U/L (0-50) 02/12/24 03:25
Alkaline Phosphatase 60 U/L (38-126) 02/12/24 03:25
Most recent labs reviewed.
Micro Results:
02/11/24 23:14 Blood Culture - Preliminary
Blood/Venous No Growth in 48 hours- Final report to follow
02/11/24 17:38 Blood Culture - Preliminary
Blood/Venous No Growth in 48 hours- Final report to follow
--- NOTE | 2024-02-14 11:08 | W.PN.HOSP.TC ---
Today's Communication/Plan
-
see bold
Assessment / Plan
Assessment / Plan
Gen: NAD, Awake and alert
Eyes: EOMI, PERRLA, no scleral icterus.
Neck: supple.
CV: RRR with occasional premature beats, +S1/S2, no m/r/g.
Resp: CTAB, no rales, wheezes, or rhonchi.
Abd: +BS, soft, NT, ND
Skin: No rashes. remains LLE with C/D/I dressing with MARICHUY drain with sangunious drainage
Neuro: CN 2-12 intact, non-focal.
Psych: Normal mood and affect.
02/11/24 23:14 Blood/Venous Blood Culture - Preliminary
No Growth in 48 hours- Final report to follow
02/11/24 17:38 Blood/Venous Blood Culture - Preliminary
No Growth in 48 hours- Final report to follow
Hemorrhagic shock secondary to large anterior left thigh intramuscular hematoma with acute arterial bleeding/extravasation from the superficial femoral artery at mid thigh level:
-h/o sarcoma left quadriceps s/p resection at [facility] complicated by infected hematoma s/p 4 washouts and closure at [facility] 02/10/24 with drain placement
-Patient completed radiation for sarcoma, no metastatic disease
-on admission SBP 90s systolic which improved with IV fluids and blood
-acute blood loss anemia on chronic anemia (exacerbated by eliquis) s/p pRBCs and ffp.
-Eliquis on hold
-Kcentra given
-s/p 02/11/24 left lower extremity hematoma evacuation and placement of Viabahn stent at [facility]
-off Levophed since 1999 on 02/13/24
-was on Vancomycin/Zosyn/Fluconazole, now on Unasyn/Micafungin. Follow BCxs (NGTD). ID following. Note recent operative cultures showed Enterococcus and MSSA. Cultures from [facility] on February 10, 2024 showed Latrice.
-Dilaudid for pain
-currently on Plavix/ASA as per vascular
MANOJ with AG metabolic acidosis due to lactic acidosis, and hyponatremia:
-MANOJ and lactic acidosis resolved with IVFs
-renal U/S: Unremarkable sonographic appearance of the kidneys bilaterally.
-Lactic acidosis now resolved
-Na has improved to 134
DVT of left lower extremity/hx PE:
-Holding all anticoagulation for now
-Will eventually have to restart when safe as per vascular surgery
DM2:
-SSI/accuchecks
Hyponatremia, mild
Full code
DVT prophylaxis: Place SCD to RLE
RN updated, discussed with ICU attending.
I would be OK downgrading the pt but Vascular would like the pt to stay in the ICU for now.
Total time spent on today's encounter was 50 minutes which included time spent in counseling the patient/family regarding diagnosis and treatment plan as listed above, goals of care, and symptom management. Case was discussed with nursing staff,
specialists, and care coordinators/case management. All labs and imaging personally reviewed by me. Remainder the time spent in detailed review of previous records, lab data, imaging, and other medical provider documentation.
Anticipated Discharge: 24 - 48 hours
Subjective/Interval History
-
Date of Service: February 14, 2024
No new complaints.
Objective Data
-
Labs:
Laboratory Results
02/14/24
04:17
WBC 12.0 H
Hgb 7.6 L
Hct 22.3 L
Plt Count 138
Sodium 134 L
Potassium 3.9
Chloride 107
Carbon Dioxide 23
BUN 23 H
Creatinine 1.3
Glucose 125 H
Calcium 8.6
Vital Signs:
Vital Signs
Temp Pulse Resp BP Pulse Ox
98.2 F 68 12 120/59 95
02/14/24 07:21 02/14/24 05:01 02/14/24 05:00 02/14/24 05:01 02/14/24 05:01
I&O
02/13/24 02/14/24 02/15/24
06:59 06:59 06:59
Intake Total 2750.7 / 3147.0 3543.0 / 3543.0
Output Total 2672.0 / 2922.0 5715 / 5715
Balance 78.7 / 225.0 -2172.0 / -2172.0
[2024-02-14 12:13] LABS: Glucose - Point of Care 157 mg/dl (70-99)
--- NOTE | 2024-02-14 12:30 | PTCARENOTE ---
Pt assessed.No change in assessment noted.
--- NOTE | 2024-02-14 16:30 | PTCARENOTE ---
Pt assessed.No change in assessment noted.
[2024-02-14 17:24] LABS: Glucose - Point of Care 204 mg/dl (70-99)
[2024-02-14] MEDS: NOVOLOG FLEXPEN-MODERATE RESISTANCE 3 UNITS SC (17:57)
[2024-02-14] MEDS: MYCAMINE 105 MG IV (18:01)
--- NOTE | 2024-02-14 19:50 | PTCARENOTE ---
Handoff report received from off going RN. Patient received OOB to the bathroom. Pt ambulated with a walker and 1 person assist. Gait is weak, but steady. Plan of care for the shift reviewed with the patient. Sinus tachy with HR 105-113 with
ambulation. PVCs. The patient's bilateral groin dressings are intact and cdi. LLE is monica wrapped. Doppler pulses present to DP & PT. LLE is body temp. Clear breath sounds. SpO2 at 99% on RA. IS max at 2250 ml x4 attempts. +BS. Abd is soft and
nontender. The patient brushed is teeth. CHG bath provided. Scheduled medication administered. Safety measures maintained. Call brody and personal belonging are within reach.
[2024-02-14] MEDS: MELATONIN 5 MG PO (22:15)
--- NOTE | 2024-02-14 22:15 | PTCARENOTE ---
Patient asked for a sleep aid to avoid taking Dilaudid. Pt verbalized that his faye is not as bad. Melatonin suggested and teaching provided. The patient verbalized understanding. ADAPTIVE PHYSICAL EDUCATOR made aware and order placed and administered.
[2024-02-14 22:17] LABS: Glucose - Point of Care 140 mg/dl (70-99)
[2024-02-15] VITALS (15 sets, daily range): BP systolic 111–151; BP diastolic 52–88; BMI 26.0
[2024-02-15] MEDS: UNASYN IV ×5 (00:06→23:17)
--- NOTE | 2024-02-15 00:24 | PTCARENOTE ---
Patient reassessed. No changes from the previous assessment.
[2024-02-15 04:15] LABS: Hematocrit 22.9 % (39.0-52.0); Hemoglobin 7.6 g/dL (13.0-18.0); Mean Corp Hgb Conc. 33.2 g/dL (33.0-37.0); Mean Corpuscular Volume 87.4 fL (80.0-94.0); Platelet Count 149 10^3/uL (130-400); Red Blood Cell Count 2.62 10^6/uL (4.70-6.10); Red Cell Dist. Width 18.3 % (11.5-14.5); White Blood Cell Count 8.7 10^3/uL (4.8-10.8)
--- NOTE | 2024-02-15 04:17 | PTCARENOTE ---
Patient reassessed. No changes from the previous assessment.
[2024-02-15 04:37] LABS: Blood Urea Nitrogen 14 mg/dl (9-20); Calcium 8.9 mg/dl (8.4-10.2); Carbon Dioxide 22 mmol/L (22-30); Chloride 109 mmol/L (98-107); Estimated Creatinine Clearance 68 ml/min; Glucose 108 mg/dl (70-99); Potassium 3.7 mmol/L (3.5-5.1); Sodium 137 mmol/L (135-145); eGFR > 60.00
--- NOTE | 2024-02-15 07:17 | W.PN.INTV ---
Today's Communication / Plan
Recommendations
Doing well, no events ON
Remains on abx
Tolerating diet, OOB to chair
Awaiting further surgical planning
Ok for transfer to floors
Assessment
-
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 He
complained of worsening pain in his extremity. In ER underwent CT AP demonstrating large intramuscular hematoma, notably his blood pressure was in the 90s systolic. He is admitted to ICU for hemorrhagic shock. Given Kcentra, 3 units of PRBCs, 2
units of FFP. Return to OR urgently for hematoma evacuation 02/11/2024. Maintained on Levophed and mechanical ventilation. He is admitted postoperatively to ICU for further management.
Hemorrhagic shock
Intramuscular hematoma s/p stenting of left SFA and evacuation of hematoma 02/11/24
Acute blood loss anemia 2/2 above
History of recent washout/abx
Perioperative mechanical ventilation
Leukocytosis
Metabolic acidosis, lactic acidosis
MANOJ, creat 1.5
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
s/p Left leg hematoma washout and wound exploration 01/29/24
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
History of prostate cancer s/p radical perineal prostatectomy 01/05/08 Dr. Zaldivar
Bladder stone s/p Complex laser cystolitholapaxy with extraction of stone 10/10/20
Dyslipidemia
HTN
Cholecystectomy (1979)
Cervical disc disease-3 level cervical laminectomy (2013)
Plan
No current signs of metabolic encephalopathy or MS changes/following commands
Denies pain at this time.
Pain/sedation: sedation weaned to off, holiday/SAT protocol
RASS goals: 0
Hemodynamically stable, off pressors.
Cardiac history reviewed--HTN
Prior ECHO reviewed indicating normal function
Not on BP meds at home, monitor vitals
Monitor on telemetry
Intubated perioperatively, extubated 02/12/24 and doing well
Prior history of lung disease: H/o PE, on Eliquis
Supplemental O2 as indicated to maintain sats > 89%
CXR/CT reviewed indicating NAD
Stable on RA
Diet advanced
Certified Surgical Assistant recommendations
Aspiration precautions, HOB > 30 degrees
Speech therapy eval can be considered if at elevated risk
GI prophylaxis if indicated for mechanical ventilation >48 hours, prior history of GERD, stress ulcer formation in the critically ill
MANOJ present, mild likely from ATN--improving
Creat at baseline, 0.7-0.8--no history of renal disease
Void trials
Follow urine output, critical I/Os
Replete electrolytes as needed
Lasix trial with some UO, >2L
Recent infection of groin, on abx-continued from OSH
Started on empiric antibiotics--continued per ID
Cultures reviewed:
Blood--neg
Wound+enterococcus/MSSA
Follow fever trend, WBC count
Acute hemorrhagic shock, s/p massive transfusion
s/p hematoma evac and drain placement
CBC stable, no signs of bleeding or coagulopathy at this time--Hb 7 range
DVT prophylaxis as assessed based on risk, including mechanical SCDs/hold OAC
Can transfuse if indicated for Hb <7, plt < 10
Received 4 units pRBCs, kcentra, 2 units FFP
2 units given this AM, repeat H&H showing stability
INR WNL: 1.6
Follow vasc planning
No prior h/o diabetes or thyroid disease, but BG are elevated
Will add SS, monitor
Monitor accuchecks PRN/SS coverage if needed
HbA1c 6.6
Diagnostic Data
Chest X-Ray: 01/29/24- No radiographic evidence of acute cardiopulmonary abnormality.
CT Scan: AP 6/26/24- 1. Redemonstration postoperative changes of the left anterior thigh with expansile heterogeneous enlargement of the quadriceps and adductor musculature in keeping with intramuscular hematoma, only partially visualized on the
current exam and likely slightly progressed from prior with probable continued slow bleeding. Slight interval decrease in degree of subcutaneous gas.
AP 01/29/24
1. No CTA evidence for active arterial contrast extravasation.
2. Postoperative changes of the right anterior thigh with expansile enlargement of the quadriceps and adductor musculature. Findings are most compatible with intramuscular hematoma. The presence of residual neoplasm would be difficult to
differentiate from hematoma on this exam. Soft tissue gas is presumably postoperative but superimposed infection is not excluded.
3. Patent bilateral 3 vessel runoffs with moderate atherosclerosis throughout both lower extremities.
4. 5 mm solid pleural-based pulmonary nodule in the right lower lobe with slight enlargement compared to the previous chest CT. Consider a follow-up chest CT in 3-6 months for reevaluation.
Echo: 11/11/23- Normal left ventricular size, wall thickness and systolic function. No regional wall motion abnormalities are seen. Estimated ejection fraction is 55-60%. Normal diastolic function. Trileaflet aortic valve. Thickened calcified aortic
valve with adequate leaflet excursion. Trace aortic insufficiency. The aortic root is mildly dilated-ascending aorta 4.0 cm. Since echocardiogram 09/03/2023, right ventricular dysfunction and tricuspid regurgitation have resolved/improved
significantly. Aortic root is mildly dilated.
PFT's:
Reports and relevant images were personally reviewed.
-----
Critical care time 32 mins -- this includes review of history, physical exam, medications, hemodynamic/ventilator parameters, laboratory data, imaging and discussion with house staff, pharmacy, respiratory therapy, collections officer, and nursing.
Subjective Dataa
Subjective Data
Date of Service:
Date of Service: February 15, 2024
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
Subjective:
no new events ON
no new complaints
hb stable
Objective Data
Data Reviewed
Vital Signs / I&O / Oxygen:
Vital Signs
Temp Pulse Resp BP Pulse Ox
97.9 F 63 18 134/68 99
02/15/24 03:40 02/15/24 06:15 02/15/24 06:15 02/15/24 06:03 02/15/24 06:15
Intake and Output
02/14/24 02/15/24 02/16/24
06:59 06:59 06:59
Intake Total 3543.0 / 3628.0 1375 / 1375
Output Total 5715 / 5715 2695 / 2695
Balance -2172.0 / -2087.0 -1320 / -1320
SaO2 [A/C] 100
SaO2 99
Nasal Cannula flow liters per 2
minute
Physical Exam
General: Comfortable and Other (NAD)
HEENT: Normocephalic, Anicteric and Moist Mucous Membranes
Cardiovascular: S1-S2 and Regular Rhythm
Respiratory: Clear and Non-Labored Respirations
GI: Soft, Non Distended and Non Tender
Neurology: Awake, Alert, Oriented, AO x 3 and No Motor Deficits
Skin: Warm, Dry and Good Color
Labs/Micro/Reports
Lab Data
02/15/24 04:09
02/15/24 04:09
Microbiology
02/11/24 23:14 Blood/Venous Blood Culture - Preliminary
No Growth in 72 hours- Final report to follow
02/11/24 17:38 Blood/Venous Blood Culture - Preliminary
No Growth in 72 hours- Final report to follow
[2024-02-15] MEDS: PLAVIX 75 MG PO (07:52)
[2024-02-15] MEDS: ASPIR LOW (ENTERIC COATED) 81 MG PO (07:52)
[2024-02-15] MEDS: HEPARIN 5000 UNITS SC ×2 (07:52→19:55)
[2024-02-15] MEDS: NOVOLOG FLEXPEN-MODERATE RESISTANCE SC ×2 (08:00→17:29)
[2024-02-15] MEDS: MIRALAX TUBE (08:02)
[2024-02-15 08:07] LABS: Glucose - Point of Care 106 mg/dl (70-99)
--- NOTE | 2024-02-15 08:33 | W.PN.ID1 ---
Date of Service
Date of Service: February 15, 2024
Today's Communication
Continue Unasyn and Micafungin.
Assessment / Plan
Skin/Soft tissue Infected hematoma?
s/p Hemorrhagic Shock - off pressor
ATN/MANOJ - resolved
- additional records requested and were reviewed bailee Dr. Early
- note that on arrival he was on a 10 day course of fluconazole 100 mg PO qday and augmentin 875/125 mg on arrival per Dr Mike DARNELL at [facility]
- note biofilm was resected from the femoral artery 02/01 - cultures with E faecalis and C albicans - there is also referral to two outpatient superficial cultures with MSSA
- 'no concern for bone infection' recorded at the time of discharge
- our cultures here from 01/28 with amp sensitive E faecalis and MSSA
- qtc acceptable at 440
- is on clopidogrel which has drug interaction with fluconazole
-02/11/24 s/p left lower extremity hematoma evacuation and placement of Viabahn stent at SFA, no intra-op cx
-Continue Unasyn and Micafungin.
- follow clinically; known to Dr Mike DARNELL at [facility]
Chief Complaint
-: Other (surgical site infection)
Subjective / Review of Systems
No complaints today.
Vital Signs / Physical Exam
Vital Signs
Vital Signs
Temp Pulse Resp BP Pulse Ox
97.7 F 63 18 134/68 99
02/15/24 07:37 02/15/24 06:15 02/15/24 06:15 02/15/24 06:03 02/15/24 06:15
Physical Exam
Constitutional: No Acute Distress and Comfortable
Cardiovascular: Regular Rate and S1/S2
Pulmonary: Clear
Gastrointestinal: Soft, Non Tender and Non Distended
Wound: Other (Left LLE dressing dry, MARICHUY drains x 2 with blood output)
Neurological: AO x 3
Objective Data
Lab Data
Lab Results
02/15/24 04:09
02/15/24 04:09
PT 19.3 Sec (11.4-14.6) H 02/11/24 23:13
INR 1.62 02/11/24 23:13
APTT 95.3 Sec (23.4-35.0) H 02/11/24 23:13
Estimated Creat Clear 68 ml/min 02/15/24 04:09
Lactic Acid 0.7 mmol/L (0.7-2.0) 02/13/24 04:23
Total Bilirubin 0.9 mg/dl (0.2-1.3) 02/12/24 03:25
AST 57 U/L (17-59) 02/12/24 03:25
ALT 21 U/L (0-50) 02/12/24 03:25
Alkaline Phosphatase 60 U/L (38-126) 02/12/24 03:25
Most recent labs reviewed.
Micro Results:
02/11/24 23:14 Blood Culture - Preliminary
Blood/Venous No Growth in 72 hours- Final report to follow
02/11/24 17:38 Blood Culture - Preliminary
Blood/Venous No Growth in 72 hours- Final report to follow
--- NOTE | 2024-02-15 08:44 | PTCARENOTE ---
Received pt awake and alert.Speech is appropriate.Requested, and was assisted oob to bathroom with walker.Gait is steady.Assisted to chair.Denies pain.SR with PVCs noted.Right DL PICC intact.POX 98% RA.Lungs CTA.Appetite good.+BM.Voiding in
toilet.Skin integrity as documented.Plan of care discussed.
--- NOTE | 2024-02-15 09:26 | W.PN.NEPH.PH ---
Today's Communication / Plan
-
follow BMP
Assessment/Plan
-
Assessment:
Hemorrhagic shock
LLE thigh hematoma
MANOJ
lactic acidosis (resolving)
Plan:
follow BMP
can dc azar
no IVF needed
Abx course to be determined by ID
will sign off
-
-
Date of Service: February 15, 2024
CC / HPI / ROS
-
Chief Complaint:
MANOJ
History of Present Illness:
MANOJ/Cr down to 0.9
Na up to 137
Hgb stable low at 7.[address], very much nonoliguric
on broad spectrum abx + antifungal
BP stable
Review of Systems:
no CP/SOB
Labs
-
Labs:
WBC 8.7 10^3/uL (4.8-10.8) 02/15/24 04:09
RBC 2.62 10^6/uL (4.70-6.10) L 02/15/24 04:09
Hgb 7.6 g/dL (13.0-18.0) L 02/15/24 04:09
Hct 22.9 % (39.0-52.0) L 02/15/24 04:09
Plt Count 149 10^3/uL (130-400) 02/15/24 04:09
Sodium 137 mmol/L (135-145) 02/15/24 04:09
Potassium 3.7 mmol/L (3.5-5.1) 02/15/24 04:09
Chloride 109 mmol/L (98-107) H 02/15/24 04:09
Carbon Dioxide 22 mmol/L (22-30) 02/15/24 04:09
BUN 14 mg/dl (9-20) 02/15/24 04:09
Creatinine 0.9 mg/dL (0.7-1.3) 02/15/24 04:09
eGFR > 60.00 02/15/24 04:09
Glucose 108 mg/dl (70-99) H 02/15/24 04:09
Calcium 8.9 mg/dl (8.4-10.2) 02/15/24 04:09
Phosphorus 6.8 mg/dl (2.5-4.5) H 02/12/24 03:25
Albumin 2.1 g/dl (3.5-5.0) L 02/12/24 03:25
Physical Exam
-
Vital Signs:
Vital Signs
Temp Pulse Resp BP Pulse Ox
97.7 F 63 18 134/68 99
02/15/24 07:37 02/15/24 06:15 02/15/24 06:15 02/15/24 06:03 02/15/24 06:15
Cardiovascular:: Regular rate and rhythm
Respiratory:: Bilateral: CTA
Lung Excursion:: Normal
Abdomen:: Nontender and Soft
Bowel Sounds:: Normal
Extremity Edema:: +1: Left:
--- NOTE | 2024-02-15 09:39 | W.PN.VS ---
Today's Communication / Plan
-
as above
Assessment/Plan
-
Assessment: 71-year-old male POD #4 left lower extremity hematoma evacuation and placement of Viabahn stent at SFA
Plan:
Continue DAPT therapy of Plavix 75 mg p.o. daily and aspirin 81 mg p.o. daily given patient currently cannot be on his anticoagulation
OK for OOB with assistance
would keep in ICU for today
left leg re-wrapped
Continue neurovascular checks
I discussed at length with the patient and his (via phone), explaining his management thus far regarding his multiple hospital admissions and major life threatening events secondary to the cavity infection and break down of his SFA. Currently
he is well temporized with stent grafts lining the SFA but these are most likely also infected. I also discussed his case with Dr Draper. As his hgb has stabilized and his creatinine has normalized, we will plan to repeat his CTA tomorrow to get a
better idea of what his anatomy is, and what his reconstruction options are from both a plastics and vascular standpoint. We will then need to have a multidisciplinary discussion as to further operative planning. We discussed he is at very high risk
of limb loss.
Subjective Data
-
Date of Service: February 15, 2024
No acute events. No pain in leg. Patient frustrated with course and having to be in the hospital.
Objective Data
-
Vital Signs
Temp Pulse Resp BP Pulse Ox
97.7 F 63 18 134/68 99
02/15/24 07:37 02/15/24 06:15 02/15/24 06:15 02/15/24 06:03 02/15/24 06:15
Intake and Output
02/14/24 02/15/24 02/16/24
06:59 06:59 06:59
Intake Total 3543.0 / 3628.0 1375 / 1375
Output Total 5715 / 5715 2695 / 2695 350 / 350
Balance -2172.0 / -2087.0 -1320 / -1320 -350 / -350
Intake:
Oral fluids 240 / 240 880 / 880
IV fluids (Total) 2007.0 / 3.0 255 / 255
Levo 53.0 / 53.0
Lr 1,000 ml @ 85 mls/hr IV . 1954 255 / 255
[id number] [facility] Rx#:[id number]
IV piggybacks 295 / 295 240 / 240
Blood Products 500 / 500
Packed red blood cells 500 / 500
Blood Product Amount Infused ( 500 / 500
mL)
Packed Rbc Leukoreduced Unit 250 / 250
[id number]
Packed Rbc Leukoreduced Unit 250 / 250
[id number]
Output:
Drain Output (Total) 70 / 70 180 / 180
Left Upper Leg Kang-Carney A 10 / 10 20 / 20
Left Upper Leg Knag-Carney B 60 / 60 160 / 160
Urine, Draper 5645 / 5645 825 / 825
Urine, Voided 1690 / 1690 350 / 350
Other:
Number of approximated LARGE 1
amounts of urine
Lab Results
02/15/24 04:09
02/15/24 04:09
Calcium 8.9 mg/dl (8.4-10.2) 02/15/24 04:09
Phosphorus 6.8 mg/dl (2.5-4.5) H 02/12/24 03:25
Magnesium 1.9 mg/dl (1.6-2.3) 02/13/24 04:23
Total Bilirubin 0.9 mg/dl (0.2-1.3) 02/12/24 03:25
AST 57 U/L (17-59) 02/12/24 03:25
ALT 21 U/L (0-50) 02/12/24 03:25
Alkaline Phosphatase 60 U/L (38-126) 02/12/24 03:25
Total Protein 4.3 g/dl (6.3-8.2) L D 02/12/24 03:25
Albumin 2.1 g/dl (3.5-5.0) L 02/12/24 03:25
Physical Exam
-
NAD
Leg warm, swelling significantly improved.
Incision c/d/i, JPs serosang
--- NOTE | 2024-02-15 10:02 | W.PN.HOSP.TC ---
Today's Communication/Plan
-
See bold
Assessment / Plan
Assessment / Plan
Gen: Remains NAD, Awake and alert
Eyes: EOMI, PERRLA, no scleral icterus.
Neck: supple.
CV: RRR, +S1/S2, no m/r/g.
Resp: CTAB, no rales, wheezes, or rhonchi.
Abd: +BS, soft, NT, ND
Skin: No rashes. Continues to remain LLE with C/D/I dressing with MARICHUY drain with sanguinous drainage
Neuro: CN 2-12 intact, non-focal.
Psych: Normal mood and affect.
02/11/24 23:14 Blood/Venous Blood Culture - Preliminary
No Growth in 72 hours- Final report to follow
02/11/24 17:38 Blood/Venous Blood Culture - Preliminary
No Growth in 72 hours- Final report to follow
Hemorrhagic shock secondary to large anterior left thigh intramuscular hematoma with acute arterial bleeding/extravasation from the superficial femoral artery at mid thigh level:
-h/o sarcoma left quadriceps s/p resection at [facility] complicated by infected hematoma s/p 4 washouts and closure at [facility] 02/10/24 with drain placement
-Patient completed radiation for sarcoma, no metastatic disease
-on admission SBP 90s systolic which improved with IV fluids and blood
-acute blood loss anemia on chronic anemia (exacerbated by eliquis) s/p pRBCs and ffp.
-Eliquis on hold
-Kcentra given
-s/p 02/11/24 left lower extremity hematoma evacuation and placement of Viabahn stent at SFA
-off Levophed since 1999 on 02/13/24
-was on Vancomycin/Zosyn/Fluconazole, now on Unasyn/Micafungin. Follow BCxs (NGTD). ID following. Note recent operative cultures showed Enterococcus and MSSA. Cultures from [facility] on February 10, 2024 showed Latrice.
-Dilaudid for pain
-currently on Plavix/ASA as per vascular
-repeat CTA LLE tomorrow to assess anatomy and potential reconstruction options
-high risk of limb loss
MANOJ with AG metabolic acidosis due to lactic acidosis, and hyponatremia:
-MANOJ and lactic acidosis resolved with IVFs
-renal U/S: Unremarkable sonographic appearance of the kidneys bilaterally.
-Lactic acidosis now resolved
-Hyponatremia has resolved
DVT of left lower extremity/hx PE:
-Holding all anticoagulation for now
-Will eventually have to restart when safe as per vascular surgery
DM2:
-start Lantus 5U
-SSI/accuchecks
Full code
DVT prophylaxis: SCD to RLE
RN updated, discussed with ICU attending.
I would be OK downgrading the pt but Vascular would like the pt to stay in the ICU for now.
Total time spent on today's encounter was 51 minutes which included time spent in counseling the patient/family regarding diagnosis and treatment plan as listed above, goals of care, and symptom management. Case was discussed with nursing staff,
specialists, and care coordinators/case management. All labs and imaging personally reviewed by me. Remainder the time spent in detailed review of previous records, lab data, imaging, and other medical provider documentation.
Anticipated Discharge: > 48 hours
Subjective/Interval History
-
Date of Service: February 15, 2024
Denies chest pain or shortness of breath.
Objective Data
-
Labs:
Laboratory Results
02/15/24
04:09
WBC 8.7
Hgb 7.6 L
Hct 22.9 L
Plt Count 149
Sodium 137
Potassium 3.7
Chloride 109 H
Carbon Dioxide 22
BUN 14
Creatinine 0.9
Glucose 108 H
Calcium 8.9
Vital Signs:
Vital Signs
Temp Pulse Resp BP Pulse Ox
97.7 F 63 18 134/68 99
02/15/24 07:37 02/15/24 06:15 02/15/24 06:15 02/15/24 06:03 02/15/24 06:15
I&O
02/14/24 02/15/24 02/16/24
06:59 06:59 06:59
Intake Total 3543.0 / 3628.0 1375 / 1375
Output Total 5715 / 5715 2695 / 2695 350 / 350
Balance -2172.0 / -2087.0 -1320 / -1320 -350 / -350
[2024-02-15 12:05] LABS: Glucose - Point of Care 151 mg/dl (70-99)
--- NOTE | 2024-02-15 12:58 | PTCARENOTE ---
Pt assessed.No change in assessment noted.
[2024-02-15] MEDS: NOVOLOG FLEXPEN-MODERATE RESISTANCE 1 UNITS SC (13:04)
[2024-02-15] MEDS: DILAUDID 0.5 MG IV ×2 (14:31→21:08)
--- NOTE | 2024-02-15 14:59 | PTCARENOTE ---
1430-pt c/o 02/24 left leg pain.Requested and received Dilaudid for pain.Left leg is warm, pink,+ weak pulses.
--- NOTE | 2024-02-15 16:10 | PTCARENOTE ---
Pt assessed.No change in assessment noted.
[2024-02-15] MEDS: MYCAMINE 105 MG IV (17:30)
[2024-02-15 17:45] LABS: Glucose - Point of Care 127 mg/dl (70-99)
--- NOTE | 2024-02-15 20:00 | PTCARENOTE ---
Rec'd pt sitting on chair, denies pain, SR w/ PVC's, bp stable, left leg w/ monica wrap, no drainage noted, 2 MARICHUY's on Left upper leg, SES drainage, distal pulses weak, + edema, skin warm/dry, RA, lungs decr in bases, sat 99, + bowel sounds, abd
soft/nontender, no n/v, autumn diet, voiding w/o difficulty
[2024-02-15] MEDS: LANTUS 0.0500000000000000028 UNITS SC (21:08)
--- NOTE | 2024-02-15 21:10 | PTCARENOTE ---
assisted to bathroom to void & had BM, back to bed, dilaudid 0.5 mg iv given for incis pain
[2024-02-15 21:18] LABS: Glucose - Point of Care 148 mg/dl (70-99)
[2024-02-16] VITALS (14 sets, daily range): BP systolic 128–156; BP diastolic 68–92; BMI 25.1
--- NOTE | 2024-02-16 00:22 | PTCARENOTE ---
sys reviewed, changes noted
[2024-02-16 03:56] LABS: Hematocrit 24.3 % (39.0-52.0); Hemoglobin 7.9 g/dL (13.0-18.0); Mean Corp Hgb Conc. 32.5 g/dL (33.0-37.0); Mean Corpuscular Hgb 28.8 pg (27.0-31.0); Mean Corpuscular Volume 88.7 fL (80.0-94.0); Mean Platelet Volume 10.7 fL (7.4-10.4); Platelet Count 172 10^3/uL (130-400); Red Blood Cell Count 2.74 10^6/uL (4.70-6.10); Red Cell Dist. Width 18.5 % (11.5-14.5); White Blood Cell Count 7.1 10^3/uL (4.8-10.8)
--- NOTE | 2024-02-16 04:00 | PTCARENOTE ---
sys reviewed, changes noted, CHG bath done, linens changed
[2024-02-16 04:18] LABS: Blood Urea Nitrogen 13 mg/dl (9-20); Calcium 8.6 mg/dl (8.4-10.2); Carbon Dioxide 24 mmol/L (22-30); Chloride 108 mmol/L (98-107); Estimated Creatinine Clearance 68 ml/min; Glucose 96 mg/dl (70-99); Potassium 3.6 mmol/L (3.5-5.1); Sodium 136 mmol/L (135-145); eGFR > 60.00
[2024-02-16] MEDS: UNASYN IV ×4 (05:32→23:28)
--- NOTE | 2024-02-16 06:43 | W.PN.INTV ---
Today's Communication / Plan
Recommendations
Await repeat imaging per vascular surgery
Follow hemoglobin
Pain control, transition to oral regimen
Antibiotics per ID
Patient ambulating without difficulty
Okay for transfer out of ICU once imaging confirmed to be stable. We will sign off. Please call with questions
Assessment
-
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 He
complained of worsening pain in his extremity. In ER underwent CT AP demonstrating large intramuscular hematoma, notably his blood pressure was in the 90s systolic. He is admitted to ICU for hemorrhagic shock. Given Kcentra, 3 units of PRBCs, 2
units of FFP. Return to OR urgently for hematoma evacuation 02/11/2024. Maintained on Levophed and mechanical ventilation. He is admitted postoperatively to ICU for further management.
Hemorrhagic shock
Intramuscular hematoma s/p stenting of left SFA and evacuation of hematoma 02/11/24
Acute blood loss anemia 2/2 above
History of recent washout/abx
Perioperative mechanical ventilation
Leukocytosis
Metabolic acidosis, lactic acidosis
MANOJ, creat 1.5
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
s/p Left leg hematoma washout and wound exploration 01/29/24
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
History of prostate cancer s/p radical perineal prostatectomy 01/05/08 Dr. Zaldivar
Bladder stone s/p Complex laser cystolitholapaxy with extraction of stone 10/10/20
Dyslipidemia
HTN
Cholecystectomy (1979)
Cervical disc disease-3 level cervical laminectomy (2013)
Plan/recommendations
At this time, patient appears to be comfortable without complaints
Hemodynamically stable
Hemoglobin stable at 7.9
Pain appears to be well-controlled. Received minimal doses of hydrocodone
Moving forward
Continue with management per vascular surgery
Repeat mapping and imaging today of vasculature per vascular
Patient is ambulating without difficulty which is encouraging
Recent infection of groin, on abx-continued from OSH
Cultures reviewed:
Blood--neg
Wound+enterococcus/MSSA
Remains on Unasyn
ID following
Normotensive
Prior ECHO reviewed indicating normal function
Not on BP meds at home, monitor vitals
Monitor on telemetry
Prior history of lung disease: H/o PE, on Eliquis
Eliquis held at this time. Remains on Plavix
Tolerating diet, moving bowels
Transition to oral pain medication, resume Lyrica
Creatinine stable, urine output adequate
Acute hemorrhagic shock, s/p massive transfusion
s/p hematoma evac and drain placement
CBC stable, no signs of bleeding or coagulopathy at this time--Hb 7 range
DVT prophylaxis as assessed based on risk, including mechanical SCDs/hold OAC
Can transfuse if indicated for Hb <7, plt < 10
Received 4 units pRBCs, kcentra, 2 units FFP
2 units given this AM, repeat H&H showing stability
INR WNL: 1.6
Follow vasc planning
Anticoagulation per vascular surgery, presently on Plavix
Reviewed with critical care nursing, pharmacy, primary service
Okay for transfer out of ICU if imaging stable. Once transferred, we will sign off. Please call with questions
Diagnostic Data
Chest X-Ray: 01/29/24- No radiographic evidence of acute cardiopulmonary abnormality.
CT Scan: AP 02/11/24- 1. Redemonstration postoperative changes of the left anterior thigh with expansile heterogeneous enlargement of the quadriceps and adductor musculature in keeping with intramuscular hematoma, only partially visualized on the
current exam and likely slightly progressed from prior with probable continued slow bleeding. Slight interval decrease in degree of subcutaneous gas.
AP 01/29/24
1. No CTA evidence for active arterial contrast extravasation.
2. Postoperative changes of the right anterior thigh with expansile enlargement of the quadriceps and adductor musculature. Findings are most compatible with intramuscular hematoma. The presence of residual neoplasm would be difficult to
differentiate from hematoma on this exam. Soft tissue gas is presumably postoperative but superimposed infection is not excluded.
3. Patent bilateral 3 vessel runoffs with moderate atherosclerosis throughout both lower extremities.
4. 5 mm solid pleural-based pulmonary nodule in the right lower lobe with slight enlargement compared to the previous chest CT. Consider a follow-up chest CT in 3-6 months for reevaluation.
Echo: 11/11/23- Normal left ventricular size, wall thickness and systolic function. No regional wall motion abnormalities are seen. Estimated ejection fraction is 55-60%. Normal diastolic function. Trileaflet aortic valve. Thickened calcified aortic
valve with adequate leaflet excursion. Trace aortic insufficiency. The aortic root is mildly dilated-ascending aorta 4.0 cm. Since echocardiogram 09/03/2023, right ventricular dysfunction and tricuspid regurgitation have resolved/improved
significantly. Aortic root is mildly dilated.
PFT's:
Reports and relevant images were personally reviewed.
-----
Critical care time 32 mins -- this includes review of history, physical exam, medications, hemodynamic/ventilator parameters, laboratory data, imaging and discussion with house staff, pharmacy, respiratory therapy, interior block wirer, and nursing.
Subjective Dataa
Subjective Data
Date of Service:
Date of Service: February 16, 2024
Chief Complaint: Orthotic Aide Follow Up
Subjective:
Patient is feeling well. He is without complaints. He denies shortness of breath, chest pain, chest tightness, lightheadedness, dizziness, nausea. Moving bowels, with some slight loose stool. Pain is controlled, received 1 dose of Dilaudid
overnight
Objective Data
Data Reviewed
Vital Signs / I&O / Oxygen:
Vital Signs
Temp Pulse Resp BP Pulse Ox
97.1 F 75 17 128/84 98
02/16/24 03:31 02/16/24 05:00 02/16/24 04:00 02/16/24 05:00 02/16/24 05:00
Intake and Output
02/14/24 02/15/24 02/16/24
06:59 06:59 06:59
Intake Total 3543.0 / 3628.0 1375 / 1375 1810 / 1810
Output Total 5715 / 5715 2695 / 2695 435 / 435
Balance -2172.0 / -2087.0 -1320 / -1320 1375 / 1375
SaO2 [A/C] 100
SaO2 98
Nasal Cannula flow liters per 2
minute
Physical Exam
General: Comfortable and Other (Left lower extremity with bandage and MARICHUY drain)
HEENT: Normocephalic, Anicteric and Moist Mucous Membranes
Cardiovascular: S1-S2 and Regular Rhythm
Respiratory: Clear, Wheeze (n), Crackles (n), Rhonchi (n) and Non-Labored Respirations
GI: Soft, Non Distended and Non Tender
Neurology: Awake, Alert and No Motor Deficits
Skin: Good Color, Cyanosis (n) and Jaundice (n)
Labs/Micro/Reports
Lab Data
02/16/24 03:48
02/16/24 03:48
Microbiology
02/11/24 23:14 Blood/Venous Blood Culture - Preliminary
No Growth in 4 days- Final report to follow
02/11/24 17:38 Blood/Venous Blood Culture - Preliminary
No Growth in 4 days- Final report to follow
--- NOTE | 2024-02-16 07:45 | PTCARENOTE ---
Assumed care of patient. Pt rec'd A&Ox3. Pleasant but mildy anxious. DE LA CRUZ's but left leg weak. S1 S2 reg w/ NSR w/ PVC's on monitor. Weak PP. +2 LLE. Right leg w/ SCD. On R/A...sats 100%. Lungs diminished in bases. Abdomen round...+BS.
Breakfast ordered...takes po meds w/o issue. Voids in bathroom. Left leg monica wrap/dressing changed by at bedside. Able to assess wound w/ drsg off.....incision is from left groin to mid thigh....nahun well approximated...(2) MARICHUY drain
sites noted. Right DL PICC noted. VS documented. Call brody within reach. Will continue to monitor closely.
[2024-02-16] MEDS: NOVOLOG FLEXPEN-MODERATE RESISTANCE SC ×2 (07:48→12:01)
[2024-02-16] MEDS: PLAVIX 75 MG PO (07:49)
[2024-02-16] MEDS: MIRALAX TUBE (07:49)
[2024-02-16] MEDS: ASPIR LOW (ENTERIC COATED) 81 MG PO (07:49)
[2024-02-16] MEDS: HEPARIN 5000 UNITS SC ×2 (07:51→19:57)
[2024-02-16 07:54] LABS: Glucose - Point of Care 122 mg/dl (70-99)
--- NOTE | 2024-02-16 08:09 | W.PN.VS ---
Addendum entered and electronically signed by Juan Draper III, MD 02/16/24 10:56:
This patient was seen and examined with TYRONE Sosa. I agree with the history and physical exam as well as the assessment and plan. I have the following additions:
Doing well overall
No events
Left leg warm, foot warm
MARICHUY's serosanguinous
CT angiogram today of the left lower extremity
Lower extremity vein mapping of the right leg
Continue antibiotics
Signed:
Juan Draper III, MD
[facility] Vascular Surgery
[phone] (cell)
Original Note:
Today's Communication / Plan
-
Seen and assessed with Dr. Draper
Assessment/Plan
-
Assessment: 71-year-old male POD #5 left lower extremity hematoma evacuation and placement of Viabahn stent at [facility]
Plan:
Continue DAPT therapy of Plavix 75 mg p.o. daily and aspirin 81 mg p.o. daily given patient currently cannot be on his anticoagulation
OK for OOB with assistance
left leg re-wrapped at bedside
Continue MARICHUY drains
Continue neurovascular checks
CTA with runoff ordered for today
Vein mapping of the right leg
After scans complete will formulate surgical plan with patient
ID consult for antibiotic selection
Subjective Data
-
Date of Service: February 16, 2024
Patient seen at bedside this a.m. with Dr. Draper. Patient offers no complaints this morning. No events overnight. Dressings remain dry. Leg redressed at bedside
Objective Data
-
Vital Signs
Temp Pulse Resp BP Pulse Ox
97.8 F 75 17 128/84 98
02/16/24 07:33 02/16/24 05:00 02/16/24 04:00 02/16/24 05:00 02/16/24 05:00
Intake and Output
02/15/24 02/16/24 02/17/24
06:59 06:59 06:59
Intake Total 1375 / 1375 1810 / 1810
Output Total 2695 / 2695 452 / 452
Balance -1320 / -1320 1358 / 1358
Intake:
Oral fluids 880 / 880 1470 / 1470
IV fluids (Total) 255 / 255
Lr 1,000 ml @ 85 mls/hr IV . 255 / 255
[id number] Rx#:[id number]
IV piggybacks 240 / 240 340 / 340
Output:
Drain Output (Total) 180 / 180 102 / 102
Left Upper Leg Kang-Carney A 20 / 20 12 12
Left Upper Leg Kang-Carney B 160 / 160 90 / 90
Urine, Draper 825 / 825
Urine, Voided 1690 / 1690 350 / 350
Other:
Number of approximated MODERATE 1
amounts of urine
Number of approximated LARGE 1 1
amounts of urine
Lab Results
02/16/24 03:48
02/16/24 03:48
Calcium 8.6 mg/dl (8.4-10.2) 02/16/24 03:48
Phosphorus 6.8 mg/dl (2.5-4.5) H 02/12/24 03:25
Magnesium 1.9 mg/dl (1.6-2.3) 02/13/24 04:23
Total Bilirubin 0.9 mg/dl (0.2-1.3) 02/12/24 03:25
AST 57 U/L (17-59) 02/12/24 03:25
ALT 21 U/L (0-50) 02/12/24 03:25
Alkaline Phosphatase 60 U/L (38-126) 02/12/24 03:25
Total Protein 4.3 g/dl (6.3-8.2) L D 02/12/24 03:25
Albumin 2.1 g/dl (3.5-5.0) L 02/12/24 03:25
Physical Exam
-
Resting bed comfortably, no apparent distress
No tachycardia
No dyspnea
ABD flat, nontender
Left lower extremity with soft compartments, MARICHUY drain x 2 with serosanguineous output, strong Doppler signal at DP and PT, bilateral foot warm
--- NOTE | 2024-02-16 08:28 | W.PN.HOSP.TC ---
Today's Communication/Plan
-
Transfer to [address] [place] [address] as discussed with boiler service technician
Repeat CT as per vascular
Continue DAPT as per vascular
Continue antibiotics
Assessment / Plan
Assessment / Plan
Gen: Remains NAD, Awake and alert
HEENT: Normocephalix
Neck: supple.
CV: RRR, +S1/S2, no m/r/g.
Resp: CTAB, no rales, wheezes, or rhonchi.
Abd: +BS, soft, NT, ND
Skin: Continues to remain LLE with C/D/I dressing with MARICHUY drain with sanguinous drainage
Neuro: CN 2-12 intact, non-focal.
Psych: Normal mood and affect.
02/11/24 23:14 Blood/Venous Blood Culture - Preliminary
No Growth in 72 hours- Final report to follow
02/11/24 17:38 Blood/Venous Blood Culture - Preliminary
No Growth in 72 hours- Final report to follow
Hemorrhagic shock secondary to large anterior left thigh intramuscular hematoma with acute arterial bleeding/extravasation from the superficial femoral artery at mid thigh level:
Intramuscular hematoma s/p stenting of left SFA and evacuation of hematoma 02/11/24
Acute blood loss anemia 2/2 above
History of recent washout/abx
Perioperative mechanical ventilation
Leukocytosis
Metabolic acidosis and lactic acidosis
-h/o sarcoma left quadriceps s/p resection at [facility] complicated by infected hematoma s/p 4 washouts and closure at [facility] 02/10/24 with drain placement
-Patient completed radiation for sarcoma, no metastatic disease
-on admission SBP 90s systolic which improved with IV fluids and blood
-acute blood loss anemia on chronic anemia (exacerbated by eliquis) s/p pRBCs and ffp.
-Eliquis on hold
-Kcentra given
-s/p 02/11/24 left lower extremity hematoma evacuation and placement of Viabahn stent at [facility]
-off Levophed since 1999 on 02/13/24
-was on Vancomycin/Zosyn/Fluconazole, now on Unasyn/Micafungin. Follow BCxs (NGTD). ID following. Note recent operative cultures showed Enterococcus and MSSA. Cultures from [facility] on February 10, 2024 showed Latrice.
-Dilaudid for pain
-currently on Plavix/ASA as per vascular
-repeat CTA LLE today to assess anatomy and potential reconstruction options
-high risk of limb loss
Lung Nodules on CT Imaging
MANOJ with AG metabolic acidosis due to lactic acidosis, and hyponatremia:
-MANOJ and lactic acidosis resolved with IVFs
-renal U/S: Unremarkable sonographic appearance of the kidneys bilaterally.
-Lactic acidosis now resolved
-Hyponatremia has resolved
DVT of left lower extremity/hx PE:
-Holding all anticoagulation for now
-Will eventually have to restart when safe as per vascular surgery
DM2:
-Continue Insulin
-SSI/accuchecks
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
s/p Left leg hematoma washout and wound exploration 01/29/24
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
History of prostate cancer s/p radical perineal prostatectomy 01/05/08 Dr. Zaldivar
Bladder stone s/p Complex laser cystolitholapaxy with extraction of stone 10/10/20
Dyslipidemia
HTN
Cholecystectomy (1979)
Cervical disc disease-3 level cervical laminectomy (2013)
Full code
DVT prophylaxis: SCD to RLE
RN updated, discussed with ICU attending.
Anticipated Discharge: > 48 hours
Subjective/Interval History
-
Date of Service: February 16, 2024
Patient was seen and examined. He denied any new, significant symptoms or complaints.
Objective Data
-
Labs:
Laboratory Results
02/16/24
03:48
WBC 7.1
Hgb 7.9 L
Hct 24.3 L
Plt Count 172
Sodium 136
Potassium 3.6
Chloride 108 H
Carbon Dioxide 24
BUN 13
Creatinine 0.9
Glucose 96
Calcium 8.6
Vital Signs:
Vital Signs
Temp Pulse Resp BP Pulse Ox
97.8 F 75 17 128/84 98
02/16/24 07:33 02/16/24 05:00 02/16/24 04:00 02/16/24 05:00 02/16/24 05:00
I&O
02/15/24 02/16/24 02/17/24
06:59 06:59 06:59
Intake Total 1375 / 1375 1810 / 1810
Output Total 2695 / 2695 452 / 452
Balance -1320 / -1320 1358 / 1358
--- NOTE | 2024-02-16 08:45 | PTCARENOTE ---
Pt sent for vascular ultrasound of right leg and CTa of left leg.
--- NOTE | 2024-02-16 09:58 | W.PN.ID1 ---
Date of Service
Date of Service: February 16, 2024
Today's Communication
Continue Unsyn, Micafungin for now.
Assessment / Plan
Skin/Soft tissue infected hematoma and break down of SFA
s/p Hemorrhagic Shock - off pressor
ATN/MANOJ - resolved
- additional records requested and were reviewed by Dr. King
- note that on arrival he was on a 10 day course of fluconazole 100 mg PO qday and augmentin 875/125 mg on arrival per Dr Mike DARNELL at [facility]
- note biofilm was resected from the femoral artery 02/01 - cultures with E faecalis and C albicans - there is also referral to two outpatient superficial cultures with MSSA
- 'no concern for bone infection' recorded at the time of discharge
- our cultures here from 01/28 with amp sensitive E faecalis and MSSA
- qtc acceptable at 440
- is on clopidogrel which has drug interaction with fluconazole
-02/11/24 s/p left lower extremity hematoma evacuation and placement of Viabahn stent at [facility], no intra-op cx
-Per Vascular note 'Currently he is well temporized with stent grafts lining the SFA but these are most likely also infected.'
- For CTA today
-Continue Unasyn and Micafungin.
- follow clinically; known to Dr Mike DARNELL at [facility]
Chief Complaint
-: Other (surgical site infection)
Subjective / Review of Systems
No significant leg pain.
Vital Signs / Physical Exam
Vital Signs
Vital Signs
Temp Pulse Resp BP Pulse Ox
97.8 F 75 17 128/84 98
02/16/24 07:33 02/16/24 05:00 02/16/24 04:00 02/16/24 05:00 02/16/24 05:00
Physical Exam
Constitutional: No Acute Distress and Comfortable
Cardiovascular: Regular Rate and S1/S2
Pulmonary: Clear
Gastrointestinal: Soft, Non Tender and Non Distended
Wound: Other (Left LLE dressing dry, MARICHUY drains x 2 with blood output)
Neurological: AO x 3
Objective Data
Lab Data
Lab Results
02/16/24 03:48
02/16/24 03:48
PT 19.3 Sec (11.4-14.6) H 02/11/24 23:13
INR 1.62 02/11/24 23:13
APTT 95.3 Sec (23.4-35.0) H 02/11/24 23:13
Estimated Creat Clear 68 ml/min 02/16/24 03:48
Lactic Acid 0.7 mmol/L (0.7-2.0) 02/13/24 04:23
Total Bilirubin 0.9 mg/dl (0.2-1.3) 02/12/24 03:25
AST 57 U/L (17-59) 02/12/24 03:25
ALT 21 U/L (0-50) 02/12/24 03:25
Alkaline Phosphatase 60 U/L (38-126) 02/12/24 03:25
Most recent labs reviewed.
Micro Results:
02/11/24 23:14 Blood Culture - Preliminary
Blood/Venous No Growth in 4 days- Final report to follow
02/11/24 17:38 Blood Culture - Preliminary
Blood/Venous No Growth in 4 days- Final report to follow
--- NOTE | 2024-02-16 12:00 | PTCARENOTE ---
No major changes in physical assessment since am. Resting comfortably in chair. Lunch ordered. VS documented. Call brody within reach.
[2024-02-16 12:03] LABS: Glucose - Point of Care 144 mg/dl (70-99)
--- NOTE | 2024-02-16 13:47 | CM ---
CM following re: discharge planning.
Reviewed pt's chart, met with pt.
POD #5 left lower extremity hematoma evacuation and placement of Viabahn stent at [facility], continue supportive care. Pt is for vascular ultrasound of right leg and CT of left leg. Vascular Surgery and ID following.
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
D/c plan: home with anticipated no needs. Family to transport at discharge.
CM will follow with discharge plan updates as hospitalization progresses
[2024-02-16] MEDS: NOVOLOG FLEXPEN-MODERATE RESISTANCE 1 UNITS SC (18:02)
[2024-02-16 18:06] LABS: Glucose - Point of Care 156 mg/dl (70-99)
[2024-02-16] MEDS: MYCAMINE 105 MG IV (18:26)
--- NOTE | 2024-02-16 20:00 | PTCARENOTE ---
Rec'd pt sitting on chair, denies pain, cooperative, SR w/ PVC's, bp stable, distal pulses weak, Left leg edematous, leg wrapped in monica bandage, skin warm/dry, 2 MARICHUY's w/ SES drainage, RA, lungs decr in bases, sat 99, + bowel sounds, no bm, abd
soft/nontender, no n/v, autumn diet, voids in bathroom w/o problem
[2024-02-16] MEDS: LYRICA 75 MG PO (20:08)
[2024-02-16] MEDS: ROXICODONE 5 MG PO (21:07)
[2024-02-16] MEDS: LANTUS 0.0500000000000000028 UNITS SC (21:07)
--- NOTE | 2024-02-16 21:11 | PTCARENOTE ---
assisted to bathroom w/ rolling walker then back to bed, oxycodone 5mg po given for left leg incis pain & left calf pain
[2024-02-16 21:14] LABS: Glucose - Point of Care 153 mg/dl (70-99)
--- NOTE | 2024-02-16 23:33 | PTCARENOTE ---
sys reviewed, changes noted
[2024-02-17] VITALS (8 sets, daily range): BP systolic 126–166; BP diastolic 45–90; PULSE 68; O2SAT 100; BMI 25.5
--- NOTE | 2024-02-17 01:15 | PTCARENOTE ---
Report given to floor, transferred to Rm 2120 via on tele
--- NOTE | 2024-02-17 01:30 | PTCARENOTE ---
Pt. received from ICU to South via WC and pt. able to walk to room bed with walker. A&Ox3, in NAD, denies pain at present, and VSS. Pt. oriented to room and unit policies, bed locked and in lowest position, side rails in place, call light and
personal belongings within reach.
[2024-02-17] MEDS: UNASYN IV (06:00)
[2024-02-17 07:37] LABS: Glucose - Point of Care 91 mg/dl (70-99)
[2024-02-17] MEDS: PLAVIX 75 MG PO (08:47)
[2024-02-17] MEDS: ASPIR LOW (ENTERIC COATED) 81 MG PO (08:47)
[2024-02-17] MEDS: HEPARIN 5000 UNITS SC ×2 (08:48→19:42)
[2024-02-17] MEDS: LYRICA 75 MG PO ×2 (08:48→19:42)
[2024-02-17] MEDS: NOVOLOG FLEXPEN-MODERATE RESISTANCE SC ×3 (08:50→17:36)
[2024-02-17] MEDS: MIRALAX TUBE (08:51)
--- NOTE | 2024-02-17 09:34 | W.PN.VS ---
Addendum entered and electronically signed by Juan Draper III, MD 02/17/24 10:55:
This patient was seen and examined with TYRONE Mcnamara. I agree with the history and physical exam as well as the assessment and plan. I have the following additions:
I had a long conversation at bedside with Gerry and his son once again. I personally reviewed the CT angiogram images and explained the results to both of them. The stent grafts in the left superficial femoral artery are intact and patent.
There is no extravasation. The fluid cavity in his left thigh has resolved. The drains are in good position.
I also reviewed his vein mapping which demonstrates poor size of the right great saphenous vein. Upper extremity vein conduit is possible but would likely require spliced vein for length. I explained this to both of them as well.
His clinical trajectory has been positive and I am happy with his progress to date. My plan is to formulate an antibiotic plan with infectious disease and plan to follow Mr. Green as an outpatient. Will have physical therapy/rehab medicine evaluate
him for placement and ongoing needs. I am not planning any surgical intervention immediately on this admission. Will have him follow-up with vascular surgery as an outpatient for close interval follow-up. Keep drains in the leg in an effort to
prevent any reaccumulation of fluid.
He has expressed interest in following up with Drs. Muller and Gagan from [facility] and we can certainly arrange for this after discharge.
Signed:
Juan Draper III, MD
[facility] Vascular Surgery
[phone] (kcws)
Original Note:
Today's Communication / Plan
-
Patient seen and examined at bedside with Dr. Juan Draper III, below plan reviewed with attending
Assessment/Plan
-
Assessment: 71-year-old male POD #6 left lower extremity hematoma evacuation and placement of Viabahn stent at [facility]
Plan:
Continue DAPT therapy of Plavix 75 mg p.o. daily and aspirin 81 mg p.o. daily given patient currently cannot be on his anticoagulation
OK for OOB with assistance
Continue MARICHUY drains
ID consult for antibiotic selection
Plan for continued outpatient work up for possible left lower extremity bypass
Case management for disposition planning
Subjective Data
-
Date of Service: February 17, 2024
Patient seen and examined at bedside, reports well managed post operative pain. Offers no complaints, eager for discharge. Denies nausea, vomiting, fever, and chills.
Objective Data
-
Vital Signs
Temp Pulse Resp BP Pulse Ox
97.5 F 60 16 149/77 100
02/17/24 07:35 02/17/24 07:35 02/17/24 07:35 02/17/24 07:35 02/17/24 07:35
Intake and Output
02/16/24 02/17/24 02/18/24
06:59 06:59 06:59
Intake Total 1810 / 1810 855 / 855
Output Total 452 / 452 95 / 95
Balance 1358 / 1358 760 / 760
Intake:
Oral fluids 1470 / 1470 390 / 390
IV piggybacks 340 / 340 465 / 465
Output:
Drain Output (Total) 102 / 102 95 / 95
Left Upper Leg Kang-Carney A 12 12 10 / 10
Left Upper Leg Kang-Carney B 90 / 90 85 / 85
Urine, Voided 350 / 350
Other:
Number of approximated MODERATE 1 1
amounts of urine
Number of approximated LARGE 1 1
amounts of urine
Calcium 8.6 mg/dl (8.4-10.2) 02/16/24 03:48
Phosphorus 6.8 mg/dl (2.5-4.5) H 02/12/24 03:25
Magnesium 1.9 mg/dl (1.6-2.3) 02/13/24 04:23
Total Bilirubin 0.9 mg/dl (0.2-1.3) 02/12/24 03:25
AST 57 U/L (17-59) 02/12/24 03:25
ALT 21 U/L (0-50) 02/12/24 03:25
Alkaline Phosphatase 60 U/L (38-126) 02/12/24 03:25
Total Protein 4.3 g/dl (6.3-8.2) L D 02/12/24 03:25
Albumin 2.1 g/dl (3.5-5.0) L 02/12/24 03:25
Physical Exam
-
Resting in bed comfortably, no apparent distress
No tachycardia
No dyspnea
ABD flat, nontender
Left lower extremity with soft compartments, MARICHUY drain x 2 with serosanguineous output, bilateral foot warm
--- NOTE | 2024-02-17 10:11 | W.PN.ID1 ---
Date of Service
Date of Service: February 17, 2024
Today's Communication
See below.
Assessment / Plan
Skin/Soft tissue infected hematoma and break down of SFA
Possible stent graft infection
s/p Hemorrhagic Shock - off pressor
ATN/MANOJ - resolved
- additional records requested and were reviewed by Dr. King
- note that on arrival he was on a 10 day course of fluconazole 100 mg PO qday and augmentin 875/125 mg on arrival per Dr Mckeon ID at [facility]
- note biofilm was resected from the femoral artery 02/01 - cultures with E faecalis and C albicans - there is also referral to two outpatient superficial cultures with MSSA
- 'no concern for bone infection' recorded at the time of discharge
- our cultures here from 01/28 with amp sensitive E faecalis and MSSA
- qtc acceptable at 440
- is on clopidogrel which has drug interaction with fluconazole
-02/11/24 s/p left lower extremity hematoma evacuation and placement of Viabahn stent at SFA, no intra-op cx
-02/17/24 Dr. Cornejo discussed case with Dr. Draper. He is concerned that the stent graft maybe infected due to proximity to infected cavity; 'artery was disrupted and theoretically prsthetic stent graft could be exposed to infected cavity.' Prefers
longer course of antibiotic.
- pt does not want to follow-up with ID at [facility]
- For ease of home IV administration:
Replace Unasyn IV q6 with Daptomycin 800mg IV q24 through 03/25/24,
Continue Micafungin 100mg IV q24 through 03/25/24.
Follow baseline CK
Follow weekly CBC,CMP, CK
- Home infusion sheet submitted to case management
-Picc in place.
Chief Complaint
-: Other (surgical site infection)
Subjective / Review of Systems
Feels well. No complaints.
Vital Signs / Physical Exam
Vital Signs
Vital Signs
Temp Pulse Resp BP Pulse Ox
97.5 F 60 16 149/77 100
02/17/24 07:35 02/17/24 07:35 02/17/24 07:35 02/17/24 07:35 02/17/24 07:35
Physical Exam
Constitutional: No Acute Distress and Comfortable
Cardiovascular: Regular Rate and S1/S2
Wound: Other (LLE MARICHUY drain small amt of blood)
Lines: PICC (RUE)
Objective Data
Lab Data
PT 19.3 Sec (11.4-14.6) H 02/11/24 23:13
INR 1.62 02/11/24 23:13
APTT 95.3 Sec (23.4-35.0) H 02/11/24 23:13
Estimated Creat Clear 68 ml/min 02/16/24 03:48
Lactic Acid 0.7 mmol/L (0.7-2.0) 02/13/24 04:23
Total Bilirubin 0.9 mg/dl (0.2-1.3) 02/12/24 03:25
AST 57 U/L (17-59) 02/12/24 03:25
ALT 21 U/L (0-50) 02/12/24 03:25
Alkaline Phosphatase 60 U/L (38-126) 02/12/24 03:25
Most recent labs reviewed.
Micro Results:
02/11/24 23:14 Blood Culture - Final
Blood/Venous No Growth - Final Report
02/11/24 17:38 Blood Culture - Final
Blood/Venous No Growth - Final Report
Care Review
Plan reviewed with: Physician (Dr. Draper)
[2024-02-17 11:03] LABS: Hematocrit 26.9 % (39.0-52.0); Hemoglobin 8.6 g/dL (13.0-18.0); Mean Corpuscular Hgb 29.1 pg (27.0-31.0); Mean Corpuscular Volume 90.9 fL (80.0-94.0); Platelet Count 217 10^3/uL (130-400); Red Blood Cell Count 2.96 10^6/uL (4.70-6.10); Red Cell Dist. Width 19.3 % (11.5-14.5); White Blood Cell Count 6.1 10^3/uL (4.8-10.8)
--- NOTE | 2024-02-17 11:18 | CM ---
Addendum entered by Tash Saab RN 02/17/24 15:27:
Per Sue [facility] Liaison, patient's cost for the first week is $356 for medication and supplies. Each week the cost could go up or down depending on the pharmacy costs. Supplies and nurse are covered at 100%. [facility] will follow for VN/PT.
Referral sent and accepted. Patient and RN updated on the above. Sue's contact information provided to the patient.
Original Note:
Reviewed the chart notes. Received a script from ID for home IV abx. Clinicals faxed to [facility]. CM continues to be available to patient/family and is monitoring medical plan for needs at discharge.
Plan: Discharge to home with IV abx.
[2024-02-17 11:19] LABS: Blood Urea Nitrogen 10 mg/dl (9-20); Calcium 8.3 mg/dl (8.4-10.2); Carbon Dioxide 22 mmol/L (22-30); Chloride 109 mmol/L (98-107); Creatine Phosphokinase 239 U/L (55-170); Estimated Creatinine Clearance 65 ml/min; Glucose 133 mg/dl (70-99); Potassium 3.7 mmol/L (3.5-5.1); Sodium 138 mmol/L (135-145); eGFR > 60.00
[2024-02-17 12:15] LABS: Glucose - Point of Care 120 mg/dl (70-99)
[2024-02-17] MEDS: CUBICIN 16 MG IV (12:20)
--- NOTE | 2024-02-17 17:26 | W.PN.HOSP.TC ---
Today's Communication/Plan
-
Patient doing well
No further vascular procedure inpatient
Anticipate discharge soon
Diabetes GRAVE DIGGER consulted, recommendations appreciated
Assessment / Plan
Assessment / Plan
Gen: Remains NAD, Awake and alert
HEENT: Normocephalix
Neck: supple.
CV: RRR, +S1/S2, no m/r/g.
Resp: CTAB, no rales, wheezes, or rhonchi.
Abd: +BS, soft, NT, ND
Skin: Continues to remain LLE with C/D/I dressing with MARICHUY drain with sanguinous drainage
Neuro: CN 2-12 intact, non-focal.
Psych: Normal mood and affect.
02/11/24 23:14 Blood/Venous Blood Culture - Preliminary
No Growth in 72 hours- Final report to follow
02/11/24 17:38 Blood/Venous Blood Culture - Preliminary
No Growth in 72 hours- Final report to follow
Hemorrhagic shock secondary to large anterior left thigh intramuscular hematoma with acute arterial bleeding/extravasation from the superficial femoral artery at mid thigh level:
Intramuscular hematoma s/p stenting of left SFA and evacuation of hematoma 02/11/24
Acute blood loss anemia 2/2 above
History of recent washout/abx
Perioperative mechanical ventilation
Leukocytosis
Metabolic acidosis and lactic acidosis
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 complicated by infected hematoma s/p 4 washouts [address] closure [address] [facility] 02/10/24 with drain placement
-Patient completed radiation for sarcoma, no metastatic disease
-on admission SBP 90s systolic which improved with IV fluids and blood
-acute blood loss anemia on chronic anemia (exacerbated by eliquis) s/p pRBCs and ffp.
-Eliquis on hold
-Kcentra given
-s/p 02/11/24 left lower extremity hematoma evacuation and placement of Viabahn stent at SFA
-off Levophed since 1999 on 02/13/24
-was on Vancomycin/Zosyn/Fluconazole, now on Unasyn/Micafungin. Follow BCxs (NGTD). ID following. Note recent operative cultures showed Enterococcus and MSSA. Cultures from [facility] on February 10, 2024 showed Latrice.
-Dilaudid for pain
-Will need outpatient arrangement for antibiotics as per ID: Replace Unasyn IV q6 with Daptomycin 800mg IV q24 through 03/25/24, Continue Micafungin 100mg IV q24 through 03/25/24.
Follow baseline CK
Follow weekly CBC,CMP, CK
- Home infusion sheet submitted to case management
-Picc in place.
-currently on Plavix/ASA as per vascular
-repeat CTA LLE --> stents are patient, no extravasation, fluid in the left thigh has resolved.
-No other procedures by vascular inpatient. Follow vascular outpatient. Maintain drains. Patient expressed interest in [facility] up [facility] vascular will arrange for this.
-Continue DAPT therapy of Plavix 75 mg p.o. daily and aspirin 81 mg p.o. daily given patient currently cannot be on his anticoagulation
-Patient can do OOB with assistance
-Continue MARICHUY drains
Lung Nodules on CT Imaging
MANOJ with AG metabolic acidosis due to lactic acidosis, and hyponatremia:
-MANOJ and lactic acidosis resolved with IVFs
-renal U/S: Unremarkable sonographic appearance of the kidneys bilaterally.
-Lactic acidosis now resolved
-Hyponatremia has resolved
DVT of left lower extremity/hx PE:
-Holding all anticoagulation for now
-Will eventually have to restart when safe as per vascular surgery
DM2:
-Continue Insulin
-SSI/accuchecks
-Consulted Diabetes GRAVE DIGGER, recommendations appreciated
Left lower extremity thigh mass-sarcoma status post resection [address] [facility]
s/p Left leg hematoma washout and wound exploration 01/29/24
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
History of prostate cancer s/p radical perineal prostatectomy 01/05/08 Dr. Zaldivar
Bladder stone s/p Complex laser cystolitholapaxy with extraction of stone 10/10/20
Dyslipidemia
HTN
Cholecystectomy (1979)
Cervical disc disease-3 level cervical laminectomy (2013)
Full code
DVT prophylaxis: SCD to RLE
Anticipated Discharge: 24 - 48 hours
Subjective/Interval History
-
Date of Service: February 17, 2024
Patient was seen and examined. He denied any new, significant symptoms or complaints.
Objective Data
-
Labs:
Laboratory Results
02/17/24
10:40
WBC 6.1
Hgb 8.6 L
Hct 26.9 L
Plt Count 217 D
Sodium 138
Potassium 3.7
Chloride 109 H
Carbon Dioxide 22
BUN 10
Creatinine 0.9
Glucose 133 H
Calcium 8.3 L
Vital Signs:
Vital Signs
Temp Pulse Resp BP Pulse Ox
97.7 F 65 16 150/85 100
02/17/24 15:23 02/17/24 15:23 02/17/24 15:23 02/17/24 15:23 02/17/24 15:23
I&O
02/16/24 02/17/24 02/18/24
06:59 06:59 06:59
Intake Total 1810 / 1810 855 / 855
Output Total 452 / 452 95 / 95
Balance 1358 / 1358 760 / 760
[2024-02-17 17:34] LABS: Glucose - Point of Care 133 mg/dl (70-99)
[2024-02-17] MEDS: MYCAMINE 105 MG IV (17:48)
[2024-02-17 21:05] LABS: Glucose - Point of Care 129 mg/dl (70-99)
[2024-02-17] MEDS: ROXICODONE 5 MG PO (21:24)
[2024-02-17] MEDS: LANTUS 0.0500000000000000028 UNITS SC (21:24)
[2024-02-18 04:02] VITALS: BP 129/61
[2024-02-18 04:04] LABS: Hematocrit 25.9 % (39.0-52.0); Hemoglobin 8.6 g/dL (13.0-18.0); Mean Corp Hgb Conc. 33.2 g/dL (33.0-37.0); Mean Corpuscular Hgb 29.1 pg (27.0-31.0); Mean Corpuscular Volume 87.5 fL (80.0-94.0); Mean Platelet Volume 10.5 fL (7.4-10.4); Platelet Count 249 10^3/uL (130-400); Red Blood Cell Count 2.96 10^6/uL (4.70-6.10); Red Cell Dist. Width 18.7 % (11.5-14.5); White Blood Cell Count 6.4 10^3/uL (4.8-10.8)
[2024-02-18 04:31] LABS: Blood Urea Nitrogen 14 mg/dl (9-20); Calcium 8.6 mg/dl (8.4-10.2); Carbon Dioxide 22 mmol/L (22-30); Chloride 111 mmol/L (98-107); Estimated Creatinine Clearance 74 ml/min; Glucose 94 mg/dl (70-99); Potassium 3.7 mmol/L (3.5-5.1); Sodium 138 mmol/L (135-145); eGFR > 60.00
--- NOTE | 2024-02-18 07:16 | PN.DE.MGMTRT ---
Insulin Management
- -
02/18/2024 Diabetes Management Consult
Patient admitted 02/10 s/p fall. PMH HTN, HCL, DVT/PE, prostate CA, L quadricep sarcoma s/p stent L SFA 02/10. Prior to admission GILES Taylor, had ordered metformin 500 mg BID, patient never took it. A1C 6.6%, cr .8, eGFR > 60.
Patient was started on lantus 5 units @ hs 02/14 with moderate corrective. Patient has not required any corrective insulin for 3 days. Fasting glucose range 91 to 122 for the past 2 days, 94 today.
Will stop lantus, change moderate corrective to low corrective and resume metformin 500 mg BID.
Provided and instructed on steps to monitor glucose, patient needed frequent verbal cuing during return demonstration. Provided printed instructions, with pictures, with step by step for testing. Provided diabetes education booklet, highlighted
times to test glucose and target range. Patient to report results to GILES Taylor.
Diabetes History
- -
Type of Diabetes: 2
Pre-Admission Diabetes Regimen
02/17/24 02/18/24
10:40 03:51
Creatinine 0.9 0.8
Insulin Pump Settings
IP Diabetes Regimen
02/17/24 02/17/24 02/17/24
07:36 10:40 12:14
Glucose 133 H
POC Glucose 91 120 H
02/17/24 02/17/24 02/18/24
17:33 21:03 03:51
Glucose 94
POC Glucose 133 H 129 H
Meal type: Dinner
Amount consumed: 100%
Patient Education
[2024-02-18] MEDS: NOVOLOG FLEXPEN-LOW RESISTANCE SC (07:45)
[2024-02-18 07:46] VITALS: BP 160/90
[2024-02-18 07:46] LABS: Glucose - Point of Care 109 mg/dl (70-99)
[2024-02-18] MEDS: PLAVIX 75 MG PO (07:46)
[2024-02-18] MEDS: HEPARIN 5000 UNITS SC (07:46)
[2024-02-18] MEDS: GLUCOPHAGE 500 MG PO ×2 (07:46→17:08)
[2024-02-18] MEDS: LYRICA 75 MG PO (07:46)
[2024-02-18] MEDS: ASPIR LOW (ENTERIC COATED) 81 MG PO (07:46)
[2024-02-18] MEDS: MIRALAX 17 GRAMS TUBE (07:46)
--- NOTE | 2024-02-18 10:25 | CM ---
Addendum entered by Tash Saab RN 02/18/24 10:49:
Spoke with the patient at the bedside. IMM signed and placed on chart. RN updated on discharge plans.
Original Note:
Reviewed the chart notes. [facility] will be out at 12:30pm today to education on administration of medication. [facility] has accepted patient for VN and wound care. Patient informed of cost of medication. Patient must receive both doses of IV
abx today prior to discharging to home. CM continues to be available to patient/family and is monitoring medical plan for needs at discharge.
Plan: Discharge to home with [facility] and [facility] supplying the IV medications and supplies.
[facility]
[2024-02-18 11:38] LABS: Glucose - Point of Care 166 mg/dl (70-99)
[2024-02-18] MEDS: CUBICIN 16 MG IV (12:06)
[2024-02-18] MEDS: NOVOLOG FLEXPEN-LOW RESISTANCE 1 UNITS SC (12:17)
--- NOTE | 2024-02-18 13:07 | OR.RPT ---
CT Surgery Operative Note
-
Pre-op Diagnosis: LLE Hemorrhage
Post-op Diagnosis: Same
Procedure: Ultrasound Guided Percutaneous Right Femoral Access
Pelvic Angiogram
Left Lower Extremity Angiogram
SFA stent with 6mm and 8mm self expanding covered stents
Left Thigh Hematoma evacuation and closure
Primary Surgeon: Francisco Farah MD
Assisting Surgeons: None
Specimen: None
Cultures: None
Complications / Blood Loss: 400mL
Findings:
Indications for Procedure: This is a 79M with a hx of a LLE sarcoma resection < 1 month ago who's postop course was complicated by a large hematoma which was evacuated 1.5 weeks ago. At that time, an SFA branch was identified and ligated. Plastic
surgery closed the wound with wide drainage. He now presents with a large tense thigh. Corss sectional imaging demonstrated active extravasation from the SFA. Given these findings, the patient was taken to the OR emergently for control of
hemorrhage.
Procedure: The patient was brought to the operating room and placed on the operating room table in supine position. The drains were removed and immediately the hematma was decompressing through these holes. A nylon suture was placed to control the
hemorrhage. Anesthesia was induced with ET intubation. The bilateral groins and LLE was prepped and draped in the usual sterile fashion. Under ultrasound guidance, the right common femoral artery was accessed with a micropuncture needle and wire.
The needle was exchanged for a 6 khmer sheath followed by a stiff glide wire. A pelvic angiogram was performed with an omniflush catheter in the distal abdominal aorta which demonstrated a widely patent bilateral common iliac, external iliac and
hypogastric arteries. The left common femoral artery was selected with the stiff glide wire. A 6fr by 45 sheath was then placed in exchange for the short 6Fr sheath. Angiography demonstrated active extrav from the mid SFA. The stiff glide was used
to select the AK Pop. A 6mm x 50mm Viabahn was then used to stent the area of active extrav and ballooned to profile. Repeat angiography demonstrated continued active extrav. The patient was decompensating at this point with significant hypotension.
The previous incision was then opened and proximal and distal control was quickly obtained with peripheral vascular clamps. The allowed anesthesia to catch up with volume and product. Once stabilized, an attempt to repair the artery primarily was
performed. This proved impossible as the artery itself was completely desiccated, unhealthy and friable. The 6Fr sheath was exchanged for a 7 Fr sheath in anctipation for larger viabahns. A bypass was considered but due to the inability to get a
clean plane and significantly hemodynamic instablilty, damage control with covered stents were the best option. After th 7Fr sheath was placed, 8x100 and 8x50 viabahns were used to cover the majority of the SFA. This allowed for complete resolution
of active extravasation. The wound was then irrigated with saline and the SFA appeared stable with stents in it. There was a huge void. The femur was visible and no coverage was possible over the SFA. It was simply a bridge in a void. The wound
cavity was drained wide with 19Fr jose m drains and the incision closed in two layers with a 2-0 Vicryl and Andreia. The sheath was then removed over the wire and a Perclose was used to close the arteriotomy. The patient was then taken to the ICU in
critical condition.
--- NOTE | 2024-02-18 14:11 | W.PN.HOSP.TC ---
Addendum entered and electronically signed by Dominick Robledo MD 02/18/24 15:57:
I spoke to patient's nurse Pratibha, patient is getting his PICC line changed to single lumen and a repeat CXR after that, case management has to resubmit his paperwork. So may or may not be ready for discharge later today.
Original Note:
Today's Communication/Plan
-
CXR to confirm proper placement of PICC line
If CXR looks okay, then discharge today
Assessment / Plan
Assessment / Plan
Gen: Remains NAD, Awake and alert
HEENT: Normocephalic
Neck: supple.
CV: RRR, +S1/S2, no m/r/g.
Resp: CTAB, no rales, wheezes, or rhonchi.
Abd: +BS, soft, NT, ND
Skin: Continues to remain LLE with C/D/I dressing with MARICHUY drains with serosanguinous drainage
Neuro: CN 2-12 intact, non-focal.
Psych: Normal mood and affect.
02/11/24 23:14 Blood/Venous Blood Culture - Preliminary
No Growth in 72 hours- Final report to follow
02/11/24 17:38 Blood/Venous Blood Culture - Preliminary
No Growth in 72 hours- Final report to follow
Hemorrhagic shock secondary to large anterior left thigh intramuscular hematoma with acute arterial bleeding/extravasation from the superficial femoral artery at mid thigh level:
Intramuscular hematoma s/p stenting of left SFA and evacuation of hematoma 02/11/24
Acute blood loss anemia 2/2 above
History of recent washout/abx
Perioperative mechanical ventilation
Leukocytosis
Metabolic acidosis and lactic acidosis
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
-Patient completed radiation for sarcoma, no metastatic disease
-on admission SBP 90s systolic which improved with IV fluids and blood
-acute blood loss anemia on chronic anemia (exacerbated by eliquis) s/p pRBCs and ffp.
-Eliquis on hold
-Kcentra given
-s/p 02/11/24 left lower extremity hematoma evacuation and placement of Viabahn stent at SFA
-off Levophed since 1999 on 02/13/24
-was on Vancomycin/Zosyn/Fluconazole, now on Unasyn/Micafungin. Follow BCxs (NGTD). ID following. Note recent operative cultures showed Enterococcus and MSSA. Cultures from [facility] on February 10, 2024 showed Latrice.
-Dilaudid for pain
-Will need outpatient arrangement for antibiotics as per ID: Replace Unasyn IV q6 with Daptomycin 800mg IV q24 through 03/25/24, Continue Micafungin 100mg IV q24 through 03/25/24.
Follow baseline CK
Follow weekly CBC,CMP, CK
- Home infusion sheet submitted to case management
-Picc in place.
-currently on Plavix/ASA as per vascular
-repeat CTA LLE --> stents are patient, no extravasation, fluid in the left thigh has resolved.
-No other procedures by vascular inpatient. Follow vascular outpatient. Maintain drains. Patient expressed interest in following up with Drs. Muller and Gagan from [facility] --> vascular will arrange for this.
-Continue DAPT therapy of Plavix 75 mg p.o. daily and aspirin 81 mg p.o. daily given patient currently cannot be on his anticoagulation
-Patient can do OOB with assistance
-Continue MARICHUY drains
Mildly calcified, nonaneurysmal abdominal aorta on CT Imaging
Punctate nephrolith within the mid to lower pole of the right kidney on CT Imaging
Left arm cephalic vein thrombosis
Lung and Pleural Nodules on CT Imaging
-Follow-up with pulmonary outpatient
MANOJ with AG metabolic acidosis due to lactic acidosis, and hyponatremia:
-MANOJ and lactic acidosis resolved with IVFs
-renal U/S: Unremarkable sonographic appearance of the kidneys bilaterally.
-Lactic acidosis now resolved
-Hyponatremia has resolved
DVT of left lower extremity/hx PE:
-Holding all anticoagulation for now
-Will eventually have to restart when safe as per vascular surgery
DM2:
-Continue Metformin at home -- patient's PCP ordered Metformin in the past but patient never took it
-Check blood glucose at home, Diabetes SALES REP has placed in ambulatory orders
-SSI/accuchecks
-Consulted Diabetes SALES REP, recommendations appreciated
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
s/p Left leg hematoma washout and wound exploration 01/29/24
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
History of prostate cancer s/p radical perineal prostatectomy 01/05/08 Dr. Zaldivar
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
Bladder stone s/p Complex laser cystolitholapaxy with extraction of stone 10/10/20
Dyslipidemia
HTN
Cholecystectomy (1979)
Cervical disc disease-3 level cervical laminectomy (2013)
Mild diverticular disease within the left colon on CT Imaging
Full code
DVT prophylaxis: SCD to RLE
More than 30 minutes spent in discharge including
Final examination of the patient
Summarizing hospital stay
Instructions for continuing care to all relevant caregivers
Preparation of discharge records, prescriptions, and referral forms
Total time spent (in minutes): 41
Anticipated Discharge: Today
Subjective/Interval History
-
Date of Service: February 18, 2024
Patient was seen and examined. He denied any new pain or any other complaints. He is looking forward to going home today.
Objective Data
-
Labs:
Laboratory Results
02/18/24
03:51
WBC 6.4
Hgb 8.6 L
Hct 25.9 L
Plt Count 249
Sodium 138
Potassium 3.7
Chloride 111 H
Carbon Dioxide 22
BUN 14
Creatinine 0.8
Glucose 94
Calcium 8.6
Vital Signs:
Vital Signs
Temp Pulse Resp BP Pulse Ox
97.6 F 62 18 160/90 100
02/18/24 07:46 02/18/24 07:46 02/18/24 07:46 02/18/24 07:46 02/18/24 07:46
I&O
02/17/24 02/18/24 02/19/24
06:59 06:59 06:59
Intake Total 855 / 855 1320 / 1320
Output Total 95 / 95 170 / 170
Balance 760 / 760 1150 / 1150
[2024-02-18] MEDS: MYCAMINE 105 MG IV (15:00)
--- NOTE | 2024-02-18 15:03 | W.PN.ID1 ---
Date of Service
Date of Service: February 18, 2024
Today's Communication
change to single lumen picc
CK was elevated before first does of dapto, attribute to recent surgery, recheck friday
Assessment / Plan
Skin/Soft tissue infected hematoma and break down of SFA
Possible stent graft infection
s/p Hemorrhagic Shock - off pressor
ATN/MANOJ - resolved
- 02/11/24 s/p left lower extremity hematoma evacuation and placement of Viabahn stent at SFA, no intra-op cx
-02/17/24 Dr. Cornejo discussed case with Dr. Draper. He is concerned that the stent graft maybe infected due to proximity to infected cavity; 'artery was disrupted and theoretically prosthetic stent graft could be exposed to infected cavity.' Prefers
longer course of antibiotic.
- continue Daptomycin 800mg IV q24 through 03/25/24,
- Continue Micafungin 100mg IV q24 through 03/25/24.
- baseline CK 239 prior to first dose of daptomycin - suspect this mildly elevated level due to recent surgery
- not on a statin
Follow weekly CBC,CMP, CK
- Home infusion sheet submitted to case management by Dr Cornejo
- Picc in place - double lumen picc with one port not currently functional, change to single lumen before dc
- CXR to reconfirm PICC placement
- pt does not want to follow-up with ID at [facility]; follow up with Dr Cornejo has been arranged
Chief Complaint
-: Other (surgical site infection)
Subjective / Review of Systems
OR note is signed today but was preformed 02/10
remains afebrile
bp stable
without leukocytosis
cr stable
CK done before first dose of daptomycin and mildly elevated
Vital Signs / Physical Exam
Vital Signs
Vital Signs
Temp Pulse Resp BP Pulse Ox
97.6 F 62 18 160/90 100
02/18/24 07:46 02/18/24 07:46 02/18/24 07:46 02/18/24 07:46 02/18/24 07:46
Physical Exam
Constitutional: No Acute Distress
Cardiovascular: Regular Rate and S1/S2; Negative Murmur or Rub
Pulmonary: Clear and Symmetric; Negative Wheezes or Rales
Gastrointestinal: Soft, Non Tender, Non Distended and Normal Bowel Sounds
Skin: Warm and Dry; Negative Rash or Jaundice
Wound: Other (surgical site clean, no erythema/warmth/tenderness/dehiscence or drainage)
Objective Data
Lab Data
Lab Results
02/18/24 03:51
02/18/24 03:51
PT 19.3 Sec (11.4-14.6) H 02/11/24 23:13
INR 1.62 02/11/24 23:13
APTT 95.3 Sec (23.4-35.0) H 02/11/24 23:13
Estimated Creat Clear 74 ml/min 02/18/24 03:51
Lactic Acid 0.7 mmol/L (0.7-2.0) 02/13/24 04:23
Total Bilirubin 0.9 mg/dl (0.2-1.3) 02/12/24 03:25
AST 57 U/L (17-59) 02/12/24 03:25
ALT 21 U/L (0-50) 02/12/24 03:25
Alkaline Phosphatase 60 U/L (38-126) 02/12/24 03:25
Most recent labs reviewed.
Micro Results:
02/11/24 23:14 Blood Culture - Final
Blood/Venous No Growth - Final Report
02/11/24 17:38 Blood Culture - Final
Blood/Venous No Growth - Final Report
[2024-02-18 15:33] VITALS: BP 148/83
--- NOTE | 2024-02-18 16:45 | VATNOTE ---
02/17 PICC order to exchange existing double lumen picc to a single lumen was completed under sterile precautions. RT SL 4FR PICC, [id number], ECL0, redress Friday's. X-ray confirmation of placement - cavo atrial junction.
--- NOTE | 2024-02-18 17:16 | W.DS.TRANS ---
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
-
Discharge Instructions:
Discharge Diagnosis/Procedures Hemorrhagic shock secondary to large anterior
left thigh intramuscular hematoma with acute
arterial bleeding/extravasation from the
superficial femoral artery at mid thigh level
Intramuscular hematoma status post stenting of
left SFA and evacuation of hematoma 02/11/24
Acute blood loss anemia secondary to above
History of recent washout/antibiotics
Perioperative mechanical ventilation
Leukocytosis
Metabolic acidosis and lactic acidosis
Mildly calcified, nonaneurysmal abdominal aorta
on CT Imaging
Punctate nephrolith within the mid to lower pole
of the right kidney on CT Imaging
Left arm cephalic vein thrombosis
Lung and Pleural Nodules on CT Imaging
Acute Kidney Injury with anion gap metabolic
acidosis due to lactic acidosis, and
hyponatremia
Deep Venous Thrombosis of left lower extremity/
history of pulmonary embolism
Type 2 Diabetes Mellitus
Left lower extremity thigh mass-sarcoma status
post resection 3 weeks ago at [facility]
status post Left leg hematoma washout and wound
exploration 01/29/24
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
History of prostate cancer s/p radical perineal
prostatectomy 01/05/08 Dr. Zaldivar
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
on CT Imaging
Bladder stone s/p Complex laser cystolitholapaxy
with extraction of stone 10/10/20
Dyslipidemia
HTN
Cholecystectomy (1979)
Cervical disc disease-3 level cervical
laminectomy (2013)
Mild diverticular disease within the left colon
on CT Imaging
Diet Diabetic, Carb Controlled
Activity No strenuous activity
Driving Restrictions Not until seen by your Dr
Bathing Restrictions OK to Shower
Instructions:
Stand-Alone Forms: DC Instr - Vascular OR
Changes to Home Medications: Yes
Discharge Medications:
DC Medications w/original date entered in [employer]
multivitamin 1 ea PO DAILY Supplement 10/06/20
docusate sodium 100 mg capsule 100 mg PO BID Constipation 01/29/24
oxycodone 5 mg tablet 5 mg PO Q6HPRN PRN moderate pain 01/29/24
pregabalin 75 mg capsule 75 mg PO BID Pain 01/29/24
sennosides 8.6 mg tablet (Senna Laxative) 8.6 mg PO DAILY Constipation 01/29/24
DAPTOmycin [Cubicin] 800 mg As Directed mls/hr IV Q24H 02/18/24
Micafungin Sodium [Mycamine] 100 mg 105 mls/hr IV Q24H 02/18/24
aspirin 81 mg tablet,delayed release 81 mg PO DAILY #30 tabs 02/18/24
blood sugar diagnostic (Contour Next Test Strips) ##100 02/18/24
clopidogrel 75 mg tablet 75 mg PO DAILY #30 tabs 02/18/24
lancets 21 gauge (Color Lancets) ##100 02/18/24
metformin 500 mg tablet 500 mg PO BID@0800,1700 #60 tabs 02/18/24
polyethylene glycol 3350 17 gram oral powder packet (HealthyLax) 17 g feeding tube DAILY #30 ea 02/18/24
Home Medication Changes
Aspirin, Clopidogrel, Daptomycin, Micafungin and Miralax are new medications.
Metformin is also being supplied to as was prescribed to you by Dr. Sykes.
Eliquis, Fluconazole and Amoxicillin have been stopped.
Pending Results: No
Total time spent discharging patient (in min): 41
== END 2024-02-18 18:30 | disposition home health service (06) | DRG 907 ==
LOC: 2 SOUTH 19:42
PROVIDERS: Nurse Practitioner Family; Nurse Practitioner Primary Care; Specialist; ADMITTING PHYSICIAN Hospitalist; ATTENDING PHYSICIAN Hospitalist; CONSULT PHYSICIAN Internal Medicine; CONSULT PHYSICIAN Student in an Organized Health Care Education/Training Program; EMERGENCY PHYSICIAN Emergency Medicine; FAMILY PHYSICIAN Family Medicine; OTHER PHYSICIAN Surgery Vascular Surgery
PROC: 047L3EZ Dilation of Left Femoral Artery with Two Intraluminal Devices, Percutaneous Approach (ICD-10-PCS; 2024-02-11)
PROC: 0JCM0ZZ Extirpation of Matter from Left Upper Leg Subcutaneous Tissue and Fascia, Open Approach (ICD-10-PCS; 2024-02-11)
PROC: 30233K1 Transfusion of Nonautologous Frozen Plasma into Peripheral Vein, Percutaneous Approach (ICD-10-PCS; 2024-02-11)
PROC: B41C1ZZ Fluoroscopy of Pelvic Arteries using Low Osmolar Contrast (ICD-10-PCS; 2024-02-11)
PROC: 30233N1 Transfusion of Nonautologous Red Blood Cells into Peripheral Vein, Percutaneous Approach (ICD-10-PCS; 2024-02-11)
PROC: B41G1ZZ Fluoroscopy of Left Lower Extremity Arteries using Low Osmolar Contrast (ICD-10-PCS; 2024-02-11)
PROC: 30283B1 Transfusion of Nonautologous 4-Factor Prothrombin Complex Concentrate into Vein, Percutaneous Approach (ICD-10-PCS; 2024-02-11)
PROC: 02HV33Z Insertion of Infusion Device into Superior Vena Cava, Percutaneous Approach (ICD-10-PCS; 2024-02-13)
DX: S75.022A Major laceration of femoral artery, left leg, initial encounter (principal); N17.0 Acute kidney failure with tubular necrosis; R57.8 Other shock; E87.21 Acute metabolic acidosis; D62 Acute posthemorrhagic anemia; E87.1 Hypo-osmolality and hyponatremia; S70.12XA Contusion of left thigh, initial encounter; E11.9 Type 2 diabetes mellitus without complications; E78.00 Pure hypercholesterolemia, unspecified; I70.0 Atherosclerosis of aorta; K57.30 Diverticulosis of large intestine without perforation or abscess without bleeding; W01.0XXA Fall on same level from slipping, tripping and stumbling without subsequent striking against object, initial encounter; Z79.01 Long term (current) use of anticoagulants; Z79.891 Long term (current) use of opiate analgesic; Z79.899 Other long term (current) drug therapy; Z85.46 Personal history of malignant neoplasm of prostate; Z85.831 Personal history of malignant neoplasm of soft tissue; Z86.711 Personal history of pulmonary embolism; Z86.718 Personal history of other venous thrombosis and embolism
CPT/HCPCS: 10140; 36430; 37226; 70450; 71045; 73706; 74177; 75635; 75710; 76000; 76770; 76937; 80048; 80053; 80202; 81003; 81015; 82043; 82330; 82550; 82570; 82805; 82962; 83605; 83735; 84100; 84132; 84156; 84300; 84302; 84478; 85014; 85018; 85025; 85027; 85610; 85730; 86850; 86900; 86901; 86920; 87040; 93005; 93971; 94002; 94003; 96374; 96375; 96376; 97116; 97162; 99291; 99292; C1725; C1760; C1768; C1769; C1874; C1894; J0878; J7168; P9016; P9059; Q9967

== ENCOUNTER 2024-04-07 10:45 | Outpatient (RCR) | payer OTHER, SELFPAY | END 2024-04-07 23:59 | disposition home or self-care (01) | LOC: RPT 10:45 | PROVIDERS: ATTENDING PHYSICIAN Physical Medicine & Rehabilitation; FAMILY PHYSICIAN Family Medicine | DX: R26.89 Other abnormalities of gait and mobility (principal) | CPT/HCPCS: 97110; 97116; 97163 ==

== ENCOUNTER → 2024-04-09 13:06 | Outpatient (REF) | payer OTHER, SELFPAY | LOC: RAD 13:06 | PROVIDERS: ATTENDING PHYSICIAN Surgery; FAMILY PHYSICIAN Family Medicine | DX: I73.9 Peripheral vascular disease, unspecified (principal) | CPT/HCPCS: 75635; Q9967 ==

== ENCOUNTER → 2024-04-12 11:31 | Outpatient (REF) | payer OTHER, SELFPAY ==
[2024-04-12 18:36] LABS: Microalbumin, Random Urine 1.5 mg/dl (0.6-1.7); Microalbumin/creatinine Ratio 13.1 mg/g
== END ==
LOC: CLAB 11:31
PROVIDERS: ATTENDING PHYSICIAN Family Medicine
DX: T81.30XA Disruption of wound, unspecified, initial encounter (principal)
CPT/HCPCS: 36415; 82043; 82570

== ENCOUNTER → 2024-05-25 11:23 | Outpatient (REF) | payer OTHER, SELFPAY ==
[2024-05-25 12:28] LABS: % Basophils 0.4 % (0-2); % Eosinophils 3.5 % (0-6); % Immature Granulocytes 0.3 % (0-0.5); % Lymphocytes 17.8 % (20.5-51.1); Absolute Eosinophils 0.3 10^3/uL (0-0.7); Absolute Lymphocytes 1.3 10^3/uL (1.2-3.4); Absolute Monocytes 0.7 10^3/uL (0.1-0.6); Hematocrit 37.5 % (39.0-52.0); Hemoglobin 12.8 g/dL (13.0-18.0); Mean Corp Hgb Conc. 34.1 g/dL (33.0-37.0); Mean Corpuscular Hgb 27.2 pg (27.0-31.0); Mean Corpuscular Volume 79.8 fL (80.0-94.0); Nucleated Red Blood Cells % 0 % (-); Platelet Count 202 10^3/uL (130-400); Red Cell Dist. Width 14.6 % (11.5-14.5); White Blood Cell Count 7.2 10^3/uL (4.8-10.8)
[2024-05-25 12:37] LABS: INR 1.18; PT 14.8 Sec (11.4-14.6)
[2024-05-25 12:38] LABS: APTT 36.9 Sec (23.4-35.0)
[2024-05-25 12:53] LABS: Blood Urea Nitrogen 36 mg/dl (9-20); Calcium 9.9 mg/dl (8.4-10.2); Carbon Dioxide 22 mmol/L (22-30); Chloride 104 mmol/L (98-107); Glucose 120 mg/dl (70-99); Potassium 4.7 mmol/L (3.5-5.1); Sodium 141 mmol/L (135-145); eGFR > 60.00
== END ==
LOC: REG 11:23
PROVIDERS: FAMILY PHYSICIAN Family Medicine
DX: S71.101A Unspecified open wound, right thigh, initial encounter (principal)
CPT/HCPCS: 36415; 80048; 85025; 85610; 85730

== ENCOUNTER → 2024-06-09 10:52 | Outpatient (REF) | payer OTHER, SELFPAY | LOC: PET 10:52 | PROVIDERS: ATTENDING PHYSICIAN Internal Medicine Hematology & Oncology | DX: C49.9 Malignant neoplasm of connective and soft tissue, unspecified (principal) | CPT/HCPCS: 78816; A9552 ==

== ENCOUNTER → 2024-06-21 13:39 | Outpatient (REF) | payer OTHER, SELFPAY | LOC: PAVMRI 13:39 | PROVIDERS: ATTENDING PHYSICIAN Internal Medicine Hematology & Oncology; FAMILY PHYSICIAN Family Medicine | DX: C49.9 Malignant neoplasm of connective and soft tissue, unspecified (principal) | CPT/HCPCS: 73720; A9575 ==

== ENCOUNTER → 2024-06-22 08:11 | Outpatient (REF) | payer OTHER, SELFPAY | LOC: WOUND 08:11 | PROVIDERS: ATTENDING PHYSICIAN Surgery; FAMILY PHYSICIAN Family Medicine | DX: T81.31XA Disruption of external operation (surgical) wound, not elsewhere classified, initial encounter (principal); L97.123 Non-pressure chronic ulcer of left thigh with necrosis of muscle; C49.9 Malignant neoplasm of connective and soft tissue, unspecified; Z86.718 Personal history of other venous thrombosis and embolism; Z95.1 Presence of aortocoronary bypass graft; Y83.8 Other surgical procedures as the cause of abnormal reaction of the patient, or of later complication, without mention of misadventure at the time of the procedure | CPT/HCPCS: 99204 ==

== ENCOUNTER → 2024-07-20 09:48 | Outpatient (REF) | payer OTHER, SELFPAY | LOC: HWRCS 09:48 | PROVIDERS: ATTENDING PHYSICIAN Internal Medicine Hematology & Oncology; FAMILY PHYSICIAN Family Medicine | DX: C49.9 Malignant neoplasm of connective and soft tissue, unspecified (principal) | CPT/HCPCS: 93306 ==

== ENCOUNTER 2025-03-15 12:52 | Outpatient (RCR) | payer OTHER, SELFPAY | END 2025-03-15 23:59 | disposition home or self-care (01) | LOC: RPT 12:52 | PROVIDERS: ATTENDING PHYSICIAN Internal Medicine Hematology & Oncology; FAMILY PHYSICIAN Family Medicine | DX: C49.22 Malignant neoplasm of connective and soft tissue of left lower limb, including hip (principal); Z73.6 Limitation of activities due to disability; R26.89 Other abnormalities of gait and mobility; G62.0 Drug-induced polyneuropathy; M62.81 Muscle weakness (generalized); R26.81 Unsteadiness on feet; R53.0 Neoplastic (malignant) related fatigue; R26.2 Difficulty in walking, not elsewhere classified | CPT/HCPCS: 97110; 97112; 97140; 97163; 97530 ==

== ENCOUNTER 2025-04-15 11:16 | Outpatient (RCR) | payer OTHER, SELFPAY | END 2025-04-15 23:59 | disposition home or self-care (01) | LOC: RPT 11:16 | PROVIDERS: ATTENDING PHYSICIAN Internal Medicine Hematology & Oncology; FAMILY PHYSICIAN Family Medicine | DX: C49.22 Malignant neoplasm of connective and soft tissue of left lower limb, including hip (principal); Z73.6 Limitation of activities due to disability; R26.89 Other abnormalities of gait and mobility; G62.0 Drug-induced polyneuropathy; M62.81 Muscle weakness (generalized); R26.81 Unsteadiness on feet; R53.0 Neoplastic (malignant) related fatigue; R26.2 Difficulty in walking, not elsewhere classified | CPT/HCPCS: 97110; 97112; 97530 ==

== ENCOUNTER 2025-05-03 12:50 | Outpatient (RCR) | payer OTHER, SELFPAY | END 2025-05-03 23:59 | disposition home or self-care (01) | LOC: RPT 12:50 | PROVIDERS: ATTENDING PHYSICIAN Internal Medicine Hematology & Oncology; FAMILY PHYSICIAN Family Medicine | DX: C49.22 Malignant neoplasm of connective and soft tissue of left lower limb, including hip (principal); Z73.6 Limitation of activities due to disability; R26.89 Other abnormalities of gait and mobility; G62.0 Drug-induced polyneuropathy; M62.81 Muscle weakness (generalized); R26.81 Unsteadiness on feet; R53.0 Neoplastic (malignant) related fatigue; R26.2 Difficulty in walking, not elsewhere classified | CPT/HCPCS: 97110; 97112; 97530 ==

== ENCOUNTER 2025-06-14 08:26 | Outpatient (RCR) | payer OTHER, SELFPAY | END 2025-06-14 23:59 | disposition home or self-care (01) | LOC: RPT 08:26 | PROVIDERS: ATTENDING PHYSICIAN Internal Medicine Hematology & Oncology; FAMILY PHYSICIAN Family Medicine | DX: C49.22 Malignant neoplasm of connective and soft tissue of left lower limb, including hip (principal); Z73.6 Limitation of activities due to disability; R26.89 Other abnormalities of gait and mobility; G62.0 Drug-induced polyneuropathy; M62.81 Muscle weakness (generalized); R26.81 Unsteadiness on feet; R53.0 Neoplastic (malignant) related fatigue; R26.2 Difficulty in walking, not elsewhere classified | CPT/HCPCS: 97110; 97112; 97530 ==

== ENCOUNTER 2025-06-21 08:19 | Outpatient (RCR) | payer OTHER, SELFPAY | END 2025-07-12 08:02 | disposition home or self-care (01) | LOC: RPT 08:19 | PROVIDERS: ATTENDING PHYSICIAN Internal Medicine Hematology & Oncology; FAMILY PHYSICIAN Family Medicine | DX: C49.22 Malignant neoplasm of connective and soft tissue of left lower limb, including hip (principal); Z73.6 Limitation of activities due to disability; R26.89 Other abnormalities of gait and mobility; G62.0 Drug-induced polyneuropathy; M62.81 Muscle weakness (generalized); R26.81 Unsteadiness on feet; R53.0 Neoplastic (malignant) related fatigue; R26.2 Difficulty in walking, not elsewhere classified | CPT/HCPCS: 97110; 97112; 97530 ==

== ENCOUNTER 2025-06-26 22:18 | Inpatient (IN) | payer OTHER, SELFPAY ==
[2025-06-26] VITALS (7 sets, daily range): BP systolic 105–134; BP diastolic 64–79; BMI 27.2
--- NOTE | 2025-06-26 17:27 | ED.GENMED ---
History of Present Illness
<JAMES Brito Jr. Last Filed: 06/27/25 00:46>
General
Chief Complaint: Musculo-Skeletal Complaint
Source: patient
Exam Limitations: none
Time Seen by Provider: 06/26/25 16:07
Nursing documentation reviewed up to this point in time: agreed with
History of Present Illness
History of Present Illness:
80-year-old male presenting to the emergency department today with concerns of severe pain to the left leg as well as swelling this that occurred since yesterday. Does have a chronic wound to the left proximal leg from previous, removal 18 months
ago but claims this looks normal. Has been applying local wound care to the area and denies any specific changes to that localized area. No drainage. No fevers. Denies any noticeable redness or warmth but does have significant pain all the way
throughout the leg from proximal to distal.
Past History
<Rafal Akins Jr., PA-C - Last Filed: 06/27/25 00:46>
Past History
ED Past Medical History: Cancer, HTN, Hypercholesterolemia and Other (Left quadricep sarcoma, prostate cancer)
ED Past Surgical History: Cholecystectomy, Orthopedic, Urological and Other
Social History
Tobacco: Non-smoker
Alcohol: None
Drug: None
Personal:
Living: with family
Review of Systems
<JAMES Brito Jr. Last Filed: 06/27/25 00:46>
Review of Systems
Allergies reviewed?: Yes
All Other Systems: ROS reviewed and negative except as documented in HPI and ROS
Phy Exam
<JAMES Brito Jr. Last Filed: 06/27/25 00:46>
Physical Exam
Physical Exam:
GENERAL: Alert , in no apparent distress
EYE: pupils equal and reactive
NECK: Supple, no significant adenopathy.
ENT: o/p clr, mmm.
CARDIAC: Regular rate and rhythm .
LUNGS: Clear breath sounds bilaterally, no acute respiratory distress, no wheezes/rales/rhonchi
ABDOMEN: Soft, without focal tenderness, no r/g, no cvat
NEUROLOGICAL: Alert and oriented, no focal neuro deficits
SKIN: Warm and dry, skin intact.
MUSCULOSKELETAL: Significant swelling throughout the left lower extremity without significant redness or warmth. Good distal pulses. , well perfused.
PSYCH: Normal and appropriate interaction.
Course
<Rafal Akins Jr., PA-C - Last Filed: 06/27/25 00:46>
Orders/Labs/Results
Orders:
Orders
06/26/25 Dinner
1800 calorie (15 carb) Diabetic
At Your Request: Full Participation
06/26/25 16:32
Venous Doppler Lwr Ext Left [US Periph Venous LOWER Ext LT] Urgent
Comment:
Reason For Exam: left leg swelling
06/26/25 17:22
CBC/With Diff [Complete Blood Count/With Diff] Urgent
CMP [Comprehensive Metabolic Panel] Urgent
Creatine Phosphokinase Urgent
Comment: ADDON
06/26/25 18:46
CT Lower Ext W/iv Cont Lt Urgent
Comment:
Reason For Exam: left left swelling
CT Pelvis With Iv Contrast Urgent
Comment:
Reason For Exam: left leg swelling to pelvis
06/26/25 19:27
Add On- LAB Urgent
Tests Added?: creatine kinase
06/26/25 19:40
Urinalysis Reflex To Culture Urgent
Date Specimen was Collected: 06/26/25
Time Specimen was Collected: 19:38
06/26/25 21:59
Admit/Transfer Patient As Directed
Co-Sign Provider:
Level of Care: Inpatient admission
Assign to:: Medical/Surgical
Physician / Group: tushar
Diagnosis: left femoral vein occlusion
Reason for Hospitalization: venous insufficiency
Expected length of stay greater than two midnights?: Yes
ELOS- Estimated Length of Stay in days: 2
I certify the patient meets the requirements for IP care: Yes
PRN Pain Medication Management As Directed
May give lesser potent ordered pain med per pt: Yes
preference::
Protocol:: Medication orders for pain may be administered in a
manner that supports deferring to patient preference
when the pt is:
- Requesting an ordered lesser potent pain medication.
Least to most potent pain medications are defined
as: acetaminophen < NSAID < tramadol < opioids
(morphine, oxycodone, hydromorphone).
- Requesting a lesser dose of the same medication IF
ORDERED.
- Requesting a less intrusive route of administration
if both routes are prescribed by the provider (PO <
IV).
06/26/25 22:00
Code Status As Directed
Resuscitation Status: Full Code
06/26/25 22:44
Acetaminophen [Tylenol] 650 mg PO Q4HPRN PRN
Bisacodyl [Dulcolax] 10 mg RECTAL [id number] PRN
Dextrose 50%-Water [Dextrose 50% Syringe] 12.5 grams IV [id number] PRN
Docusate W/Senna [Senokot-S] 1 tablet PO BIDPRN PRN
Glucagon [GlucaGen] 1 mg IM PRN PRN
HYDROmorphone [Dilaudid] 0.5 mg IV Q4HPRN PRN
Mag Hydrox/Al Hydrox/Simeth [Maalox] 30 ml PO Q6HPRN PRN
Ondansetron Injectable [Zofran] 4 mg IV Q6HPRN PRN
Polyethylene Glycol Powder [Miralax] 17 grams PO DAILYPRN PRN
Tramadol HCl [Ultram] 50 mg PO Q6HPRN PRN
06/26/25 22:44
Vascular Surgery Consult Routine
Consulting Provider: Francisco Farah
Was physician already notified: Yes
VTE Contraindication Routine
VTE Mechanical Device Contraindication: Medical Contraindication
Pharmocologic Contraindication: Medical Contraindication
Activity As Directed
Activity Level: With Assistance
Bedside Glucose Monitoring As Directed
Frequency: AC&HS
Additional Instructions:: Change to q6h if pt on TPN, tube feeding or not eating
Vascular Checks As Directed
Location: Left lower extremity
Vital Signs As Directed
Frequency: Per unit guidelines
06/27/25 06:00
Basic Metabolic Panel IN AM
Complete Blood Count/No Diff IN AM
Magnesium IN AM
06/27/25 07:30
Insulin Aspart Corrective Low [Novolog Flexpen-Low Resistance] See Protocol SC AC
06/27/25 08:00
Apixaban [Eliquis] 5 mg PO BID
Aspirin Low Dose EC [Aspir Low (Enteric Coated)] 81 mg PO DAILY
Docusate Sodium [Colace] 100 mg PO BID
Pantoprazole [Protonix] 40 mg PO DAILY
Abnormal Lab Results
06/26/25
17:22
WBC 106.8 H* 10^3/uL
(4.8-10.8)
RBC 4.08 L 10^6/uL
(4.70-6.10)
Hgb 10.4 L g/dL
(13.0-18.0)
Hct 33.1 L %
(39.0-52.0)
MCH 25.5 L pg
(27.0-31.0)
MCHC 31.4 L g/dL
(33.0-37.0)
RDW 21.8 H %
(11.5-14.5)
Abs Immat Gran (auto) 3.0 H 10^3/uL
(0-0.05)
Absolute Neuts (auto) 98.5 H 10^3/uL
(1.4-6.5)
Absolute Monos (auto) 3.0 H 10^3/uL
(0.1-0.6)
Immature Gran % 2.8 H %
(0-0.5)
Neutrophils % 92.3 H %
(42.2-75.2)
Lymphocytes % 2.0 L %
(20.5-51.1)
Sodium 132 L mmol/L
(135-145)
Chloride 97 L mmol/L
(98-107)
BUN 22 H mg/dl
(9-20)
Glucose 130 H mg/dl
(70-99)
AST 16 L U/L
(17-59)
Alkaline Phosphatase 179 H U/L
(38-126)
Creatine Kinase < 20 L U/L
(55-170)
Albumin 3.4 L g/dl
(3.5-5.0)
06/26/25 17:22
06/26/25 17:22
Vital Signs
Initial and Last Documented VS:
Initial Vital Signs
Temp Pulse Resp BP Pulse Ox
98.0 F 89 18 126/73 97
06/26/25 15:16 06/26/25 15:16 06/26/25 15:16 06/26/25 15:16 06/26/25 15:16
Last Documented Vital Signs
Temp Pulse Resp BP Pulse Ox
97.9 F 75 20 113/64 92
06/26/25 23:17 06/26/25 23:17 06/26/25 23:17 06/26/25 23:17 06/26/25 23:17
<Steve Tavarez, DO - Last Filed: 06/26/25 21:09>
Orders/Labs/Results
Orders:
Orders
06/26/25 Dinner
1800 calorie (15 carb) Diabetic
At Your Request: Full Participation
06/26/25 16:32
Venous Doppler Lwr Ext Left [US Periph Venous LOWER Ext LT] Urgent
Comment:
Reason For Exam: left leg swelling
06/26/25 17:22
CBC/With Diff [Complete Blood Count/With Diff] Urgent
CMP [Comprehensive Metabolic Panel] Urgent
Creatine Phosphokinase Urgent
Comment: ADDON
06/26/25 18:46
CT Lower Ext W/iv Cont Lt Urgent
Comment:
Reason For Exam: left left swelling
CT Pelvis With Iv Contrast Urgent
Comment:
Reason For Exam: left leg swelling to pelvis
06/26/25 19:27
Add On- LAB Urgent
Tests Added?: creatine kinase
06/26/25 19:40
Urinalysis Reflex To Culture Urgent
Date Specimen was Collected: 06/26/25
Time Specimen was Collected: 19:38
06/26/25 21:59
Admit/Transfer Patient As Directed
Co-Sign Provider:
Level of Care: Inpatient admission
Assign to:: Medical/Surgical
Physician / Group: tushar
Diagnosis: left femoral vein occlusion
Reason for Hospitalization: venous insufficiency
Expected length of stay greater than two midnights?: Yes
ELOS- Estimated Length of Stay in days: 2
I certify the patient meets the requirements for IP care: Yes
PRN Pain Medication Management As Directed
May give lesser potent ordered pain med per pt: Yes
preference::
Protocol:: Medication orders for pain may be administered in a
manner that supports deferring to patient preference
when the pt is:
- Requesting an ordered lesser potent pain medication.
Least to most potent pain medications are defined
as: acetaminophen < NSAID < tramadol < opioids
(morphine, oxycodone, hydromorphone).
- Requesting a lesser dose of the same medication IF
ORDERED.
- Requesting a less intrusive route of administration
if both routes are prescribed by the provider (PO <
IV).
06/26/25 22:00
Code Status As Directed
Resuscitation Status: Full Code
06/26/25 22:44
Acetaminophen [Tylenol] 650 mg PO Q4HPRN PRN
Bisacodyl [Dulcolax] 10 mg RECTAL [id number] PRN
Dextrose 50%-Water [Dextrose 50% Syringe] 12.5 grams IV [id number] PRN
Docusate W/Senna [Senokot-S] 1 tablet PO BIDPRN PRN
Glucagon [GlucaGen] 1 mg IM PRN PRN
HYDROmorphone [Dilaudid] 0.5 mg IV Q4HPRN PRN
Mag Hydrox/Al Hydrox/Simeth [Maalox] 30 ml PO Q6HPRN PRN
Ondansetron Injectable [Zofran] 4 mg IV Q6HPRN PRN
Polyethylene Glycol Powder [Miralax] 17 grams PO DAILYPRN PRN
Tramadol HCl [Ultram] 50 mg PO Q6HPRN PRN
06/26/25 22:44
Vascular Surgery Consult Routine
Consulting Provider: Francisco Farah
Was physician already notified: Yes
VTE Contraindication Routine
VTE Mechanical Device Contraindication: Medical Contraindication
Pharmocologic Contraindication: Medical Contraindication
Activity As Directed
Activity Level: With Assistance
Bedside Glucose Monitoring As Directed
Frequency: AC&HS
Additional Instructions:: Change to q6h if pt on TPN, tube feeding or not eating
Vascular Checks As Directed
Location: Left lower extremity
Vital Signs As Directed
Frequency: Per unit guidelines
06/27/25 06:00
Basic Metabolic Panel IN AM
Complete Blood Count/No Diff IN AM
Magnesium IN AM
06/27/25 07:30
Insulin Aspart Corrective Low [Novolog Flexpen-Low Resistance] See Protocol SC AC
06/27/25 08:00
Apixaban [Eliquis] 5 mg PO BID
Aspirin Low Dose EC [Aspir Low (Enteric Coated)] 81 mg PO DAILY
Docusate Sodium [Colace] 100 mg PO BID
Pantoprazole [Protonix] 40 mg PO DAILY
Abnormal Lab Results
06/26/25
17:22
WBC 106.8 H* 10^3/uL
(4.8-10.8)
RBC 4.08 L 10^6/uL
(4.70-6.10)
Hgb 10.4 L g/dL
(13.0-18.0)
Hct 33.1 L %
(39.0-52.0)
MCH 25.5 L pg
(27.0-31.0)
MCHC 31.4 L g/dL
(33.0-37.0)
RDW 21.8 H %
(11.5-14.5)
Abs Immat Gran (auto) 3.0 H 10^3/uL
(0-0.05)
Absolute Neuts (auto) 98.5 H 10^3/uL
(1.4-6.5)
Absolute Monos (auto) 3.0 H 10^3/uL
(0.1-0.6)
Immature Gran % 2.8 H %
(0-0.5)
Neutrophils % 92.3 H %
(42.2-75.2)
Lymphocytes % 2.0 L %
(20.5-51.1)
Sodium 132 L mmol/L
(135-145)
Chloride 97 L mmol/L
(98-107)
BUN 22 H mg/dl
(9-20)
Glucose 130 H mg/dl
(70-99)
AST 16 L U/L
(17-59)
Alkaline Phosphatase 179 H U/L
(38-126)
Creatine Kinase < 20 L U/L
(55-170)
Albumin 3.4 L g/dl
(3.5-5.0)
06/26/25 17:22
06/26/25 17:22
Vital Signs
Initial and Last Documented VS:
Initial Vital Signs
Temp Pulse Resp BP Pulse Ox
98.0 F 89 18 126/73 97
06/26/25 15:16 06/26/25 15:16 06/26/25 15:16 06/26/25 15:16 06/26/25 15:16
Last Documented Vital Signs
Temp Pulse Resp BP Pulse Ox
97.9 F 75 20 113/64 92
06/26/25 23:17 06/26/25 23:17 06/26/25 23:17 06/26/25 23:17 06/26/25 23:17
<Rafal Akins Jr., PA-C - Last Filed: 06/27/25 00:46>
MDM/Problems Addressed
MDM/Problems Addressed:
80-year-old male presenting to the emergency department today with concerns of left leg swelling diffusely starting yesterday. Vital signs normal on arrival. On exam there is significant swelling throughout the leg. Good distal pulses.
Ultrasound does not show evidence of DVT. Unclear the cause of patient's significant leg swelling concerning this CT scan was ordered for further assessment. Otherwise labs showed significant leukocytosis. This was new compared to previous labs.
Patient discussed with hematology oncology here as well as with his primary team from [place] they both agreed that this was likely a reaction to his newly started medications over the past week. They recommended repeating labs in the next few
days but did not recommend any further assessment at this point. Otherwise patient had a CT scan that showed a mass potentially causing patient's significant leg swelling concerning this patient was admitted for further assessment and management.
<Rafal Akins Jr., PA-C - Last Filed: 06/27/25 00:46>
*Pulse Oximetry
SaO2: 97
Oxygen Mode of Delivery: Room air
Patient hypoxic: no (92)
*Critical Care Note
Total Time (30-74mins, 75-104mins- exclusive of procedures): Not Applicable
ED Attending Note
<Rafal Akins Jr., PA-C - Last Filed: 06/27/25 00:46>
-
Portions of this chart may have been created with voice recognition software.� Occasional wrong word or��sound alike� substitutions may have occurred due to the inherent limitations of voice recognition software.
<Steve Tavarez DO - Last Filed: 06/26/25 21:09>
ED Attending Note
Patient seen and examined by attending physician: Yes
I performed the substantive portion of visit, reviewed & personally made and approve the management plan that is documented in note by myself or CHANDLER.: Yes
ED Attending Note:
Note:
CHIEF COMPLAINT(S)
abdominal mass.
HISTORY OF PRESENT ILLNESS
The patient is a 80-year-old male who was evaluated for an abdominal mass. The patient was aware of the mass prior to this encounter, suggesting a known medical history. The plan includes admitting the patient for further observation and management.
There is no immediate intervention required based on the current assessment, and any further diagnostic or treatment plans are pending.
PHYSICAL EXAM
General: Alert, no acute distress. Watching football
Skin: Warm, dry.
Head: Normocephalic, atraumatic.
Neck: Supple, trachea midline.
Eyes, Ears, Nose, and Throat: Oral mucosa moist.
Cardiovascular: Normal peripheral perfusion, No edema.
Respiratory: Respirations are non-labored.
Gastrointestinal: Abdomen nondistended, mild TTP
Back: Normal range of motion, Normal alignment.
Musculoskeletal: Normal ROM, normal strength.
Neurological: Alert and oriented to person, place, time, and situation, No focal neurological deficit observed.
Psychiatric: Cooperative, appropriate mood & affect.
PLAN
The patient will be admitted for further observation and evaluation of the abdominal mass.
DIFFERENTIAL DIAGNOSIS
No Content
Discharge Plan
Departure
Patient Disposition: Admit
Date of Disposition: 06/26/25
Time of Disposition: 22:31
Admit to: Med/Surg
Admit to doctor: Tushar
Presentation/result/management discussed w/ accepting MD/DO: Hospitalist
Patient with high blood pressure during this ER visit?: No
Condition: Good
Covid-19: Not Applicable
Discharge Problem:
Abdominal mass, Leukocytosis
Interventions
Interventions:
*Risk Screen - Suicide Last Done: 06/26/25 23:30
*General Assessment Last Done: 06/26/25 15:16
*Neglect/Abuse Screening Last Done: 06/26/25 15:16
*ED- Fall Risk Assessment Last Done: 06/26/25 20:30
*ED COVID-19 Vaccine History Last Done: 06/26/25 23:30
*ED Influenza Vaccine History Last Done: 06/26/25 20:30
*Nursing Disposition Last Done: 06/26/25 22:39
ED-Musculoskeletal Assessment Last Done: 06/26/25 17:36
Discharge Date and Time
Discharge Date/Time: 06/26/25 22:41
[2025-06-26 17:58] LABS: Hematocrit 33.1 % (39.0-52.0); Hemoglobin 10.4 g/dL (13.0-18.0); Mean Corp Hgb Conc. 31.4 g/dL (33.0-37.0); Mean Corpuscular Volume 81.1 fL (80.0-94.0); Platelet Count 310 10^3/uL (130-400); Red Cell Dist. Width 21.8 % (11.5-14.5)
[2025-06-26 18:03] LABS: ALT (SGPT) 19 U/L (0-50); AST (SGOT) 16 U/L (17-59); Albumin 3.4 g/dl (3.5-5.0); Alkaline Phosphatase 179 U/L (38-126); Blood Urea Nitrogen 22 mg/dl (9-20); Calcium 9.7 mg/dl (8.4-10.2); Carbon Dioxide 27 mmol/L (22-30); Chloride 97 mmol/L (98-107); Glucose 130 mg/dl (70-99); Potassium 3.6 mmol/L (3.5-5.1); Sodium 132 mmol/L (135-145); Total Protein 6.9 g/dl (6.3-8.2); eGFR > 60.00
[2025-06-26 18:19] LABS: Nucleated Red Blood Cells % 0 % (-)
[2025-06-26 19:51] LABS: Urine Character Clear (Clear)
--- NOTE | 2025-06-26 21:28 | HPS.HSE ---
Family Physician
-
Family Physician: Shahbaz Sykes
Chief Complaint
-
Left leg pain
History of Present Illness
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
external iliac presents to the emergency department with severe pain in the left leg along with severe swelling.
Patient has a history of metastatic undifferentiated sarcoma status post surgery several months ago. He had a prior stenting and graft to the left femoral artery which is patent. Patient reported that he started a new chemotherapy recently with
last infusion on . At that infusion he did receive Lunesta on Friday. He also just completed pulse of steroids. Denies having any fevers or chills. He denies any rash. Reported that the swelling began rapidly over the last 24 hours. He
denies any numbness to the lower extremities. He states that his legs are not cool to the touch and there is no change in the color of his skin. He denies any nausea or vomiting. He reports pain is worse when he attempts to walk or when he
contracts the muscle.
In the emergency department patient was afebrile, blood pressure was 140/68 with a pulse of 75 and was satting 94% on room air. His white count was 106, hemoglobin 10.4 and a platelet of 310. His electrolytes notable for a sodium of 132 otherwise
unremarkable with normal BUN and creatinine. Alk phos is elevated at 179 LFTs otherwise unremarkable. UA unremarkable.
Patient had a CT of the pelvis and left lower extremity which showed extensive neoplastic disease within the left pelvis and extending into the thigh, increasing from previous examinations. Patent graft arising in the left external iliac artery and
extending through the anterolateral soft tissues of the left thigh, anastomosing with left popliteal artery. Occlusion of the mid left femoral vein, with soft tissue encasement which is likely from neoplasia and/or radiation therapy. No enhancing
vein is identified until enhancement of the left common iliac vein and internal iliac veins in the left pelvis, with lack of visualization of the proximal left femoral vein, common femoral vein, and external iliac vein. Severe subcutaneous edema
within the left thigh. Moderate to severe subcutaneous edema within the left side of the pelvis.
Medical History
Past Medical History
Past Medical History: Reports Other (sarcoma of left lower extremity status post resection at [facility] followed by for washout and closure with placement of drain most recently yesterday prostate cancer, hyperlipidemia, DVT/PE discovered in
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
Past Surgical History: Reports Other (Cholecystectomy, Orthopedic, Urological and Other)
Social History
Tobacco: Non-smoker
Alcohol: Occasional
Drug: None
Personal:
Family History
Family History: Not pertinent
Allergies / Home Medications
Allergies reflects when Allergies were last updated in [employer]
Home Medications with original date entered in [employer]
Allergy/Medication List:
Allergies
Allergy/AdvReac Type Severity Reaction Status Date / Time
No Known Allergies Allergy Verified 06/26/25 15:15
Home Medications
aspirin 81 mg tablet,delayed release 81 mg PO DAILY #30 tabs 02/18/24
docusate sodium 100 mg capsule (Colace) 100 mg PO BID 03/20/24
apixaban 5 mg tablet (Eliquis) 5 mg BID 06/26/25
metformin 500 mg tablet 500 mg PO DAILY 06/26/25
ondansetron HCl 8 mg tablet 8 mg PO DAILY PRN nausea 06/26/25
pantoprazole 40 mg tablet,delayed release 40 mg PO DAILY 06/26/25
prochlorperazine maleate 10 mg tablet 10 mg PO DAILY PRN nausea 06/26/25
Review of Systems
-
History Source: Patient
A 12 point ROS was completed and negative except as noted: Yes
Constitutional: Reports No Symptoms
EENT: Reports No Symptoms
Respiratory: Reports No Symptoms
Cardiac: Reports No Symptoms
Abdomen/GI: Reports No Symptoms
: Reports No Symptoms
Musculoskeletal: Reports See HPI
Skin: Reports No Symptoms
Neurological: Reports No Symptoms
Endocrine: Reports No Symptoms
Hematologic/Lymphatic: Reports No Symptoms
Psych: Reports No Symptoms
Physical Exam
Vital Signs
Vital Signs
Temp Pulse Resp BP Pulse Ox
98.0 F 75 19 115/66 94
06/26/25 15:16 06/26/25 19:15 06/26/25 19:15 06/26/25 19:00 06/26/25 19:15
Physical Exam
General: Well Developed, Well Nourished and No Apparent Distress
HEENT: NormoCephalic, Moist mucous membranes and Atraumatic
Respiratory: Clear
Cardiac: S1/S2 and Regular Rhythm; No Murmur or Rub
GI: Soft, Non Tender, Non Distended and Normal Bowel Sounds; No Organomegaly
Rectal: Deferred by Provider
Musculoskeletal: No Clubbing, No Cyanosis and Edema, Left Lower Extremity (2+); No Edema, Right Lower Extremity
Skin: Warm; No Rash
Neuro: AO x 3 and Nonfocal/grossly intact
Hematologic/Lymphatic: No Lymphadenopathy
Psych: Calm
Laboratory Results
-
06/26/25 17:22
06/26/25 17:22
Laboratory Results
Total Bilirubin 0.4 mg/dl (0.2-1.3) 06/26/25 17:22
AST 16 U/L (17-59) L 06/26/25 17:22
ALT 19 U/L (0-50) 06/26/25 17:22
Alkaline Phosphatase 179 U/L (38-126) H 06/26/25 17:22
Data Reviewed
-
CT Scan: Report Reviewed by me
Ultrasound: Report Reviewed by me
Lab Data: Labs Reviewed by me
Old Records: Reviewed
Impression/Plan
-
IMPRESSION:
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 Patient is status post chemotherapy with
Neulasta and steroid pulse. Labs with a white count of 106 but otherwise hemoglobin and platelets were normal. Electrolyte BUN/creatinine were normal. LFTs normal. Imaging consistent with extrinsic compression of the mid left femoral vein with
soft tissue encasement likely from neoplasia or from radiation, no venous thromboembolism. Had a significant subcutaneous edema.
PLAN:
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
- Admit to MedSurg
- Continue anticoagulation with Eliquis
- Consulted vascular surgery
- Elevate left leg as possible
- Pain control
- Antiemetics
Leukocytosis -suspect secondary to Neulasta and steroid pulse. No other signs of acute infection at this time. The wound site itself is clean dry and intact.
- Repeat CBC
- Monitor for signs of infection
Left leg wound
- Wound care consult
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
DM II
- sliding scale insulin
DVT prophylaxis�on apixaban
CODE STATUS�full code
[2025-06-26 23:15] LABS: Glucose - Point of Care 140 mg/dl (70-99)
[2025-06-26] MEDS: ELIQUIS 5 MG PO (23:19)
[2025-06-26] MEDS: ULTRAM 50 MG PO (23:19)
--- NOTE | 2025-06-27 00:02 | PTCARENOTE ---
Patient arrived to unit around 2300 via stretcher. AAOx3. Pain 6/ 10 to left thigh wound. Tramadol PRN given with + results. No signs of distress noted. Oriented to unit. Call brody within reach.
[2025-06-27 07:01] VITALS: BP 117/64
[2025-06-27 08:06] LABS: Glucose - Point of Care 134 mg/dl (70-99)
[2025-06-27] MEDS: COLACE 100 MG PO ×2 (08:10→19:55)
[2025-06-27] MEDS: NOVOLOG FLEXPEN-LOW RESISTANCE SC ×2 (08:10→17:17)
[2025-06-27] MEDS: PROTONIX 40 MG PO (08:11)
[2025-06-27 08:41] LABS: Hematocrit 33.5 % (39.0-52.0); Hemoglobin 10.0 g/dL (13.0-18.0); Mean Corp Hgb Conc. 29.9 g/dL (33.0-37.0); Mean Corpuscular Volume 85.2 fL (80.0-94.0); Platelet Count 317 10^3/uL (130-400); Red Cell Dist. Width 22.4 % (11.5-14.5)
[2025-06-27 08:44] LABS: Blood Urea Nitrogen 18 mg/dl (9-20); Calcium 8.9 mg/dl (8.4-10.2); Carbon Dioxide 26 mmol/L (22-30); Chloride 100 mmol/L (98-107); Estimated Creatinine Clearance 70 ml/min; Glucose 79 mg/dl (70-99); Magnesium 2.1 mg/dl (1.6-2.3); Potassium 3.7 mmol/L (3.5-5.1); Sodium 135 mmol/L (135-145); eGFR > 60.00
[2025-06-27] MEDS: ELIQUIS 2.5 MG PO ×2 (09:54→19:55)
--- NOTE | 2025-06-27 09:57 | W.PN.HOSP.TC ---
Addendum entered and electronically signed by Asa Hooker MD 06/27/25 13:29:
Addendum
d/w Dr Edmond who reviewed the imaging studies. No need for immediate vascular intervention. Arterial graft looked patent. Tumor is compressing on vein but no total occlusion, recommend to treat the tumor. Patient is getting treatment in outpatient
setting.
Discussed with the patient. He verbalized understanding but remained frustrated with his worsening gait/ situation. Consulted PT. Offered to give script for pain medicine upon dc. Will follow.
End
Original Note:
Today's Communication/Plan
-
Likely discharge if no vascular intervention
Assessment / Plan
Assessment / Plan
Physical Exam
General: Well Developed, Well Nourished and No Apparent Distress
HEENT: NormoCephalic, Moist mucous membranes and Atraumatic
Respiratory: Clear
Cardiac: S1/S2 and Regular Rhythm; No Murmur or Rub
GI: Soft, Non Tender, Non Distended and Normal Bowel Sounds; No Organomegaly
Rectal: no bleeding
Musculoskeletal: No Clubbing, No Cyanosis and Edema, Left Lower Extremity (2+); upper thigh open wound ( 5 cm X 1 cm). No Edema, Right Lower Extremity
Skin: Warm; No Rash
Neuro: AO x 3 and Nonfocal/grossly intact
Hematologic/Lymphatic: No Lymphadenopathy
Psych: Calm
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 Patient is status post chemotherapy with
Neulasta and steroid pulse. Labs with a white count of 106 but otherwise hemoglobin and platelets were normal. Electrolyte BUN/creatinine were normal. LFTs normal. Imaging consistent with extrinsic compression of the mid left femoral vein with
soft tissue encasement likely from neoplasia or from radiation, no venous thromboembolism. Had a significant subcutaneous edema.
PLAN:
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
- Continue anticoagulation with Eliquis. 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
- Consulted vascular surgery
- Elevate left leg as possible
- Pain control
- Antiemetics
Leukocytosis -suspect secondary to Neulasta/ Sarcoma and steroid pulse. No other signs of acute infection at this time. The wound site itself is clean dry and intact.
Afebrile
No sign of active infection. No GI or respiratory symptoms. Wound of left thigh /side of sarcoma : no foul smell or purulent discharge
Left leg wound
- Wound care consulted
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
DM II
- sliding scale insulin
DVT prophylaxis�on apixaban
CODE STATUS�full code
Total time spent to see the patient, examine the patient, review data and lab results, discuss treatment plan with patient, nursing staff around 55 minutes
Anticipated Discharge: Within 24 hours
Subjective/Interval History
-
Date of Service: June 27, 2025
He wants Eliquis at 2.5 mg. did not want 5 mg dose
He refused aspirin
He wants senna
Pain is better controlled
Objective Data
-
Labs:
Laboratory Results
06/27/25
07:00
WBC 87.9 H*
Hgb 10.0 L
Hct 33.5 L
Plt Count 317
Sodium 135
Potassium 3.7
Chloride 100
Carbon Dioxide 26
BUN 18
Creatinine 0.8
Glucose 79
Calcium 8.9
Vital Signs:
Vital Signs
Temp Pulse Resp BP Pulse Ox
98.4 F 77 12 117/64 93
06/27/25 07:01 06/27/25 07:01 06/27/25 07:01 06/27/25 07:01 06/27/25 08:10
[2025-06-27] MEDS: SENOKOT 17.2 MG PO (10:13)
--- NOTE | 2025-06-27 11:15 | WOUNDNOTE ---
[facility] RN note: Patient admitted with abdominal mass and leukocytosis.
See H&P for complete history.
PMH: Past Medical History: Reports Other (sarcoma of left lower extremity status post resection at [facility] followed by for washout and closure with placement of drain most recently yesterday prostate cancer, hyperlipidemia, DVT/PE discovered
in August of left lower extremity on Eliquis, anemia, diabetes,)
Past Surgical History: Reports Other (Cholecystectomy, Orthopedic, Urological and Other)
Wound Location and type/assessment: Patient known to service for wound vac needs last admission. Now admitted with open L thigh surgical wound that borders groin. Base with small fajardo slough, pink and moderate serous drainage. Patient states he is
cleaning with Vashe, using a silver mesh dressing at base then dry dressing on top. Assessed patient along with Dr. Hooker at bedside. + edema mainly near knee, no edema surrounding wound. Reviewed CT of pelvis, vein occluded- vascular on consult.
Patient able to turn to side, sacrum and heels intact.
Appetite: Good, encouraged protein in diet.
Pressure redistribution devices in place: Centrella Pro bed, turning schedule, pillow under calves.
Plan: Silver alginate and dry dressing daily to L thigh wound, Dr. Hooker approved of wound care.
Updated nurse Mariangel and called SPD for Vashe and additional silver alginate.
Updated care plan and will follow as needed.
Note to case management of equipment requested for discharge: No changes.
Recommend follow up with surgeon.
[2025-06-27 11:56] LABS: Glucose - Point of Care 156 mg/dl (70-99)
[2025-06-27] MEDS: NOVOLOG FLEXPEN-LOW RESISTANCE 1 UNITS SC (12:16)
[2025-06-27] MEDS: ULTRAM 50 MG PO (13:05)
[2025-06-27 13:28] VITALS: BP 141/92
[2025-06-27 15:30] VITALS: BP 131/70
--- NOTE | 2025-06-27 15:52 | CM ---
CM reviewed chart, patient seen bedside, initial assessment completed.
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
left external iliac presents to the emergency department with severe pain in the left leg along with severe swelling.
Patient resides with his in a multiple story home, three steps to enter.
Patient ambulatory with a cane, also owns a RW.
Patient has had [facility] and [facility] in the past, [facility] in past.
Patient current with outpatient therapy.
CM discussed therapy recommendations of SNF, patient reports he does not needs therapy but rather pain management.
Patient confirms PCP Shahbaz Sykes, Pharmacy [facility] [address], confirms prescription coverage.
VM left for patients .
Patient would like to see how he does with PT tomorrow after receiving pain medication.
CM will continue to follow.
Plan; home with , declining SNF.
[2025-06-27 16:38] VITALS: BP 115/70; PULSE 82; O2SAT 96
[2025-06-27] MEDS: DILAUDID 0.5 MG IV ×2 (16:39→20:41)
[2025-06-27 17:11] LABS: Glucose - Point of Care 142 mg/dl (70-99)
[2025-06-27 21:12] LABS: Glucose - Point of Care 157 mg/dl (70-99)
[2025-06-27 23:16] VITALS: BP 110/58
[2025-06-28] MEDS: DILAUDID 0.5 MG IV (05:20)
[2025-06-28 07:00] VITALS: BP 101/65
[2025-06-28] MEDS: ELIQUIS 2.5 MG PO ×2 (07:31→20:53)
[2025-06-28] MEDS: COLACE 100 MG PO ×2 (07:31→20:53)
[2025-06-28] MEDS: PROTONIX 40 MG PO (07:31)
[2025-06-28] MEDS: NOVOLOG FLEXPEN-LOW RESISTANCE SC (07:35)
[2025-06-28 07:36] LABS: Glucose - Point of Care 142 mg/dl (70-99)
[2025-06-28] MEDS: TYLENOL 1000 MG PO ×3 (07:38→21:00)
[2025-06-28] MEDS: DILAUDID 4 MG PO ×3 (09:14→20:54)
--- NOTE | 2025-06-28 10:01 | W.PN.HOSP.TC ---
Today's Communication/Plan
-
dc planning
Assessment / Plan
Assessment / Plan
Physical Exam
General: Well Developed, Well Nourished and No Apparent Distress
HEENT: NormoCephalic, Moist mucous membranes and Atraumatic
Respiratory: Clear
Cardiac: S1/S2 and Regular Rhythm; No Murmur or Rub
GI: Soft, Non Tender, Non Distended and Normal Bowel Sounds; No Organomegaly
Rectal: no bleeding
Musculoskeletal: No Clubbing, No Cyanosis and Edema, Left Lower Extremity (2+); upper thigh open wound ( 5 cm X 1 cm). No Edema, Right Lower Extremity
Skin: Warm; No Rash
Neuro: AO x 3 and Nonfocal/grossly intact
Hematologic/Lymphatic: No Lymphadenopathy
Psych: Calm
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 Patient is status post chemotherapy with
Neulasta and steroid pulse. Labs with a white count of 106 but otherwise hemoglobin and platelets were normal. Electrolyte BUN/creatinine were normal. LFTs normal. Imaging consistent with extrinsic compression of the mid left femoral vein with
soft tissue encasement likely from neoplasia or from radiation, no venous thromboembolism. Had a significant subcutaneous edema.
PLAN:
# Left leg pain due to cancer tumor invasion with lymphedema
d/w pt, started on Tylenol TID
He said Dilaudid worked better for him, trial of oral Dilaudid, it it works, we can give scripts
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
- Continue anticoagulation with Eliquis. 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
- Consulted vascular surgery
- Elevate left leg as possible
- Pain control
- Antiemetics
-d/w Dr Edmond who reviewed the imaging studies. No need for immediate vascular intervention. Arterial graft looked patent. Tumor is compressing on vein but no total occlusion, recommend to treat the tumor. Patient is getting treatment in outpatient
setting.
# Leukocytosis -suspect secondary to Neulasta/ Sarcoma and steroid pulse. No other signs of acute infection at this time. The wound site itself is clean dry and intact.
Afebrile
No sign of active infection. No GI or respiratory symptoms. Wound of left thigh /side of sarcoma : no foul smell or purulent discharge
Left leg wound
- Wound care consulted
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
Pt refused 5 mg dose BID, wanted to remain on 2.5 mg BID dose.
#DM II
- sliding scale insulin
DVT prophylaxis�on apixaban
CODE STATUS�full code
Total time spent to see the patient, examine the patient, review data and lab results, discuss treatment plan with patient, nursing staff around 55 minutes
Anticipated Discharge: Within 24 hours
Subjective/Interval History
-
Date of Service: June 28, 2025
pain in left leg upon moving
Objective Data
-
Vital Signs:
Vital Signs
Temp Pulse Resp BP Pulse Ox
98.8 F 81 18 101/65 93
06/28/25 07:00 06/28/25 07:00 06/28/25 07:00 06/28/25 07:00 06/28/25 07:00
I&O
06/27/25 06/28/25 06/29/25
06:59 06:59 06:59
Intake Total 780 / 780
Output Total 825 / 825
Balance -45 / -45
--- NOTE | 2025-06-28 11:42 | PTCARENOTE ---
Patient currently OOB to chair with PT. Patient reports feeling 80 % better. Requesting Meds to be change to PO Dilaudid. made aware.
[2025-06-28 11:44] VITALS: BP 137/98
[2025-06-28 11:51] LABS: Glucose - Point of Care 174 mg/dl (70-99)
[2025-06-28] MEDS: NOVOLOG FLEXPEN-LOW RESISTANCE 1 UNITS SC (12:30)
[2025-06-28 15:06] VITALS: BP 120/66
[2025-06-28 16:16] LABS: Glucose - Point of Care 211 mg/dl (70-99)
[2025-06-28] MEDS: NOVOLOG FLEXPEN-LOW RESISTANCE 2 UNITS SC (16:47)
[2025-06-28 21:01] LABS: Glucose - Point of Care 197 mg/dl (70-99)
[2025-06-28 21:36] LABS: Glucose - Point of Care 197 mg/dl (70-99)
[2025-06-28 23:21] VITALS: BP 110/65
[2025-06-29] MEDS: DILAUDID 4 MG PO ×4 (01:00→20:54)
[2025-06-29 07:00] VITALS: BP 147/79
[2025-06-29] MEDS: PROTONIX 40 MG PO (08:10)
[2025-06-29] MEDS: ELIQUIS 2.5 MG PO ×2 (08:10→20:55)
[2025-06-29] MEDS: TYLENOL 1000 MG PO ×3 (08:11→20:58)
[2025-06-29] MEDS: COLACE 100 MG PO ×2 (08:11→20:55)
[2025-06-29] MEDS: NOVOLOG FLEXPEN-LOW RESISTANCE SC (08:17)
[2025-06-29 08:18] LABS: Glucose - Point of Care 134 mg/dl (70-99)
[2025-06-29 08:53] VITALS: BP 147/79
[2025-06-29 10:01] VITALS: BP 146/78
--- NOTE | 2025-06-29 10:07 | W.PN.HOSP.TC ---
Today's Communication/Plan
-
.
Assessment / Plan
Assessment / Plan
Physical Exam
General: Well Developed, Well Nourished and No Apparent Distress
HEENT: NormoCephalic, Moist mucous membranes and Atraumatic
Respiratory: Clear
Cardiac: S1/S2 and Regular Rhythm; No Murmur or Rub
GI: Soft, Non Tender, Non Distended and Normal Bowel Sounds; No Organomegaly
Rectal: no bleeding
Musculoskeletal: No Clubbing, No Cyanosis and Edema, Left Lower Extremity (2+); upper thigh open wound ( 5 cm X 1 cm). No Edema, Right Lower Extremity
Skin: Warm; No Rash
Neuro: AO x 3 and Nonfocal/grossly intact
Hematologic/Lymphatic: No Lymphadenopathy
Psych: Calm
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 Patient is status post chemotherapy with
Neulasta and steroid pulse. Labs with a white count of 106 but otherwise hemoglobin and platelets were normal. Electrolyte BUN/creatinine were normal. LFTs normal. Imaging consistent with extrinsic compression of the mid left femoral vein with
soft tissue encasement likely from neoplasia or from radiation, no venous thromboembolism. Had a significant subcutaneous edema.
PLAN:
# Left leg pain due to cancer tumor invasion with lymphedema
d/w pt, started on Tylenol TID
He said Dilaudid worked better for him, trial of oral Dilaudid, it it works, we can give scripts
# Acute urinary retention
Had past issues but no recent
Bladder scan around 900 cc, straight cath drained 700 cc, will f/w scan
CT showed : large left pelvic mass results in deviation of the bladder into the right side of the pelvis.
# left lower extremity pain
CT studies showed : Extensive neoplastic disease within the left pelvis and extending into the thigh, increasing from previous examinations
- Continue anticoagulation with Eliquis. 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
- Elevate left leg as possible. Swelling seems to go down
- Pain control
- Antiemetics
-d/w Dr Edmond who reviewed the imaging studies. No need for immediate vascular intervention. Arterial graft looked patent. Tumor is compressing on vein but no total occlusion, recommend to treat the tumor. Patient is getting treatment in outpatient
setting.
I left VM to his oncologist Dr Kathryn Ibanez, await call back, might use steroid.
# Leukocytosis -suspect secondary to Neulasta/ Sarcoma and steroid pulse. No other signs of acute infection at this time. The wound site itself is clean dry and intact.
Afebrile
No sign of active infection. No GI or respiratory symptoms. Wound of left thigh /side of sarcoma : no foul smell or purulent discharge
Left leg wound
- Wound care consulted
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
Pt refused 5 mg dose BID, wanted to remain on 2.5 mg BID dose.
#DM II
- sliding scale insulin
DVT prophylaxis�on apixaban
CODE STATUS�full code
Total time spent to see the patient, examine the patient, review data and lab results, discuss treatment plan with patient, nursing staff around 55 minutes
Anticipated Discharge: Within 24 hours
Subjective/Interval History
-
Date of Service: June 29, 2025
Patient is still in pain in left thigh area while moving his left leg
He is having urinary retention
Objective Data
-
Vital Signs:
Vital Signs
Temp Pulse Resp BP Pulse Ox
98.4 F 89 22 147/79 95
06/29/25 07:00 06/29/25 07:00 06/29/25 07:00 06/29/25 07:00 06/29/25 07:00
I&O
06/28/25 06/29/25 06/30/25
06:59 06:59 06:59
Intake Total 780 / 780 1200 / 1200
Output Total 825 / 825
Balance -45 / -45 1200 / 1200
[2025-06-29 12:13] LABS: Glucose - Point of Care 157 mg/dl (70-99)
[2025-06-29] MEDS: NOVOLOG FLEXPEN-LOW RESISTANCE 1 UNITS SC ×2 (12:45→17:00)
--- NOTE | 2025-06-29 13:18 | CM ---
CM reviewed chart, patient seen bedside.
Patient very upset/frustrated with hospital stay.
Patient adamantly denying SNF, reports once his pain is controlled he can return home. CM discussed per therapy notes today, assist x2.
Patient continuing to get frustrated when CM attempting to discuss discharge planning/ SNF. regarding patient returning home. Patient would like to go home upon d/c.
Patient reports he receives chemo one week on, two weeks off, last treatment was last Friday.
CM offered to speak with , patient reports he will discuss with and inform CM if any questions/concerns.
CM will continue to follow for all d/c planning needs.
Plan; home with , declining SNF
[2025-06-29 15:00] VITALS: BP 134/69
[2025-06-29] MEDS: DECADRON 4 MG IV (16:31)
[2025-06-29 16:57] LABS: Glucose - Point of Care 166 mg/dl (70-99)
[2025-06-29] MEDS: SENOKOT 17.2 MG PO (20:58)
[2025-06-29 23:06] LABS: Glucose - Point of Care 235 mg/dl (70-99)
[2025-06-30] MEDS: DILAUDID PO (02:15)
[2025-06-30] MEDS: DILAUDID 4 MG PO ×4 (04:58→15:28)
[2025-06-30 07:17] LABS: Glucose - Point of Care 133 mg/dl (70-99)
[2025-06-30] MEDS: NOVOLOG FLEXPEN-LOW RESISTANCE SC (07:51)
[2025-06-30] MEDS: ELIQUIS 2.5 MG PO ×2 (07:52→19:22)
[2025-06-30] MEDS: COLACE 100 MG PO ×2 (07:52→19:22)
[2025-06-30] MEDS: PROTONIX 40 MG PO (07:52)
[2025-06-30] MEDS: TYLENOL 1000 MG PO ×3 (07:52→21:54)
[2025-06-30] MEDS: MS CONTIN (EXTENDED RELEASE) 15 MG PO ×2 (07:53→19:22)
[2025-06-30] MEDS: DECADRON 4 MG IV ×2 (07:54→15:28)
[2025-06-30] MEDS: MIRALAX 17 GRAMS PO ×2 (07:56→19:22)
[2025-06-30 08:10] VITALS: BP 114/68
[2025-06-30 09:58] VITALS: BP 94/74
[2025-06-30 10:01] VITALS: BP 94/74
--- NOTE | 2025-06-30 10:20 | W.PN.HOSP.TC ---
Today's Communication/Plan
-
pain control
IV steroid
Bowel regimen
Assessment / Plan
Assessment / Plan
Physical Exam
General: Well Developed, Well Nourished and No Apparent Distress
HEENT: NormoCephalic, Moist mucous membranes and Atraumatic
Respiratory: Clear
Cardiac: S1/S2 and Regular Rhythm; No Murmur or Rub
GI: Soft, Non Tender, Non Distended and Normal Bowel Sounds; No Organomegaly
Rectal: no bleeding
Musculoskeletal: No Clubbing, No Cyanosis and Edema, Left Lower Extremity (2+); upper thigh open wound ( 5 cm X 1 cm). No Edema, Right Lower Extremity
Skin: Warm; No Rash
Neuro: AO x 3 and Nonfocal/grossly intact
Hematologic/Lymphatic: No Lymphadenopathy
Psych: Calm
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 Patient is status post chemotherapy with
Neulasta and steroid pulse. Labs with a white count of 106 but otherwise hemoglobin and platelets were normal. Electrolyte BUN/creatinine were normal. LFTs normal. Imaging consistent with extrinsic compression of the mid left femoral vein with
soft tissue encasement likely from neoplasia or from radiation, no venous thromboembolism. Had a significant subcutaneous edema.
PLAN:
# Left leg pain due to cancer tumor invasion with lymphedema
d/w pt, started on Tylenol TID
Will do Low dose Morphine oral BID
He said Dilaudid worked better for him, trial of oral Dilaudid, it it works, we can give scripts
I d/w his oncologist Dr Vaca at [place] , send her a copy of CT, she will f/w in office, agreed to use steroid to help with cancer pain
# Acute urinary retention
Had past issues but no recent
Bladder scan around 900 cc, straight cath drained 700 cc, will f/w scan
CT showed : large left pelvic mass results in deviation of the bladder into the right side of the pelvis.
# left lower extremity pain
CT studies showed : Extensive neoplastic disease within the left pelvis and extending into the thigh, increasing from previous examinations
- Continue anticoagulation with Eliquis. 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
- Elevate left leg as possible. Swelling seems to go down
- Pain control
- Antiemetics
-d/w Dr Edmond who reviewed the imaging studies. No need for immediate vascular intervention. Arterial graft looked patent. Tumor is compressing on vein but no total occlusion, recommend to treat the tumor. Patient is getting treatment in outpatient
setting.
I left VM to his oncologist Dr Kathryn Ibanez, await call back, might use steroid.
# Leukocytosis -suspect secondary to Neulasta/ Sarcoma and steroid pulse. No other signs of acute infection at this time. The wound site itself is clean dry and intact.
Afebrile
No sign of active infection. No GI or respiratory symptoms. Wound of left thigh /side of sarcoma : no foul smell or purulent discharge
Left leg wound
- Wound care consulted
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
Pt refused 5 mg dose BID, wanted to remain on 2.5 mg BID dose.
# constipation
started on bowel regimen with use of Opioids.
No abd pain or distended.
#DM II
- sliding scale insulin
DVT prophylaxis�on apixaban
CODE STATUS�full code
Total time spent to see the patient, examine the patient, review data and lab results, discuss treatment plan with patient, nursing staff around 55 minutes
Anticipated Discharge: 24 - 48 hours
Subjective/Interval History
-
Date of Service: June 30, 2025
Less pain in left leg
Objective Data
-
Vital Signs:
Vital Signs
Temp Pulse Resp BP Pulse Ox
98.3 F 72 18 114/68 96
06/30/25 08:10 06/30/25 08:10 06/30/25 08:10 06/30/25 08:10 06/30/25 08:10
I&O
06/29/25 06/30/25 07/01/25
06:59 06:59 06:59
Intake Total 1200 / 1200 720 / 720
Output Total 2100 / 2099
Balance 1200 / 1200 -1380 / -1380
[2025-06-30 11:07] LABS: Glucose - Point of Care 242 mg/dl (70-99)
[2025-06-30] MEDS: NOVOLOG FLEXPEN-LOW RESISTANCE 2 UNITS SC (12:35)
[2025-06-30 15:38] VITALS: BP 149/79
--- NOTE | 2025-06-30 16:01 | WOUNDNOTE ---
WO RN NOTE: Patient visited for stage 1 to buttocks found during Prevalence study today. Upon assessment, buttocks are blanchable red. Patient given air cushion for chair. Patient is on an air bed and is followed by wound care team. Will continue
to follow as needed.
--- NOTE | 2025-06-30 16:04 | WOUNDNOTE ---
WOC RN NOTE: Patient visited for stage 1 to buttocks found during Prevalence study today. Upon assessment, buttocks are blanchable red. Patient given air cushion for chair. Patient is on a [employer] Pro bed and is followed by wound care team. Will
continue to follow as needed.
[2025-06-30 16:53] LABS: Glucose - Point of Care 264 mg/dl (70-99)
--- NOTE | 2025-06-30 16:59 | CM ---
MATTHEW met with Gerry today to discuss discharge plans. He was known to [facility] in the past and is agreeable to resuming services; he plans to resume outpatient therapy when he is feeling up to it.
IMM reviewed at length with Gerry. Form signed and placed on chart. Pt provided with a copy.
[2025-06-30] MEDS: NOVOLOG FLEXPEN-LOW RESISTANCE 3 UNITS SC (17:52)
[2025-06-30 21:55] LABS: Glucose - Point of Care 237 mg/dl (70-99)
[2025-06-30] MEDS: SENOKOT 17.2 MG PO (21:55)
[2025-06-30 23:06] VITALS: BP 129/69
[2025-07-01] MEDS: DILAUDID 4 MG PO ×3 (00:43→16:40)
[2025-07-01] MEDS: DILAUDID 0.5 MG IV (03:44)
[2025-07-01] MEDS: ULTRAM 50 MG PO (06:19)
[2025-07-01] MEDS: DULCOLAX 10 MG RECTAL (06:24)
[2025-07-01 07:58] LABS: Glucose - Point of Care 161 mg/dl (70-99)
[2025-07-01 07:59] VITALS: BP 121/68
[2025-07-01] MEDS: NOVOLOG FLEXPEN-LOW RESISTANCE SC (07:59)
[2025-07-01] MEDS: PROTONIX 40 MG PO (08:01)
[2025-07-01] MEDS: DECADRON 4 MG IV ×2 (08:01→16:46)
[2025-07-01] MEDS: TYLENOL 1000 MG PO ×3 (08:01→21:25)
[2025-07-01] MEDS: MS CONTIN (EXTENDED RELEASE) 15 MG PO ×2 (08:01→20:26)
[2025-07-01] MEDS: MIRALAX 17 GRAMS PO ×2 (08:01→20:06)
[2025-07-01] MEDS: COLACE 100 MG PO ×2 (08:01→20:05)
[2025-07-01] MEDS: ELIQUIS 2.5 MG PO ×2 (08:02→20:05)
[2025-07-01 10:08] VITALS: BP 140/71; O2SAT 97
[2025-07-01 10:32] VITALS: BP 141/70; PULSE 83; O2SAT 97
--- NOTE | 2025-07-01 10:48 | W.PN.HOSP.TC ---
Addendum entered and electronically signed by Asa Hooker MD 07/01/25 12:46:
Addendum
Patient is in need of a hospital bed. Patient requires frequent changes in body position and has an need for an immediate change in policy position, not feasible with an ordinary bed in order to alleviate pain due to metastatic sarcoma. Due to
limited mobility issues and compromised circulatory status, the patient requires a gel overlay to avoid altered sensory perception, impaired nutritional status, pressure ulcer of the trunk or pelvis, fecal or urinary incontinence.
End
Original Note:
Today's Communication/Plan
-
await dc planning
Patient refuses SNF
Assessment / Plan
Assessment / Plan
Physical Exam
General: Well Developed, Well Nourished and No Apparent Distress
HEENT: NormoCephalic, Moist mucous membranes and Atraumatic
Respiratory: Clear
Cardiac: S1/S2 and Regular Rhythm; No Murmur or Rub
GI: Soft, Non Tender, Non Distended and Normal Bowel Sounds; No Organomegaly
Rectal: no bleeding
Musculoskeletal: No Clubbing, No Cyanosis and Edema, Left Lower Extremity (2+); upper thigh open wound ( 5 cm X 1 cm). No Edema, Right Lower Extremity
Skin: Warm; No Rash
Neuro: AO x 3 and Nonfocal/grossly intact
Hematologic/Lymphatic: No Lymphadenopathy
Psych: Calm
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 Patient is status post chemotherapy with
Neulasta and steroid pulse. Labs with a white count of 106 but otherwise hemoglobin and platelets were normal. Electrolyte BUN/creatinine were normal. LFTs normal. Imaging consistent with extrinsic compression of the mid left femoral vein with
soft tissue encasement likely from neoplasia or from radiation, no venous thromboembolism. Had a significant subcutaneous edema.
PLAN:
# Left leg pain due to cancer tumor invasion with lymphedema
d/w pt, started on Tylenol TID
Will do Low dose Morphine oral BID
He said Dilaudid worked better for him, trial of oral Dilaudid, it it works, we can give scripts
I d/w his oncologist Dr Vaca at [place] , send her a copy of CT, she will f/w in office, agreed to use steroid to help with cancer pain
# Acute urinary retention
Had past issues but no recent
Bladder scan around 900 cc, straight cath drained 700 cc, will f/w scan
CT showed : large left pelvic mass results in deviation of the bladder into the right side of the pelvis.
# left lower extremity pain
CT studies showed : Extensive neoplastic disease within the left pelvis and extending into the thigh, increasing from previous examinations
- Continue anticoagulation with Eliquis. 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
- Elevate left leg as possible. Swelling seems to go down
- Pain control
- Antiemetics
-d/w Dr Edmond who reviewed the imaging studies. No need for immediate vascular intervention. Arterial graft looked patent. Tumor is compressing on vein but no total occlusion, recommend to treat the tumor. Patient is getting treatment in outpatient
setting.
I left VM to his oncologist Dr Kathryn Ibanez, await call back, might use steroid.
# Leukocytosis -suspect secondary to Neulasta/ Sarcoma and steroid pulse. No other signs of acute infection at this time. The wound site itself is clean dry and intact.
Afebrile
No sign of active infection. No GI or respiratory symptoms. Wound of left thigh /side of sarcoma : no foul smell or purulent discharge
Left leg wound
- Wound care consulted
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
Pt refused 5 mg dose BID, wanted to remain on 2.5 mg BID dose.
# constipation
started on bowel regimen with use of Opioids.
No abd pain or distended.
#DM II
- sliding scale insulin
DVT prophylaxis�on apixaban
CODE STATUS�full code
Total time spent to see the patient, examine the patient, review data and lab results, discuss treatment plan with patient, nursing staff around 55 minutes
Anticipated Discharge: Within 24 hours
Subjective/Interval History
-
Date of Service: July 01, 2025
Still unable to move without pain
Objective Data
-
Vital Signs:
Vital Signs
Temp Pulse Resp BP Pulse Ox
97.7 F 74 16 121/68 97
07/01/25 07:59 07/01/25 07:59 07/01/25 07:59 07/01/25 07:59 07/01/25 07:59
I&O
06/30/25 07/01/25 07/02/25
06:59 06:59 06:59
Intake Total 720 / 720 930 / 930
Output Total 2100 / 2100 500 / 500
Balance -1380 / -1380 430 / 430
[2025-07-01 11:57] LABS: Glucose - Point of Care 190 mg/dl (70-99)
[2025-07-01] MEDS: NOVOLOG FLEXPEN-LOW RESISTANCE 1 UNITS SC ×2 (12:27→16:58)
--- NOTE | 2025-07-01 14:03 | CM ---
CM reviewed chart, care ongoing.
CM reviewed with Physical Therapy-continue to recommend SNF- if patient to d.c home- recommend hospital bed and commode.
Patient and seen bedside, agreeable for CM to start process to order hospital bed- clinicals faxed to [facility] [phone].
reports she will need family to assist her move furniture for hospital bed in living room/family room- patients son and grandson in [place] for weekend, will not have anyone to help move furniture until next week. Patients home address
confirmed.
CM will continue to follow for all d/c needs.
Plan; home with [facility], declining SNF, hospital bed through [facility]- clinicals faxed
[2025-07-01 15:50] VITALS: BP 125/71
[2025-07-01 16:27] LABS: Glucose - Point of Care 179 mg/dl (70-99)
[2025-07-01] MEDS: SENOKOT 17.2 MG PO (21:25)
[2025-07-01 21:29] LABS: Glucose - Point of Care 216 mg/dl (70-99)
[2025-07-01 23:45] VITALS: BP 129/67
[2025-07-02] MEDS: DILAUDID 4 MG PO ×3 (00:21→15:43)
[2025-07-02] MEDS: ULTRAM 50 MG PO (02:48)
[2025-07-02] MEDS: DILAUDID 0.5 MG IV (06:07)
[2025-07-02] MEDS: FLUSH (NSS) 1 FLUSH IV (06:09)
[2025-07-02 07:10] VITALS: BP 136/76
[2025-07-02 07:37] LABS: Glucose - Point of Care 120 mg/dl (70-99)
[2025-07-02] MEDS: MS CONTIN (EXTENDED RELEASE) 15 MG PO ×2 (07:38→20:12)
[2025-07-02] MEDS: PROTONIX 40 MG PO (07:38)
[2025-07-02] MEDS: ELIQUIS 2.5 MG PO ×2 (07:38→20:12)
[2025-07-02] MEDS: DECADRON 4 MG IV ×2 (07:38→15:43)
[2025-07-02] MEDS: COLACE 100 MG PO ×2 (07:38→20:13)
[2025-07-02] MEDS: TYLENOL 1000 MG PO ×3 (07:38→21:34)
[2025-07-02] MEDS: MIRALAX 17 GRAMS PO ×2 (07:39→20:12)
[2025-07-02] MEDS: NOVOLOG FLEXPEN-LOW RESISTANCE SC (07:39)
[2025-07-02] MEDS: SENOKOT-S 1 TABLET PO (07:53)
[2025-07-02 09:00] VITALS: BP 153/80; PULSE 89; O2SAT 95
--- NOTE | 2025-07-02 09:40 | W.PN.HOSP.TC ---
Today's Communication/Plan
-
DC when home set up f is ready per CM
Assessment / Plan
Assessment / Plan
Physical Exam
General: Well Developed, Well Nourished and No Apparent Distress
HEENT: NormoCephalic, Moist mucous membranes and Atraumatic
Respiratory: Clear
Cardiac: S1/S2 and Regular Rhythm; No Murmur or Rub
GI: Soft, Non Tender, Non Distended and Normal Bowel Sounds; No Organomegaly
Rectal: no bleeding
Musculoskeletal: No Clubbing, No Cyanosis and Edema, Left Lower Extremity (2+); upper thigh open wound ( 5 cm X 1 cm). No Edema, Right Lower Extremity
Skin: Warm; No Rash
Neuro: AO x 3 and Nonfocal/grossly intact
Hematologic/Lymphatic: No Lymphadenopathy
Psych: Calm
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 Patient is status post chemotherapy with
Neulasta and steroid pulse. Labs with a white count of 106 but otherwise hemoglobin and platelets were normal. Electrolyte BUN/creatinine were normal. LFTs normal. Imaging consistent with extrinsic compression of the mid left femoral vein with
soft tissue encasement likely from neoplasia or from radiation, no venous thromboembolism. Had a significant subcutaneous edema.
PLAN:
# Acute on chronic Left leg pain due to cancer tumor invasion with lymphedema
d/w pt, started on Tylenol TID , oral Dilaudid and Oral morphine BID
PRN Dilaudid/ PRN Tramadol
Trial of IV steroids.
I d/w his oncologist Dr Vaca at [place] , send her a copy of CT, she will f/w in office, agreed to use steroid to help with cancer pain.
I also reached out to [facility] Dr Beebe to review his images. Patient had radiation 2023, he required 52 hyperbaric oxygen treatments. She did not recommend to do radiation again to the same area due to high possibility of not healing again
if applied to same area. By reviewing CAT scan, it looks like majority of his disease is in the pelvis and upper thigh. Recommended palliative care consult.
I updated patient about my discussions with his oncologist and [facility] radiation specialist.
Plan, to coordinate with case management to arrange home set up to accommodate hospital bed as patient refused SNF placement.
# Acute urinary retention, seems to resolve
Had past issues but no recent
Bladder scan around 900 cc, straight cath drained 700 cc, c/w BID straight cath as needed.
CT showed : large left pelvic mass results in deviation of the bladder into the right side of the pelvis.
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
CT studies showed : Extensive neoplastic disease within the left pelvis and extending into the thigh, increasing from previous examinations
- Continue anticoagulation with Eliquis. 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
- Elevate left leg as possible. Swelling seemed to go down
- Pain control
- Antiemetics
-d/w Dr Edmond who reviewed the imaging studies. No need for immediate vascular intervention. Arterial graft looked patent. Tumor is compressing on vein but no total occlusion, recommend to treat the tumor. Patient is getting treatment in outpatient
setting.
I left VM to his oncologist Dr Kathryn Ibanez, await call back, might use steroid.
# Leukocytosis -suspect secondary to Neulasta/ Sarcoma and steroid pulse. No other signs of acute infection at this time. The wound site itself is clean dry and intact.
Afebrile
No sign of active infection. No GI or respiratory symptoms. Wound of left thigh /side of sarcoma : no foul smell or purulent discharge
Left leg wound in prior tumor removal surgery ( left anterior thigh)
- Wound care consulted. No signs of infection.
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
Pt refused 5 mg dose BID, wanted to remain on 2.5 mg BID dose.
# constipation
With current need for opioid, no BM despite current regimen, pt feels bloated, passing gas but no BM yet
Will do Mg citrate
#DM II
- sliding scale insulin
DVT prophylaxis�on apixaban
CODE STATUS�full code
Total time spent to see the patient, examine the patient, review data and lab results, discuss treatment plan with patient, nursing staff around 55 minutes
Anticipated Discharge: 24 - 48 hours
Subjective/Interval History
-
Date of Service: July 02, 2025
Objective Data
-
Vital Signs:
Vital Signs
Temp Pulse Resp BP Pulse Ox
98.4 F 86 18 136/76 96
07/02/25 07:10 07/02/25 07:10 07/02/25 07:10 07/02/25 07:10 07/02/25 07:10
I&O
07/01/25 07/02/25 07/03/25
06:59 06:59 06:59
Intake Total 930 / 930 980 / 980
Output Total 500 / 500 1175 / 1175
Balance 430 / 430 -195 / -195
[2025-07-02 11:56] LABS: Glucose - Point of Care 254 mg/dl (70-99)
[2025-07-02] MEDS: NOVOLOG FLEXPEN-LOW RESISTANCE 3 UNITS SC (12:23)
[2025-07-02] MEDS: CITROMA 300 ML PO (13:37)
[2025-07-02 15:56] VITALS: BP 138/89
--- NOTE | 2025-07-02 16:08 | CM ---
CM reviewed chart, care ongoing.
Clinicals faxed to [facility] for hospital bed.
Referral to [facility], patient refusing SNF.
CM will continue to follow for all d/c planning needs.
Plan; home with [facility], clinicals faxed to [facility] for Hospital Bed, await scheduled delivery
[2025-07-02 16:59] LABS: Glucose - Point of Care 191 mg/dl (70-99)
[2025-07-02] MEDS: NOVOLOG FLEXPEN-LOW RESISTANCE 1 UNITS SC (17:13)
[2025-07-02] MEDS: SENOKOT 17.2 MG PO (21:34)
[2025-07-02 22:08] LABS: Glucose - Point of Care 245 mg/dl (70-99)
[2025-07-02 23:52] VITALS: BP 130/60
[2025-07-03] MEDS: DILAUDID 4 MG PO ×4 (00:26→23:37)
[2025-07-03] MEDS: DULCOLAX 10 MG RECTAL (03:50)
[2025-07-03] MEDS: DILAUDID 0.5 MG IV ×2 (06:21→12:31)
[2025-07-03] MEDS: FLUSH (NSS) 1 FLUSH IV (06:22)
[2025-07-03 07:00] VITALS: BP 135/91
[2025-07-03 07:16] LABS: Glucose - Point of Care 147 mg/dl (70-99)
[2025-07-03] MEDS: TYLENOL 1000 MG PO ×3 (07:34→23:37)
[2025-07-03] MEDS: MIRALAX 17 GRAMS PO (07:34)
[2025-07-03] MEDS: COLACE 100 MG PO (07:35)
[2025-07-03] MEDS: PROTONIX 40 MG PO (07:35)
[2025-07-03] MEDS: ELIQUIS 2.5 MG PO ×2 (07:35→20:33)
[2025-07-03] MEDS: MS CONTIN (EXTENDED RELEASE) 15 MG PO ×2 (07:35→20:33)
[2025-07-03] MEDS: DECADRON 4 MG IV (07:35)
[2025-07-03] MEDS: NOVOLOG FLEXPEN-LOW RESISTANCE SC (07:52)
[2025-07-03 08:20] LABS: Hematocrit 34.5 % (39.0-52.0); Hemoglobin 10.5 g/dL (13.0-18.0); Mean Corp Hgb Conc. 30.4 g/dL (33.0-37.0); Mean Corpuscular Volume 81.9 fL (80.0-94.0); Platelet Count 214 10^3/uL (130-400); Red Cell Dist. Width 22.4 % (11.5-14.5)
[2025-07-03 08:26] LABS: Blood Urea Nitrogen 24 mg/dl (9-20); Calcium 8.7 mg/dl (8.4-10.2); Carbon Dioxide 26 mmol/L (22-30); Chloride 97 mmol/L (98-107); Estimated Creatinine Clearance 93 ml/min; Glucose 130 mg/dl (70-99); Potassium 4.7 mmol/L (3.5-5.1); Sodium 130 mmol/L (135-145); eGFR > 60.00
--- NOTE | 2025-07-03 09:31 | CM ---
Addendum entered by Elida Adams 07/03/25 15:51:
CM spoke with Gosia from [facility], Hospital bed and commode order received, patient will need to call day of discharge for delivery.
Original Note:
CM reviewed chart, care ongoing.
Call placed to [facility]- spoke with credit union manager mill representative regarding status of hospital bed, provided with on-call fax number. Clinicals/script faxed to [phone].
[facility] will call family to arrange delivery- provided with , Ann Marie, contact number.
Updated clinicals sent to [facility].
CM will continue to follow.
Plan; home with [facility], will need to confirm delivery status of hospital bed through [facility]
--- NOTE | 2025-07-03 09:39 | W.PN.HOSP.TC ---
Today's Communication/Plan
-
reducing steroid
Assessment / Plan
Assessment / Plan
Physical Exam
General: Well Developed, Well Nourished and No Apparent Distress
HEENT: NormoCephalic, Moist mucous membranes and Atraumatic
Respiratory: Clear
Cardiac: S1/S2 and Regular Rhythm; No Murmur or Rub
GI: Soft, Non Tender, Non Distended and Normal Bowel Sounds; No Organomegaly
Rectal: no bleeding
Musculoskeletal: No Clubbing, No Cyanosis and Edema, Left Lower Extremity (2+); upper thigh open wound ( 5 cm X 1 cm). No Edema, Right Lower Extremity
Skin: Warm; No Rash
Neuro: AO x 3 and Nonfocal/grossly intact
Hematologic/Lymphatic: No Lymphadenopathy
Psych: Calm
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 Patient is status post chemotherapy with
Neulasta and steroid pulse. Labs with a white count of 106 but otherwise hemoglobin and platelets were normal. Electrolyte BUN/creatinine were normal. LFTs normal. Imaging consistent with extrinsic compression of the mid left femoral vein with
soft tissue encasement likely from neoplasia or from radiation, no venous thromboembolism. Had a significant subcutaneous edema.
PLAN:
# Acute on chronic Left leg pain due to cancer tumor invasion with lymphedema
d/w pt, started on Tylenol TID , oral Dilaudid and Oral morphine BID
PRN Dilaudid/ PRN Tramadol
Trial of IV steroids. Can change to taper oral Decadron in OP setting.
I d/w his oncologist Dr Vaca at [place] , send her a copy of CT, she will f/w in office, agreed to use steroid to help with cancer pain. She might consider palliative radiation.
I also reached out to [facility] Dr Beebe to review his images. Patient had radiation 2023, he required 52 hyperbaric oxygen treatments. She did not recommend to do radiation again to the same area due to high possibility of not healing again
if applied to same area. By reviewing CAT scan, it looks like majority of his disease is in the pelvis and upper thigh. Recommended palliative care consult.
I updated patient about my discussions with his oncologist and [facility] radiation specialist.
Plan, to coordinate with case management to arrange home set up to accommodate hospital bed as patient refused SNF placement. Patient has upcoming appointment with his oncologist on July 13.
# Acute urinary retention, seems to resolve
Had past issues but no recent
Bladder scan around 900 cc, straight cath drained 700 cc, c/w BID straight cath as needed.
CT showed : large left pelvic mass results in deviation of the bladder into the right side of the pelvis.
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
CT studies showed : Extensive neoplastic disease within the left pelvis and extending into the thigh, increasing from previous examinations
- Continue anticoagulation with Eliquis. 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
- Elevate left leg as possible. Swelling seemed to go down
- Pain control
- Antiemetics
-d/w Dr Edmond who reviewed the imaging studies. No need for immediate vascular intervention. Arterial graft looked patent. Tumor is compressing on vein but no total occlusion, recommend to treat the tumor. Patient is getting treatment in outpatient
setting.
I left VM to his oncologist Dr Kathryn Ibanez, await call back, might use steroid.
# Leukocytosis -
Coming down.
High WBC due to Neulasta/ Sarcoma and steroid pulse. No other signs of acute infection at this time. The wound site itself is clean dry and intact.
Afebrile
No sign of active infection. No GI or respiratory symptoms. Wound of left thigh /side of sarcoma : no foul smell or purulent discharge.
# Left leg wound in prior tumor removal surgery ( left anterior thigh)
- Wound care consulted. No signs of infection.
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
Pt refused 5 mg dose BID, wanted to remain on 2.5 mg BID dose.
# constipation
Resolved
s/p Laxatives including Mg citrate.
No abdominal pain.
#DM II
- sliding scale insulin
DVT prophylaxis�on apixaban
CODE STATUS�full code
Offered to contact family if he desired, pt declined and wanted to update them directly.
Total time spent to see the patient, examine the patient, review data and lab results, discuss treatment plan with patient, casework manager, nursing staff around 57 minutes
Anticipated Discharge: 24 - 48 hours
Subjective/Interval History
-
Date of Service: July 03, 2025
His pain is better
No chest pain
No sob
Objective Data
-
Labs:
Laboratory Results
07/03/25
07:53
WBC 22.7 H
Hgb 10.5 L
Hct 34.5 L
Plt Count 214 D
Sodium 130 L
Potassium 4.7
Chloride 97 L
Carbon Dioxide 26
BUN 24 H
Creatinine 0.6 L
Glucose 130 H
Calcium 8.7
Vital Signs:
Vital Signs
Temp Pulse Resp BP Pulse Ox
98.2 F 78 17 135/91 97
07/03/25 07:00 07/03/25 07:00 07/03/25 07:00 07/03/25 07:00 07/03/25 07:00
I&O
07/02/25 07/03/25 07/04/25
06:59 06:59 06:59
Intake Total 980 / 980 240 / 240
Output Total 1175 / 1175
Balance -195 / -195 240 / 240
[2025-07-03 11:55] LABS: Glucose - Point of Care 209 mg/dl (70-99)
[2025-07-03] MEDS: NOVOLOG FLEXPEN-LOW RESISTANCE 2 UNITS SC (13:20)
[2025-07-03 14:23] VITALS: PULSE 84; O2SAT 98
[2025-07-03 15:00] VITALS: BP 124/72
[2025-07-03 16:43] LABS: Glucose - Point of Care 177 mg/dl (70-99)
[2025-07-03] MEDS: NOVOLOG FLEXPEN-LOW RESISTANCE 1 UNITS SC (17:17)
[2025-07-03] MEDS: COLACE PO (20:32)
[2025-07-03] MEDS: MIRALAX PO (20:32)
[2025-07-03] MEDS: SENOKOT PO (20:32)
[2025-07-03 21:59] LABS: Glucose - Point of Care 134 mg/dl (70-99)
[2025-07-03 23:19] VITALS: BP 118/59
[2025-07-04] MEDS: DILAUDID 0.5 MG IV (01:23)
[2025-07-04 07:05] VITALS: BP 127/68
[2025-07-04 07:09] LABS: Glucose - Point of Care 119 mg/dl (70-99)
[2025-07-04] MEDS: NOVOLOG FLEXPEN-LOW RESISTANCE SC (07:27)
[2025-07-04] MEDS: COLACE PO ×3 (08:01→19:27)
[2025-07-04] MEDS: DILAUDID 4 MG PO ×3 (08:01→23:49)
[2025-07-04] MEDS: TYLENOL 1000 MG PO ×3 (08:01→21:16)
[2025-07-04] MEDS: MIRALAX PO ×3 (08:01→19:27)
[2025-07-04] MEDS: PROTONIX 40 MG PO (08:01)
[2025-07-04] MEDS: ELIQUIS 2.5 MG PO ×2 (08:01→20:03)
[2025-07-04] MEDS: MS CONTIN (EXTENDED RELEASE) 15 MG PO ×2 (08:01→20:03)
[2025-07-04] MEDS: DECADRON 4 MG IV (08:01)
[2025-07-04 11:36] LABS: Glucose - Point of Care 230 mg/dl (70-99)
--- NOTE | 2025-07-04 11:48 | W.PN.HOSP.TC ---
Today's Communication/Plan
-
Medically stable for discharge pending discharge to rehab if patient agreeable versus home after arrangement for hospital bed at home.
Assessment / Plan
Assessment / Plan
Impression:
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 Patient is status post chemotherapy with
Neulasta and steroid pulse. Labs with a white count of 106 but otherwise hemoglobin and platelets were normal. Electrolyte BUN/creatinine were normal. LFTs normal. Imaging consistent with extrinsic compression of the mid left femoral vein with
soft tissue encasement likely from neoplasia or from radiation, no venous thromboembolism. Had a significant subcutaneous edema.
Assessment/plan :
Acute on chronic Left leg pain due to cancer tumor invasion with lymphedema
d/w pt, started on Tylenol TID , oral Dilaudid and Oral morphine BID
PRN Dilaudid/ PRN Tramadol
Trial of IV steroids. Can change to taper oral Decadron in OP setting.
Dr. Hooker D/W his oncologist Dr Vaca at [place] , send her a copy of CT, she will f/w in office, agreed to use steroid to help with cancer pain. She might consider palliative radiation.
Dr. Hooker also reached out to [facility] Dr Beebe to review his images. Patient had radiation 2023, he required 52 hyperbaric oxygen treatments. She did not recommend to do radiation again to the same area due to high possibility of not
healing again if applied to same area. By reviewing CAT scan, it looks like majority of his disease is in the pelvis and upper thigh. Recommended palliative care consult.
Plan, to coordinate with case management to arrange home set up to accommodate hospital bed as patient refused SNF placement. Patient has upcoming appointment with his oncologist on July 13.
# Acute urinary retention, seems to resolve
Had past issues but no recent
Bladder scan around 900 cc, straight cath drained 700 cc, c/w BID straight cath as needed.
CT showed : large left pelvic mass results in deviation of the bladder into the right side of the pelvis.
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
CT studies showed : Extensive neoplastic disease within the left pelvis and extending into the thigh, increasing from previous examinations
- Continue anticoagulation with Eliquis. 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
- Elevate left leg as possible. Swelling seemed to go down
- Pain control
- Antiemetics
-d/w Dr Edmond who reviewed the imaging studies. No need for immediate vascular intervention. Arterial graft looked patent. Tumor is compressing on vein but no total occlusion, recommend to treat the tumor. Patient is getting treatment in outpatient
setting.
I left VM to his oncologist Dr Kathryn Ibanez, await call back, might use steroid.
# Leukocytosis -
Coming down.
High WBC due to Neulasta/ Sarcoma and steroid pulse. No other signs of acute infection at this time. The wound site itself is clean dry and intact.
Afebrile
No sign of active infection. No GI or respiratory symptoms. Wound of left thigh /side of sarcoma : no foul smell or purulent discharge.
# Left leg wound in prior tumor removal surgery ( left anterior thigh)
- Wound care consulted. No signs of infection.
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
Pt refused 5 mg dose BID, wanted to remain on 2.5 mg BID dose.
# constipation
Resolved
s/p Laxatives including Mg citrate.
No abdominal pain.
#DM II
- sliding scale insulin
CODE STATUS: Full code
DVT prophylaxis: Eliquis
Diet: DM diet
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
Disposition: Medically stable for discharge pending discharge to rehab if patient agreeable versus home after arrangement for hospital bed at home.
Total time spent on today's encounter was 55 minutes which included time spent in counseling the patient/family regarding diagnosis and treatment plan as listed above, goals of care, and symptom management. Case was discussed with nursing staff,
specialists, and care coordinators/case management. All labs and imaging personally reviewed by me. Remainder the time spent in detailed review of previous records, lab data, imaging, and other medical provider documentation.
Anticipated Discharge: Today
Subjective/Interval History
-
Date of Service: July 04, 2025
Patient seen and examined at bedside, complaining of left thigh pain but otherwise denies any chest pain or shortness of breath, no abdominal pain, no nausea, no vomiting, no diarrhea or constipation.
Objective Data
-
Vital Signs:
Vital Signs
Temp Pulse Resp BP Pulse Ox
98.7 F 80 18 127/68 95
07/04/25 07:05 07/04/25 07:05 07/04/25 07:05 07/04/25 07:05 07/04/25 08:15
I&O
07/03/25 07/04/25 07/05/25
06:59 06:59 06:59
Intake Total 720 / 720
Output Total 450 / 450
Balance 270 / 270
Physical Exam
-
General: Well Developed, Well Nourished, No Apparent Distress and Comfortable
HEENT: Normocephalic, Atraumatic, Moist Mucous Membranes, No Ptosis, PERRLA and Nose Appears Normal
Respiratory: Clear to Auscultation and Non Labored Respirations
Cardiac: Regular Rhythm and S1/S2
Breast: Deferred by me
GI: Soft, Nontender, Nondistended and Normal Bowel Sounds
Genito-urinary: No Costovertebral Tender
Musculoskeletal: No Clubbing and Other (Left thigh dressing and tenderness)
Skin: Warm
Neuro: Awake, Alert, Oriented, AO x 3 and No Motor Deficits
Psych: Calm
Data Reviewed
-
Diagnostic Radiology: Image personally visualized and interpreted and Report Reviewed by me
CT Scan: Image personally visualized and interpreted and Report Reviewed by me
Ultrasound: Image personally visualized and interpreted and Report Reviewed by me
MRI: Image personally visualized and interpreted and Report Reviewed by me
Medical Tests (Nuc Med, Echo etc): Image personally visualized and interpreted and Report Reviewed by me
Labs: Labs Reviewed by me
Old Records: Reviewed
[2025-07-04] MEDS: NOVOLOG FLEXPEN-LOW RESISTANCE 2 UNITS SC ×2 (11:51→17:40)
[2025-07-04 15:18] VITALS: BP 113/70
[2025-07-04 16:44] LABS: Glucose - Point of Care 549 mg/dl (70-99)
[2025-07-04 17:35] LABS: Glucose 239 mg/dl (70-99)
--- NOTE | 2025-07-04 18:33 | CM ---
Referral placed to [facility]. PM&R consulted today.
Pain management ongoing
Plan: Acute Rehab at [facility]
[2025-07-04] MEDS: SENOKOT PO (19:27)
[2025-07-04 21:42] LABS: Glucose - Point of Care 182 mg/dl (70-99)
[2025-07-04 23:00] VITALS: BP 108/52
[2025-07-05] MEDS: DILAUDID 0.5 MG IV (03:07)
[2025-07-05 07:00] VITALS: BP 119/70
[2025-07-05] MEDS: DECADRON 4 MG IV (07:12)
[2025-07-05] MEDS: COLACE PO ×2 (07:12→19:22)
[2025-07-05] MEDS: MS CONTIN (EXTENDED RELEASE) 15 MG PO ×2 (07:13→19:29)
[2025-07-05] MEDS: PROTONIX 40 MG PO (07:13)
[2025-07-05] MEDS: DILAUDID 4 MG PO ×3 (07:13→23:37)
[2025-07-05] MEDS: ELIQUIS 2.5 MG PO ×2 (07:13→19:29)
[2025-07-05] MEDS: MIRALAX PO ×2 (07:13→19:22)
[2025-07-05] MEDS: TYLENOL 1000 MG PO ×3 (07:13→21:28)
[2025-07-05] MEDS: NOVOLOG FLEXPEN-LOW RESISTANCE SC (07:22)
[2025-07-05 07:24] LABS: Glucose - Point of Care 147 mg/dl (70-99)
[2025-07-05 08:03] LABS: Hematocrit 31.8 % (39.0-52.0); Hemoglobin 9.6 g/dL (13.0-18.0); Mean Corp Hgb Conc. 30.2 g/dL (33.0-37.0); Mean Corpuscular Volume 83.2 fL (80.0-94.0); Platelet Count 225 10^3/uL (130-400); Red Cell Dist. Width 22.3 % (11.5-14.5)
[2025-07-05 08:24] LABS: Blood Urea Nitrogen 18 mg/dl (9-20); Calcium 8.3 mg/dl (8.4-10.2); Carbon Dioxide 27 mmol/L (22-30); Chloride 97 mmol/L (98-107); Estimated Creatinine Clearance 93 ml/min; Glucose 148 mg/dl (70-99); Sodium 131 mmol/L (135-145); eGFR > 60.00
[2025-07-05 08:29] LABS: Potassium 4.0 mmol/L (3.5-5.1)
[2025-07-05] MEDS: METHOCARBAMOL 500 MG PO ×2 (10:34→21:28)
--- NOTE | 2025-07-05 11:23 | CM ---
CM reviewed chart, reviewed with therapy- recommendation for Acute Rehab- referral placed to [facility].
PMR consulted- will follow for recommendations.
Patient will require insurance auth if accepted by [facility].
CM will continue to follow.
Plan; PMR consulted, if accepted by [facility] will need insurance auth
[2025-07-05 11:49] LABS: Glucose - Point of Care 274 mg/dl (70-99)
[2025-07-05] MEDS: NOVOLOG FLEXPEN-LOW RESISTANCE 3 UNITS SC (11:54)
--- NOTE | 2025-07-05 12:29 | W.PN.HOSP.TC ---
Today's Communication/Plan
-
Medically stable for discharge pending PMR Consult
Assessment / Plan
Assessment / Plan
Impression:
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 Patient is status post chemotherapy with
Neulasta and steroid pulse. Labs with a white count of 106 but otherwise hemoglobin and platelets were normal. Electrolyte BUN/creatinine were normal. LFTs normal. Imaging consistent with extrinsic compression of the mid left femoral vein with
soft tissue encasement likely from neoplasia or from radiation, no venous thromboembolism. Had a significant subcutaneous edema.
Assessment/plan :
Acute on chronic Left leg pain due to cancer tumor invasion with lymphedema
d/w pt, started on Tylenol TID , oral Dilaudid and Oral morphine BID
PRN Dilaudid/ PRN Tramadol
Trial of IV steroids. Can change to taper oral Decadron in OP setting.
Dr. Hooker D/W his oncologist Dr Vaca at [place] , send her a copy of CT, she will f/w in office, agreed to use steroid to help with cancer pain. She might consider palliative radiation.
Dr. Hooker also reached out to [facility] Dr Beebe to review his images. Patient had radiation 2023, he required 52 hyperbaric oxygen treatments. She did not recommend to do radiation again to the same area due to high possibility of not
healing again if applied to same area. By reviewing CAT scan, it looks like majority of his disease is in the pelvis and upper thigh. Recommended palliative care consult.
Patient agreeable for rehab pending PMR consult.
# Acute urinary retention, seems to resolve
Had past issues but no recent
Bladder scan around 900 cc, straight cath drained 700 cc, c/w BID straight cath as needed.
CT showed : large left pelvic mass results in deviation of the bladder into the right side of the pelvis.
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
CT studies showed : Extensive neoplastic disease within the left pelvis and extending into the thigh, increasing from previous examinations
- Continue anticoagulation with Eliquis. 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
- Elevate left leg as possible. Swelling seemed to go down
- Pain control
- Antiemetics
-d/w Dr Edmond who reviewed the imaging studies. No need for immediate vascular intervention. Arterial graft looked patent. Tumor is compressing on vein but no total occlusion, recommend to treat the tumor. Patient is getting treatment in outpatient
setting.
I left VM to his oncologist Dr Kathryn Ibanez, await call back, might use steroid.
# Leukocytosis -
Coming down.
High WBC due to Neulasta/ Sarcoma and steroid pulse. No other signs of acute infection at this time. The wound site itself is clean dry and intact.
Afebrile
No sign of active infection. No GI or respiratory symptoms. Wound of left thigh /side of sarcoma : no foul smell or purulent discharge.
# Left leg wound in prior tumor removal surgery ( left anterior thigh)
- Wound care consulted. No signs of infection.
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
Pt refused 5 mg dose BID, wanted to remain on 2.5 mg BID dose.
# constipation
Resolved
s/p Laxatives including Mg citrate.
No abdominal pain.
#DM II
- sliding scale insulin
CODE STATUS: Full code
DVT prophylaxis: Eliquis
Diet: DM diet
Physical therapy recommendations: Rehab.
Disposition: Medically stable for discharge pending PMR Consult.
Total time spent on today's encounter was 55 minutes which included time spent in counseling the patient/family regarding diagnosis and treatment plan as listed above, goals of care, and symptom management. Case was discussed with nursing staff,
specialists, and care coordinators/case management. All labs and imaging personally reviewed by me. Remainder the time spent in detailed review of previous records, lab data, imaging, and other medical provider documentation.
Anticipated Discharge: Today
Subjective/Interval History
-
Date of Service: July 05, 2025
Patient seen and examined at bedside, denies any chest pain or shortness of breath, left leg pain with movement.
Objective Data
-
Labs:
Laboratory Results
07/05/25
07:24
WBC 16.1 H
Hgb 9.6 L
Hct 31.8 L
Plt Count 225
Sodium 131 L
Potassium 4.0
Chloride 97 L
Carbon Dioxide 27
BUN 18
Creatinine 0.6 L
Glucose 148 H
Calcium 8.3 L
Vital Signs:
Vital Signs
Temp Pulse Resp BP Pulse Ox
99 F 82 16 119/70 95
07/05/25 07:00 07/05/25 07:00 07/05/25 07:00 07/05/25 07:00 07/05/25 07:45
I&O
07/04/25 07/05/25 07/06/25
06:59 06:59 06:59
Intake Total 720 / 720 1320 / 1320
Output Total 450 / 450 800 / 800
Balance 270 / 270 520 / 520
Physical Exam
-
General: Well Developed, Well Nourished, No Apparent Distress and Comfortable
HEENT: Normocephalic, Atraumatic, Moist Mucous Membranes, No Ptosis, PERRLA and Nose Appears Normal
Respiratory: Clear to Auscultation and Non Labored Respirations
Cardiac: Regular Rhythm and S1/S2
Breast: Deferred by me
GI: Soft, Nontender, Nondistended and Normal Bowel Sounds
Genito-urinary: No Costovertebral Tender
Musculoskeletal: No Clubbing and Other (Left thigh dressing and tenderness)
Skin: Warm
Neuro: Awake, Alert, Oriented, AO x 3 and No Motor Deficits
Psych: Calm
--- NOTE | 2025-07-05 14:17 | CON.MD ---
Consultation - Medical
-
Chief Complaint:�Debility, left leg pain
�
History of Present Illness:�80 -year-old right-handed male with PMH (as below) presented to [facility] on 06/26/2025 with significant left leg pain and swelling. He had been doing well overall and has not had recent pain in the leg. He
does have a continued open wound which has been for over a year. Wound has been clean with no signs of infection and no specific concerns. He had been doing well using a cane and able to get up and down steps. He started having more significant
pain in the legs on Tuesday 06/26. [place] decided [place] beach and ended up having significantly more swelling and more pain which led him to come to the emergency department. He continues to have significant weakness in the hip and knee
movements. Had been getting progressively better with the strength recently. He did start a new chemotherapy program Friday before coming into the hospital and was initially doing fine until this event. He is having more difficulty with
strength also has some numbness in the inside of the leg as well as swelling make it more difficult for him to do his day-to-day activities. He is hoping to do an increased rehab program to build his strength and mobility back up so that he can get
back home and be functional again. His pain is doing better in the morning with the adjustments in his pain medications but he may still need further adjustments to help him tolerate the day.
�
Past Medical History: Sarcoma, left lower extremity DVT, bilateral pulmonary embolism, prostate cancer, diabetes, HTN, HLD
Procedure History: Prostatectomy, left sarcoma resection December 2023 with XRT, I&D of left sarcoma wound, cholecystectomy, bladder stone complex laser cystolitholopaxy with extraction of stone
Family History:�None pertinent��
�
Social History:�No
Functional Level Premorbidly:�Modified independent with all activities�except for sponge bathing because of left lower extremity wound, except for occasional help with ADLs/IADLs
Functional Level Currently:�Min assist for toileting and lower extremity self-care. Min assist toilet transfer. Supervision bed mobility. Min assist transfers. PT and OT suggesting acute inpatient rehabilitation program.
�
Tobacco:�Denies�
Alcohol:�Denies�
Drug use:�Denies�
�
Lives with:�Spouse
24-hour assistance available:�Yes
Number of floors:�2
# steps to enter:�3
# steps to second floor: Full flight
Potential First floor set up:�No
Driving:�Yes
Occupation:�Retired
�
�
Allergies:�
Allergy/AdvReac Type Severity Reaction Status Date / Time
No Known Allergies Allergy Verified 06/26/25 15:15
�
Review of Systems:�
Constitutional: (x) abNormal _fatigue
Eye: (x) Normal _
Ear/Nose/Throat: (x) Normal _
Respiratory: (x) Normal _
Cardiovascular: (x) Normal _
Gastrointestinal: (x) Normal _
Genitourinary: (x) Normal _
Musculoskeletal: (x) abNormal _left hip and knee weakness
Integumentary: (x) abNormal _chronic left thigh wound
Neurologic: (x) abNormal _weakness and numbness in left leg worse from baseline
Psychiatric: (x) Normal _
Endocrine: (x) Normal _
Hematologic/Lymphatic: (x) Normal _
Allergic/Immunologic: (x) Normal _
�
Medications:�
Active Current Visit Medication List
Category Date Time Status
Acetaminophen [Tylenol] Med 06/28/25 08:00 Active
1,000 mg PO TID
Apixaban [Eliquis] Med 06/27/25 09:45 Active
2.5 mg PO BID
Bisacodyl [Dulcolax] Med 06/26/25 22:44 Active
10 mg RECTAL [id number] PRN
Dexamethasone Sod Phosphate [Decadron] Med 07/03/25 08:00 Active
4 mg IV DAILY
Dextrose 50%-Water [Dextrose 50% Syringe] Med 06/26/25 22:44 Active
12.5 grams IV [id number] PRN
Docusate Sodium [Colace] Med 06/27/25 08:00 Active
100 mg PO BID
Docusate W/Senna [Senokot-S] Med 06/26/25 22:44 Active
1 tablet PO BIDPRN PRN
Flush (0.9% Sodium Chloride) [Flush (Nss)] Med 06/27/25 11:00 Active
See Dose Instructions IV PER PROTOCOL
Glucagon [GlucaGen] Med 06/26/25 22:44 Active
1 mg IM PRN PRN
HYDROmorphone [Dilaudid] Med 06/26/25 22:44 Active
0.5 mg IV Q4HPRN PRN
HYDROmorphone [Dilaudid] Med 06/30/25 16:00 Active
4 mg PO Q8H
Heparin Pf [Heparin Lock Flush] Med 06/27/25 10:45 Active
500 unit IV PER PROTOCOL PRN
Insulin Aspart Corrective Low [Novolog Flexpen-Low Med 06/27/25 07:30 Active
Resistance]
See Protocol SC AC
Mag Hydrox/Al Hydrox/Simeth [Maalox] Med 06/26/25 22:44 Active
30 ml PO Q6HPRN PRN
Methocarbamol Med 07/05/25 10:05 Active
500 mg PO Q8HPRN PRN
Morphine Sulfate Extended Rel. [Ms Contin (Extended Med 06/30/25 08:00 Active
Release)]
15 mg PO Q12
Ondansetron Injectable [Zofran] Med 06/26/25 22:44 Active
4 mg IV Q6HPRN PRN
Pantoprazole [Protonix] Med 06/27/25 08:00 Active
40 mg PO DAILY
Polyethylene Glycol Powder [Miralax] Med 06/30/25 08:00 Active
17 grams PO BID
Polyethylene Glycol Powder [Miralax] Med 06/26/25 22:44 Active
17 grams PO DAILYPRN PRN
Sennosides [Senokot] Med 06/29/25 22:00 Active
17.2 mg PO HS
Tramadol HCl [Ultram] Med 06/26/25 22:44 Active
50 mg PO Q6HPRN PRN
�
Vitals:�
Temp Pulse Resp BP Pulse Ox
99 F 82 16 119/70 95
07/05/25 07:00 07/05/25 07:00 07/05/25 07:00 07/05/25 07:00 07/05/25 07:45
Height 5 ft 7 in
Actual Weight 78.642 kg
Body Mass Index (BMI) 27.2
Physical Exam:�
General Appearance/Observation: Well-developed, well-nourished male in no apparent distress.�
Pain/Comfort Assessment: Severe left hip pain limiting ability to move/walk
Mood/Affect: Appropriate�
�
Integumentary/Operative Site:�Left thigh wound with dressing clean dry and intact
�
Eyes: Conjunctiva/Lids: normal��� Pupils: pupils equal round and reactive to light and Accommodation
Ears/Nose/Throat: oral mucosa moist, throat clear.������������ Lips/Teeth/Gums: normal
Neck: No muscle spasm or tenderness�
Cardiovascular: Heart: regular, no murmur�
Pulses: dorsalis pedis 2+ bilaterally�
Respiratory: Respiratory Effort/Chest Expansion: normal������ Auscultation: Clear to auscultation bilaterally
Gastrointestinal: abdomen not tender, no distension, normal abdominal bowel sounds
Genitourinary: No Draper�
Extremities:�Edema: Moderate left lower extremity pitting edema�cyanosis: None�Trophic�changes: None
�
Neurology Exam:
Orientation: Alert, Oriented to self, Time, Place�
Memory: Intact for recent medical concerns
Comprehension: Intact
Two step command: Intact
Cranial Nerves:
�� CNII:�Pupillary light reflex: Intact��
�� CN VII:�Facial movement: Symmetric
�� CN VIII:�Hearing: Normal
�� CN IX/X:�Speech & swallow: Normal,�Position of Uvula: Midline
�� CN XI:�Shoulder shrug: Symmetric
�� CN XII:�Tongue protrusion: Midline
Sensory:
�� Light touch: Intact in bilateral upper and lower extremities except for decrease over the left medial lower leg
�
Reflexes:
�� Patellar: 0 bilaterally
�� Achilles: 0 bilaterally
�� Babinski: Down going bilaterally
�� Clonus: None
�� Johnna: Negative bilaterally�
Musculoskeletal:Motor: (Manual muscle scale 0-5)�
Muscle SA EF WE EE FF FA HF KE DF EHL PF
Right� 5 5 5 5 5 4 4 5 5 5 5
Left 5 5 5 5 5 3+ 1 1 4 4 4
�
Tone: Normal in all extremities�
Range of Motion: Passively within normal limits in all extremities�
�
Lab Results
Laboratory Data
07/05/25 07:24
07/05/25 07:24
Total Bilirubin 0.4 mg/dl (0.2-1.3) 06/26/25 17:22
AST 16 U/L (17-59) L 06/26/25 17:22
ALT 19 U/L (0-50) 06/26/25 17:22
Alkaline Phosphatase 179 U/L (38-126) H 06/26/25 17:22
Total Protein 6.9 g/dl (6.3-8.2) 06/26/25 17:22
Albumin 3.4 g/dl (3.5-5.0) L 06/26/25 17:22
�
Diagnostic Results:�as per HPI�
Exams: CT Lower Ext W/iv Cont Lt; CT Pelvis With Iv Contrast
EXAMINATION: CT of the pelvis with intravenous contrast, CT of the left thigh with intravenous contrast
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 On review of previous reports, reported history of radiation therapy to the left thigh completed in October 2023. Patient also has a reported
history of prostate cancer with prostatectomy. Left leg swelling extending to the pelvis.
COMPARISON: MRI of the left thigh from June 21, 2024. PET/CT scan from June 09, 2024.
FINDINGS: CT of the pelvis and left thigh is performed with intravenous contrast.
In the left pelvis, there is a large heterogeneously enhancing mass, significantly increased in size from previous examinations in 2023, and likely representing significant interval increase in lymphadenopathy. The large left pelvic mass measures
12.0 cm AP by 8.1 cm transverse by 9.6 cm craniocaudal. The left external iliac artery is along the margin of the mass, and appears patent. There is a graft extending from the left external iliac artery into the anterolateral subcutaneous soft
tissues of the left thigh, and has a distal anastomosis with the popliteal artery, and this graft appears patent, with contrast enhancement.
There is loss of visualization of the left external iliac vein, as well as the left common femoral vein and the left femoral vein. In the thigh, the left popliteal vein is visualized. There is occlusion of the mid left femoral vein, as this vein
becomes encased by enhancing soft tissue within the mid left thigh, and this enhancing soft tissue could represent neoplasia and/or radiation therapy change.
Of note, the large left pelvic mass extends inferiorly into the anterior left proximal thigh, and encases and occludes the [place] left femoral artery.
There are 2 masses along the left anterior pelvic wall, with mass on image 8 of series 301 measuring 4.7 cm transverse by 2.9 cm AP by 4.9 cm craniocaudal, also compatible with neoplastic lymphadenopathy.
There is another mass in the anterolateral left pelvis with diameter of approximately 3 cm compatible with neoplastic lymphadenopathy.
Note is made of the large left pelvic mass results in deviation of the bladder into the right side of the pelvis. There are prominent enhancing vessels along the peripheral margin of the bladder, compatible with collateral veins.
There is severe subcutaneous edema involving the left thigh with moderate to severe subcutaneous edema involving the left side of the pelvis.
There is a soft tissue defect in the anterior aspect of the proximal to mid left thigh, also present on previous MRI, and slightly smaller than previous MRI. This is compatible with a soft tissue wound communicating to the anterior skin surface.
There is no gross evidence of a focal collection to suggest an abscess.
Moderate distention of the rectum with stool with no findings to suggest stercoral colitis.
Surgical clips from prostatectomy.
Changes of degenerative disc disease in the lower lumbar spine with vacuum disc phenomenon at L4-5 and L5-S1. Mild degenerative change of both hip joints. Mild degenerative changes sacroiliac joints.
IMPRESSION: Extensive neoplastic disease within the left pelvis and extending into the thigh, increasing from previous examinations.
There is a graft arising in the left external iliac artery and extending through the anterolateral soft tissues of the left thigh, anastomosing with left popliteal artery, and this arterial graft is patent.
Occlusion of the mid left femoral vein, with soft tissue encasement which is likely from neoplasia and/or radiation therapy. No enhancing vein is identified until enhancement of the left common iliac vein and internal iliac veins in the left pelvis,
with lack of visualization of the proximal left femoral vein, common femoral vein, and external iliac vein.
Severe subcutaneous edema within the left thigh. Moderate to severe subcutaneous edema within the left side of the pelvis.
�
Assessment
80 year-old R-handed M PMH (Sarcoma, left lower extremity DVT, bilateral pulmonary embolism, prostate cancer, diabetes, HTN, HLD) with worsening left leg strength, sensation, increased edema resulting in ADL and ambulatory dysfunction.
�
Plan�
PM&R�PT/OT to increase independence with ADLs, improve balance, coordination, endurance, strength, mobility, community reintegration, decreased burden of care on others and family education.�
History of left LE sarcoma-history of XRT and resection-has been getting different types of chemotherapy with a new regimen prior to this episode of leg pain and swelling. OP Oncology follow up.
- Has worsening strength and sensation possibly from increased mass in the pelvic and thigh area causing compression which is decreasing venous return and possibly nerve injury.
- Has chronic wound left thigh: Continue with dressing changes.
DM II: Diabetic diet, Accu-Cheks, monitor closely on IV dexamethasone, on insulin sliding scale.
Pulmonary embolism and DVT history: Apixaban 2.5 mg twice daily
Normocytic Anemia: Likely multifactorial.� Trending up, 9.9- monitor.
Leukocytosis: Resolving
Mild chronic hyponatremia: 131 from 130- monitor
Left lower extremity edema: History of DVT. Could consider teds or Ted wrap.
Hypertension : Currently not on medication
Hyperlipidemia: Currently not on medication.
Skin: monitor for pressure sores/rashes/lesions.
Pain: Dilaudid 4 mg every 8 hours as needed. Methocarbamol for muscle spasms. MS Contin 15 mg every 12 hours. Tramadol 50 mg every 6 hours as needed. Tylenol 1000 mg 3 times daily
Bowel: Colace, MiraLAX 1 packet twice daily, and Senna, PRN bisacodyl.
Bladder: No retention concerns
GI Prophylaxis: Pantoprazole
Pulmonary: Incentive spirometry
Safety: Continue to reinforce assistance with all transfers.
Code Status:� Full code
Dispo�(date/plan/equipment needs): Home with family care.� Social history reviewed.�
Functional and Medical Goals:�Modified Independent with ADL�s, ambulation, transfers�
Discharge Destination:�Would benefit from acute inpatient rehabilitation program with concern for new compressive neuropathy as well as significant edema possibly from venous compression. Will need adjustments in pain medication to allow him to be
functional.�
A total of 60minutes were spent with the patient preparing for the evaluation, obtaining history, performing examination and evaluation, counseling, data review, case management, care coordination, linseed oil order filler, and EMR documentation.
�
Thank you for allowing me to care for your patient. Please contact me with any questions or concerns.
Consultation
-
Date/Time Consultation Requested: 07/04/25
Date/Time Consultation Performed: 07/05/25
Requesting Provider: Dr. Emerald Mahajan
Performing Provider: Dr. Simone Sorenson
Reason for Consultation: Left leg pain
[2025-07-05 14:53] VITALS: BP 120/60
--- NOTE | 2025-07-05 16:11 | WOUNDNOTE ---
WON RN NOTE: Followed up today regarding L thigh wound. Less drainage and catch basin cleaner compared to last seen. Dressing changed and additional supplies ordered from [facility]. Nurse Mariangel made aware and will place in when arrives. Patient able to stand on
own, sacrum/buttocks remains blanchable red. Legs elevated in recliner chair. No change in wound care.
[2025-07-05 16:52] LABS: Glucose - Point of Care 194 mg/dl (70-99)
[2025-07-05] MEDS: NOVOLOG FLEXPEN-LOW RESISTANCE 1 UNITS SC (16:57)
[2025-07-05 21:17] LABS: Glucose - Point of Care 129 mg/dl (70-99)
[2025-07-05] MEDS: SENOKOT PO (21:21)
[2025-07-05 22:57] VITALS: BP 137/62
[2025-07-06] MEDS: ULTRAM 50 MG PO (00:59)
[2025-07-06] MEDS: DILAUDID 0.5 MG IV (03:38)
--- NOTE | 2025-07-06 04:06 | DOWNTIME ---
There was a [employer] Client Educational Technologist Downtime on 07/06/2025 from 0100 to 07/06/2025 at 0255. Downtime documentation of patient's care, including medication administrations, has been reconciled in the electronic record per guidelines. Refer to the
patient's paper chart under the miscellaneous tab to see printed paper medication records and downtime forms.
[2025-07-06 07:00] VITALS: BP 141/72
[2025-07-06 07:10] LABS: Glucose - Point of Care 155 mg/dl (70-99)
[2025-07-06] MEDS: COLACE PO (07:17)
[2025-07-06] MEDS: DILAUDID PO ×2 (07:17→07:27)
[2025-07-06] MEDS: ELIQUIS 2.5 MG PO ×2 (07:17→19:46)
[2025-07-06] MEDS: NOVOLOG FLEXPEN-LOW RESISTANCE 1 UNITS SC ×2 (07:17→16:56)
[2025-07-06] MEDS: DECADRON 4 MG IV (07:17)
[2025-07-06] MEDS: MIRALAX PO (07:18)
[2025-07-06] MEDS: MS CONTIN (EXTENDED RELEASE) 15 MG PO ×2 (07:18→19:46)
[2025-07-06] MEDS: TYLENOL 1000 MG PO ×3 (07:18→22:11)
[2025-07-06] MEDS: PROTONIX 40 MG PO (07:18)
--- NOTE | 2025-07-06 07:32 | W.PN.HOSP.TC ---
Today's Communication/Plan
-
Awaiting [facility] bed
See plan
Assessment / Plan
Assessment / Plan
Physical Exam
General: Well Developed, Well Nourished, No Apparent Distress and Comfortable
HEENT: Normocephalic, Atraumatic, Moist Mucous Membranes
Respiratory: Clear to Auscultation Bilaterally
Cardiac: Regular Rhythm and S1/S2
GI: Soft, Nontender, Nondistended and Normal Bowel Sounds
Musculoskeletal: Other (Left thigh dressing and tenderness)
Skin: Warm
Neuro: Awake, Alert, Oriented x3 and No Motor Deficits
Psych: Calm
Impression:
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 Patient is status post chemotherapy with
Neulasta and steroid pulse. Labs with a white count of 106 but otherwise hemoglobin and platelets were normal. Electrolyte BUN/creatinine were normal. LFTs normal. Imaging consistent with extrinsic compression of the mid left femoral vein with
soft tissue encasement likely from neoplasia or from radiation, no venous thromboembolism. Had a significant subcutaneous edema.
Assessment/plan :
Acute on chronic Left leg pain due to cancer tumor invasion with lymphedema
Dr. Mahajan d/w pt, started on Tylenol TID , oral Dilaudid and Oral morphine BID
PRN Dilaudid/ PRN Tramadol
Trial of IV steroids. Can change to taper oral Decadron in OP setting.
Dr. Hooker D/W his oncologist Dr Vaca at [place] , send her a copy of CT, she will f/w in office, agreed to use steroid to help with cancer pain. She might consider palliative radiation.
Dr. Hooker also reached out to [facility] Dr Beebe to review his images. Patient had radiation 2023, he required 52 hyperbaric oxygen treatments. She did not recommend to do radiation again to the same area due to high possibility of not
healing again if applied to same area. By reviewing CAT scan, it looks like majority of his disease is in the pelvis and upper thigh. Recommended palliative care consult.
# Acute urinary retention, seems to resolve
Had past issues but no recent
Bladder scan around 900 cc, straight cath drained 700 cc, c/w BID straight cath as needed.
CT showed : large left pelvic mass results in deviation of the bladder into the right side of the pelvis.
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
CT studies showed : Extensive neoplastic disease within the left pelvis and extending into the thigh, increasing from previous examinations
- Continue anticoagulation with Eliquis. 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
- Elevate left leg as possible. Swelling seemed to go down
- Pain control
- Antiemetics
-d/w Dr Edmond who reviewed the imaging studies. No need for immediate vascular intervention. Arterial graft looked patent. Tumor is compressing on vein but no total occlusion, recommend to treat the tumor. Patient is getting treatment in outpatient
setting.
# Leukocytosis -
Overall came down.
High WBC due to Neulasta/ Sarcoma and steroid pulse. No other signs of acute infection at this time. The wound site itself is clean dry and intact.
Afebrile
No sign of active infection. No GI or respiratory symptoms. Wound of left thigh /side of sarcoma : no foul smell or purulent discharge.
# Left leg wound in prior tumor removal surgery ( left anterior thigh)
- Wound care consulted. No signs of infection.
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
Pt refused 5 mg dose BID, wanted to remain on 2.5 mg BID dose.
# constipation
Resolved
s/p Laxatives including Mg citrate.
No abdominal pain.
#DM II
- sliding scale insulin
CODE STATUS: Full code
DVT prophylaxis: Eliquis
Diet: DM diet
Physical therapy recommendations: Rehab.
Disposition: [facility] should likely have a bed on 07/07/25- patient will need to have bowel movement and also no intravenous pain medications for 24 hrs
Anticipated Discharge: Within 24 hours
Subjective/Interval History
-
Date of Service: July 06, 2025
Patient was seen and examined. He denied any new symptoms or complaints.
Objective Data
-
Labs:
Laboratory Results
07/06/25
06:50
WBC Pending
Hgb Pending
Hct Pending
Plt Count Pending
Sodium Pending
Potassium Pending
Chloride Pending
Carbon Dioxide Pending
BUN Pending
Creatinine Pending
Glucose Pending
Calcium Pending
Vital Signs:
Vital Signs
Temp Pulse Resp BP Pulse Ox
97.7 F 105 18 137/62 97
07/06/25 01:00 07/05/25 22:57 07/05/25 22:57 07/05/25 22:57 07/05/25 22:57
I&O
07/05/25 07/06/25 07/07/25
06:59 06:59 06:59
Intake Total 1320 / 1320 1620 / 1620
Output Total 800 / 800
Balance 520 / 520 1620 / 1620
[2025-07-06] MEDS: METHOCARBAMOL 500 MG PO (07:39)
[2025-07-06 07:44] LABS: Hematocrit 30.7 % (39.0-52.0); Hemoglobin 9.6 g/dL (13.0-18.0); Mean Corp Hgb Conc. 31.3 g/dL (33.0-37.0); Mean Corpuscular Volume 82.5 fL (80.0-94.0); Platelet Count 199 10^3/uL (130-400); Red Cell Dist. Width 22.1 % (11.5-14.5)
[2025-07-06] MEDS: DILAUDID 4 MG PO ×2 (07:44→15:11)
[2025-07-06 08:13] LABS: Blood Urea Nitrogen 21 mg/dl (9-20); Calcium 8.5 mg/dl (8.4-10.2); Carbon Dioxide 29 mmol/L (22-30); Chloride 97 mmol/L (98-107); Estimated Creatinine Clearance 80 ml/min; Glucose 151 mg/dl (70-99); Potassium 4.2 mmol/L (3.5-5.1); Sodium 132 mmol/L (135-145); eGFR > 60.00
[2025-07-06 10:53] LABS: Glucose - Point of Care 261 mg/dl (70-99)
[2025-07-06] MEDS: NOVOLOG FLEXPEN-LOW RESISTANCE 3 UNITS SC (11:42)
--- NOTE | 2025-07-06 13:10 | CM ---
CM reviewed chart, patient seen bedside with .
CM discussed per [facility], likely will have bed tomorrow.
Patient will need to have bowel movement, cannot be on IV pain medications 24 hrs prior to d/c.
Patient aware he will need insurance approval to d/c to [facility].
CM will continue to follow for all d/c planning needs.
Plan; [facility], likely tomorrow, will need insurance auth
[2025-07-06 15:00] VITALS: BP 122/68
[2025-07-06 16:27] LABS: Glucose - Point of Care 194 mg/dl (70-99)
[2025-07-06] MEDS: MIRALAX 17 GRAMS PO (19:46)
[2025-07-06] MEDS: SENOKOT-S PO (19:46)
[2025-07-06 21:17] LABS: Glucose - Point of Care 190 mg/dl (70-99)
[2025-07-06] MEDS: SENOKOT PO (22:10)
[2025-07-06 22:59] VITALS: BP 115/58
[2025-07-07] MEDS: DILAUDID 4 MG PO ×2 (00:02→09:43)
[2025-07-07] MEDS: METHOCARBAMOL 500 MG PO (03:11)
[2025-07-07 07:00] VITALS: BP 134/64
[2025-07-07 07:13] LABS: Glucose - Point of Care 114 mg/dl (70-99)
[2025-07-07] MEDS: NOVOLOG FLEXPEN-LOW RESISTANCE SC (07:31)
--- NOTE | 2025-07-07 07:56 | PN.CDI ---
CDI
- -
CDI:
Physician Documentation Request
Admit Date: 06/26/25 22:18
Dear Doctor Meena,
Clinical Indicators:
Patient admitted with acute on chronic leg pain due to cancer invasion.
PMH includes metastatic undifferentiated sarcoma.
Pain scale ratings: 5-8
Sodium trend:
06/26/25 07/03/25 07/05/25
17:22 07:53 07:24
Sodium 132 L 130 L 131 L
07/06/25
06:50
Sodium 132 L
Based on the above, could you clarify in the progress notes, the appropriate diagnosis, if significant, that supports the above abnormalities and additional evaluation, monitoring and/or treatment rendered:
Hyponatremia
Abnormal lab values, clinically insignificant
Other, please specify
Use of terms such as suspected, likely, concern for, or probable (associated with a specific diagnosis that is being evaluated, monitored, or treated as if it exists) are acceptable and can be coded in the inpatient setting, when documented at the
time of discharge.
Thank you,
LUCY Jewell RN
CDI Specialist
available via tiger text
Please use your independent medical judgment in providing your response.
--- NOTE | 2025-07-07 08:19 | W.PN.HOSP.TC ---
Today's Communication/Plan
-
New fever 102.7 F (while on scheduled Tylenol) and tachycardia this morning
Zosyn, open wound in LT upper thigh is source? Appreciate ID.
Additional details below
Assessment / Plan
Assessment / Plan
Physical Exam
General: Well Developed, Well Nourished, No Apparent Distress and Comfortable
HEENT: Normocephalic, Atraumatic, Moist Mucous Membranes
Respiratory: Clear to Auscultation Bilaterally
Cardiac: Regular Rhythm and S1/S2
GI: Soft, Nontender, Nondistended and Normal Bowel Sounds
Musculoskeletal: Other (Left thigh dressing and tenderness)
Skin: Warm
Neuro: Awake, Alert, Oriented x3 and No Motor Deficits
Psych: Calm
Impression:
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 Patient is status post chemotherapy with
Neulasta and steroid pulse. Labs with a white count of 106 but otherwise hemoglobin and platelets were normal. Electrolyte BUN/creatinine were normal. LFTs normal. Imaging consistent with extrinsic compression of the mid left femoral vein with
soft tissue encasement likely from neoplasia or from radiation, no venous thromboembolism. Had a significant subcutaneous edema.
Assessment/plan :
Acute on chronic Left leg pain due to cancer tumor invasion with lymphedema
Dr. Mahajan d/w pt, started on Tylenol TID , oral Dilaudid and Oral morphine BID
PRN Dilaudid/ PRN Tramadol
Trial of IV steroids. Can change to taper oral Decadron in OP setting.
Dr. Hooker D/W his oncologist Dr Vaca at [facility] , send her a copy of CT, she will f/w in office, agreed to use steroid to help with cancer pain. She might consider palliative radiation.
Dr. Hooker also reached out to [facility] Dr Beebe to review his images. Patient had radiation 2023, he required 52 hyperbaric oxygen treatments. She did not recommend to do radiation again to the same area due to high possibility of not
healing again if applied to same area. By reviewing CAT scan, it looks like majority of his disease is in the pelvis and upper thigh. Recommended palliative care consult.
# Acute urinary retention
Had past issues but no recent
CT showed : large left pelvic mass results in deviation of the bladder into the right side of the pelvis.
Still retaining urine as of 07/07/25 -- PVR was 414 on 07/07/25 morning
Continue Bladder Scans protocol with as needed straight cath
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
CT studies showed : Extensive neoplastic disease within the left pelvis and extending into the thigh, increasing from previous examinations
- Continue anticoagulation with Eliquis. 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
- Elevate left leg as possible. Swelling seemed to go down
- Pain control
- Antiemetics
-d/w Dr Edmond who reviewed the imaging studies. No need for immediate vascular intervention. Arterial graft looked patent. Tumor is compressing on vein but no total occlusion, recommend to treat the tumor. Patient is getting treatment in outpatient
setting.
#Fever 102.7 on 07/07/25 morning (while on scheduled Tylenol for pain)
#Immunocompromised (Cancer, recent chemo)
-Could be from patient's malignancy
-Patient does have left upper thigh open wound, was on antifungal, IV antibiotics and wound VAC in 2023 for this
-CBC on 11 AM with worsened leukocytosis, which could also be from steroids, recent neulasta and patient's sarcoma
-COVID and Flu negative
-Blood cultures ordered given immunocompromised state and open wound on left upper thigh
-No signs or symptoms of UTI, although patient is having urinary retention
-MRSA recently negative
-Start Zosyn
-Appreciate ID
# Leukocytosis -
Overall came down.
High WBC due to Neulasta/ Sarcoma and steroid pulse. No other signs of acute infection at this time. The wound site itself is clean dry and intact.
Afebrile
No sign of active infection. No GI or respiratory symptoms. Wound of left thigh /side of sarcoma : no foul smell or purulent discharge.
#Sinus Tachycardia on 07/07/25 morning
-Could be from fever as above. Could also be from pain, but he denies new pain. Could be from anxiety.
-CT Chest PE negative for PE (done given tachycardia and subtherapeutic Eliquis dose, which is what patient wants)
-EKG with T wave changes
-Troponin elevated
-ProBNP elevated
-Check echo given the above
-Cardiology consult given the above
-Not suspecting volume depletion, patient is not hypotensive
-Assessing for infection as above
-Hgb stable. TSH is okay.
-Not hypoxic
-Continue to monitor on telemetry
#Hyponatremia
-Worse on 07/07/25 at 126, previously was stable in the low 130s
-Hyponatremia studies suggest SIADH
-Start PO Fluid Restriction
-Appreciate nephrology -- may need SAMSCA
# Left leg wound in prior tumor removal surgery ( left anterior thigh)
- Wound care consulted. No signs of infection.
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
Pt refused 5 mg dose BID, wanted to remain on 2.5 mg BID dose.
#Hiccups
-From malignancy?
-PRN Baclofen
# constipation
Last BM was on 07/06/25
s/p Laxatives including Mg citrate.
No abdominal pain.
#DM II
- sliding scale insulin
CODE STATUS: Full code
DVT prophylaxis: Eliquis
Diet: DM diet
Physical therapy recommendations: Rehab.
Disposition: [facility]
Anticipated Discharge: 24 - 48 hours
Subjective/Interval History
-
Date of Service: July 07, 2025
Patient was seen and examined. This morning he was a bit confused, fever and tachycardic.
Objective Data
-
Vital Signs:
Vital Signs
Temp Pulse Resp BP Pulse Ox
98.3 F 74 18 115/58 98
07/06/25 22:59 07/06/25 22:59 07/06/25 22:59 07/06/25 22:59 07/06/25 22:59
I&O
07/06/25 07/07/25 07/08/25
06:59 06:59 06:59
Intake Total 1620 / 1620 800 / 800
Balance 1620 / 1620 800 / 800
[2025-07-07 09:13] VITALS: BP 126/63; PULSE 125; O2SAT 92
[2025-07-07] MEDS: TYLENOL 1000 MG PO (09:43)
[2025-07-07] MEDS: PROTONIX 40 MG PO (09:43)
[2025-07-07] MEDS: MS CONTIN (EXTENDED RELEASE) 15 MG PO ×2 (09:43→20:01)
[2025-07-07] MEDS: SENOKOT-S 1 TABLET PO (09:43)
[2025-07-07] MEDS: MIRALAX 17 GRAMS PO (09:44)
[2025-07-07] MEDS: ELIQUIS 2.5 MG PO ×2 (09:44→20:01)
[2025-07-07] MEDS: DECADRON 4 MG IV (09:44)
[2025-07-07 10:12] LABS: Hematocrit 29.0 % (39.0-52.0); Hemoglobin 9.5 g/dL (13.0-18.0); Mean Corp Hgb Conc. 32.8 g/dL (33.0-37.0); Mean Corpuscular Volume 77.3 fL (80.0-94.0); Platelet Count 174 10^3/uL (130-400); Red Cell Dist. Width 21.8 % (11.5-14.5)
[2025-07-07 10:13] LABS: ALT (SGPT) 15 U/L (0-50); AST (SGOT) 23 U/L (17-59); Albumin 2.9 g/dl (3.5-5.0); Alkaline Phosphatase 160 U/L (38-126); Blood Urea Nitrogen 16 mg/dl (9-20); Calcium 8.4 mg/dl (8.4-10.2); Carbon Dioxide 25 mmol/L (22-30); Chloride 96 mmol/L (98-107); Estimated Creatinine Clearance 80 ml/min; Glucose 143 mg/dl (70-99); Potassium 4.0 mmol/L (3.5-5.1); Sodium 126 mmol/L (135-145); Total Protein 6.2 g/dl (6.3-8.2); eGFR > 60.00
[2025-07-07 10:23] LABS: Troponin I 0.100 ng/ml
[2025-07-07 10:41] LABS: COVID-19 Antigen Negative (Negative)
[2025-07-07 10:43] LABS: Nucleated Red Blood Cells % 0 % (-)
--- NOTE | 2025-07-07 10:58 | CM ---
CM reviewed chart, spoke with liaison at [facility], confirmed bed for today.
CM reviewed with Hospitalist, patient not stable for d/c today- patient with new fever.
Update to [facility]. Patient will require insurance auth once stable.
CM will continue to follow for all d/c planning needs.
Plan; [facility] once stable, will require insurance auth
[2025-07-07 11:39] VITALS: BP 133/62
[2025-07-07 11:46] LABS: Glucose - Point of Care 206 mg/dl (70-99)
[2025-07-07 12:21] LABS: Urine Character Clear (Clear)
[2025-07-07 13:16] LABS: Urine Red Blood Cell 0-2 /HPF (0-2); Urine Squamous Cell 0-2 /LPF (Few)
--- NOTE | 2025-07-07 13:32 | CON.CAR ---
Addendum entered and electronically signed by Savannah Nolan MD 07/07/25 15:05:
I saw and examined the patient.
The Naval Architect Specialist's note was reviewed and I agree with the note.
Comment: Patient well-known to me. I follow him for cardio oncology as an outpatient. He presented with left lower extremity pain and swelling.
He continues treatment at [facility] for sarcoma and recently started chemotherapy agent dacarbazine 06/23/25. Symptoms started and seem to be coincidentally related to discontinuation post chemo oral steroids (also received IV). Swelling and pain
has started to improve. I have reviewed records from [facility] dated 06/23/25.
We are consulted for tachycardia consistent on review with sinus tachycardia in the setting of development of fever to 102 degrees. Patient tells me he felt washed out and sweaty. CT scan of chest, abdomen and pelvis reviewed. Cardiac status
remains stable. proBNP 2280 although clinically not volume overloaded.
Plan at this time:
Sinus tachycardia likely related to fever of 102 degrees. Cultures pending in the setting of recent chemo.
EKG stable.
As an outpatient last echo from 07/2024. He was scheduled for repeat 07/2025 and will repeat while here. Ordered.
He will continue continue OP eliquis given history of PE/DVT
Defer hyponatremia treatment to primary service. Sodium noted to be 126 on 07/07
Original Note:
Consultation
Consultation Request
Date/Time Consultation Performed: 07/07/25
Requesting Provider: Dr. Robledo
Performing Provider: Sheryl Moore PA-C for Dr. Savannah Nolan
Reason for Consultation: tachycardia, elevated troponin
Medical History
-
Chief Complaint: fever
History of Present Illness:
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 He presented due to worsening LE edema and has known metastatic high
grade sarcoma followed by [facility]. His last visit was 06/23/25 and was found to have pelvic mass and was started on dacarbazine at this visit with plan to consider pulsed electric field therapy as well as additional biopsies. He does have
a chronic wound of his LLE however this was not felt to be actively infected on admission. After discussion between ER and [facility], thought was swelling was reaction to new chemo agent started 06/23. Since then issue has been pain control.
Patient states today he felt best he has in some time however earlier in day had fever up to 102 with associated tachycardia, resolved with tylenol. Cardiology consulted as trop was checked and was 0.1. Denies CP, SOB.
PMH:
Metastatic high grade sarcoma s/p resection 12/2023, on chemotherapy followed by [facility]
HTN
Prostate Cancer s/p prostatectomy 2017
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
PVD with L popliteal bypass graft 02/2024
PVCs
Past Medical History
Past Medical History: Other (In HPI)
Past Surgical History: Cholecystectomy and Other (Prostatectomy, cervical laminectomy)
Social History
Tobacco: Non-Smoker
Alcohol: None
Drug: None
Personal:
Living: With Family
Employment: Retired
Family History
Family History: Reviewed & Not Pertinent
Allergies / Home Medications
Allergy/AdvReac Type Severity Reaction Status Date / Time
No Known Allergies Allergy Verified 06/26/25 15:15
�Medication �Instructions �Recorded �Confirmed �Type
docusate sodium 100 mg capsule 100 mg PO BID Constipation 03/20/24 06/27/25 History
(Colace)
apixaban 5 mg tablet (Eliquis) 2.5 mg BID Blood Clot Prevention/Tx 06/26/25 06/27/25 History
metformin 500 mg tablet 500 mg PO DAILY Diabetes 06/26/25 06/26/25 History
ondansetron HCl 8 mg tablet 8 mg PO DAILY PRN nausea 06/26/25 06/26/25 History
pantoprazole 40 mg tablet,delayed 40 mg PO DAILY Gastrointestinal 06/26/25 06/26/25 History
release Issue
prochlorperazine maleate 10 mg 10 mg PO DAILY PRN nausea 06/26/25 06/26/25 History
tablet
Review of Systems
-
History Source: Patient and Family
All other systems: Negative unless noted
Physical Exam
Vital Signs
Temp Pulse Resp BP Pulse Ox
98.8 F 88 16 133/62 98
07/07/25 11:39 07/07/25 11:39 07/07/25 11:39 07/07/25 11:39 07/07/25 11:39
Lab Results
07/07/25 09:46
07/07/25 09:46
Troponin I 0.100 ng/ml H* 07/07/25 09:46
Iao-A-Lmxmvczltwr Pept 2280 pg/ml 07/07/25 09:46
Physical Exam
General: No Apparent Distress, Comfortable and Other (sitting in chair)
HEENT: Normocephalic, Anicteric and Moist Mucous Membranes
Respiratory: Other (no audible wheezes)
Cardiac: Regular Rhythm (on tele)
Musculoskeletal: No Clubbing, No Cyanosis and Edema (2+ of LLE, trace to none RLE)
Skin: Warm, Dry and Other (dressing to L groin)
Neuro: AO x 3
Impression / Plan
-
Primary Crm Business Analyst: Dr. Pate
Assessment:
Presentation with LLE swelling, pain
Fever
Sinus tachycardia
Elevated troponin, suspected nonischemic myocardial injury
Hyponatremia
Metastatic high grade sarcoma s/p resection 12/2023, on chemotherapy followed by [facility]
HTN
Prostate Cancer s/p prostatectomy 2017
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
PVD with L popliteal bypass graft 02/2024
PVCs
ECHO 07/2024: EF 55-60%,bGLS -17.5%, MAC, trace MR, aortic sclerosis, mildly dilated ascending aorta 3.9cm
ECHO 07/07/25: pending
Plan:
-Patient initially presented due to LLE pain and swelling which was felt to be due to recently started chemotherapy agent dacarbazine 06/23/25. swelling has slowly improved and pain is also improving
-reviewed records from [facility] dated 06/23/25
-today was noted to develop fever to 102F with associated sinus tachycardia, subsequently improved. currently in SR on tele
-blood and urine cultures pending. also with LLE wound which is reportedly chronic
-trop checked and was 0.1. no CP. EKG ST with NSSTS. trend, but suspect nonischemic myocardial injury
-last echo from 07/2024, was scheduled for repeat 07/2025, will repeat while here
-proBNP 2280, however do not suspect he has acute CHF. CT C/A/P was without acute pathology including evidence of PE or CHF, although did note his known metastatic sarcoma
-continue OP eliquis given history of PE/DVT
-will likely require correction of hyponatremia, 126 on 07/07
-continue PT
-plan for [facility] upon DC
-d/w patient and at bedside
Data Reviewed
-
EKG: Tracing Personally Visualized and interpreted
CT Scan: Report Reviewed by me
Medical Tests (Nuc Med, Echo etc): Report Reviewed by me
Labs: Labs Reviewed by me
Old Records: Reviewed
[2025-07-07] MEDS: NOVOLOG FLEXPEN-LOW RESISTANCE 2 UNITS SC (13:41)
[2025-07-07] MEDS: LIORESAL 5 MG PO ×2 (13:42→20:14)
--- NOTE | 2025-07-07 15:09 | WOUNDNOTE ---
LEFT THIGH WOUND
--- NOTE | 2025-07-07 15:10 | WOUNDNOTE ---
WOC RN NOTE: Consult received to assess left thigh wound, as patient spiked temp this morning. WOC RN have been following left thigh wound and last assessment on 07/05. Upon assessment wound is clean, without purulence or odor. Wound appears stable
when compared with picture from 07/05. Wound care provided as ordered. Update TT to Dr. Robledo. RN Dodie given update. Plan is for discharge to [facility].
--- NOTE | 2025-07-07 15:54 | CON.ID ---
Consultation
-
Date/Time Consultation Requested: 07/07/2024 1430
Date/Time Consultation Performed: 07/07/2025 1550
Requesting Provider: Dr. Robledo
Performing Provider: Dr. Andrade
Reason for Consultation: Fever
Chief Complaint / Past History
Chief Complaint
fall, left thigh pain
History of Present Illness
Gerry Green is a 79 year old male with history of sarcoma of the (L) lower extremity s/p resection at [facility] then washout, closure and drain placement being evaluated at the request of Dr. Robledo regarding fever. History is obtained
from chart review, along with patient interview. Additional history is obtained from review of old records contained in the hospital EMR system.
Patient has a history of an infected left thigh hematoma with enterococcus and mssa here 01/29/24. He was started on vancomycin and cefepime and was transferred to [facility] for PRS muscle flap on 02/01/24. Anaerobic cultures and blood cultures
from 01/28 ultimately finalized negative.
Patient was last seen by ID in early March, at which time he completed 6 weeks of micafungin. He continued on cefazolin through 04/09/2024.
Patient presents to [facility] again on 06/26/2025 secondary to severe pain in the left leg associated with swelling that occurred over the prior 24 hours. He admits to a chronic wound in the left proximal leg but noted no change.
Initial labs revealed a marked leukocytosis (106K). Duplex ultrasound of the lower extremities did not reveal DVT, but CT imaging revealed extensive neoplastic disease within the left pelvis, with extrinsic compression of the mid left femoral vein
with soft tissue encasement. Hospital course thus far has been significant for improvement in white count (although remains with leukocytosis). Patient was awaiting transfer to rehab, but patient developed isolated fever to 102 degrees today and
has been started on empiric antibiotics. Infectious Diseases asked to comment on workup and antibiotic management.
Cover present: patient reports no significant complaints. He admits to the episode of feeling feverish, but denies rigors. He denies any chest pain or shortness of breath. He denies any abdominal pain, nausea or vomiting. He notes no significant
changes in his chronic left leg wound.
Past History
Additional Past Medical History:
sarcoma of left lower extremity
prostate cancer
hyperlipidemia
DVT/PE (on Eliquis)
anemia
diabetes
Additional Past Surgical History:
Cholecystectomy
Orthopedic
Urological and Other
Allergy History:
No Known Allergies Allergy (Verified 06/26/25 15:15)
Medications Reviewed: Yes
Current Antibiotics:
Zosyn
Social History
Tobacco: Non-Smoker
Alcohol: Occasional
Drug: None
Family History
Family History: Not Pertinent
Review of Systems
Vital Signs
Temp Pulse Resp BP Pulse Ox
98.8 F 88 16 133/62 98
07/07/25 11:39 07/07/25 11:39 07/07/25 11:39 07/07/25 11:39 07/07/25 11:39
Physical Exam
Physical Exam
Constitutional: No Acute Distress, Comfortable, Chronically Ill and Non-toxic
Eyes: No Conjunctival Hemorrhage and Sclera Anicteric
Oral: No Thrush and No Ulcers
Cardiovascular: Regular Rate and S1/S2; Negative S3/S4
Pulmonary: Clear; Negative Wheezes, Rales or Rhonchi
Gastrointestinal: Soft, Non Tender, Non Distended and Normal Bowel Sounds
Extremities: Edema (4+ left lower extremity); Negative Erythema or Splinter Hemorrhage
Wound: Other (Left anterior thigh wound dressed and packed. No periwound erythema. No purulence.)
Neurological: Awake and Alert
Psychological: Calm
Lab / Diagnostic Study Results
07/07/25 09:46
07/07/25 09:46
Abs Immat Gran (auto) 0.4 10^3/uL (0-0.05) H 07/07/25 09:46
Absolute Neuts (auto) 28.4 10^3/uL (1.4-6.5) H 07/07/25 09:46
Absolute Lymphs (auto) 0.6 10^3/uL (1.2-3.4) L 07/07/25 09:46
Absolute Monos (auto) 0.9 10^3/uL (0.1-0.6) H 07/07/25 09:46
Absolute Basos (auto) 0.1 10^3/uL (0-0.2) 07/07/25 09:46
Immature Gran % 1.2 % (0-0.5) H 07/07/25 09:46
Neutrophils % 94.0 % (42.2-75.2) H 07/07/25 09:46
Lymphocytes % 1.8 % (20.5-51.1) L 07/07/25 09:46
Monocytes % 2.8 % (1.7-9.3) 07/07/25 09:46
Eosinophils % 0.0 % (0-6) 07/07/25 09:46
Basophils % 0.2 % (0-2) 07/07/25 09:46
Ur Squamous Epith Cells 0-2 /LPF (Few) 07/07/25 12:05
Microbiology Results
Micro:
07/07/25 12:05 Urine Culture - Pending
Urine
07/07/25 10:13 Influenza Types A & B (SY) - Final
Nasal Swab Negative for Influenza A & B, NAAT
Negative results must be combined with clinical observations
and patient history.
Nucleic Acid Amplification test (NAAT)performed on the
[employer] platform.
07/07/25 10:19 Blood Culture - Pending
Blood/Venous
07/07/25 09:46 Blood Culture - Pending
Blood/Venous
06/27/25 06:35 MRSA Screen - Final
Nose No Methicillin Resistant Staphylococcus aureus isolated.
Imaging:
07/07/2025 CT PE/abdomen/pelvis: no pulmonary embolism or acute process in the chest noted. Scattered bilateral pulmonary metastasis, progressed from CT dated 06/09/2024. Redemonstration of extensive soft tissue neoplastic disease/sarcoma within
the left pelvis extending into the left thigh. Vascular involvement and local regional metastatic adenopathy noted. Hepatic metastatic disease progressed from prior PET/CT.
Assessment / Plan
Episode of fever
Leukocytosis; rising over past several days
- Recent history of Neulasta; patient on steroids
Left leg pain secondary to edema/sarcoma
Known sarcoma of left lower extremity
Hx prostate cancer
hyperlipidemia
DVT/PE (on Eliquis)
anemia
diabetes
Recommendations:
Etiology of isolated fever today unclear.
Urinalysis negative. Will discontinue urine culture.
Leg wound clean and without signs of infection.
Continue Zosyn for today.
Follow for repeat fever.
If blood culture remains negative, and no other source of infection found, would quickly discontinue further antibiotics
--- NOTE | 2025-07-07 16:00 | W.CON.NEPH ---
Consultation
-
Date/Time Consultation Requested: 1129
Date/Time Consultation Performed: 07/07/25 1715
Requesting Provider: Dominick Lieberman
Performing Provider: Aleja Hedrick
Reason for Consultation: Hypoantremia
Medical History
-
Chief Complaint: left leg pain
History of Present Illness:
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
surgical resection with persistent disease followed at [facility]. He presented on 06/26 to ER for severe pain in the left leg along with severe swelling.
His last visit at [facility] was 06/23/25 and was found to have pelvic mass and was started on dacarbazine with pulsed steroids,had neulasta therapy day after as well as additional biopsies. He does have a chronic wound of his LLE however this was not felt
to be actively infected on admission. After discussion between ER and [place] oncology, thought was swelling was reaction to new chemo agent started 06/23. Since then issue has been pain control.
His sodium on admit was at 132 and steadily decreasing to 126 hence nephrology consulted for worsening hyponatremia. He is currently on Morphine ER, dilaudid and dexamethasone for pain control. He is febrile 102 and tachy today so cards also
consulted. CT abd pelvis shows no PE, but increased mets from before. He offers no active cp or sob. No abd pain. alternating constipation diarrhea. He has urine retention requiring SCs. No n/v, eating well. No dizziness.
Past Medical History
sarcoma of left lower extremity status post resection at [facility] followed by for washout and closure with placement of drain most recently yesterday prostate cancer, hyperlipidemia, DVT/PE discovered in August of left lower extremity on
Eliquis, anemia, diabetes
Past Surgical History: Other (Cholecystectomy, Orthopedic,sarcoma of left lower extremity status post resection at [facility] followed by for washout and closure with placement of drain)
Social History
Tobacco: Non-Smoker
Alcohol: Occasional
Drug: None
Personal:
Family History
Family History: Not Pertinent
Allergies / Home Medications
Allergy/AdvReac Type Severity Reaction Status Date / Time
No Known Allergies Allergy Verified 06/26/25 15:15
�Medication �Instructions �Recorded �Confirmed �Type
docusate sodium 100 mg capsule 100 mg PO BID Constipation 03/20/24 06/27/25 History
(Colace)
apixaban 5 mg tablet (Eliquis) 2.5 mg BID Blood Clot Prevention/Tx 06/26/25 06/27/25 History
metformin 500 mg tablet 500 mg PO DAILY Diabetes 06/26/25 06/26/25 History
ondansetron HCl 8 mg tablet 8 mg PO DAILY PRN nausea 06/26/25 06/26/25 History
pantoprazole 40 mg tablet,delayed 40 mg PO DAILY Gastrointestinal 06/26/25 06/26/25 History
release Issue
prochlorperazine maleate 10 mg 10 mg PO DAILY PRN nausea 06/26/25 06/26/25 History
tablet
Review of Systems
-
All other systems: Negative unless noted
Physical Exam
Vital Signs
Vital Signs
Temp Pulse Resp BP Pulse Ox
98.8 F 88 16 133/62 98
07/07/25 11:39 07/07/25 11:39 07/07/25 11:39 07/07/25 11:39 07/07/25 11:39
Lab Results
WBC 30.2 10^3/uL (4.8-10.8) H 07/07/25 09:46
RBC 3.75 10^6/uL (4.70-6.10) L 07/07/25 09:46
Hgb 9.5 g/dL (13.0-18.0) L 07/07/25 09:46
Hct 29.0 % (39.0-52.0) L 07/07/25 09:46
Plt Count 174 10^3/uL (130-400) 07/07/25 09:46
Sodium 126 mmol/L (135-145) L 07/07/25 09:46
Potassium 4.0 mmol/L (3.5-5.1) 07/07/25 09:46
Chloride 96 mmol/L (98-107) L 07/07/25 09:46
Carbon Dioxide 25 mmol/L (22-30) 07/07/25 09:46
BUN 16 mg/dl (9-20) 07/07/25 09:46
Creatinine 0.7 mg/dL (0.7-1.3) 07/07/25 09:46
eGFR > 60.00 07/07/25 09:46
Glucose 143 mg/dl (70-99) H 07/07/25 09:46
Calcium 8.4 mg/dl (8.4-10.2) 07/07/25 09:46
Pnw-J-Tsdpsctlcvu Pept 2280 pg/ml 07/07/25 09:46
Albumin 2.9 g/dl (3.5-5.0) L 07/07/25 09:46
Physical Exam
General: Awake, Alert, Oriented, AOx3, No Distress and Nontoxic
HEENT: EOMI, Anicteric and Facial Symmetry
Respiratory: Clear, Normal Excursion and Nonlabored Respirations
Cardiac: S1/S2 and Regular Rate/Rhythm
Breast: Deferred by me
Abdomen: Soft, Nontender and Nondistended
Musculoskeletal: Edema (left leg 3+, none right leg)
Skin: No Rash
Neuro: Nonfocal/Grossly Intact
Psych: Mood/afflect pleasant, Insight/judgement good and Appropriate
Data Reviewed
-
Labs: Labs Reviewed by me, Discussed with Nurse, Discussed with Patient and Discussed with Family
Assessment/Plan
-
IMP:
Acute on chronic Left leg pain due to cancer tumor invasion with lymphedema
Acute urinary retention
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
Immunocompromised (Cancer, recent chemo)
Sinus Tachycardia on 07/07/25 morning
Acute on chr Hyponatremia
Left leg wound in prior tumor removal surgery ( left anterior thigh)
History of PE
Hiccups
constipation
DM II
Plan:
A/w worsening LE pain and swelling h/o surg for sarcoma, chemo,steroid
acute on chr hyponatremia-likely from pain+malig related SIADH
U osmo high 475, U na 75
will provide samsca and keep FR 40oz/day
BNP is high but seem euvolemic
normal renal function and normal TSH
cont pain control
abx per primary
follow bladder scan
labs in am
d/w pt and nursing
[2025-07-07 16:36] VITALS: BP 135/62
[2025-07-07] MEDS: DILAUDID PO ×2 (16:59→17:12)
[2025-07-07] MEDS: ZOSYN 50 IV ×2 (16:59→20:01)
[2025-07-07] MEDS: TYLENOL PO ×2 (16:59→20:02)
[2025-07-07 17:09] LABS: Glucose - Point of Care 299 mg/dl (70-99)
[2025-07-07] MEDS: NOVOLOG FLEXPEN-LOW RESISTANCE 3 UNITS SC (17:18)
[2025-07-07 17:49] LABS: Troponin I 0.132 ng/ml
[2025-07-07] MEDS: SAMSCA 7.5 MG PO (18:39)
[2025-07-07 19:00] VITALS: BP 121/71
[2025-07-07] MEDS: MIRALAX PO (20:00)
[2025-07-07] MEDS: SENOKOT-S PO (20:00)
[2025-07-07] MEDS: SENOKOT PO (20:02)
[2025-07-07] MEDS: DILAUDID 2 MG PO (20:14)
[2025-07-07 21:31] LABS: Glucose - Point of Care 147 mg/dl (70-99)
[2025-07-07 23:03] VITALS: BP 119/63
[2025-07-07 23:57] LABS: Troponin I 0.147 ng/ml
[2025-07-08] MEDS: DILAUDID 4 MG PO ×4 (01:47→23:33)
[2025-07-08] MEDS: ZOSYN 50 IV (01:47)
[2025-07-08 03:00] VITALS: BP 105/53
[2025-07-08 06:42] LABS: Hematocrit 24.8 % (39.0-52.0); Hemoglobin 7.8 g/dL (13.0-18.0); Mean Corp Hgb Conc. 31.5 g/dL (33.0-37.0); Mean Corpuscular Volume 79.0 fL (80.0-94.0); Platelet Count 126 10^3/uL (130-400); Red Cell Dist. Width 21.6 % (11.5-14.5)
[2025-07-08 06:49] LABS: Blood Urea Nitrogen 20 mg/dl (9-20); Calcium 8.1 mg/dl (8.4-10.2); Carbon Dioxide 29 mmol/L (22-30); Chloride 99 mmol/L (98-107); Estimated Creatinine Clearance 70 ml/min; Glucose 182 mg/dl (70-99); Potassium 4.0 mmol/L (3.5-5.1); Sodium 132 mmol/L (135-145); eGFR > 60.00
[2025-07-08 06:56] LABS: Glucose - Point of Care 194 mg/dl (70-99)
[2025-07-08 07:00] VITALS: BP 110/61
[2025-07-08 07:09] LABS: Troponin I 0.109 ng/ml
--- NOTE | 2025-07-08 08:17 | W.PN.ID1 ---
Date of Service
Date of Service: July 08, 2025
Today's Communication
De-escalate Zosyn to ceftriaxone 2g IV q24h.
Assessment / Plan
Group B strep bacteremia
Fever - resolving
Leukocytosis- improving
- Recent history of Neulasta; patient on steroids
Left leg pain secondary to edema/sarcoma
Known sarcoma of left lower extremity with metastasis, on chemo
Hx prostate cancer
hyperlipidemia
DVT/PE (on Eliquis)
anemia
diabetes
Recommendations:
Urinalysis negative.
Leg wound clean and without signs of infection.
Repeat blood cx's pending
De-escalate Zosyn to ceftriaxone 2g IV q24h.
Trend temps/wbc.
Chief Complaint
-: Fever and Bacteremia
Subjective / Review of Systems
Feels better today. No further chills.
Vital Signs / Physical Exam
Vital Signs
Vital Signs
Temp Pulse Resp BP Pulse Ox
99.0 F 90 18 105/53 96
07/08/25 03:00 07/08/25 03:00 07/08/25 03:00 07/08/25 03:00 07/08/25 03:00
Selected Entries
07/07/25
09:00
Temp 102.7 F H
Physical Exam
Constitutional: No Acute Distress and Comfortable
Eyes: No Conjunctival Hemorrhage
Cardiovascular: Regular Rate and S1/S2
Pulmonary: Clear
Gastrointestinal: Soft, Non Tender, Non Distended and Normal Bowel Sounds
Genito-Urinary: Negative CVA Tenderness
Extremities: Edema (LLE); Negative Erythema
Wound: Other (reviewed left thigh wound photos: 07/07 wound decreased drainage, dryer, pale pink granulation tissue )
Neurological: AO x 3
Lines: Port (RCW not accessed)
Objective Data
Lab Data
Lab Results
07/08/25 06:03
07/08/25 06:03
Estimated Creat Clear 70 ml/min 07/08/25 06:03
Total Bilirubin 0.8 mg/dl (0.2-1.3) 07/07/25 09:46
AST 23 U/L (17-59) 07/07/25 09:46
ALT 15 U/L (0-50) 07/07/25 09:46
Alkaline Phosphatase 160 U/L (38-126) H 07/07/25 09:46
Most recent labs reviewed.
Micro Results:
07/07/25 10:19 Blood Culture - Preliminary
Blood/Venous Positive culture in progress
Gram Stain - Final
07/07/25 09:46 Blood Culture - Preliminary
Blood/Venous Streptococcus agalactiae
Gram Stain - Final
07/07/25 12:05 Urine Culture - Pending
Urine
07/07/25 10:13 Influenza Types A & B (SY) - Final
Nasal Swab Negative for Influenza A & B, NAAT
Negative results must be combined with clinical observations
and patient history.
Nucleic Acid Amplification test (NAAT)performed on the
Impact platform.
06/27/25 06:35 MRSA Screen - Final
Nose No Methicillin Resistant Staphylococcus aureus isolated.
Imaging:
07/07/2025 CT PE/abdomen/pelvis: no pulmonary embolism or acute process in the chest noted. Scattered bilateral pulmonary metastasis, progressed from CT dated 06/09/2024. Redemonstration of extensive soft tissue neoplastic disease/sarcoma within
the left pelvis extending into the left thigh. Vascular involvement and local regional metastatic adenopathy noted. Hepatic metastatic disease progressed from prior PET/CT.
Care Review
Plan reviewed with: Physician (Dr. Robledo)
[2025-07-08] MEDS: ELIQUIS 2.5 MG PO ×2 (09:26→20:05)
[2025-07-08] MEDS: NOVOLOG FLEXPEN-LOW RESISTANCE 1 UNITS SC (09:26)
[2025-07-08] MEDS: TYLENOL 1000 MG PO ×3 (09:27→22:25)
[2025-07-08] MEDS: MS CONTIN (EXTENDED RELEASE) 15 MG PO ×2 (09:27→20:04)
[2025-07-08] MEDS: PROTONIX 40 MG PO (09:27)
[2025-07-08] MEDS: MIRALAX PO ×2 (09:27→20:11)
[2025-07-08] MEDS: DECADRON 4 MG IV (09:28)
[2025-07-08] MEDS: ZOSYN IV (09:29)
[2025-07-08] MEDS: SENOKOT-S PO ×2 (09:29→20:11)
[2025-07-08] MEDS: ROCEPHIN 2000 MG IV (09:43)
[2025-07-08] MEDS: STERILE WATER FOR INJECTION 20 ML IV (09:43)
[2025-07-08 10:58] LABS: Reticulocyte Count 1.3 % (0.4-2.8)
[2025-07-08 11:09] LABS: INR 1.24; PT 15.9 Sec (11.4-14.6)
[2025-07-08 11:10] LABS: APTT 52.2 Sec (23.4-35.0)
[2025-07-08 11:20] LABS: ALT (SGPT) 15 U/L (0-50); AST (SGOT) 21 U/L (17-59); Albumin 2.8 g/dl (3.5-5.0); Alkaline Phosphatase 128 U/L (38-126); Blood Urea Nitrogen 20 mg/dl (9-20); Calcium 8.6 mg/dl (8.4-10.2); Carbon Dioxide 29 mmol/L (22-30); Chloride 96 mmol/L (98-107); Estimated Creatinine Clearance 70 ml/min; Glucose 214 mg/dl (70-99); LDH 163 U/L (120-246); Potassium 3.8 mmol/L (3.5-5.1); Sodium 130 mmol/L (135-145); Total Protein 6.1 g/dl (6.3-8.2); eGFR > 60.00
[2025-07-08 11:33] LABS: Glucose - Point of Care 208 mg/dl (70-99)
[2025-07-08] MEDS: NOVOLOG FLEXPEN-LOW RESISTANCE 2 UNITS SC (13:27)
--- NOTE | 2025-07-08 14:32 | CM ---
MATTHEW reviewed chart, reviewed with Bam.
Bam will review patient on Friday for medically stability- will need auth once stable for Acute Rehab.
MATTHEW will continue to follow for all d/c needs.
Plan; Bam to review Friday
--- NOTE | 2025-07-08 14:43 | W.PN.UPDATE ---
Addendum entered and electronically signed by Savannah Nolan MD 07/08/25 15:01:
Spoke to patient at the bedside. No new complaints. Primary service working up fever which has improved and assessing anemia.
Cardiac status stable. Follow-up arranged with myself or cardio oncology. Patient knows to call if there are any new issues.
We will sign off. Please contact us if any new issues develop.
Original Note:
Update Note
Progress Note Update
Reviewed telemetry and one short burst of tachycardia noted in PM 07/07. Temp at that time was 100.0 F. No atrial fibrillation noted. HRs stable throughout the day 07/08 and no further fevers noted. Echo 07/07 stable with preserved EF. Patient is
stable from a cardiac standpoint. Follow up has been arranged. Will sign off. Please call with questions.
[2025-07-08 15:06] VITALS: BP 107/58
--- NOTE | 2025-07-08 15:55 | CON.ONC ---
Consultation
-
Date Consultation Requested: 07/08/25
Date Consultation Performed: 07/08/25
Requesting Provider: Dr. Robledo
Performing Provider: Dr. Anderson
Reason for Consultation: sarcoma, anemia
Impression
Impression
fever
group B strep bacteremia
metastatic sarcoma s/p left thigh mass resection - XRT - chemo at [facility]
left thigh wound
anemia
Plan
Plan
1. Metastatic sarcoma
-s/p resection left thigh mass - XRT- chemo at [facility]
-reviewed recent CT imaging demonstrating likely progression of disease
-pt to return to his primary medical oncologist at [facility] -Dr. Vaca for continued management
2. Ajemia -chronic - likely multifactorial - malignancy, infection, inflammation
-hemoglobin holding at 7.8g/dl
-reticulocyte count was normal
-check iron studies, B12/ folic acid levels
-monitor CBC
Will continue to follow with you.
Patient History
History of Present Illness
80y/o male seen in hematology/ oncology consultation regarding h/o metastatic sarcoma, as well as concomitant chronic anemia.
The patient has a h/o metastatic sarcoma, managed by Dr Vaca at [place]. He underwent resection of primary left thigh lesion, approximately 16 months, followed by radiation. He has been receiving chemotherapy, since that time. He is
unclear as to the agents he is receiving, though, possibly a taxane and gemcitabine.
He is now admitted for fevers and group B strep bacteremia. CT imaging during this hospitalization demonstrated widespread likely progressive, metastatic disease, liver metastasis, as well as pelvic mass extending into the left thigh.
CBCs during this hospitalization as well as previous ones at [place] demonstrate a chronic anemia w/ baseline hemoglobin around 9-10g/dl. His hemoglobin during this hospitalization has drifted down to 7.8g/dl today.
Overall, he claims to be feeling better today. No fevers or chills. No SOB at rest or chest pain. No blood in his stool or urine.
Past-Medical/Surgical History
PMH:
metastatic sarcoma - left thigh mass resection, radiation, chemotherapy at [facility] - Dr. Vaca
chronic anemia
DVT/PE
hypertension
PVD s/p L popliteal bypass surger
prostate cancer 2018
DM
GERD
PSH:
resection of left thigh mass - sarcoma - 16 months ago
cholecystectomy
Social History
Tobacco: Non-Smoker
Alcohol: Occasional
Family History
Family History: Not Pertinent
Allergies: NKDA
Patient Medication
�Medication �Instructions �Recorded �Confirmed �Last Taken �Type
docusate sodium 100 mg capsule 100 mg PO BID Constipation 03/20/24 06/27/25 06/27/25 08:20 History
(Colace)
apixaban 5 mg tablet (Eliquis) 2.5 mg BID Blood Clot Prevention/Tx 06/26/25 06/27/25 06/26/25 08:00 History
metformin 500 mg tablet 500 mg PO DAILY Diabetes 06/26/25 06/26/25 Unknown History
ondansetron HCl 8 mg tablet 8 mg PO DAILY PRN nausea 06/26/25 06/26/25 Unknown History
pantoprazole 40 mg tablet,delayed 40 mg PO DAILY Gastrointestinal 06/26/25 06/26/25 Unknown History
release Issue
prochlorperazine maleate 10 mg 10 mg PO DAILY PRN nausea 06/26/25 06/26/25 Unknown History
tablet
Active Medications
Generic Name Dose Route Start Last Admin
Trade Name Freq PRN Reason Stop Dose Admin
Acetaminophen 1,000 mg 06/28/25 08:00 07/08/25 09:27
Acetaminophen 500 Mg Tablet PO 07/26/25 07:59 1,000 mg
TID FLAKO Administration
Al Hydrox/Mg Hydrox/Simethicone 30 ml 06/26/25 22:44
Mag/Al/Simethicone Suspension 30 Ml Cup PO 07/24/25 22:43
Q6HPRN PRN
Heartburn
Apixaban 2.5 mg 06/27/25 09:45 07/08/25 09:26
Apixaban (Eliquis) 2.5 Mg Tablet PO 07/25/25 09:44 2.5 mg
BID FLAKO Administration
Baclofen 5 mg 07/07/25 10:01 07/07/25 20:14
Baclofen 5 Mg Tablet PO 08/04/25 10:00 5 mg
TIDPRN PRN Administration
Hiccups
Bisacodyl 10 mg 06/26/25 22:44 07/03/25 03:50
Bisacodyl 10 Mg Rectal Suppository RECTAL 07/24/25 22:43 10 mg
[id number] PRN Administration
constipation
Ceftriaxone Sodium 2,000 mg 07/08/25 10:00 07/08/25 09:43
Ceftriaxone 2,000 Mg/20 Ml Vial IV 2,000 mg
Q24H FLAKO Administration
Dexamethasone Sodium Phosphate 4 mg 07/03/25 08:00 07/08/25 09:28
Dexamethasone 4 Mg/Ml 1 Ml Vial IV 07/31/25 07:59 4 mg
DAILY FLAKO Administration
Dextrose 12.5 grams 06/26/25 22:44
Dextrose 50% (0.5 Grams/Ml) 50 Ml Syringe IV 07/24/25 22:43
[id number] PRN
hypoglycemia
Protocol
Glucagon 1 mg 06/26/25 22:44
Glucagon 1 Mg Vial IM 07/24/25 22:43
PRN PRN
hypoglycemia
Protocol
Heparin Sodium (Porcine) 500 unit 06/27/25 10:45 06/29/25 12:22
Heparin Flush Pf (100 Unit/Ml) 5 Ml Syringe IV 07/25/25 10:44 500 unit
PER PROTOCOL PRN Administration
SUBQ PORT FLUSH
Hydromorphone HCl 4 mg 06/30/25 16:00 07/08/25 09:28
Hydromorphone 4 Mg Tablet PO 07/14/25 15:59 4 mg
Q8H FLAKO Administration
Hydromorphone HCl 2 mg 07/06/25 17:07 07/07/25 20:14
Hydromorphone 2 Mg Tablet PO 07/20/25 17:06 2 mg
Q4HPRN PRN Administration
Severe breakthrough pain
Insulin Aspart 0 units 06/27/25 07:30 07/08/25 13:27
Insulin Aspart Low Resistance 300 Units/3 Ml Pen.Injctr SC 07/25/25 07:29 2 units
AC FLAKO Administration
Protocol
Morphine Sulfate 15 mg 06/30/25 08:00 07/08/25 09:27
Morphine 15 Mg Extended Release Tablet PO 07/14/25 07:59 15 mg
Q12 FLAKO Administration
Ondansetron HCl 4 mg 06/26/25 22:44
Ondansetron 4 Mg/2 Ml Vial IV 07/24/25 22:43
Q6HPRN PRN
nausea and vomiting
Pantoprazole Sodium 40 mg 06/27/25 08:00 07/08/25 09:27
Pantoprazole 40 Mg Delayed Release Tablet PO 07/25/25 07:59 40 mg
DAILY FLAKO Administration
Polyethylene Glycol 17 grams 06/26/25 22:44
Polyethylene Glycol Powder 17 Grams Packet PO 07/24/25 22:43
DAILYPRN PRN
constipation
Polyethylene Glycol 17 grams 06/30/25 08:00 07/08/25 09:27
Polyethylene Glycol Powder 17 Grams Packet PO 07/28/25 07:59 Not Given
BID FLAKO
Senna/Docusate Sodium 1 tablet 07/06/25 20:00 07/08/25 09:29
Docusate W/Senna (Janelle-Colace) Tablet PO 08/03/25 19:59 Not Given
BID FLAKO
Sennosides 17.2 mg 06/29/25 22:00 07/07/25 20:02
Sennosides (Senokot) 8.6 Mg Tablet PO 07/27/25 21:59 Not Given
HS FLAKO
Sodium Chloride 0 flush 06/27/25 11:00 07/03/25 06:22
Sodium Chloride 0.9% (Flush) Syringe IV 07/25/25 10:59 1 flush
PER PROTOCOL FLAKO Administration
Sterile Water 20 ml 07/08/25 10:00 07/08/25 09:43
Sterile Water For Injection 20 Ml Vial IV 08/05/25 09:59 20 ml
Q24H FLAKO Administration
Tramadol HCl 50 mg 06/26/25 22:44 07/06/25 00:59
Tramadol Hcl 50 Mg Tablet PO 07/24/25 22:43 50 mg
Q6HPRN PRN Administration
moderate pain
Review of Systems
-
A ROS was performed w/ pertinent findings as per HPI.
Physical Exam
-
General: Well Developed and No Apparent Distress
HEENT: Negative Jaundice
Cardiology: Normal Sinus Rhythm
Pulmonary: Clear
Extremities: Other (left thigh dressing in place)
Neurology: Non Focal
Labs
Lab Results
WBC 13.8 10^3/uL (4.8-10.8) H 07/08/25 06:03
RBC 3.14 10^6/uL (4.70-6.10) L 07/08/25 06:03
Hgb 7.8 g/dL (13.0-18.0) L 07/08/25 06:03
Hct 24.8 % (39.0-52.0) L 07/08/25 06:03
MCV 79.0 fL (80.0-94.0) L 07/08/25 06:03
MCH 24.8 pg (27.0-31.0) L 07/08/25 06:03
MCHC 31.5 g/dL (33.0-37.0) L 07/08/25 06:03
RDW 21.6 % (11.5-14.5) H 07/08/25 06:03
Plt Count 126 10^3/uL (130-400) L D 07/08/25 06:03
MPV 10.2 fL (7.4-10.4) 07/08/25 06:03
Abs Immat Gran (auto) 0.4 10^3/uL (0-0.05) H 07/07/25 09:46
Absolute Neuts (auto) 28.4 10^3/uL (1.4-6.5) H 07/07/25 09:46
Absolute Lymphs (auto) 0.6 10^3/uL (1.2-3.4) L 07/07/25 09:46
Absolute Monos (auto) 0.9 10^3/uL (0.1-0.6) H 07/07/25 09:46
Absolute Eos (auto) 0.0 10^3/uL (0-0.7) 07/07/25 09:46
Absolute Basos (auto) 0.1 10^3/uL (0-0.2) 07/07/25 09:46
Immature Gran % 1.2 % (0-0.5) H 07/07/25 09:46
Neutrophils % 94.0 % (42.2-75.2) H 07/07/25 09:46
Lymphocytes % 1.8 % (20.5-51.1) L 07/07/25 09:46
Monocytes % 2.8 % (1.7-9.3) 07/07/25 09:46
Eosinophils % 0.0 % (0-6) 07/07/25 09:46
Basophils % 0.2 % (0-2) 07/07/25 09:46
Creatinine 0.8 mg/dL (0.7-1.3) 07/08/25 09:33
Vital Signs
Vital Signs
Temp Pulse Resp BP Pulse Ox
97.5 F 78 16 107/58 97
07/08/25 15:06 07/08/25 15:06 07/08/25 15:06 07/08/25 15:06 07/08/25 15:06
--- NOTE | 2025-07-08 16:05 | W.PN.NEPH.PH ---
Today's Communication / Plan
-
Follow-up labs in a.m. maintain fluid restriction
Assessment/Plan
-
IMP:
Acute on chronic Left leg pain due to cancer tumor invasion with lymphedema
Acute urinary retention
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
Immunocompromised (Cancer, recent chemo)
Sinus Tachycardia on 07/07/25 morning
Acute on chr Hyponatremia
Left leg wound in prior tumor removal surgery ( left anterior thigh)
History of PE
Hiccups
constipation
DM II
Plan:
A/w worsening LE pain and swelling h/o surg for sarcoma, chemo,steroid
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
U osmo high 475, U na 75
BNP is high but seem euvolemic
normal renal function and normal TSH
continue pain control
abx per primary
follow bladder scan
labs in am
-
-
Date of Service: July 08, 2025
CC / HPI / ROS
-
Chief Complaint:
Hyponatremia
History of Present Illness:
Hemodynamically stable
Sodium down to 130 despite fluid restriction and Samsca administration on 07/07/2025
Review of Systems:
No fever
No reported shortness of breath
Labs
-
Labs:
WBC 13.8 10^3/uL (4.8-10.8) H 07/08/25 06:03
RBC 3.14 10^6/uL (4.70-6.10) L 07/08/25 06:03
Hgb 7.8 g/dL (13.0-18.0) L 07/08/25 06:03
Hct 24.8 % (39.0-52.0) L 07/08/25 06:03
Plt Count 126 10^3/uL (130-400) L D 07/08/25 06:03
Sodium 130 mmol/L (135-145) L 07/08/25 09:33
Potassium 3.8 mmol/L (3.5-5.1) 07/08/25 09:33
Chloride 96 mmol/L (98-107) L 07/08/25 09:33
Carbon Dioxide 29 mmol/L (22-30) 07/08/25 09:33
BUN 20 mg/dl (9-20) 07/08/25 09:33
Creatinine 0.8 mg/dL (0.7-1.3) 07/08/25 09:33
eGFR > 60.00 07/08/25 09:33
Glucose 214 mg/dl (70-99) H 07/08/25 09:33
Calcium 8.6 mg/dl (8.4-10.2) 07/08/25 09:33
Gbu-Y-Dscvmddxkyx Pept 2280 pg/ml 07/07/25 09:46
Albumin 2.8 g/dl (3.5-5.0) L 07/08/25 09:33
Physical Exam
-
Vital Signs:
Vital Signs
Temp Pulse Resp BP Pulse Ox
97.5 F 78 16 107/58 97
07/08/25 15:06 07/08/25 15:06 07/08/25 15:06 07/08/25 15:06 07/08/25 15:06
Cardiovascular:: Regular rate and rhythm
Respiratory:: Bilateral: CTA
Lung Excursion:: Normal
Abdomen:: Nontender and Soft
Bowel Sounds:: Normal
Extremity Edema:: +1: Left:
--- NOTE | 2025-07-08 16:17 | W.PN.HOSP.TC ---
Today's Communication/Plan
-
Bacteremia -- Zosyn changed to Ceftriaxone
Follow repeat blood cultures
Assessment / Plan
Assessment / Plan
Physical Exam
General: Well Developed, Well Nourished, No Apparent Distress and Comfortable
HEENT: Normocephalic, Atraumatic, Moist Mucous Membranes
Respiratory: Clear to Auscultation Bilaterally
Cardiac: Regular Rhythm and S1/S2
GI: Soft, Nontender, Nondistended and Normal Bowel Sounds
Musculoskeletal: Other (Left thigh dressing and tenderness)
Skin: Warm
Neuro: Awake, Alert, Oriented x3 and No Motor Deficits
Psych: Calm
Impression:
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 Patient is status post chemotherapy with
Neulasta and steroid pulse. Labs with a white count of 106 but otherwise hemoglobin and platelets were normal. Electrolyte BUN/creatinine were normal. LFTs normal. Imaging consistent with extrinsic compression of the mid left femoral vein with
soft tissue encasement likely from neoplasia or from radiation, no venous thromboembolism. Had a significant subcutaneous edema.
Assessment/plan :
Acute on chronic Left leg pain due to cancer tumor invasion with lymphedema
Dr. Mahajan d/w pt, started on Tylenol TID , oral Dilaudid and Oral morphine BID
PRN Dilaudid/ PRN Tramadol
Trial of IV steroids. Can change to taper oral Decadron in OP setting.
Dr. Hooker D/W his oncologist Dr Vaca at [facility] , send her a copy of CT, she will f/w in office, agreed to use steroid to help with cancer pain. She might consider palliative radiation.
Dr. Hooker also reached out to [facility] Dr Beebe to review his images. Patient had radiation 2023, he required 52 hyperbaric oxygen treatments. She did not recommend to do radiation again to the same area due to high possibility of not
healing again if applied to same area. By reviewing CAT scan, it looks like majority of his disease is in the pelvis and upper thigh. Recommended palliative care consult.
# Acute urinary retention
Had past issues but no recent
CT showed : large left pelvic mass results in deviation of the bladder into the right side of the pelvis.
Still retaining urine as of 07/07/25 -- PVR was 414 on 07/07/25 morning
Continue Bladder Scans protocol with as needed straight cath
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
CT studies showed : Extensive neoplastic disease within the left pelvis and extending into the thigh, increasing from previous examinations
- Continue anticoagulation with Eliquis. 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
- Elevate left leg as possible. Swelling seemed to go down
- Pain control
- Antiemetics
-d/w Dr dEmond who reviewed the imaging studies. No need for immediate vascular intervention. Arterial graft looked patent. Tumor is compressing on vein but no total occlusion, recommend to treat the tumor. Patient is getting treatment in outpatient
setting.
#Group B strep bacteremia
#Fever 102.7 on 07/07/25 morning (while on scheduled Tylenol for pain) - RESOLVING
#Immunocompromised (Cancer, recent chemo)
-Could be from patient's malignancy
-Patient does have left upper thigh open wound, was on antifungal, IV antibiotics and wound VAC in 2023 for this
-CBC on 07/07 AM with worsened leukocytosis, which could also be from steroids, recent neulasta and patient's sarcoma
-COVID and Flu negative
-Blood cultures ordered given immunocompromised state and open wound on left upper thigh: strep group B bacteremia noted
-No signs or symptoms of UTI, although patient is having urinary retention
-MRSA recently negative
-Zosyn started on 07/07/25-->transitioned to Ceftriaxone on 07/08/25
-Appreciate ID
# Leukocytosis - IMPROVING
Overall came down.
High WBC due to Neulasta/ Sarcoma and steroid pulse. No other signs of acute infection at this time. The wound site itself is clean dry and intact.
Afebrile
No sign of active infection. No GI or respiratory symptoms. Wound of left thigh /side of sarcoma : no foul smell or purulent discharge.
#Sinus Tachycardia on 07/07/25 morning
-Could be from fever as above. Could also be from pain, but he denies new pain. Could be from anxiety.
-CT Chest PE negative for PE (done given tachycardia and subtherapeutic Eliquis dose, which is what patient wants)
-EKG with T wave changes
-Troponin elevated
-ProBNP elevated
-Echo okay with EF 55%
-Cardiology consult given the above -- appreciate cardiology
-Not suspecting volume depletion, patient is not hypotensive
-Assessing for infection as above
-TSH is okay.
-Not hypoxic
-Continue to monitor on telemetry
#Microcytic Anemia - chronic: likely multifactorial - malignancy, infection, inflammation
#New Thrombocytopenia on 07/08/25
-hemoglobin dropped to 7.8 g/dl
-reticulocyte count was normal
-LDH count was also normal
-check iron studies, B12/ folic acid levels
-monitor CBC
-Appreciate hematology
#Hyponatremia
-Worse on 07/07/25 at 126, previously was stable in the low 130s
-Hyponatremia studies suggest SIADH
-Start PO Fluid Restriction
-Appreciate nephrology -- may need SAMSCA
# Left leg wound in prior tumor removal surgery ( left anterior thigh)
- Wound care consulted. No signs of infection.
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
Pt refused 5 mg dose BID, wanted to remain on 2.5 mg BID dose.
#Hiccups
-From malignancy?
-PRN Baclofen
# constipation
Last BM was on 07/06/25
s/p Laxatives including Mg citrate.
No abdominal pain.
#DM II
- sliding scale insulin
CODE STATUS: Full code
DVT prophylaxis: Eliquis
Diet: DM diet
Physical therapy recommendations: Rehab.
Disposition: [facility]
Bacteremia is a high-risk encounter.
Anticipated Discharge: 24 - 48 hours
Subjective/Interval History
-
Date of Service: July 08, 2025
Patient was seen and examined. He reported 'feeling terrific.'
Objective Data
-
Labs:
Laboratory Results
07/08/25 07/08/25
06:03 09:33
WBC 13.8 H
Hgb 7.8 L
Hct 24.8 L
Plt Count 126 L D
PT 15.9 H
INR 1.24
APTT 52.2 H
Sodium 132 L 130 L
Potassium 4.0 3.8
Chloride 99 96 L
Carbon Dioxide 29 29
BUN 20 20
Creatinine 0.8 0.8
Glucose 182 H 214 H
Calcium 8.1 L 8.6
Total Bilirubin 0.5
AST 21
ALT 15
Alkaline Phosphatase 128 H
Vital Signs:
Vital Signs
Temp Pulse Resp BP Pulse Ox
97.5 F 78 16 107/58 97
07/08/25 15:06 07/08/25 15:06 07/08/25 15:06 07/08/25 15:06 07/08/25 15:06
I&O
07/07/25 07/08/25 07/09/25
06:59 06:59 06:59
Intake Total 800 / 800 120 / 120
Output Total 500 / 500
Balance 800 / 800 -380 / -380
[2025-07-08 16:21] LABS: Glucose - Point of Care 337 mg/dl (70-99)
[2025-07-08] MEDS: NOVOLOG FLEXPEN-LOW RESISTANCE 4 UNITS SC (16:23)
[2025-07-08] MEDS: LIORESAL 5 MG PO (16:30)
[2025-07-08 18:02] LABS: Iron < 20 ug/dl (49-181)
[2025-07-08 18:10] LABS: Total Iron Binding Capacity 213 ug/dl (261-462)
[2025-07-08 19:00] VITALS: BP 140/62
[2025-07-08] MEDS: SENOKOT PO (20:11)
[2025-07-08 21:01] LABS: Glucose - Point of Care 289 mg/dl (70-99)
[2025-07-08 21:45] LABS: Ferritin 359.0 ng/ml (17.9-464.0)
[2025-07-08 22:17] LABS: Folate 5.5 ng/ml (2.76-20); Vitamin B12 > 1000 pg/ml (239-931)
[2025-07-08] MEDS: DILAUDID PO (22:25)
[2025-07-08 22:34] VITALS: BP 110/66
[2025-07-09] VITALS (8 sets, daily range): BP systolic 103–141; BP diastolic 55–79; PULSE 68; O2SAT 98
[2025-07-09] MEDS: ULTRAM 50 MG PO (02:57)
[2025-07-09 07:15] LABS: Glucose - Point of Care 169 mg/dl (70-99)
[2025-07-09 07:39] LABS: Hematocrit 24.7 % (39.0-52.0); Hemoglobin 8.1 g/dL (13.0-18.0); Mean Corp Hgb Conc. 32.8 g/dL (33.0-37.0); Mean Corpuscular Volume 77.4 fL (80.0-94.0); Nucleated Red Blood Cells % 0 % (-); Platelet Count 126 10^3/uL (130-400); Red Cell Dist. Width 21.6 % (11.5-14.5)
[2025-07-09] MEDS: NOVOLOG FLEXPEN-LOW RESISTANCE 1 UNITS SC (08:02)
[2025-07-09] MEDS: DECADRON 4 MG IV (08:03)
[2025-07-09] MEDS: SENOKOT-S PO ×2 (08:04→20:04)
[2025-07-09] MEDS: TYLENOL 1000 MG PO ×3 (08:05→22:11)
[2025-07-09] MEDS: PROTONIX 40 MG PO (08:05)
[2025-07-09] MEDS: ELIQUIS 2.5 MG PO ×2 (08:05→19:56)
[2025-07-09] MEDS: MIRALAX PO ×2 (08:05→20:04)
[2025-07-09] MEDS: MS CONTIN (EXTENDED RELEASE) 15 MG PO ×2 (08:06→19:56)
[2025-07-09] MEDS: STERILE WATER FOR INJECTION 20 ML IV (08:06)
[2025-07-09] MEDS: DILAUDID 4 MG PO ×2 (08:06→15:40)
[2025-07-09] MEDS: ROCEPHIN 2000 MG IV (08:07)
[2025-07-09 08:23] LABS: Blood Urea Nitrogen 22 mg/dl (9-20); Calcium 8.6 mg/dl (8.4-10.2); Carbon Dioxide 27 mmol/L (22-30); Chloride 102 mmol/L (98-107); Estimated Creatinine Clearance 93 ml/min; Glucose 154 mg/dl (70-99); Potassium 4.1 mmol/L (3.5-5.1); Sodium 134 mmol/L (135-145); eGFR > 60.00
[2025-07-09 11:15] LABS: Glucose - Point of Care 303 mg/dl (70-99)
[2025-07-09] MEDS: NOVOLOG FLEXPEN-LOW RESISTANCE 4 UNITS SC ×2 (11:34→17:30)
--- NOTE | 2025-07-09 12:49 | W.PN.ID1 ---
Date of Service
Date of Service: July 09, 2025
Today's Communication
Continue ceftriaxone 2g IV q24h (d4 abx)
At time of dc, can transition to Augmentin 875mg po bid through 07/19/25.
Assessment / Plan
Group B strep bacteremia
Fever - resolved
Leukocytosis- resolved
- Recent history of Neulasta; patient on steroids
Left leg pain secondary to edema/sarcoma
Known sarcoma of left lower extremity with metastasis, on chemo
Hx prostate cancer
hyperlipidemia
DVT/PE (on Eliquis)
anemia
diabetes
Recommendations:
Urinalysis negative.
Leg wound clean and without signs of infection.
Repeat blood cx's neg to date
Continue ceftriaxone 2g IV q24h (d4 abx)
At time of dc, can transition to Augmentin 875mg po bid through 07/19/25.
Chief Complaint
-: Fever and Bacteremia
Subjective / Review of Systems
Feels much improved.
Vital Signs / Physical Exam
Vital Signs
Vital Signs
Temp Pulse Resp BP Pulse Ox
98.2 F 66 20 108/59 97
07/09/25 11:30 07/09/25 11:30 07/09/25 11:30 07/09/25 11:30 07/09/25 11:30
Physical Exam
Constitutional: No Acute Distress and Comfortable
Eyes: No Conjunctival Hemorrhage
Cardiovascular: Regular Rate and S1/S2
Pulmonary: Clear
Gastrointestinal: Soft, Non Tender, Non Distended and Normal Bowel Sounds
Genito-Urinary: Negative CVA Tenderness
Extremities: Edema (LLE improved); Negative Erythema
Wound: Other (reviewed left thigh wound photos: 07/07 wound decreased drainage, dryer, pale pink granulation tissue )
Neurological: AO x 3
Lines: Port (RCW not accessed)
Objective Data
Lab Data
Lab Results
07/09/25 07:03
07/09/25 07:03
PT 15.9 Sec (11.4-14.6) H 07/08/25 09:33
INR 1.24 07/08/25 09:33
APTT 52.2 Sec (23.4-35.0) H 07/08/25 09:33
Estimated Creat Clear 93 ml/min 07/09/25 07:03
Total Bilirubin 0.5 mg/dl (0.2-1.3) 07/08/25 09:33
AST 21 U/L (17-59) 07/08/25 09:33
ALT 15 U/L (0-50) 07/08/25 09:33
Alkaline Phosphatase 128 U/L (38-126) H 07/08/25 09:33
Most recent labs reviewed.
Micro Results:
07/07/25 09:46 Blood Culture - Final
Blood/Venous Streptococcus agalactiae
Gram Stain - Final
07/07/25 10:19 Blood Culture - Final
Blood/Venous Streptococcus agalactiae
Gram Stain - Final
07/08/25 10:17 Blood Culture - Preliminary
Blood/Venous No Growth in 24 hours- Final report to follow
07/08/25 09:33 Blood Culture - Preliminary
Blood/Venous No Growth in 24 hours- Final report to follow
07/07/25 12:05 Urine Culture - Final
Urine Aerococcus Species
07/07/25 10:13 Influenza Types A & B (SY) - Final
Nasal Swab Negative for Influenza A & B, NAAT
Negative results must be combined with clinical observations
and patient history.
Nucleic Acid Amplification test (NAAT)performed on the
[employer] platform.
06/27/25 06:35 MRSA Screen - Final
Nose No Methicillin Resistant Staphylococcus aureus isolated.
Imaging:
07/07/2025 CT PE/abdomen/pelvis: no pulmonary embolism or acute process in the chest noted. Scattered bilateral pulmonary metastasis, progressed from CT dated 06/09/2024. Redemonstration of extensive soft tissue neoplastic disease/sarcoma within
the left pelvis extending into the left thigh. Vascular involvement and local regional metastatic adenopathy noted. Hepatic metastatic disease progressed from prior PET/CT.
--- NOTE | 2025-07-09 14:13 | CM ---
chart reviewed
PT rec acute rehab
referral in [facility] - will review on Friday
will need updated PT/OT notes
will need ins auth
PLAN: [facility] to review Friday
[2025-07-09] MEDS: FEOSOL 325 MG PO (15:38)
--- NOTE | 2025-07-09 15:41 | W.PN.NEPH.PH ---
Today's Communication / Plan
-
Maintain fluid restriction
Assessment/Plan
-
IMP:
Acute on chronic Left leg pain due to cancer tumor invasion with lymphedema
Acute urinary retention
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
Immunocompromised (Cancer, recent chemo)
Sinus Tachycardia on 07/07/25 morning
Acute on chr Hyponatremia
Left leg wound in prior tumor removal surgery ( left anterior thigh)
History of PE
Hiccups
constipation
DM II
Plan:
A/w worsening LE pain and swelling h/o surg for sarcoma, chemo,steroid
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
U osmo high 475, U na 75
Sodium now corrected to 134
Maintain fluid restriction
BNP is high but seem euvolemic
normal renal function and normal TSH
continue pain control
abx per primary
follow bladder scan
labs in am
-
-
Date of Service: July 09, 2025
CC / HPI / ROS
-
Chief Complaint:
Hyponatremia
History of Present Illness:
Hemodynamically stable
Sodium up to 134
Review of Systems:
No fever
No reported shortness of breath
Labs
-
Labs:
WBC 7.2 10^3/uL (4.8-10.8) 07/09/25 07:03
RBC 3.19 10^6/uL (4.70-6.10) L 07/09/25 07:03
Hgb 8.1 g/dL (13.0-18.0) L 07/09/25 07:03
Hct 24.7 % (39.0-52.0) L 07/09/25 07:03
Plt Count 126 10^3/uL (130-400) L 07/09/25 07:03
Sodium 134 mmol/L (135-145) L 07/09/25 07:03
Potassium 4.1 mmol/L (3.5-5.1) 07/09/25 07:03
Chloride 102 mmol/L (98-107) 07/09/25 07:03
Carbon Dioxide 27 mmol/L (22-30) 07/09/25 07:03
BUN 22 mg/dl (9-20) H 07/09/25 07:03
Creatinine 0.6 mg/dL (0.7-1.3) L 07/09/25 07:03
eGFR > 60.00 07/09/25 07:03
Glucose 154 mg/dl (70-99) H 07/09/25 07:03
Calcium 8.6 mg/dl (8.4-10.2) 07/09/25 07:03
Ypu-Z-Eypnjooswhp Pept 2280 pg/ml 07/07/25 09:46
Albumin 2.8 g/dl (3.5-5.0) L 07/08/25 09:33
Physical Exam
-
Vital Signs:
Vital Signs
Temp Pulse Resp BP Pulse Ox
98.2 F 66 20 108/59 97
07/09/25 11:30 07/09/25 11:30 07/09/25 11:30 07/09/25 11:30 07/09/25 11:30
Cardiovascular:: Regular rate and rhythm
Respiratory:: Bilateral: CTA
Lung Excursion:: Normal
Abdomen:: Nontender and Soft
Bowel Sounds:: Normal
Extremity Edema:: +1: Left:
[2025-07-09 16:48] LABS: Glucose - Point of Care 301 mg/dl (70-99)
--- NOTE | 2025-07-09 17:18 | W.PN.HOSP.TC ---
Today's Communication/Plan
-
Stable. [facility] placement on 07/11/25.
Assessment / Plan
Assessment / Plan
Physical Exam
General: Well Developed, Well Nourished, No Apparent Distress and Comfortable
HEENT: Normocephalic, Atraumatic, Moist Mucous Membranes
Respiratory: Clear to Auscultation Bilaterally
Cardiac: Regular Rhythm and S1/S2
GI: Soft, Nontender, Nondistended and Normal Bowel Sounds
Musculoskeletal: Other (Left thigh dressing and tenderness)
Skin: Warm
Neuro: Awake, Alert, Oriented x3 and No Motor Deficits
Psych: Calm
Impression:
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 Patient is status post chemotherapy with
Neulasta and steroid pulse. Labs with a white count of 106 but otherwise hemoglobin and platelets were normal. Electrolyte BUN/creatinine were normal. LFTs normal. Imaging consistent with extrinsic compression of the mid left femoral vein with
soft tissue encasement likely from neoplasia or from radiation, no venous thromboembolism. Had a significant subcutaneous edema.
Assessment/plan :
Acute on chronic Left leg pain due to cancer tumor invasion with lymphedema
Dr. Mahajan d/w pt, started on Tylenol TID , oral Dilaudid and Oral morphine BID
PRN Dilaudid/ PRN Tramadol
Trial of IV steroids. Can change to taper oral Decadron in OP setting.
Dr. Hooker D/W his oncologist Dr Vaca at [place] , send her a copy of CT, she will f/w in office, agreed to use steroid to help with cancer pain. She might consider palliative radiation.
Dr. Hooker also reached out to [facility] Dr Beebe to review his images. Patient had radiation 2023, he required 52 hyperbaric oxygen treatments. She did not recommend to do radiation again to the same area due to high possibility of not
healing again if applied to same area. By reviewing CAT scan, it looks like majority of his disease is in the pelvis and upper thigh. Recommended palliative care consult.
# Acute urinary retention
Had past issues but no recent
CT showed : large left pelvic mass results in deviation of the bladder into the right side of the pelvis.
Still retaining urine as of 07/07/25 -- PVR was 414 on 07/07/25 morning
Continue Bladder Scans protocol with as needed straight cath
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
CT studies showed : Extensive neoplastic disease within the left pelvis and extending into the thigh, increasing from previous examinations
- Continue anticoagulation with Eliquis. 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
- Elevate left leg as possible. Swelling seemed to go down
- Pain control
- Antiemetics
- d/w Dr Edmond who reviewed the imaging studies. No need for immediate vascular intervention. Arterial graft looked patent. Tumor is compressing on vein but no total occlusion, recommend to treat the tumor. Patient is getting treatment in
outpatient setting.
#Group B strep bacteremia
#Fever 102.7 on 07/07/25 morning (while on scheduled Tylenol for pain) - RESOLVING
#Immunocompromised (Cancer, recent chemo) -- now on steroids too as above
-Could be from patient's malignancy
-Patient does have left upper thigh open wound, was on antifungal, IV antibiotics and wound VAC in 2023 for this
-CBC on 07/07 AM with worsened leukocytosis, which could also be from steroids, recent neulasta and patient's sarcoma
-COVID and Flu negative
-Blood cultures ordered given immunocompromised state and open wound on left upper thigh: strep group B bacteremia noted
-Repeat blood cultures with no growth to date
-No signs or symptoms of UTI, although patient is having urinary retention
-MRSA recently negative
-Zosyn started on 07/07/25-->transitioned to Ceftriaxone on 07/08/25 -- continue ceftriaxone 2g IV q24h (Day 4 antibiotics)
-At time of discharge, can transition to Augmentin 875 mg P.O. bid through 07/19/25.
-Appreciate ID
# Leukocytosis - IMPROVING
Overall came down.
High WBC due to Neulasta/ Sarcoma and steroid pulse, as well as new bacteremia above
#Sinus Tachycardia on 07/07/25 morning
-Could be from fever as above. Could also be from pain, but he denies new pain. Could be from anxiety. Could also be from new bacteremia.
-CT Chest PE negative for PE (done given tachycardia and subtherapeutic Eliquis dose, which is what patient wants)
-EKG with T wave changes
-Troponin elevated
-ProBNP elevated
-Echo okay with EF 55%
-Cardiology consult given the above -- appreciate cardiology
-Not suspecting volume depletion, patient is not hypotensive
-TSH is okay.
-Not hypoxic
-Continue to monitor on telemetry
#Microcytic Anemia - chronic: likely multifactorial - malignancy, infection, inflammation
#New Thrombocytopenia on 07/08/25
-hemoglobin dropped to 7.8 g/dl on 07/08/25 morning as well
-reticulocyte count was normal
-LDH count was also normal
-Iron studies suggest iron deficiency anemia: oral iron started
-Vitamin B12 was high, and Folic Acid was normal
-Monitor CBC
-Appreciate hematology
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
-Although proBNP is high, patient seems euvolemic
-Worse on 07/07/25 at 126, previously was stable in the low 130s
-Hyponatremia studies suggest SIADH
-Samsca given earlier this hospitalization
-Continue PO Fluid Restriction
-Appreciate nephrology
#Metastatic sarcoma - s/p resection left thigh mass - XRT- chemo at [facility]
-Recent CT imaging this hospitalization demonstrating likely progression of disease
-pt to return to his primary medical oncologist at [facility] -Dr. Vaca for continued management
-Appreciate hem/onc eval on 07/08/25 (consulted hem/onc for worsening anemia and new thrombocytopenia)
# Left leg wound in prior tumor removal surgery ( left anterior thigh)
- Wound care consulted. No signs of infection.
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
-Pt refused 5 mg dose BID, wanted to remain on 2.5 mg BID dose.
#Hiccups
-From malignancy?
-Resolved
-PRN Baclofen
# constipation
s/p Laxatives including Mg citrate.
No abdominal pain.
#DM II
- sliding scale insulin
CODE STATUS: Full code
DVT prophylaxis: Eliquis
Diet: DM diet
Physical therapy recommendations: Rehab.
Disposition: [facility]
Anticipated Discharge: 24 - 48 hours
Subjective/Interval History
-
Date of Service: July 09, 2025
Patient was seen and examined. He reported that he felt 'terrific.'
Objective Data
-
Labs:
Laboratory Results
07/09/25
07:03
WBC 7.2
Hgb 8.1 L
Hct 24.7 L
Plt Count 126 L
Sodium 134 L
Potassium 4.1
Chloride 102
Carbon Dioxide 27
BUN 22 H
Creatinine 0.6 L
Glucose 154 H
Calcium 8.6
Vital Signs:
Vital Signs
Temp Pulse Resp BP Pulse Ox
98.1 F 68 16 112/71 99
07/09/25 15:00 07/09/25 15:00 07/09/25 15:00 07/09/25 15:00 07/09/25 15:00
I&O
07/08/25 07/09/25 07/10/25
06:59 06:59 06:59
Intake Total 120 / 120 300 / 300
Output Total 500 / 500
Balance -380 / -380 300 / 300
[2025-07-09] MEDS: SENOKOT PO (20:04)
[2025-07-09 22:42] LABS: Glucose - Point of Care 202 mg/dl (70-99)
[2025-07-10] MEDS: DILAUDID 4 MG PO ×4 (00:10→23:46)
[2025-07-10 07:00] VITALS: BP 102/58
[2025-07-10 07:20] LABS: Glucose - Point of Care 130 mg/dl (70-99)
[2025-07-10 07:35] LABS: Hematocrit 28.9 % (39.0-52.0); Hemoglobin 9.2 g/dL (13.0-18.0); Mean Corp Hgb Conc. 31.8 g/dL (33.0-37.0); Mean Corpuscular Volume 79.0 fL (80.0-94.0); Nucleated Red Blood Cells % 0 % (-); Platelet Count 160 10^3/uL (130-400); Red Cell Dist. Width 21.7 % (11.5-14.5)
[2025-07-10 07:46] LABS: Blood Urea Nitrogen 18 mg/dl (9-20); Calcium 8.8 mg/dl (8.4-10.2); Carbon Dioxide 28 mmol/L (22-30); Chloride 99 mmol/L (98-107); Estimated Creatinine Clearance 80 ml/min; Glucose 125 mg/dl (70-99); Potassium 3.8 mmol/L (3.5-5.1); Sodium 135 mmol/L (135-145); eGFR > 60.00
[2025-07-10] MEDS: NOVOLOG FLEXPEN-LOW RESISTANCE SC (08:21)
[2025-07-10] MEDS: TYLENOL 1000 MG PO ×3 (08:21→21:38)
[2025-07-10] MEDS: DECADRON 4 MG IV (08:22)
[2025-07-10] MEDS: PROTONIX 40 MG PO (08:22)
[2025-07-10] MEDS: ELIQUIS 2.5 MG PO ×2 (08:23→19:52)
[2025-07-10] MEDS: MIRALAX PO ×2 (08:23→19:53)
[2025-07-10] MEDS: MS CONTIN (EXTENDED RELEASE) 15 MG PO ×2 (08:23→19:55)
[2025-07-10] MEDS: ROCEPHIN 2000 MG IV (08:24)
[2025-07-10] MEDS: SENOKOT-S PO ×2 (08:24→20:03)
[2025-07-10] MEDS: STERILE WATER FOR INJECTION 20 ML IV (08:25)
[2025-07-10 11:00] VITALS: BP 113/57
--- NOTE | 2025-07-10 12:08 | W.PN.ID1 ---
Date of Service
Date of Service: July 10, 2025
Today's Communication
At time of dc, can transition to Augmentin 875mg po bid through 07/19/25.
Assessment / Plan
Group B strep bacteremia
Fever - resolved
Leukocytosis- resolved
- Recent history of Neulasta; patient on steroids
Left leg pain secondary to edema/sarcoma
Known sarcoma of left lower extremity with metastasis, on chemo
Hx prostate cancer
hyperlipidemia
DVT/PE (on Eliquis)
anemia
diabetes
Recommendations:
Urinalysis negative.
Leg wound clean and without signs of infection.
Repeat blood cx's neg to date
Continue ceftriaxone 2g IV q24h (d5 abx)
At time of dc, can transition to Augmentin 875mg po bid through 07/19/25.
Chief Complaint
-: Bacteremia
Subjective / Review of Systems
He refuses to go to rehab. He states he will go home tomorrow. Feels well.
Vital Signs / Physical Exam
Vital Signs
Vital Signs
Temp Pulse Resp BP Pulse Ox
98.1 F 68 18 113/57 100
07/10/25 11:00 07/10/25 11:00 07/10/25 11:00 07/10/25 11:00 07/10/25 11:00
Physical Exam
Constitutional: No Acute Distress and Comfortable
Eyes: No Conjunctival Hemorrhage
Cardiovascular: Regular Rate and S1/S2
Pulmonary: Clear
Gastrointestinal: Soft, Non Tender, Non Distended and Normal Bowel Sounds
Genito-Urinary: Negative CVA Tenderness
Extremities: Edema (LLE improved); Negative Erythema
Wound: Other (reviewed left thigh wound photos: 07/07 wound decreased drainage, dryer, pale pink granulation tissue )
Neurological: AO x 3
Lines: Port (RCW not accessed)
Objective Data
Lab Data
Lab Results
07/10/25 06:35
07/10/25 06:35
PT 15.9 Sec (11.4-14.6) H 07/08/25 09:33
INR 1.24 07/08/25 09:33
APTT 52.2 Sec (23.4-35.0) H 07/08/25 09:33
Estimated Creat Clear 80 ml/min 07/10/25 06:35
Total Bilirubin 0.5 mg/dl (0.2-1.3) 07/08/25 09:33
AST 21 U/L (17-59) 07/08/25 09:33
ALT 15 U/L (0-50) 07/08/25 09:33
Alkaline Phosphatase 128 U/L (38-126) H 07/08/25 09:33
Most recent labs reviewed.
Micro Results:
07/08/25 10:17 Blood Culture - Preliminary
Blood/Venous No Growth in 48 hours- Final report to follow
07/08/25 09:33 Blood Culture - Preliminary
Blood/Venous No Growth in 48 hours- Final report to follow
07/07/25 09:46 Blood Culture - Final
Blood/Venous Streptococcus agalactiae
Gram Stain - Final
07/07/25 10:19 Blood Culture - Final
Blood/Venous Streptococcus agalactiae
Gram Stain - Final
07/07/25 12:05 Urine Culture - Final
Urine Aerococcus Species
07/07/25 10:13 Influenza Types A & B (SY) - Final
Nasal Swab Negative for Influenza A & B, NAAT
Negative results must be combined with clinical observations
and patient history.
Nucleic Acid Amplification test (NAAT)performed on the
[email or web address] platform.
06/27/25 06:35 MRSA Screen - Final
Nose No Methicillin Resistant Staphylococcus aureus isolated.
Imaging:
07/07/2025 CT PE/abdomen/pelvis: no pulmonary embolism or acute process in the chest noted. Scattered bilateral pulmonary metastasis, progressed from CT dated 06/09/2024. Redemonstration of extensive soft tissue neoplastic disease/sarcoma within
the left pelvis extending into the left thigh. Vascular involvement and local regional metastatic adenopathy noted. Hepatic metastatic disease progressed from prior PET/CT.
Care Review
Plan reviewed with: Physician (Dr. Robledo)
[2025-07-10] MEDS: NOVOLOG FLEXPEN-LOW RESISTANCE 2 UNITS SC ×2 (12:11→16:49)
[2025-07-10 12:12] LABS: Glucose - Point of Care 238 mg/dl (70-99)
[2025-07-10 14:55] VITALS: BP 128/61; PULSE 67
[2025-07-10 15:00] VITALS: BP 127/54
--- NOTE | 2025-07-10 15:35 | CM ---
CM met with pt and spouse at bedside who both report preference is for pt to dc home. They had requested a hospital bed with [facility] and want that home prior to discharging home. MATTHEW explained floor MATTHEW will follow up with [employer]
tomorrow/Friday AM.
[2025-07-10 16:35] LABS: Glucose - Point of Care 228 mg/dl (70-99)
--- NOTE | 2025-07-10 18:56 | W.PN.HOSP.TC ---
Today's Communication/Plan
-
Placement to [facility] versus home. Patient now wants to go home, but needs hospital bed and commode. Case management is aware and will follow up with GABRIELA franco/Tamara tomorrow/Friday07/11/25 morning
Assessment / Plan
Assessment / Plan
Physical Exam
General: Well Developed, Well Nourished, No Apparent Distress and Comfortable
HEENT: Normocephalic, Atraumatic, Moist Mucous Membranes
Respiratory: Clear to Auscultation Bilaterally
Cardiac: Regular Rhythm and S1/S2
GI: Soft, Nontender, Nondistended and Normal Bowel Sounds
Musculoskeletal: Other (Left thigh dressing and tenderness)
Skin: Warm
Neuro: Awake, Alert, Oriented x3 and No Motor Deficits
Psych: Calm
Impression:
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 Patient is status post chemotherapy with
Neulasta and steroid pulse. Labs with a white count of 106 but otherwise hemoglobin and platelets were normal. Electrolyte BUN/creatinine were normal. LFTs normal. Imaging consistent with extrinsic compression of the mid left femoral vein with
soft tissue encasement likely from neoplasia or from radiation, no venous thromboembolism. Had a significant subcutaneous edema.
Assessment/plan :
Acute on chronic Left leg pain due to cancer tumor invasion with lymphedema
Dr. Mahajan d/w pt, started on Tylenol TID , oral Dilaudid and Oral morphine BID
PRN Dilaudid/ PRN Tramadol
Trial of IV steroids. Can change to taper oral Decadron in OP setting.
Dr. Hooker D/W his oncologist Dr Vaca at [facility] , send her a copy of CT, she will f/w in office, agreed to use steroid to help with cancer pain. She might consider palliative radiation.
Dr. Hooker also reached out to [facility] Dr Beebe to review his images. Patient had radiation 2023, he required 52 hyperbaric oxygen treatments. She did not recommend to do radiation again to the same area due to high possibility of not
healing again if applied to same area. By reviewing CAT scan, it looks like majority of his disease is in the pelvis and upper thigh. Recommended palliative care consult.
# Acute urinary retention
Had past issues but no recent
CT showed : large left pelvic mass results in deviation of the bladder into the right side of the pelvis.
Still retaining urine as of 07/07/25 -- PVR was 414 on 07/07/25 morning
Continue Bladder Scans protocol with as needed straight cath
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
CT studies showed : Extensive neoplastic disease within the left pelvis and extending into the thigh, increasing from previous examinations
- Continue anticoagulation with Eliquis. 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
- Elevate left leg as possible. Swelling seemed to go down
- Pain control
- Antiemetics
- d/w Dr Edmond who reviewed the imaging studies. No need for immediate vascular intervention. Arterial graft looked patent. Tumor is compressing on vein but no total occlusion, recommend to treat the tumor. Patient is getting treatment in
outpatient setting.
#Group B strep bacteremia
#Fever 102.7 on 07/07/25 morning (while on scheduled Tylenol for pain) - RESOLVING
#Immunocompromised (Cancer, recent chemo) -- now on steroids too as above
-Could be from patient's malignancy
-Patient does have left upper thigh open wound, was on antifungal, IV antibiotics and wound VAC in 2023 for this
-CBC on 11 AM with worsened leukocytosis, which could also be from steroids, recent neulasta and patient's sarcoma
-COVID and Flu negative
-Blood cultures ordered given immunocompromised state and open wound on left upper thigh: strep group B bacteremia noted
-Repeat blood cultures with no growth to date
-No signs or symptoms of UTI, although patient is having urinary retention
-MRSA recently negative
-Zosyn started on 07/07/25-->transitioned to Ceftriaxone on 07/08/25 -- continue ceftriaxone 2g IV q24h (Day 5 antibiotics)
-At time of discharge, can transition to Augmentin 875 mg P.O. bid through 07/19/25.
-Appreciate ID
# Leukocytosis - IMPROVING
Overall came down.
High WBC due to Neulasta/ Sarcoma and steroid pulse, as well as new bacteremia above
#Sinus Tachycardia on 07/07/25 morning
-Could be from fever as above. Could also be from pain, but he denies new pain. Could be from anxiety. Could also be from new bacteremia.
-CT Chest PE negative for PE (done given tachycardia and subtherapeutic Eliquis dose, which is what patient wants)
-EKG with T wave changes
-Troponin elevated
-ProBNP elevated
-Echo okay with EF 55%
-Cardiology consult given the above -- appreciate cardiology
-Not suspecting volume depletion, patient is not hypotensive
-TSH is okay.
-Not hypoxic
-Continue to monitor on telemetry
#Microcytic Anemia - chronic: likely multifactorial - malignancy, infection, inflammation
#New Thrombocytopenia on 07/08/25
-hemoglobin dropped to 7.8 g/dl on 07/08/25 morning as well
-reticulocyte count was normal
-LDH count was also normal
-Iron studies suggest iron deficiency anemia: oral iron started
-Vitamin B12 was high, and Folic Acid was normal
-Monitor CBC
-Appreciate hematology
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
-Although proBNP is high, patient seems euvolemic
-Worse on 07/07/25 at 126, previously was stable in the low 130s
-Hyponatremia studies suggest SIADH
-Samsca given earlier this hospitalization
-Continue PO Fluid Restriction
-Appreciate nephrology
#Metastatic sarcoma - s/p resection left thigh mass - XRT- chemo at [facility]
-Recent CT imaging this hospitalization demonstrating likely progression of disease
-pt to return to his primary medical oncologist at [facility] -Dr. Vaca for continued management
-Appreciate hem/onc eval on 07/08/25 (consulted hem/onc for worsening anemia and new thrombocytopenia)
# Left leg wound in prior tumor removal surgery ( left anterior thigh)
- Wound care consulted. No signs of infection.
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
-Pt refused 5 mg dose BID, wanted to remain on 2.5 mg BID dose.
#Hiccups
-From malignancy?
-Resolved
-PRN Baclofen
# constipation
s/p Laxatives including Mg citrate.
No abdominal pain.
#DM II
- sliding scale insulin
CODE STATUS: Full code
DVT prophylaxis: Eliquis
Diet: DM diet
Physical therapy recommendations: Rehab.
Disposition: [facility] versus home
Anticipated Discharge: Within 24 hours
Subjective/Interval History
-
Date of Service: July 10, 2025
Patient was seen and examined. He said he felt very good.
Objective Data
-
Labs:
Laboratory Results
07/10/25
06:35
WBC 7.7
Hgb 9.2 L
Hct 28.9 L
Plt Count 160 D
Sodium 135
Potassium 3.8
Chloride 99
Carbon Dioxide 28
BUN 18
Creatinine 0.7
Glucose 125 H
Calcium 8.8
Vital Signs:
Vital Signs
Temp Pulse Resp BP Pulse Ox
97.4 F 67 20 127/54 100
07/10/25 15:00 07/10/25 15:00 07/10/25 15:00 07/10/25 15:00 07/10/25 15:00
I&O
07/09/25 07/10/25 07/11/25
06:59 06:59 06:59
Intake Total 300 / 300 1240 / 1240 420 / 420
Balance 300 / 300 1240 / 1240 420 / 420
[2025-07-10] MEDS: SENOKOT 17.2 MG PO (20:03)
[2025-07-10 21:37] LABS: Glucose - Point of Care 185 mg/dl (70-99)
[2025-07-10 23:00] VITALS: BP 129/65
[2025-07-10] MEDS: LIORESAL 5 MG PO (23:46)
[2025-07-11] MEDS: LIORESAL 5 MG PO ×2 (02:58→09:01)
[2025-07-11 07:26] VITALS: BP 116/71
[2025-07-11 08:11] LABS: Glucose - Point of Care 136 mg/dl (70-99)
[2025-07-11] MEDS: NOVOLOG FLEXPEN-LOW RESISTANCE SC ×2 (08:43→15:59)
[2025-07-11] MEDS: DECADRON 4 MG IV (08:43)
[2025-07-11] MEDS: TYLENOL 1000 MG PO ×2 (08:43→15:33)
[2025-07-11] MEDS: PROTONIX 40 MG PO (08:43)
[2025-07-11] MEDS: ELIQUIS 2.5 MG PO (08:44)
[2025-07-11] MEDS: MS CONTIN (EXTENDED RELEASE) 15 MG PO (08:47)
[2025-07-11] MEDS: DILAUDID 4 MG PO ×2 (08:47→15:33)
[2025-07-11] MEDS: STERILE WATER FOR INJECTION 20 ML IV (08:49)
[2025-07-11] MEDS: ROCEPHIN 2000 MG IV (08:49)
[2025-07-11] MEDS: MIRALAX 17 GRAMS PO (08:53)
[2025-07-11] MEDS: SENOKOT-S 1 TABLET PO (08:54)
--- NOTE | 2025-07-11 09:20 | W.PN.HOSP.TC ---
Today's Communication/Plan
-
dc
He wants to go home and not SNF or [facility]
Assessment / Plan
Assessment / Plan
Physical Exam
General: Well Developed, Well Nourished, No Apparent Distress and Comfortable
HEENT: Normocephalic, Atraumatic, Moist Mucous Membranes
Respiratory: Clear to Auscultation Bilaterally
Cardiac: Regular Rhythm and S1/S2
GI: Soft, Nontender, Nondistended and Normal Bowel Sounds
Musculoskeletal: Other (Left thigh dressing and tenderness)
Skin: Warm
Neuro: Awake, Alert, Oriented x3 and No Motor Deficits
Psych: Calm
Impression:
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 Patient is status post chemotherapy with
Neulasta and steroid pulse. Labs with a white count of 106 but otherwise hemoglobin and platelets were normal. Electrolyte BUN/creatinine were normal. LFTs normal. Imaging consistent with extrinsic compression of the mid left femoral vein with
soft tissue encasement likely from neoplasia or from radiation, no venous thromboembolism. Had a significant subcutaneous edema.
Assessment/plan :
Acute on chronic Left leg cancer pain due to cancer tumor invasion with lymphedema
c/w Tylenol TID , oral Dilaudid and Oral morphine BID
Trial of IV steroids. taper oral Decadron in OP setting.
D/W his oncologist Dr Vaca at [place] , send her a copy of CT, she will f/w in office, agreed to use steroid to help with cancer pain. She might consider palliative radiation.
Reached out to [facility] Dr Beebe to review his images. Patient had radiation 2023, he required 52 hyperbaric oxygen treatments. She did not recommend to do radiation again to the same area due to high possibility of not healing again if
applied to same area. By reviewing CAT scan, it looks like majority of his disease is in the pelvis and upper thigh. Recommended palliative care consult.
# Acute urinary retention
Had past issues but no recent
CT showed : large left pelvic mass results in deviation of the bladder into the right side of the pelvis.
Still retaining urine as of 07/07/25 -- PVR was 414 on 07/07/25 morning
Continue Bladder Scans protocol with as needed straight cath
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
CT studies showed : Extensive neoplastic disease within the left pelvis and extending into the thigh, increasing from previous examinations
- Continue anticoagulation with Eliquis. 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
- Elevate left leg as possible. Swelling seemed to go down
- Pain control
- Antiemetics
- d/w Dr Edmond who reviewed the imaging studies. No need for immediate vascular intervention. Arterial graft looked patent. Tumor is compressing on vein but no total occlusion, recommend to treat the tumor. Patient is getting treatment in
outpatient setting.
#Group B strep bacteremia
#Fever 102.7 on 07/07/25 morning (while on scheduled Tylenol for pain) - RESOLVING
#Immunocompromised (Cancer, recent chemo) -- now on steroids too as above
-Patient does have left upper thigh open wound, not acutely inflamed.
-CBC on 07/07 AM with worsened leukocytosis, which could also be from steroids, recent neulasta and patient's sarcoma
-COVID and Flu negative
-Blood cultures ordered given immunocompromised state and open wound on left upper thigh: strep group B bacteremia noted
-Repeat blood cultures with no growth to date
-No signs or symptoms of UTI, although patient is having urinary retention
-MRSA recently negative
-Zosyn started on 07/07/25-->transitioned to Ceftriaxone on 07/08/25 -- continue ceftriaxone 2g IV q24h
-At time of discharge, can transition to Augmentin 875 mg P.O. bid through 07/19/25.
-Appreciate ID
# Leukocytosis - IMPROVING
Overall came down.
High WBC due to Neulasta/ Sarcoma and steroid pulse, as well as new bacteremia above
#Sinus Tachycardia on 07/07/25
-Could be from fever as above. Could also be from pain, but he denies new pain. Could be from anxiety. Could also be from new bacteremia.
-CT Chest PE negative for PE (done given tachycardia and subtherapeutic Eliquis dose, which is what patient wants)
-EKG with T wave changes
-Troponin elevated , non ischemic myocardial injury
-ProBNP elevated
-Echo okay with EF 55%
-Cardiology consult given the above -- appreciate cardiology
-Not suspecting volume depletion, patient is not hypotensive
-TSH is okay.
-Not hypoxic
#Microcytic Anemia - chronic: likely multifactorial - malignancy, infection, inflammation
# Thrombocytopenia
-reticulocyte count was normal
-LDH count was also normal
-Iron studies suggest iron deficiency anemia: oral iron started
-Vitamin B12 was high, and Folic Acid was normal
-Appreciate hematology
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
-Although proBNP is high, patient seems euvolemic
-Worse on 07/07/25 at 126, previously was stable in the low 130s
-Hyponatremia studies suggest SIADH
-Samsca given earlier this hospitalization
-Continue PO Fluid Restriction
-Appreciate nephrology
#Metastatic sarcoma - s/p resection left thigh mass - XRT- chemo at [facility]
-Recent CT imaging this hospitalization demonstrating likely progression of disease
-pt to return to his primary medical oncologist at [facility] -Dr. Vaca for continued management
-Appreciate hem/onc eval on 07/08/25 (consulted hem/onc for worsening anemia and new thrombocytopenia)
# Left leg wound in prior tumor removal surgery ( left anterior thigh)
- Wound care consulted. No signs of infection.
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
-Pt refused 5 mg dose BID, wanted to remain on 2.5 mg BID dose.
#Hiccups
-From malignancy
-Resolved
-PRN Baclofen
# constipation
s/p Laxatives including Mg citrate.
No abdominal pain.
#DM II
- sliding scale insulin
CODE STATUS: Full code
DVT prophylaxis: Eliquis
Diet: DM diet
Physical therapy recommendations: Rehab. Pt refused.
Disposition: [facility] versus home. Pt refused [facility] ( he said he did it before and did not help), wanted home set up with hospital bed/ commode
Total discharge time spent to see the patient, examine the patient, review data and lab results, discuss discharge plan with patient, nursing staff around 65 minutes�
Anticipated Discharge: Today
Subjective/Interval History
-
Date of Service: July 11, 2025
He is ready to dc
Anxious to go home
Objective Data
-
Labs:
Laboratory Results
07/11/25
06:00
WBC Cancelled
Hgb Cancelled
Hct Cancelled
Plt Count Cancelled
Sodium Cancelled
Potassium Cancelled
Chloride Cancelled
Carbon Dioxide Cancelled
BUN Cancelled
Creatinine Cancelled
Glucose Cancelled
Calcium Cancelled
Vital Signs:
Vital Signs
Temp Pulse Resp BP Pulse Ox
98.2 F 68 18 116/71 100
07/11/25 07:26 07/11/25 07:26 07/11/25 07:26 07/11/25 07:26 07/11/25 07:26
I&O
07/10/25 07/11/25 07/12/25
06:59 06:59 06:59
Intake Total 1240 / 1240 660 / 660
Balance 1240 / 1240 660 / 660
--- NOTE | 2025-07-11 10:23 | W.PN.ID1 ---
Date of Service
Date of Service: July 11, 2025
Today's Communication
DC ceftriaxone 2g IV q24h (d6 abx)
Tomorrow am, transition to Augmentin 875mg po bid through 07/19/25
Assessment / Plan
Group B strep bacteremia
Fever - resolved
Leukocytosis- resolved
- Recent history of Neulasta; patient on steroids
Left leg pain secondary to edema/sarcoma
Known sarcoma of left lower extremity with metastasis, on chemo
Hx prostate cancer
hyperlipidemia
DVT/PE (on Eliquis)
anemia
diabetes
Recommendations:
Urinalysis negative.
Leg wound clean and without signs of infection.
Repeat blood cx's neg to date
DC ceftriaxone 2g IV q24h (d6 abx)
Tomorrow am, transition to Augmentin 875mg po bid through 07/19/25.
Chief Complaint
-: Bacteremia
Subjective / Review of Systems
Ambulated OK. Feels good.
Vital Signs / Physical Exam
Vital Signs
Vital Signs
Temp Pulse Resp BP Pulse Ox
98.2 F 68 18 116/71 100
07/11/25 07:26 07/11/25 07:26 07/11/25 07:26 07/11/25 07:26 07/11/25 07:26
Physical Exam
Constitutional: No Acute Distress and Comfortable
Eyes: No Conjunctival Hemorrhage
Cardiovascular: Regular Rate and S1/S2
Pulmonary: Clear
Gastrointestinal: Soft, Non Tender, Non Distended and Normal Bowel Sounds
Genito-Urinary: Negative CVA Tenderness
Extremities: Edema (LLE improved); Negative Erythema
Wound: Other (reviewed left thigh wound photos: 07/07 wound decreased drainage, dryer, pale pink granulation tissue )
Neurological: AO x 3
Lines: Port (RCW not accessed)
Objective Data
Lab Data
Lab Results
07/11/25 06:00
07/11/25 06:00
PT 15.9 Sec (11.4-14.6) H 07/08/25 09:33
INR 1.24 07/08/25 09:33
APTT 52.2 Sec (23.4-35.0) H 07/08/25 09:33
Estimated Creat Clear Cancelled 07/11/25 06:00
Total Bilirubin 0.5 mg/dl (0.2-1.3) 07/08/25 09:33
AST 21 U/L (17-59) 07/08/25 09:33
ALT 15 U/L (0-50) 07/08/25 09:33
Alkaline Phosphatase 128 U/L (38-126) H 07/08/25 09:33
Most recent labs reviewed.
Micro Results:
07/08/25 09:33 Blood Culture - Preliminary
Blood/Venous No Growth in 72 hours- Final report to follow
07/08/25 10:17 Blood Culture - Preliminary
Blood/Venous No Growth in 48 hours- Final report to follow
07/07/25 09:46 Blood Culture - Final
Blood/Venous Streptococcus agalactiae
Gram Stain - Final
07/07/25 10:19 Blood Culture - Final
Blood/Venous Streptococcus agalactiae
Gram Stain - Final
07/07/25 12:05 Urine Culture - Final
Urine Aerococcus Species
07/07/25 10:13 Influenza Types A & B (SY) - Final
Nasal Swab Negative for Influenza A & B, NAAT
Negative results must be combined with clinical observations
and patient history.
Nucleic Acid Amplification test (NAAT)performed on the
[employer] platform.
06/27/25 06:35 MRSA Screen - Final
Nose No Methicillin Resistant Staphylococcus aureus isolated.
Imaging:
07/07/2025 CT PE/abdomen/pelvis: no pulmonary embolism or acute process in the chest noted. Scattered bilateral pulmonary metastasis, progressed from CT dated 06/09/2024. Redemonstration of extensive soft tissue neoplastic disease/sarcoma within
the left pelvis extending into the left thigh. Vascular involvement and local regional metastatic adenopathy noted. Hepatic metastatic disease progressed from prior PET/CT.
Care Review
Plan reviewed with: Physician (Dr. Hooker)
[2025-07-11 11:57] LABS: Glucose - Point of Care 217 mg/dl (70-99)
--- NOTE | 2025-07-11 12:05 | CM ---
CM reviewed chart, patient seen bedside.
Patient for discharge today- phone call to [facility] in patients room- confirmed delivery of hospital bed/commode for today between 12-3p.m.
Updated clinicals sent to [facility] for VN services.
IMM verbally reviewed, provided with copy, placed in chart.
Patients to transport home.
CM will continue to follow.
Plan; home with , [facility] VN, Hospital Bed/Commode through [facility]
[2025-07-11] MEDS: NOVOLOG FLEXPEN-LOW RESISTANCE 2 UNITS SC (12:27)
[2025-07-11] MEDS: FEOSOL 325 MG PO (15:33)
[2025-07-11 15:50] VITALS: BP 118/69
--- NOTE | 2025-07-12 06:49 | W.DCSUMMARY ---
Discharge Summary
Discharge Data
Date of Admission: 06/26/25
Date of Discharge: 07/11/25
-
Pending Results: No
Hospital Course
80 years old male presented with acute on chronic left lower extremity pain. Patient has known sarcoma of the left lower extremity with metastases. Patient complained that his pain became intractable and he could not ambulate well at home.
Patient was admitted to the hospital. He received pain medication including opioid treatment. Adjustment to his pain regimen was made to control his pain and discomfort. Imaging studies of the hand abdomen/pelvis showed evidence of metastatic
carcinoma with overall progression compared to prior PET/CT in May 2024. His scan was reviewed by his oncologist at [place] as a copy was sent to Dr. Rahman. She recommended to continue pain control and follow-up in outpatient setting.
Patient was found to have mild hyponatremia without encephalopathy. He was maintained on fluid restriction. He had one-time fever and blood culture showed group B strep bacteremia. Source of the infection was not found but believed to be
translocation from his invasive cancer. Repeat blood culture did not show any growth. Patient was seen by ID doctor and giving antibiotic. Patient was discharged on oral Augmentin to finish course of treatment. Patient was started on steroid
therapy to help control his cancer pain and that seemed to help in addition to the opioid treatment. Patient remained hemodynamically stable. He was evaluated by physical therapy recommended intermediate facility placement. Patient declined
rehab placement and wanted to go home with home set up including hospital bed and commode. foundation relations manager was involved in discharge planning. Patient was discharged home in a stable condition. Patient was advised to follow-up with his oncologist
for further management of his extensive cancer.
Discharge Plan
-
Patient Disposition: Home with Home Care
Discharge Diagnosis/Procedures: -Acute cancer pain in left lower extremity. Known sarcoma of left lower extremity with metastasis, you will need out-patient follow- up with your oncologist. You were started on opioid medications. You were given
laxatives to avoid opioid-induced constipation. Potential side effects of opioid including drowsiness, avoid driving or operating machines while on opioids./Follow-up with your primary care doctor or oncologist to adjust the doses and take further
prescriptions.
Take decardon and follow with your oncologist about tapering.
-Acute urinart retention
- Group B strep bacteremia, finished IV antibiotics, c/w Augmentin through 07/19/25.
Diet: As tolerated
Activity Restrictions/Additional Instructions:
Wound Care Instructions
L thigh: Resume old dressing regimen or clean with Vashe, apply 1/2 piece of alginate to base, followed by dry dressing daily and prn drainage.
Follow up with surgeon
Referrals:
Shahbaz Sykes MD [Family Provider, Family Practice] - in less than 1 week
Judy Ibanez MD [Non-Admitting Privileges, Hematology / Oncology] - in less than 1 week
Savannah Nolan MD [Active, Cardiology] - 09/19/25 2:00 pm
Referral Note: You have a follow up visit with Dr. Nuñez in the [place] office. Please call with questions.
Prescriptions:
New
hydromorphone 4 mg Tablet
4 mg PO Q8H Qty: 20 0RF
amoxicillin-pot clavulanate 875-125 mg Tablet
1 tab PO Q12 Qty: 14 0RF
ferrous sulfate [FeroSul] 325 mg (65 mg iron) Tablet
325 mg PO Q48H Qty: 10 0RF
polyethylene glycol 3350 17 gram Powder In Packet
17 g PO DAILY Qty: 30 0RF
baclofen 5 mg Tablet
5 mg PO TIDPRN PRN (Reason: Muscle spasm) Qty: 5 0RF
sennosides [Adry-meena] 8.6 mg Tablet
17.2 mg PO HS Qty: 10 0RF
morphine 15 mg Tablet Extended Release
15 mg PO Q12 Qty: 20 0RF
acetaminophen [Tylenol Extra Strength] 500 mg Tablet
1,000 mg PO TID Qty: 10 0RF
dexamethasone 2 mg tablet
2 mg PO BID Qty: 20 0RF
Continued
metformin 500 mg tablet
500 mg PO DAILY
ondansetron HCl 8 mg tablet
8 mg PO DAILY PRN (Reason: nausea)
prochlorperazine maleate 10 mg tablet
10 mg PO DAILY PRN (Reason: nausea)
pantoprazole 40 mg tablet,delayed release (DR/EC)
40 mg PO DAILY
Eliquis 5 mg tablet
2.5 mg BID
docusate sodium [Colace] 100 mg Capsule
100 mg PO BID
Discharge Orders:
Discharge Patient (As Directed); Ordered 07/11/25
Ordered By: Asa Hooker
Discharge Date and Time
Discharge Date/Time: 07/11/25 17:51
Print Language: LAO
== END 2025-07-11 17:51 | disposition home health service (06) | DRG 300 ==
LOC: 4 WEST ACU 22:18
PROVIDERS: General Practice; Hospitalist; Nurse Practitioner Gerontology; Physician Assistant; Specialist; ADMITTING PHYSICIAN Internal Medicine; ATTENDING PHYSICIAN Internal Medicine; CONSULT PHYSICIAN Internal Medicine; CONSULT PHYSICIAN Internal Medicine Cardiovascular Disease; CONSULT PHYSICIAN Internal Medicine Hematology & Oncology; CONSULT PHYSICIAN Internal Medicine Infectious Disease; CONSULT PHYSICIAN Physical Medicine & Rehabilitation; EMERGENCY PHYSICIAN Emergency Medicine; FAMILY PHYSICIAN Family Medicine
DX: I82.412 Acute embolism and thrombosis of left femoral vein (principal); C49.22 Malignant neoplasm of connective and soft tissue of left lower limb, including hip; D84.9 Immunodeficiency, unspecified; I5A Non-ischemic myocardial injury (non-traumatic); R78.81 Bacteremia; E22.2 Syndrome of inappropriate secretion of antidiuretic hormone; I87.2 Venous insufficiency (chronic) (peripheral); Z79.01 Long term (current) use of anticoagulants; E11.51 Type 2 diabetes mellitus with diabetic peripheral angiopathy without gangrene; E11.649 Type 2 diabetes mellitus with hypoglycemia without coma; I10 Essential (primary) hypertension; B95.1 Streptococcus, group B, as the cause of diseases classified elsewhere; D64.9 Anemia, unspecified; Z11.52 Encounter for screening for COVID-19; G89.3 Neoplasm related pain (acute) (chronic); D69.6 Thrombocytopenia, unspecified; Z75.1 Person awaiting admission to adequate facility elsewhere
CPT/HCPCS: 71275; 72193; 73701; 74177; 80048; 80053; 81003; 81015; 82550; 82607; 82728; 82746; 82947; 82962; 83010; 83540; 83550; 83615; 83735; 83880; 83930; 83935; 84300; 84443; 84484; 85025; 85027; 85045; 85610; 85730; 87040; 87070; 87086; 87154; 87205; 87502; 87811; 93005; 93306; 93356; 93971; 97110; 97116; 97162; 97167; 97530; 97535; 99285; Q9967